=== PATIENT | male | born 1945 | race Caucasian/White ===

== ENCOUNTER → 2016-11-29 | Outpatient (CLI) | payer MEDICARE, OTHER ==
[2016-11-30 09:09] LABS: PROSTATE SPECIFIC ANTIGEN 2.1 ng/mL (0.0-4.0); PSA FREE 0.84 ng/mL
== END ==
LOC: OD 08:19
PROVIDERS: ATTEND Urology
DX: R97.20 Elevated prostate specific antigen [PSA] (principal)
CPT/HCPCS: 36415; 84154

== ENCOUNTER → 2018-01-10 | Outpatient (CLI) | payer MEDICARE ==
[2018-01-11 08:07] LABS: PROSTATE SPECIFIC ANTIGEN 2.1 ng/mL (0.0-4.0); PSA % FREE 42.4 (.); PSA FREE 0.89 ng/mL
== END ==
LOC: OD 07:43
PROVIDERS: ATTEND Urology
DX: N40.1 Benign prostatic hyperplasia with lower urinary tract symptoms (principal)
CPT/HCPCS: 36415; 84154

== ENCOUNTER 2020-04-30 10:28 | Outpatient (CLI) | payer OTHER, MEDICARE ==
[~2020-04-30 10:28] MED LIST: METHYLPREDNISOLONE SOD SUCC 1,000 MG in DEXTROSE 5%-WATER 100 ML IV PRN
[2020-04-30 10:42] VITALS: BP 145/87
== END 2020-04-30 12:01 | disposition home or self-care (01) ==
LOC: II 10:28 → 5TH 10:33 → II 12:01
PROVIDERS: ATTEND Internal Medicine Nephrology
DX: N05.9 Unspecified nephritic syndrome with unspecified morphologic changes (principal); N17.9 Acute kidney failure, unspecified
CPT/HCPCS: 96365; J2930; J7060

== ENCOUNTER 2020-05-01 07:56 | Outpatient (CLI) | payer MEDICARE, OTHER ==
[~2020-05-01 07:56] MED LIST changes: +ACETAMINOPHEN 325 MG TABLET PO PRN; +DIPHENHYDRAMINE HCL 50 MG in NORMAL SALINE 50 ML IV PRN; +RITUXIMAB 1,000 MG in NORMAL SALINE 500 ML IV PRN
[2020-05-01 08:06] VITALS: BP 155/72
== END 2020-05-01 14:45 | disposition home or self-care (01) ==
LOC: 5TH 07:56 → II 07:56
PROVIDERS: ATTEND Internal Medicine Nephrology
DX: N01.7 Rapidly progressive nephritic syndrome with diffuse crescentic glomerulonephritis (principal); N17.8 Other acute kidney failure; M31.8 Other specified necrotizing vasculopathies; N08 Glomerular disorders in diseases classified elsewhere
CPT/HCPCS: 96413; 96415; 96367; A9270; J1200; J2930; J7060; J7040; J9312

== ENCOUNTER 2020-05-02 09:30 | Outpatient (CLI) | payer OTHER, MEDICARE ==
[~2020-05-02 09:30] MED LIST changes: -ACETAMINOPHEN 325 MG TABLET PO PRN; -DIPHENHYDRAMINE HCL 50 MG in NORMAL SALINE 50 ML IV PRN; -RITUXIMAB 1,000 MG in NORMAL SALINE 500 ML IV PRN
[2020-05-02 10:10] VITALS: BP 128/78
== END 2020-05-02 11:15 | disposition home or self-care (01) ==
LOC: II 09:30 → 5TH 10:02 → II 11:15
PROVIDERS: ATTEND Internal Medicine Nephrology
DX: N05.9 Unspecified nephritic syndrome with unspecified morphologic changes (principal); N17.9 Acute kidney failure, unspecified
CPT/HCPCS: 96365; J2930; J7060

== ENCOUNTER 2020-05-15 08:49 | Outpatient (CLI) | payer MEDICARE, OTHER ==
[~2020-05-15 08:49] MED LIST changes: +ACETAMINOPHEN 325 MG TABLET PO PRN; +DIPHENHYDRAMINE HCL 50 MG in NORMAL SALINE 50 ML IV PRN; +DIPHENHYDRAMINE HCL 50 MG/ML VIAL IV PRN; -METHYLPREDNISOLONE SOD SUCC 1,000 MG in DEXTROSE 5%-WATER 100 ML IV PRN; +RITUXIMAB 1,000 MG in NORMAL SALINE 500 ML IV PRN
[2020-05-15 09:00] VITALS: BP 142/65
[2020-05-15] MEDS ORDERED: METHYLPREDNISOLONE INJ 125 MG/2 ML SDV IV ONE (15:00)
== END 2020-05-15 15:40 | disposition home or self-care (01) ==
LOC: II 08:49 → 5TH 09:16 → II 15:40
PROVIDERS: ATTEND Internal Medicine Nephrology
DX: N05.9 Unspecified nephritic syndrome with unspecified morphologic changes (principal); N17.9 Acute kidney failure, unspecified; N08 Glomerular disorders in diseases classified elsewhere
CPT/HCPCS: 96413; 96415; 96367; 96375; A9270; J1200; J2930; J7040; J9312

== ENCOUNTER 2020-05-30 13:27 | Inpatient (IN) | payer MEDICARE ==
[2020-05-30] MEDS ORDERED: MIDAZOLAM 2 MG/2 ML INJ IV ONE ×2 (13:42→13:53)
[2020-05-30] MEDS ORDERED: ENOXAPARIN SODIUM INJ 60 MG/0.6 ML DISP.SYRIN SUBCUT ONE (14:00)
[2020-05-30 14:05] LABS: ABSOLUTE EOSINOPHILS # (AUTO) 0.6 10^3/uL (0.0-0.6); ABSOLUTE LYMPHOCYTES (AUTO) 1.1 10^3/uL (0.5-4.7); ABSOLUTE MONOCYTES (AUTO) 0.6 10^3/uL (0.1-1.4); ABSOLUTE NEUT (AUTO) 12.2 10^3/uL (1.7-8.2); BASOPHILS % (AUTO) 0.1 % (0-2); EOSINOPHILS % (AUTO) 3.9 % (0-6); HEMATOCRIT 34.7 % (37.9-51.0); HEMOGLOBIN 11.3 g/dL (13.5-17.0); LYMPHOCYTES % (AUTO) 7.5 % (13-45); MEAN CORPUSCULAR HEMOGLOBIN 30.9 pg (27.0-33.4); MEAN CORPUSCULAR HGB CONC 32.7 g/dL (32.0-36.0); MEAN CORPUSCULAR VOLUME 94 fl (80-97); PLATELET COUNT 135 10^3/uL (150-450); RED BLOOD COUNT 3.67 10^6/uL (4.35-5.55); RED CELL DISTRIBUTION WIDTH 22.8 % (11.5-14.0); SEGMENTED NEUTROPHILS % (AUTO) 84.5 % (42-78); TOTAL CELLS COUNTED % (AUTO) 100 %; WHITE BLOOD COUNT 14.4 10^3/uL (4.0-10.5)
--- NOTE | 2020-05-30 14:07 | ER Document Report ---
ED General - General Chief Complaint: Chest Pain Stated Complaint: CHEST PAIN Time Seen by Provider: 05/30/20 13:42 TRAVEL OUTSIDE OF THE [place] IN LAST 30 DAYS: No - HPI Notes: Patient is a 75-year-old male, history of end-stage renal disease, who received dialysis this morning, who presents to the emergency department for evaluation of elevated heart rate and chest pain. He has been having elevated heart rates over the last few weeks. The patient is not a very good historian. He cannot tell me how frequently he is getting these episodes, but states it is not daily. He really cannot tell me how long these episodes last. Today he had some chest tightness and heaviness, occasionally has some left arm tingling with it. He actually has his first appointment with cardiology on Tuesday in regards to this. He states his heart rates have been as high as the 180s. When he gets chest pain with that he does feel somewhat short of breath. He had chest tightness with this earlier. EMS was called. He was given 3 doses of adenosine, a bolus of Cardizem, then started on a drip. His heart rate responded briefly then came back into the 180s. He states he does not have any chest tightness at this time. At this point patient's blood pressure starting to drop. I am concerned he is unstable. Patient notes he was started on steroids and an antibiotic recently. He really cannot tell me why. - Related Data Allergies/Adverse Reactions: sulfamethoxazole [From Bactrim] Allergy (Intermediate, Verified 05/30/20 13:58) trimethoprim [From Bactrim] Allergy (Intermediate, Verified 05/30/20 13:58) amoxicillin [From Augmentin] Allergy (Verified 05/30/20 13:58) clavulanic acid [From Augmentin] Allergy (Verified 05/30/20 13:58) Home Medications: Dapsone, prednisone, Flomax Past Medical History - General Information source: Patient - Social History Smoking Status: Former Smoker Chew tobacco use (# tins/day): Yes Family History: Reviewed & Not Pertinent - Past Medical History Cardiac Medical History: Pulmonary Medical History: Reports: Hx Sleep Apnea - cpap-to bring Neurological Medical History: Renal/ Medical History: Reports: Hx Benign Prostatic Hyperplasia, Hx End Stage Renal Disease GI Medical History: Reports: Hx Gastroesophageal Reflux Disease - on meds. D enies: Hx Pancreatitis Musculoskeletal Medical History: Reports Hx Arthritis - knees bilaterally Past Surgical History: Reports: Hx Orthopedic Surgery - right rotator cuff - Immunizations Hx Diphtheria, Pertussis, Tetanus Vaccination: No Hx Pneumococcal Vaccination: 10/21/15 Review of Systems - Review of Systems Cardiovascular: See HPI Respiratory: See HPI Neurological/Psychological: See HPI -: Yes All other systems reviewed and negative Physical Exam - Vital signs Vitals: Temp Pulse Resp BP Pulse Ox 98.6 F 181 H 20 113/69 95 05/30/20 13:58 05/30/20 13:58 05/30/20 13:58 05/30/20 13:58 05/30/20 13:58 - Notes Notes: Vital signs reviewed, please refer to chart. Head is normocephalic, atraumatic. Pupils equal round, reactive to light. Neck is supple without meningismus. Heart is markedly tachycardic. It varies from regular to irregular. Lungs are clear to auscultation bilaterally. Abdomen is soft, nontender, normoactive bowel sounds throughout. Extremities without cyanosis, clubbing. Posterior calves are nontender. Peripheral pulses are equal. Skin is warm and dry. Patient is awake, alert, neurological exam is nonfocal. Course - Re-evaluation Re-evalutation: 05/30/20 14:05 Patient presents to the emergency department for evaluation. He was initially having chest pain and rapid heart rate. He has been given multiple medications without significant relief, his heart rate remained in the 180s. Given his comorbidities and his chest tightness, as well as mildly dropping blood pressure, I do consider this unstable. Decision was made to cardiovert. Please see separate procedure note. Patient tolerated this well. He is currently in sinus rhythm. I did order Lovenox. Awaiting lab work, we will continue to mo nitor. 05/30/20 16:24 Patient remained stable throughout the course of his stay. With any sort of m ovement, however, he would go back into atrial fibrillation. Heart rate would intermittently be rapid. With rest, the patient would trend back into sinus mechanism. His heart rate would slow back into the 90s. I spoke with Dr. Gonzalez, who asks that we discussed this patient with cardiology. I spoke about this patient with Dr. Lowery, and formal consultation was made. He agreed that observation was appropriate. He states that medical management would be most appropriate, asked that the patient be started on metoprolol orally. First dose is ordered here in the emergency department. Patient is stable, we will place him on observation to [facility] for further care. - Vital Signs Vital signs: Temp Pulse Resp BP Pulse Ox 97.5 F 53 L 20 147/82 H 96 06/02/20 11:35 06/02/20 14:00 06/02/20 11:35 06/02/20 11:35 06/02/20 11:35 - Laboratory Result Diagrams: 06/02/20 04:58 06/02/20 04:58 Laboratory results interpreted by me: 05/30/20 05/30/20 05/30/20 13:48 13:48 13:48 WBC 14.4 H RBC 3.67 L Hgb 11.3 L Hct 34.7 L RDW 22.8 H Plt Count 135 L Lymph % (Auto) 7.5 L Mcnairy % (Auto) Absolute Neuts (auto) 12.2 H Seg Neutrophils % 84.5 H PT APTT 23.1 L Sodium 132.6 L BUN 36 H Creatinine 3.58 H Est GFR ( Amer) 20 L Est GFR (MDRD) Non-Af 17 L Calcium 7.2 L Phosphorus Magnesium Creatine Kinase 52 L Total Protein 6.1 L Albumin 3.1 L PTH Intact Urine Protein Urine Blood Ur Leukocyte Esterase 05/30/20 05/31/20 05/31/20 19:21 06:37 06:37 WBC RBC Hgb Hct RDW Plt Count Lymph % (Auto) Mcnairy % (Auto) Absolute Neuts (auto) Seg Neutrophils % PT APTT Sodium 133.5 L BUN 46 H Creatinine 4.63 H Est GFR ( Amer) 15 L Est GFR (MDRD) Non-Af 12 L Calcium 7.7 L Phosphorus 4.9 H Magnesium 1.5 L Creatine Kinase Total Protein 5.5 L Albumin 2.7 L PTH Intact 364.6 H Urine Protein 100 H Urine Blood MODERATE H Ur Leukocyte Esterase LARGE H 05/31/20 05/31/20 05/31/20 06:37 12:40 12:40 WBC 10.6 H 11.1 H RBC 3.26 L 3.46 L Hgb 10.0 L 10.5 L Hct 30.4 L 32.9 L RDW 22.6 H 22.9 H Plt Count 128 L 141 L Lymph % (Auto) 7.6 L Mcnairy % (Auto) 2.9 L Absolute Neuts (auto) 9.8 H Seg Neutrophils % 88.6 H PT 16.5 H APTT Sodium BUN Creatinine Est GFR ( Amer) Est GFR (MDRD) Non-Af Calcium Phosphorus Magnesium Creatine Kinase Total Protein Albumin PTH Intact Urine Protein Urine Blood Ur Leukocyte Esterase - Diagnostic Test Radiology reviewed: Reports reviewed Radiology results interpreted by me: 05/30/20 16:26 Chest X-Ray 05/30/20 13:31 IMPRESSION: The tip of the tunneled right IJ hemodialysis catheter projects within the SVC. There is no acute cardiopulmonary process. - EKG Interpretation by Me Additional EKG results interpreted by me: 05/30/20 14:08 Initial EKG reveals SVT with a rate of 182 bpm. Normal axis. Inferolateral ST depression, likely secondary to rate. Repeat EKG performed after cardioversion. Sinus tachycardia with a rate of 111 bpm. Occasional PVC, PAC. Nonspecific ST changes, but no acute ST elevation concerning for infarction. Improved ST depression. Procedures - Additional Procedures Cardioversion/Defib Time performed: 14:00 Additional Procedures: Cardioversion/defib Notes: 05/30/20 14:07 Indication for procedure: Rapid atrial fibrillation/SVT in the presence of chest pain and dropping blood pressure The procedure was explained in great detail. I explained to the patient he would be receiving IV Versed for sedation, then have a cardioversion. Complications, including but not limited to respiratory arrest, cardiac arrest, pain, were expressed. Alternatives were discussed. The patient voiced understanding. Written consent was not obtained secondary to medical urgency. Patient had no questions and verbally consented to the procedure. He was administered 2 mg of IV Versed. Once adequate analgesia was achieved, patient had synchronized cardioversion at 100 J. Patient had a heart rate that went from 180 into the 110 range. Sinus mechanism. He is currently stable. No complications. Critical Care Note - Critical Care Note Total time excluding time spent on procedures (mins): 45 Discharge - Discharge Clinical Impression: Chest pain, SVT (supraventricular tachycardia), Paroxysmal atrial fibrillation Condition: Stable Disposition: ADMITTED OBSERVATION Admitting Provider: Carlos (Hospitalist) Unit Admitted: [facility]
[2020-05-30 14:21] LABS: ALBUMIN 3.1 g/dL (3.5-5.0); ALKALINE PHOSPHATASE 59 U/L (38-126); ANION GAP 7 (5-19); ASPARTATE AMINO TRANSFERASE 31 U/L (17-59); BILIRUBIN,DIRECT 0.1 mg/dL (0.0-0.4); BILIRUBIN,TOTAL 0.9 mg/dL (0.2-1.3); BLOOD UREA NITROGEN 36 mg/dL (7-20); CALCIUM 7.2 mg/dL (8.4-10.2); CARBON DIOXIDE 25 mmol/L (22-30); CHLORIDE 101 mmol/L (98-107); CREATINE KINASE 52 U/L (55-170); GLUCOSE 78 mg/dL (75-110); POTASSIUM 4.3 mmol/L (3.6-5.0); TOTAL PROTEIN 6.1 g/dL (6.3-8.2)
[2020-05-30 14:26] LABS: INTERNATIONAL RATION (INR) 0.97; PROTHROMBIN TIME 12.9 SEC (11.4-15.4)
[2020-05-30 14:27] LABS: PARTIAL THROMBOPLASTIN TIME 23.1 SEC (23.5-35.8)
--- NOTE | 2020-05-30 14:28 | RADIOLOGY REPORT (SQ) ---
EXAM DESCRIPTION: CHEST SINGLE VIEW IMAGES COMPLETED DATE/TIME: 05/30/2020 2:17 pm REASON FOR STUDY: chest pain COMPARISON: AP view of the chest from 07/16/2016. EXAM PARAMETERS: NUMBER OF VIEWS: One view. TECHNIQUE: An AP view of the chest was obtained. RADIATION DOSE: NA LIMITATIONS: None. FINDINGS: LUNGS AND PLEURA: No consolidation, pleural effusion or pneumothorax. MEDIASTINUM AND HILAR STRUCTURES: No mediastinal or hilar contour abnormality. HEART AND VASCULAR STRUCTURES: The cardiac silhouette and pulmonary vasculature are within normal willett its. BONES: No acute findings. HARDWARE: The tip of the tunneled right IJ hemodialysis catheter projects within the SVC. OTHER: No other finding. IMPRESSION: The tip of the tunneled right IJ hemodialysis catheter projects within the SVC. There i s no acute cardiopulmonary process. TECHNICAL DOCUMENTATION: JOB ID: [id number] 2010 [employer]- All Rights Reserved Reading location - IP/workstation name: [email or web address]
[2020-05-30 14:33] LABS: CREATINE KINASE MB 3.47 ng/mL (<4.55)
[2020-05-30 14:36] LABS: TROPONIN I 0.204 ng/mL
[2020-05-30] MEDS ORDERED: METOPROLOL TARTRATE 25 MG TABLET PO ONE (16:23)
[2020-05-30] MEDS ORDERED: ONDANSETRON HCL INJ/PF 4 MG/2 ML SDV IV PRN (18:05)
[2020-05-30] MEDS ORDERED: ACETAMINOPHEN 325 MG TABLET PO PRN (18:05)
[2020-05-30] MEDS ORDERED: MAG HYDROX/AL HYDROX/SIMETH SUSP 30 ML UDCUP PO PRN (18:05)
[2020-05-30] MEDS ORDERED: CALCIUM GLUCONATE 1000 MG/10 ML INJ IV ONE (18:20)
--- NOTE | 2020-05-30 18:35 | EKG REPORT ---
SEVERITY:- ABNORMAL ECG - SINUS TACHYCARDIA VENTRICULAR TRIGEMINY NONSPECIFIC REPOL ABNORMALITY, DIFFUSE LEADS : Confirmed by: James Alvarez MD 30-May-2020 18:34:38
--- NOTE | 2020-05-30 18:36 | EKG REPORT ---
SEVERITY:- ABNORMAL ECG - SUPRAVENTRICULAR TACHYCARDIA = A FLUTTER WITH RVR ST DEPRESSION, PROBABLY RATE RELATED : Confirmed by: James Alvarez MD 30-May-2020 18:35:45
--- NOTE | 2020-05-30 18:51 | PDOC H&P ---
History of Present Illness Admission Date/PCP: 05/30/20 17:08 EDIN GRACE MD Patient complains of: palpitations and chest pain History of Present Illness: MARJAN SANTIZO is a 75 year old male with recent hx of ESRD just started on HD via permacath 2 months ago, presents to the hospital with palpitations and chest pain. His symptoms started while he was at dialysis. He received a full session of dialysis during which his heart rate was bouncing between 80s and 180s. He denies any fevers chills. After dialysis, his heart rate stayed persistently in the 180s and he developed chest pain some shortness of breath. EMS was called who administered adenosine about 2-3 times in the field without improvement of patient's heart rate. He was subsequently given Cardizem and placed on a Cardizem drip. On arrival in the ER, patient's heart rate was still in the 180s in SVT and he had to be cardioverted. After cardioversion his heart rate to has been maintaining normal sinus rhythm but occasionally bounces back up into the 130s briefly comes back down. Patient's chest pain at this time has resolved. Patient states that these episodes of tachycardia have been occurring only since he started dialysis. Denies any prior history of atrial fibrillation or heart disease. Past Medical History Cardiac Medical History: Reports: None Pulmonary Medical History: Reports: Sleep Apnea - cpap-to bring Neurological Medical History: Renal/ Medical History: Reports: End Stage Renal Disease GI Medical History: Reports: Gastroesophageal Reflux Disease - on meds Musculoskeltal Medical History: Reports: Arthritis - knees bilaterally Hematology: Past Surgical History Past Surgical History: Reports: Orthopedic Surgery - right rotator cuff Social History Information Source: Patient Smoking Status: Former Smoker Frequency of Alcohol Use: None Hx Recreational Drug Use: No Drugs: None Hx Prescription Drug Abuse: No - Advance Directive Resuscitation Status: Full Code Family History Family History: Hypertension Parental Family History Reviewed: Yes Children Family History Reviewed: Unknown Sibling(s) Family History Reviewed.: Unknown Medication/Allergy Home Medications: Omeprazole [Prilosec] 20 mg PO DAILY 01/20/16 Dapsone [Dapsone 25 mg Tablet] 50 mg PO BID 05/30/20 Prednisone [Deltasone 20 mg Tablet] 60 mg PO DAILY 05/30/20 Tamsulosin HCl [Flomax 0.4 mg Cap.sr] 0.4 mg PO QPM 05/30/20 Allergies/Adverse Reactions: sulfamethoxazole [From Bactrim] Allergy (Intermediate, Verified 05/30/20 13:58) trimethoprim [From Bactrim] Allergy (Intermediate, Verified 05/30/20 13:58) amoxicillin [From Augmentin] Allergy (Verified 05/30/20 13:58) clavulanic acid [From Augmentin] Allergy (Verified 05/30/20 13:58) Review of Systems Constitutional: ABSENT: chills, fever(s) Eyes: ABSENT: visual disturbances Nose, Mouth, and Throat: ABSENT: headache(s) Cardiovascular: PRESENT: as per HPI. ABSENT: orthropnea Respiratory: PRESENT: dyspnea. ABSENT: cough Gastrointestinal: ABSENT: abdominal pain, nausea, vomiting Genitourinary: ABSENT: dysuria Integumentary: ABSENT: diaphoresis Neurological: ABSENT: confusion Psychiatric: ABSENT: anxiety Endocrine: ABSENT: polyuria Physical Exam Vital Signs: Temp Pulse Resp BP Pulse Ox 98.6 F 181 H 14 117/72 94 05/30/20 13:58 05/30/20 13:58 05/30/20 15:01 05/30/20 15:00 05/30/20 15:01 Intake & Output 05/29/20 05/30/20 05/31/20 06:59 06:59 06:59 Weight 94.5 kg General appearance: PRESENT: no acute distress, cooperative Head exam: PRESENT: normocephalic Mouth exam: PRESENT: neck supple Neck exam: ABSENT: JVD Respiratory exam: PRESENT: clear to auscultation taiwo, symmetrical, unlabored. A BSENT: tachypnea, wheezes Cardiovascular exam: PRESENT: irregular rhythm, rubs, +S2. ABSENT: systolic murmur, tachycardia GI/Abdominal exam: PRESENT: soft. ABSENT: rebound, rigid, tenderness Extremities exam: ABSENT: calf tenderness Neurological exam: PRESENT: alert, awake, oriented to person, oriented to place, oriented to time Psychiatric exam: ABSENT: agitated, anxious Skin exam: ABSENT: jaundice Results Laboratory Results: 05/30/20 13:48 05/30/20 13:48 05/30/20 05/30/20 13:48 13:48 WBC 14.4 H RBC 3.67 L Hgb 11.3 L Hct 34.7 L MCV 94 MCH 30.9 MCHC 32.7 RDW 22.8 H Plt Count 135 L Seg Neutrophils % 84.5 H Sodium 132.6 L Potassium 4.3 Chloride 101 Carbon Dioxide 25 Anion Gap 7 BUN 36 H Creatinine 3.58 H Est GFR ( Amer) 20 L Glucose 78 Calcium 7.2 L Total Bilirubin 0.9 AST 31 Alkaline Phosphatase 59 Total Protein 6.1 L Albumin 3.1 L 05/30/20 05/30/20 13:48 13:48 Creatine Kinase 52 L CK-MB (CK-2) 3.47 Troponin I 0.204 Impressions: Chest X-Ray 05/30/20 13:31 IMPRESSION: The tip of the tunneled right IJ hemodialysis catheter projects within the SVC. There is no acute cardiopulmonary process. Assessment and Plan - Diagnosis (1) SVT (supraventricular tachycardia) Is this a current diagnosis for this admission?: Yes Plan: EKG of events shows SVT in the 180s. Patient was cardioverted in the ER following failure of rate control with Cardizem, and adenosine boluses. EKG following cardioversion showed normal sinus rhythm but with very frequent PACs. Patient stated intermittent episodes of palpitations occurred since initiation of dialysis within the past 2 months. Electrolytes only remarkable for mild hypocalcemia with corrected calcium of 7.8--Will replete calcium Check magnesium and CMP in the morning. Check TSH. Check echo. As patient was cardioverted, I will place patient on Eliquis for short-term. Lopressor 50 mg every 12. IV Lopressor as needed. I have reviewed chest x-ray image and it appears to me that patient's permacath tip is somewhere between the edge of the SVC and the very beginning of the right atrium. I seriously wonder if this may be playing a contributory role in provoking patient's frequent PACs. I will discuss with surgery in the morning about potentially replacing his permacath with a shorter tube. (2) Chest pain Is this a current diagnosis for this admission?: Yes Plan: Likely secondary to patient's tachycardia. Currently resolved. EKG does not seem to show any overt ischemic changes. Repeat troponin level pending. (3) ESRD (end stage renal disease) on dialysis Is this a current diagnosis for this admission?: Yes Plan: Recently started on dialysis within the past 2 months. Gets dialyzed via permac ath. Tuesday. Received full session of dialysis today. Dialysis diet. (4) Hypocalcemia Is this a current diagnosis for this admission?: Yes Plan: Corrected calcium is 7.8. Give a dose of calcium gluconate now. Check levels in the morning. Likely secondary to ESRD. Will check PTH and vitamin D levels as well. May benefit from calcitriol. (5) Elevated troponin Is this a current diagnosis for this admission?: Yes Plan: Likely secondary to patient's ESRD and/or tachyarrhythmia. Will monitor. Repeat level pending. (6) Leukocytosis Is this a current diagnosis for this admission?: Yes Plan: Patient's does not seem to have any complaints indicative of any particular infection. Chest x-ray negative for infection. Check urinalysis and urine culture. I will repeat CBC in the morning to see if resolution. Leukocytosis could be stress-induced. - Time Time Spent with patient: 35 or more minutes
[2020-05-30] MEDS ORDERED: METOPROLOL TARTRATE PF/INJ 5 MG/5 ML SDV IV PRN (19:34)
--- NOTE | 2020-05-30 19:51 | XCELERA REPORT ---
[address] [address] Transthoracic Echocardiogram Report Name: MARJAN SANTIZO Age: 75 yrs Gender: Male : 1945 Patient Status: Inpatient Patient Location: [address] Study Date: 05/30/2020 06:42 PM Height: 72 in Weight: 208 lb BSA: 2.2 m2 Procedure: A complete two-dimensional transthoracic echocardiogram was performed (2D, M-mode, spectral and color flow Doppler). The study was technically limited with all images being suboptimal in quality. Images from the parasternal window were difficult to obtain and are suboptimal in quality. Reason For Study: Supraventricular tachycardia (Sebastián to read) Ordering Physician: REYNA CUADRA Performed By: Gabrielle Stoddard Interpretation Summary Technically limited study. The left ventricle is grossly normal size. Left ventricular systolic function is normal. The Ejection Fraction estimate is 55-60%. Normal diastolic function. Regional wall motion abnormalities cannot be excluded due to limited visualization. Mild MAC without stenosis. Trace to mild MR, trace TR, mild PI. MMode/2D Measurements & Calculations RVDd: 3.2 cm LVIDd: 5.1 cm FS: 32.1 % Ao root diam: 3.6 cm IVSd: 1.0 cm LVIDs: 3.5 cm EDV(Teich): 124.4 ml Ao root area: 10.4 cm2 LVPWd: 0.95 cm ESV(Teich): 49.9 ml LA dimension: 3.1 cm EF(Teich): 59.9 % Doppler Measurements & Calculations MV E max bautista: MV P1/2t max bautista: Ao V2 max: LV V1 max P.6 cm/sec 78.9 cm/sec 104.4 cm/sec 2.8 mmHg MV A max bautista: MV P1/2t: 64.4 msec Ao max P.4 mmHg LV V1 max: 43.5 cm/sec MVA(P1/2t): 3.4 cm2 83.3 cm/sec MV E/A: 1.6 MV dec slope: 358.9 cm/sec2 MV dec time: 0.20 sec PA V2 max: PI end-d bautista: MV P1/2t-pr_phl: 72.8 cm/sec 167.2 cm/sec 64.4 msec PA max P.1 mmHg Left Ventricle The left ventricle is grossly normal size. Left ventricular systolic function is normal. The Ejection Fraction estimate is 55-60%. Doppler measurements suggest normal left ventricular diastolic function. Regional wall motion abnormalities cannot be excluded due to limited visualization. Right Ventricle The right ventricle is grossly normal size. The right ventricular systolic function is normal. Atria The right atrium is normal. The left atrial size is normal. The interatrial septum is difficult to see, but appears to be grossly normal. Mitral Valve There is mild mitral leaflet calcification. There is no evidence of mitral valve prolapse. There is no mitral valve stenosis. There is a trace to mild amount of mitral regurgitation. Aortic Valve The aortic valve is grossly normal. There is no aortic valve stenosis. No aortic regurgitation is present. Tricuspid Valve The tricuspid valve is not well visualized, but is grossly normal. There is no tricuspid valve prolapse. There is no tricuspid stenosis. There is a trace amount of tricuspid regurgitation. Pulmonic Valve The pulmonic valve is not well seen, but is grossly normal. There is no pulmonic valvular stenosis. There is a mild amount of pulmonic regurgitation. Effusions There is no pericardial effusion. There is no pleural effusion. : REYNA CUADRA Antonio
[2020-05-30 21:04] LABS: APPEARANCE,URINE SLIGHTLY-CLOUDY; BILIRUBIN,URINE NEGATIVE (NEGATIVE); COLOR,URINE YELLOW; GLUCOSE, URINE NEGATIVE (NEGATIVE); KETONES,URINE NEGATIVE (NEGATIVE); LEUKOCYTE ESTERASE,URINE LARGE (NEGATIVE); NITRITE,URINE NEGATIVE (NEGATIVE); PROTEIN,URINE 100 mg/dL (NEGATIVE); URINE SPECIFIC GRAVITY 1.008; UROBILINOGEN,URINE NEGATIVE mg/dL (<2.0)
[2020-05-30] MEDS: FAMOTIDINE INJ/PF 20 MG/2 ML SDV IV SCH (23:02)
[2020-05-30] MEDS: APIXABAN 5 MG TABLET PO SCH (23:02)
[2020-05-30] MEDS: METOPROLOL TARTRATE 50 MG TABLET PO SCH (23:02)
[2020-05-31 06:51] LABS: HEMATOCRIT 30.4 % (37.9-51.0); MEAN CORPUSCULAR HEMOGLOBIN 30.6 pg (27.0-33.4); MEAN CORPUSCULAR HGB CONC 32.7 g/dL (32.0-36.0); MEAN CORPUSCULAR VOLUME 93 fl (80-97); PLATELET COUNT 128 10^3/uL (150-450); RED BLOOD COUNT 3.26 10^6/uL (4.35-5.55); RED CELL DISTRIBUTION WIDTH 22.6 % (11.5-14.0); WHITE BLOOD COUNT 10.6 10^3/uL (4.0-10.5)
[2020-05-31 07:12] LABS: ALBUMIN 2.7 g/dL (3.5-5.0); ALKALINE PHOSPHATASE 52 U/L (38-126); ANION GAP 8 (5-19); ASPARTATE AMINO TRANSFERASE 26 U/L (17-59); BILIRUBIN,TOTAL 0.7 mg/dL (0.2-1.3); BLOOD UREA NITROGEN 46 mg/dL (7-20); CALCIUM 7.7 mg/dL (8.4-10.2); CARBON DIOXIDE 23 mmol/L (22-30); CHLORIDE 103 mmol/L (98-107); GLUCOSE 88 mg/dL (75-110); PHOSPHORUS 4.9 mg/dL (2.5-4.5); POTASSIUM 4.7 mmol/L (3.6-5.0); TOTAL PROTEIN 5.5 g/dL (6.3-8.2)
[2020-05-31 07:38] LABS: FREE T4 (FREE THYROXINE) 0.8 ng/dL (0.78-2.19)
[2020-05-31 07:53] LABS: THYROID STIMULATING HORMONE 2.63 uIU/mL (0.47-4.68)
[2020-05-31] MEDS ORDERED: MAGNESIUM OXIDE 400 MG TABLET PO ONE (08:29)
--- NOTE | 2020-05-31 08:50 | PDOC CONSULTATION ---
Consultation Consult Date: 05/31/20 Attending physician:: REYNA CUADRA Provider Consulted: JILLIAN SUERO Consult reason:: Chest pain, SVT. History of Present Illness Admission Date/PCP: 05/30/20 17:08 EDIN GRACE MD History of Present Illness: MARJAN SANTIZO is a 75 year old male with recent hx of ESRD on dialysis 2 months ago, no known cardiovascular history, remote tobacco use but the patient quit more than 25 years ago who is consulted to our service for evaluation of SVT and atrial fibrillation. The patient initially presented to the emergency room with palpitations and chest pain while receiving dialysis. During dialysis it was noted that his heart rate was bouncing between 80s and 180s. After dialysis, his heart rate stayed persistently in the 180s and he developed chest pain some shortness of breath. EMS was called who administered adenosine about 2-3 times in the field without improvement of patient's heart rate. He was subsequently given Cardizem and placed on a Cardizem drip. On arrival in the ER, patient's heart rate was still in the 180s in SVT and he had to be cardioverted. This morning the patient is found laying flat in his bed and without recurrence of index symptoms. His telemetry shows normal sinus rhythm with brief episodes of SVT. His troponin had been 0.20, 0.52 and 0.439. Physical exam on 05/31/2020: GENERAL: Pleasant and conversational. Oriented x3 with normal mood. Not in acute distress. Well groomed and well developed. HEENT: Normocephalic, atraumatic. Pupils equal. Sclerae anicteric. Orophary nx moist. NECK: No JVD. No carotid bruits. LUNGS: Clear to auscultation bilaterally. Normal respiratory effort without the use of accessory muscles or intercostal retractions. CARDIOVASCULAR: Regular rate and rhythm, normal S1 and S2 without murmurs, rubs, or gallops. PMI not displaced. ABDOMEN: No masses or tenderness to palpation. No bruit. No splenomegaly or hepatomegaly. No abdominal aorta bruit noted. EXTREMITIES: No edema, no cyanosis, no clubbing. +2 pulses femoral and pedal pulses bilaterally. SKIN: No lesions or rashes. MUSCULOSKELETAL: No chest tenderness to palpation. NEUROLOGIC: Nonfocal. No gross sensory or motor deficits bilateral upper or lower extremities. Past Medical History Cardiac Medical History: Reports: None Pulmonary Medical History: Reports: Sleep Apnea - cpap-to bring Neurological Medical History: Renal/ Medical History: Reports: End Stage Renal Disease GI Medical History: Reports: Gastroesophageal Reflux Disease - on meds Musculoskeltal Medical History: Reports: Arthritis - knees bilaterally Psychiatric Medical History: Denies: Depression Hematology: Past Surgical History Past Surgical History: Reports: Orthopedic Surgery - right rotator cuff Social History Smoking Status: Never Smoker Frequency of Alcohol Use: None Hx Recreational Drug Use: No Drugs: None Hx Prescription Drug Abuse: No - Advance Directive Resuscitation Status: Full Code Family History Family History: Hypertension Parental Family History Reviewed: Yes Children Family History Reviewed: Yes Sibling(s) Family History Reviewed.: Yes Medication/Allergy Home Medications: Omeprazole [Prilosec] 20 mg PO DAILY 01/20/16 Dapsone [Dapsone 25 mg Tablet] 50 mg PO BID 05/30/20 Prednisone [Deltasone 20 mg Tablet] 60 mg PO DAILY 05/30/20 Tamsulosin HCl [Flomax 0.4 mg Cap.sr] 0.4 mg PO QPM 05/30/20 Allergies/Adverse Reactions: sulfamethoxazole [From Bactrim] Allergy (Intermediate, Verified 05/30/20 13:58) trimethoprim [From Bactrim] Allergy (Intermediate, Verified 05/30/20 13:58) amoxicillin [From Augmentin] Allergy (Verified 05/30/20 13:58) clavulanic acid [From Augmentin] Allergy (Verified 05/30/20 13:58) Physical Exam Vital Signs: Temp Pulse Resp BP Pulse Ox 99.0 F 89 16 127/78 H 93 05/31/20 04:12 05/31/20 04:12 05/31/20 04:12 05/31/20 04:12 05/31/20 04:12 Intake & Output 05/29/20 05/30/20 05/31/20 06:59 06:59 06:59 Intake Total 260 Output Total 360 Balance -100 Weight 88.8 kg Results Laboratory Results: 05/31/20 06:37 05/30/20 05/30/20 05/30/20 13:48 13:48 19:21 WBC 14.4 H RBC 3.67 L Hgb 11.3 L Hct 34.7 L MCV 94 MCH 30.9 MCHC 32.7 RDW 22.8 H Plt Count 135 L Seg Neutrophils % 84.5 H Sodium 132.6 L Potassium 4.3 Chloride 101 Carbon Dioxide 25 Anion Gap 7 BUN 36 H Creatinine 3.58 H Est GFR ( Amer) 20 L Glucose 78 Calcium 7.2 L Total Bilirubin 0.9 AST 31 Alkaline Phosphatase 59 Total Protein 6.1 L Albumin 3.1 L Urine Color YELLOW Urine Appearance SLIGHTLY-CLOUDY Urine pH 7.0 Ur Specific [place] 1.008 Urine Protein 100 H Urine Glucose (UA) NEGATIVE Urine Ketones NEGATIVE Urine Blood MODERATE H Urine Nitrite NEGATIVE Ur Leukocyte Esterase LARGE H Urine WBC (Auto) >182 Urine RBC (Auto) 10 05/31/20 06:37 WBC 10.6 H RBC 3.26 L Hgb 10.0 L Hct 30.4 L MCV 93 MCH 30.6 MCHC 32.7 RDW 22.6 H Plt Count 128 L Seg Neutrophils % Sodium Potassium Chloride Carbon Dioxide Anion Gap BUN Creatinine Est GFR ( Amer) Glucose Calcium Total Bilirubin AST Alkaline Phosphatase Total Protein Albumin Urine Color Urine Appearance Urine pH Ur Specific [place] Urine Protein Urine Glucose (UA) Urine Ketones Urine Blood Urine Nitrite Ur Leukocyte Esterase Urine WBC (Auto) Urine RBC (Auto) 05/30/20 05/30/20 05/30/20 13:48 13:48 18:00 Creatine Kinase 52 L CK-MB (CK-2) 3.47 Troponin I 0.204 0.520 05/30/20 23:52 Creatine Kinase CK-MB (CK-2) Troponin I 0.439 Impressions: Chest X-Ray 05/30/20 13:31 IMPRESSION: The tip of the tunneled right IJ hemodialysis catheter projects within the SVC. There is no acute cardiopulmonary process. 05/31/20 06:37 MCV 93 fl (80-97) 05/31/20 06:37 MCH 30.6 pg (27.0-33.4) 05/31/20 06:37 MCHC 32.7 g/dL (32.0-36.0) 05/31/20 06:37 RDW 22.6 % (11.5-14.0) H 05/31/20 06:37 Seg Neutrophils % 84.5 % (42-78) H 05/30/20 13:48 Chloride 101 mmol/L (98-107) 05/30/20 13:48 Carbon Dioxide 25 mmol/L (22-30) 05/30/20 13:48 Anion Gap 7 (5-19) 05/30/20 13:48 Est GFR ( Amer) 20 (>60) L 05/30/20 13:48 Glucose 78 mg/dL (75-110) 05/30/20 13:48 Calcium 7.2 mg/dL (8.4-10.2) L 05/30/20 13:48 Total Bilirubin 0.9 mg/dL (0.2-1.3) 05/30/20 13:48 AST 31 U/L (17-59) 05/30/20 13:48 Alkaline Phosphatase 59 U/L (38-126) 05/30/20 13:48 Total Protein 6.1 g/dL (6.3-8.2) L 05/30/20 13:48 Albumin 3.1 g/dL (3.5-5.0) L 05/30/20 13:48 Urine Color YELLOW 05/30/20 19:21 Urine Appearance SLIGHTLY-CLOUDY 05/30/20 19:21 Urine pH 7.0 (5.0-9.0) 05/30/20 19:21 Ur Specific [place] 1.008 05/30/20 19:21 Urine Protein 100 mg/dL (NEGATIVE) H 05/30/20 19:21 Urine Glucose (UA) NEGATIVE mg/dL (NEGATIVE) 05/30/20 19:21 Urine Ketones NEGATIVE mg/dL (NEGATIVE) 05/30/20 19:21 Urine Blood MODERATE (NEGATIVE) H 05/30/20 19:21 Urine Nitrite NEGATIVE (NEGATIVE) 05/30/20 19:21 Ur Leukocyte Esterase LARGE (NEGATIVE) H 05/30/20 19:21 Urine WBC (Auto) >182 /HPF 05/30/20 19:21 Urine RBC (Auto) 10 /HPF 05/30/20 19:21 05/30/20 05/30/20 05/30/20 13:48 13:48 18:00 Creatine Kinase 52 L CK-MB (CK-2) 3.47 Troponin I 0.204 0.520 05/30/20 23:52 Creatine Kinase CK-MB (CK-2) Troponin I 0.439 Current Medication List Generic Name Dose Route Start Last Admin Trade Name Freq PRN Reason Stop Dose Admin Acetaminophen 650 mg 05/30/20 18:05 Tylenol 325 Mg Tablet PO 06/29/20 18:04 Q4HP PRN FOR PAIN Al Hydrox/Mg Hydrox/Simethicone 30 ml 05/30/20 18:05 Maalox Plus Susp 30 Udcup PO 06/29/20 18:04 Q6HP PRN HEARTBURN Apixaban 5 mg 05/30/20 22:00 05/30/20 23:02 Eliquis 5 Mg Tablet PO 06/29/20 21:59 5 mg Q12 BARBARA Administration Famotidine 20 mg 05/30/20 22:00 05/30/20 23:02 Pepcid Inj/Pf 20 Mg/2 Ml Sdv IV 06/29/20 21:59 20 mg Q12 BARBARA Administration Metoprolol Tartrate 50 mg 05/30/20 22:00 05/30/20 23:02 Lopressor 50 Mg Tablet PO 06/29/20 21:59 50 mg Q12 BARBARA Administration Metoprolol Tartrate 5 mg 05/30/20 19:34 Lopressor Inj/Pf 5 Mg/5 Ml Sdv IV 06/29/20 19:33 Q6HP PRN GIVE FOR HR > [] Ondansetron HCl 4 mg 05/30/20 18:05 Zofran Inj/Pf 4 Mg/2 Ml Sdv IV 06/29/20 18:04 Q8HP PRN FOR NAUSEA/VOMITING Sodium Chloride 2.5 ml 05/30/20 22:00 05/31/20 06:20 Saline Flush 2.5 Ml Monoject Prefil Syrin IV 06/29/20 21:59 2.5 ml Q8 BARBARA Administration Tamsulosin HCl 0.4 mg 05/31/20 18:00 Flomax 0.4 Mg Cap.Sr PO 06/30/20 17:59 QPM BARBARA Discontinued Medications Generic Name Dose Route Start Last Admin Trade Name Freq PRN Reason Stop Dose Admin Calcium Gluconate 2,000 mg 05/30/20 18:20 05/30/20 19:15 Calcium Gluconate Inj 1000 Mg/10 Ml IV 05/30/20 18:21 2,000 mg NOW ONE Administration Enoxaparin Sodium 45 mg 05/30/20 14:00 05/30/20 14:59 Lovenox Inj 60 Mg/0.6 Ml Disp.Syrin SUBCUT 05/30/20 14:01 45 mg ONCE ONE Administration Metoprolol Tartrate 25 mg 05/30/20 16:23 05/30/20 16:47 Lopressor 25 Mg Tablet PO 05/30/20 16:24 25 mg NOW ONE Administration Midazolam HCl 2 mg 05/30/20 13:42 05/30/20 14:04 Versed 2 Mg/2 Ml Inj IV 05/30/20 13:43 2 mg NOW ONE Administration Midazolam HCl 1 mg 05/30/20 13:53 05/30/20 14:04 Versed 2 Mg/2 Ml Inj IV 05/30/20 13:54 Not Given NOW ONE Assessment & Plan - Diagnosis (1) Myocardial infarction Qualifiers: Myocardial infarction type: non-ST elevation myocardial infarction Qualified Code(s): I21.4 - Non-ST elevation (NSTEMI) myocardial infarction Is this a current diagnosis for this admission?: Yes Plan: The patient is currently asymptomatic however he did have an episode of chest pain while on dialysis followed by atrial fibrillation and SVT in the setting of cardiac risk factors of age, gender and ESRD with elevated troponins above the cutoff for myocardial infarction which are now trending down. Whether he had a type II UT from his atrial dysrhythmias and cardiac injury from cardioversion versus an acute coronary syndrome is unclear at this point however review of his chart demonstrates that his first troponin, which was taken prior to his cardioversion, was already positive therefore I do not believe cardioversion did not prompt his initial troponin elevation. Luckily enough, he has remained free of chest pain since admission. Given the fact that he has plenty of cardiac risk factors for coronary artery disease I would medically treat him for an ACS until he can undergo left heart catheterization. Recommendations: -Continue with current medical management for now. -Add baby aspirin. -Echocardiogram today. -Renally dose Lovenox. -We will continue to treat the patient medically until he can be transferred to [facility] for [facility]. (2) Paroxysmal atrial fibrillation Plan: He is currently anticoagulated with Eliquis given his chads 2 vascular score of 2 (age and myocardial infarction). His telemetry does not demonstrate recurrence of atrial fibrillation and he remains asymptomatic. Recommendations: -Continue with current medical management. (3) SVT (supraventricular tachycardia) Plan: Although he is currently asymptomatic, his telemetry demonstrated brief recurrences of SVT. Recommendations: -Daily BMPs and replace electrolytes as necessary. -Uptitrate beta-taylor in an attempt to suppress SVTs. -Plan to transfer the patient to [facility] at which time we will involve EP. (4) ESRD (end stage renal disease) on dialysis Plan: Further management per inpatient team. Recommend involvement of nephrology.
[2020-05-31] MEDS: CALCITRIOL 0.25 MCG CAPSULE PO SCH (09:31)
[2020-05-31] MEDS: APIXABAN 5 MG TABLET PO SCH (09:31)
[2020-05-31] MEDS: METOPROLOL TARTRATE 50 MG TABLET PO SCH ×2 (09:31→22:07)
[2020-05-31] MEDS: FAMOTIDINE INJ/PF 20 MG/2 ML SDV IV SCH ×2 (09:32→22:16)
--- NOTE | 2020-05-31 09:59 | EKG REPORT ---
SEVERITY:- NORMAL ECG - SINUS RHYTHM : Confirmed by: James Alvarez MD 31-May-2020 09:59:04
[2020-05-31 13:00] LABS: ABSOLUTE EOSINOPHILS # (AUTO) 0.1 10^3/uL (0.0-0.6); ABSOLUTE LYMPHOCYTES (AUTO) 0.8 10^3/uL (0.5-4.7); ABSOLUTE MONOCYTES (AUTO) 0.3 10^3/uL (0.1-1.4); ABSOLUTE NEUT (AUTO) 9.8 10^3/uL (1.7-8.2); BASOPHILS % (AUTO) 0.4 % (0-2); EOSINOPHILS % (AUTO) 0.5 % (0-6); HEMATOCRIT 32.9 % (37.9-51.0); HEMOGLOBIN 10.5 g/dL (13.5-17.0); LYMPHOCYTES % (AUTO) 7.6 % (13-45); MEAN CORPUSCULAR HEMOGLOBIN 30.4 pg (27.0-33.4); MEAN CORPUSCULAR VOLUME 95 fl (80-97); MONOCYTES % (AUTO) 2.9 % (3-13); PLATELET COUNT 141 10^3/uL (150-450); RED BLOOD COUNT 3.46 10^6/uL (4.35-5.55); RED CELL DISTRIBUTION WIDTH 22.9 % (11.5-14.0); SEGMENTED NEUTROPHILS % (AUTO) 88.6 % (42-78); TOTAL CELLS COUNTED % (AUTO) 100 %; WHITE BLOOD COUNT 11.1 10^3/uL (4.0-10.5)
[2020-05-31 13:11] LABS: INTERNATIONAL RATION (INR) 1.32; PROTHROMBIN TIME 16.5 SEC (11.4-15.4)
[2020-05-31 13:12] LABS: PARTIAL THROMBOPLASTIN TIME 27.5 SEC (23.5-35.8)
[2020-05-31] MEDS ORDERED: HEPARIN SOD (PORCINE) 1,000 UNIT/ML 10 ML VIAL IV PRN (14:23)
[2020-05-31] MEDS: PREDNISONE 20 MG TABLET PO SCH ×2 (14:37→17:29)
--- NOTE | 2020-05-31 14:41 | PDOC PROGRESS REPORT ---
Subjective Progress Note for:: 05/31/20 Subjective:: Patient is doing well today. His chest pain stays resolved. Currently his heart rhythm is regular but on review of telemetry he does seem to have had some ectopic premature atrial complexes without any tachycardia into the 120s to 130. Reason For Visit: SVT Physical Exam Vital Signs: Temp Pulse Resp BP Pulse Ox 98.0 F 79 17 138/81 H 94 05/31/20 11:36 05/31/20 11:36 05/31/20 11:36 05/31/20 11:36 05/31/20 11:36 Intake & Output 05/30/20 05/31/20 06/01/20 06:59 06:59 06:59 Intake Total 260 237 Output Total 360 300 Balance -100 -63 Weight 88.8 kg General appearance: PRESENT: no acute distress, cooperative Neck exam: ABSENT: JVD Respiratory exam: PRESENT: clear to auscultation taiwo, symmetrical, unlabored. ABSENT: tachypnea, wheezes Cardiovascular exam: PRESENT: RRR, +S1, +S2. ABSENT: tachycardia GI/Abdominal exam: PRESENT: soft. ABSENT: rebound, rigid, tenderness Neurological exam: PRESENT: alert, awake, oriented to person, oriented to place, oriented to time Psychiatric exam: ABSENT: agitated, anxious Focused psych exam: ABSENT: pressured speech Skin exam: ABSENT: jaundice Results Laboratory Results: 05/31/20 12:40 05/31/20 06:37 05/30/20 05/30/20 05/31/20 13:48 19:21 06:37 WBC RBC Hgb Hct MCV MCH MCHC RDW Plt Count Seg Neutrophils % Sodium 132.6 L 133.5 L Potassium 4.3 4.7 Chloride 101 103 Carbon Dioxide 25 23 Anion Gap 7 8 BUN 36 H 46 H Creatinine 3.58 H 4.63 H Est GFR ( Amer) 20 L 15 L Glucose 78 88 Calcium 7.2 L 7.7 L Phosphorus 4.9 H Magnesium 1.5 L Total Bilirubin 0.9 0.7 AST 31 26 Alkaline Phosphatase 59 52 Total Protein 6.1 L 5.5 L Albumin 3.1 L 2.7 L TSH Free T4 PTH Intact Urine Color YELLOW Urine Appearance SLIGHTLY-CLOUDY Urine pH 7.0 Ur Specific [place] 1.008 Urine Protein 100 H Urine Glucose (UA) NEGATIVE Urine Ketones NEGATIVE Urine Blood MODERATE H Urine Nitrite NEGATIVE Ur Leukocyte Esterase LARGE H Urine WBC (Auto) >182 Urine RBC (Auto) 10 05/31/20 05/31/20 05/31/20 06:37 06:37 06:37 WBC 10.6 H RBC 3.26 L Hgb 10.0 L Hct 30.4 L MCV 93 MCH 30.6 MCHC 32.7 RDW 22.6 H Plt Count 128 L Seg Neutrophils % Sodium Potassium Chloride Carbon Dioxide Anion Gap BUN Creatinine Est GFR ( Amer) Glucose Calcium Phosphorus Magnesium Total Bilirubin AST Alkaline Phosphatase Total Protein Albumin TSH 2.63 Free T4 0.80 PTH Intact 364.6 H Urine Color Urine Appearance Urine pH Ur Specific [place] Urine Protein Urine Glucose (UA) Urine Ketones Urine Blood Urine Nitrite Ur Leukocyte Esterase Urine WBC (Auto) Urine RBC (Auto) 05/31/20 12:40 WBC 11.1 H RBC 3.46 L Hgb 10.5 L Hct 32.9 L MCV 95 MCH 30.4 MCHC 32.0 RDW 22.9 H Plt Count 141 L Seg Neutrophils % 88.6 H Sodium Potassium Chloride Carbon Dioxide Anion Gap BUN Creatinine Est GFR ( Amer) Glucose Calcium Phosphorus Magnesium Total Bilirubin AST Alkaline Phosphatase Total Protein Albumin TSH Free T4 PTH Intact Urine Color Urine Appearance Urine pH Ur Specific [place] Urine Protein Urine Glucose (UA) Urine Ketones Urine Blood Urine Nitrite Ur Leukocyte Esterase Urine WBC (Auto) Urine RBC (Auto) 05/30/20 05/30/20 05/30/20 13:48 13:48 18:00 Creatine Kinase 52 L CK-MB (CK-2) 3.47 Troponin I 0.204 0.520 05/30/20 23:52 Creatine Kinase CK-MB (CK-2) Troponin I 0.439 Impressions: Chest X-Ray 05/30/20 13:31 IMPRESSION: The tip of the tunneled right IJ hemodialysis catheter projects within the SVC. There is no acute cardiopulmonary process. Assessment and Plan - Diagnosis (1) SVT (supraventricular tachycardia) Is this a current diagnosis for this admission?: Yes Plan: Patient was cardioverted in the ER following failure of rate control with Cardizem, and adenosine boluses. EKG following cardioversion showed normal sinus rhythm but with very frequent PACs. Patient stated intermittent episodes of palpitations occurred since initiation of dialysis within the past 2 months. Electrolytes only remarkable for mild hypocalcemia. TSH and free T4 normal. Echocardiogram shows normal ventricular function, normal size of both atria and no evidence of valvular disease. Continue Lopressor 50 mg twice a day. I have reviewed chest x-ray image and it appears to me that patient's permacath tip is somewhere between the edge of the SVC and the very beginning of the right atrium. I seriously wonder if this may be playing a contributory role in provoking patient's frequent PACs. I have discussed this with surgery via telephone who states that unfortunately permacath cannot be retracted and would have to remove current permacath and replace it I will wait to see if medical therapy is sufficient or if any further action is to be done. (2) NSTEMI (non-ST elevated myocardial infarction) Is this a current diagnosis for this admission?: Yes Plan: Troponin was elevated 0.2-0.5--0.4. I suspect type II NSTEMI secondary to demand perfusion mismatch due to tachyarrhythmia and more troponin leak after cardioversion. Cardiology following and recommending treatment with therapeutic anticoagulation as well as evaluation for ischemic heart disease via stress test or LHC on Tuesday. I have placed patient on low-dose heparin drip which will be for 48 hours. Monitor PTTs. Started on aspirin. Echocardiogram shows normal EF and normal diastolic function as well as no overt wall motion abnormalities but quality is limited due to technique. (3) Chest pain Is this a current diagnosis for this admission?: Yes Plan: Likely secondary to patient's tachycardia. Currently resolved. (4) ESRD (end stage renal disease) on dialysis Is this a current diagnosis for this admission?: Yes Plan: Recently started on dialysis within the past 2 months. Gets dialyzed via pe rmacath. Tuesday. Received full session of dialysis Tuesday. Dialysis diet. (5) Hypocalcemia Is this a current diagnosis for this admission?: Yes Plan: Corrected calcium today is normal. Hypocalcemia is likely secondary to ESRD. Intact PTH elevated and vitamin D 25 is normal. Will start patient on calcitriol. (6) Leukocytosis Is this a current diagnosis for this admission?: Yes Plan: Patient's does not seem to have any complaints indicative of any particular infection. Chest x-ray negative for infection. Has no urinary complaints. C ould be secondary to chronic steroid use. Will monitor CBC. (7) Chronic steroid use Is this a current diagnosis for this admission?: Yes Plan: Patient's is notably on prednisone 20 mg 3 times daily as well as dapsone. Patient unfortunately does not know why he is on these medications but just tells me that this is what he is prescribed. I will continue his medications. I suspect patient may have some autoimmune/rheumatologic condition which may have also accounted for his renal failure. - Time Time Spent with patient: Less than 15 minutes
[2020-05-31] MEDS: HEPARIN SODIUM,PORCINE/D5W 25,000 UNIT/250 ML RTUINJ IV PRN (14:43)
[2020-05-31] MEDS ORDERED: LOPERAMIDE HCL 2 MG CAPSULE PO PRN (14:59)
[2020-05-31] MEDS: DAPSONE 25 MG TABLET PO SCH (17:29)
[2020-05-31] MEDS: TAMSULOSIN HCL 0.4 MG CAP.SR.24H PO SCH (17:29)
[2020-05-31] MEDS ORDERED: LIDOCAINE 1% INJ-PF (10 MG/ML) 30 ML SDV ONE (18:15)
[2020-05-31 18:26] LABS: APPEARANCE,URINE CLOUDY; BILIRUBIN,URINE NEGATIVE (NEGATIVE); COLOR,URINE YELLOW; GLUCOSE, URINE NEGATIVE (NEGATIVE); KETONES,URINE NEGATIVE (NEGATIVE); LEUKOCYTE ESTERASE,URINE LARGE (NEGATIVE); NITRITE,URINE NEGATIVE (NEGATIVE); PROTEIN,URINE 100 mg/dL (NEGATIVE); URINE SPECIFIC GRAVITY 1.008; UROBILINOGEN,URINE NEGATIVE mg/dL (<2.0)
[2020-05-31] MEDS ORDERED: LIDOCAINE 1% INJ-PF (10 MG/ML) 30 ML SDV INJ ONE (18:30)
--- NOTE | 2020-05-31 22:11 | PDOC CONSULTATION ---
Consultation Consult Date: 05/31/20 Provider Consulted: LAURYN WHITLEY History of Present Illness Admission Date/PCP: 05/31/20 14:17 EDIN GRACE MD Patient complains of: Palpitations History of Present Illness: MARJAN SANTIZO is a 75 year old male presenting with palpitations noted with supraventricular tachycardia requiring cardioversion. Patient has end-stage renal disease and had a PermCath placed about a month ago via a right internal jugular approach at an outside hospital. Hospitalist was concerned that the tip of the PermCath was in the right atrium and perhaps was the cause of his supraventricular tachycardia. Patient is currently in normal sinus rhythm. He is currently on heparin drip. Past Medical History Cardiac Medical History: Reports: None Pulmonary Medical History: Reports: Sleep Apnea - cpap-to bring Neurological Medical History: Renal/ Medical History: Reports: End Stage Renal Disease GI Medical History: Reports: Gastroesophageal Reflux Disease - on meds Musculoskeltal Medical History: Reports: Arthritis - knees bilaterally Psychiatric Medical History: Denies: Depression Hematology: Past Surgical History Past Surgical History: Reports: Orthopedic Surgery - right rotator cuff Social History Smoking Status: Never Smoker Frequency of Alcohol Use: None Hx Recreational Drug Use: No Drugs: None Hx Prescription Drug Abuse: No - Advance Directive Resuscitation Status: Full Code Family History Family History: Hypertension Parental Family History Reviewed: No Children Family History Reviewed: No Sibling(s) Family History Reviewed.: No Medication/Allergy Home Medications: Omeprazole [Prilosec] 20 mg PO DAILY 01/20/16 Dapsone [Dapsone 25 mg Tablet] 50 mg PO BID 05/30/20 Prednisone [Deltasone 20 mg Tablet] 60 mg PO DAILY 05/30/20 Tamsulosin HCl [Flomax 0.4 mg Cap.sr] 0.4 mg PO QPM 05/30/20 Allergies/Adverse Reactions: sulfamethoxazole [From Bactrim] Allergy (Intermediate, Verified 05/30/20 13:58) trimethoprim [From Bactrim] Allergy (Intermediate, Verified 05/30/20 13:58) amoxicillin [From Augmentin] Allergy (Verified 05/30/20 13:58) clavulanic acid [From Augmentin] Allergy (Verified 05/30/20 13:58) Physical Exam Vital Signs: Temp Pulse Resp BP Pulse Ox 98.2 F 79 16 142/77 H 94 05/31/20 19:27 05/31/20 19:27 05/31/20 19:27 05/31/20 19:27 05/31/20 19:27 Intake & Output 05/30/20 05/31/20 06/01/20 06:59 06:59 06:59 Intake Total 260 474 Output Total 360 500 Balance -100 -26 Weight 88.8 kg General appearance: PRESENT: no acute distress, cooperative Respiratory exam: PRESENT: clear to auscultation taiwo Cardiovascular exam: PRESENT: RRR Skin exam: PRESENT: other - Right internal jugular PermCath in place with exit site in the right upper chest. Palpable cuff underneath the skin. Site appears clean with no erythema. Results Laboratory Results: 05/31/20 12:40 05/31/20 06:37 05/31/20 05/31/20 05/31/20 06:37 06:37 06:37 WBC RBC Hgb Hct MCV MCH MCHC RDW Plt Count Seg Neutrophils % Sodium 133.5 L Potassium 4.7 Chloride 103 Carbon Dioxide 23 Anion Gap 8 BUN 46 H Creatinine 4.63 H Est GFR ( Amer) 15 L Glucose 88 Calcium 7.7 L Phosphorus 4.9 H Magnesium 1.5 L Total Bilirubin 0.7 AST 26 Alkaline Phosphatase 52 Total Protein 5.5 L Albumin 2.7 L TSH 2.63 Free T4 0.80 PTH Intact 364.6 H Urine Color Urine Appearance Urine pH Ur Specific [place] Urine Protein Urine Glucose (UA) Urine Ketones Urine Blood Urine Nitrite Ur Leukocyte Esterase Urine WBC (Auto) Urine RBC (Auto) 05/31/20 05/31/20 05/31/20 06:37 12:40 17:55 WBC 10.6 H 11.1 H RBC 3.26 L 3.46 L Hgb 10.0 L 10.5 L Hct 30.4 L 32.9 L MCV 93 95 MCH 30.6 30.4 MCHC 32.7 32.0 RDW 22.6 H 22.9 H Plt Count 128 L 141 L Seg Neutrophils % 88.6 H Sodium Potassium Chloride Carbon Dioxide Anion Gap BUN Creatinine Est GFR ( Amer) Glucose Calcium Phosphorus Magnesium Total Bilirubin AST Alkaline Phosphatase Total Protein Albumin TSH Free T4 PTH Intact Urine Color YELLOW Urine Appearance CLOUDY Urine pH 7.0 Ur Specific [place] 1.008 Urine Protein 100 H Urine Glucose (UA) NEGATIVE Urine Ketones NEGATIVE Urine Blood LARGE H Urine Nitrite NEGATIVE Ur Leukocyte Esterase LARGE H Urine WBC (Auto) 134 Urine RBC (Auto) 60 05/30/20 05/30/20 05/30/20 13:48 13:48 18:00 Creatine Kinase 52 L CK-MB (CK-2) 3.47 Troponin I 0.204 0.520 05/30/20 23:52 Creatine Kinase CK-MB (CK-2) Troponin I 0.439 Impressions: Chest X-Ray 05/30/20 13:31 IMPRESSION: The tip of the tunneled right IJ hemodialysis catheter projects within the SVC. There is no acute cardiopulmonary process. Assessment & Plan - Diagnosis (1) Supraventricular tachycardia Is this a current diagnosis for this admission?: Yes Plan: Of unknown etiology. I have reviewed the chest x-ray and the tip appears to be at the superior vena cava right atrial junction however I cannot exclude that it may be just in the right atrium. The catheter tip location of the permacath appears to be within the normal parameters for catheter placement however primary care physician along with cardiology feels that the position of the tip of the catheter may be the cause of his supraventricular tachycardia. They request pulling the catheter back; however, with a cuffed catheter with a well- formed track and incorporated cuff this many weeks after procedure, I cannot significantly changed the tip position without dissecting the cuff and pulling the cuff out of the skin access site and risk infecting the catheter. Patient is on a heparin drip and I do not want to remove the catheter while he is on that the heparin drip. I was unable to reach his primary care physician concerning whether I can stop the heparin drip. I will attempt to reach him again tomorrow. Since the patient does not need dialysis until Tuesday and he is not having active dysrhythmias currently, the most prudent measure would be to hold his heparin Tuesday night for the catheter removal and placement of a new PermCath Tuesday.
--- NOTE | 2020-06-01 08:23 | PDOC PROGRESS REPORT ---
Subjective Progress Note for:: 06/01/20 Subjective:: MARJAN SANTIZO is a 75 year old male with recent hx of ESRD on dialysis 2 months ago, no known cardiovascular history, remote tobacco use but the patient quit more than 25 years ago who is consulted to our service for evaluation of SVT and atrial fibrillation. The patient initially presented to the emergency room with palpitations and chest pain while receiving dialysis. During dialysis it was noted that his heart rate was bouncing between 80s and 180s. After dialysis, his heart rate stayed persistently in the 180s and he developed chest pain some shortness of breath. EMS was called who administered adenosine about 2-3 times in the field without improvement of patient's heart rate. He was subsequently given Cardizem and placed on a Cardizem drip. On arrival in the ER, patient's heart rate was still in the 180s in SVT and he had to be cardioverted. This morning the patient is found laying flat in his bed and without recurrence of index symptoms. His telemetry shows normal sinus rhythm with brief episodes of SVT. His troponin had been 0.20, 0.52 and 0.439. 06/01/2020: The patient feels well this morning and denies recurrence of ischemic symptoms as well as palpitations. Upon further questioning, his chest pain during dialysis was described as a pressure across his chest with radiation to the left arm and associated with shortness of breath. This was followed by palpitations and racing heart as described above. Since admission he has remained essentially asymptomatic. Of note, it was noted that the tip of his permacath is protruding slightly into the right atrium therefore the decision has been made to remove the catheter tomorrow with implantation of a new one at which time the patient will receive dialysis. Physical exam on 06/01/2020: GENERAL: Pleasant and conversational. Oriented x3 with normal mood. Not in acute distress. Well groomed and well developed. HEENT: Normocephalic, atraumatic. Pupils equal. Sclerae anicteric. Oropharynx moist. NECK: No JVD. No carotid bruits. LUNGS: Clear to auscultation bilaterally. Normal respiratory effort without the use of accessory muscles or intercostal retractions. CARDIOVASCULAR: Regular rate and rhythm, normal S1 and S2 without murmurs, rubs, or gallops. PMI not displaced. ABDOMEN: No masses or tenderness to palpation. No bruit. No splenomegaly or h epatomegaly. No abdominal aorta bruit noted. EXTREMITIES: No edema, no cyanosis, no clubbing. +2 pulses femoral and pedal pulses bilaterally. SKIN: No lesions or rashes. MUSCULOSKELETAL: No chest tenderness to palpation. NEUROLOGIC: Nonfocal. No gross sensory or motor deficits bilateral upper or lower extremities. Reason For Visit: NSTEMI Physical Exam Vital Signs: Temp Pulse Resp BP Pulse Ox 98.1 F 58 L 16 132/79 H 95 06/01/20 04:01 06/01/20 04:01 06/01/20 04:01 06/01/20 04:01 06/01/20 04:01 Intake & Output 05/30/20 05/31/20 06/01/20 06:59 06:59 06:59 Intake Total 260 674 Output Total 360 1025 Balance -100 -351 Weight 88.8 kg 87.3 kg Results Laboratory Results: 05/31/20 12:40 05/31/20 06:37 05/31/20 05/31/20 05/31/20 06:37 06:37 06:37 WBC RBC Hgb Hct MCV MCH MCHC RDW Plt Count Seg Neutrophils % Sodium 133.5 L Potassium 4.7 Chloride 103 Carbon Dioxide 23 Anion Gap 8 BUN 46 H Creatinine 4.63 H Est GFR ( Amer) 15 L Glucose 88 Calcium 7.7 L Phosphorus 4.9 H Magnesium 1.5 L Total Bilirubin 0.7 AST 26 Alkaline Phosphatase 52 Total Protein 5.5 L Albumin 2.7 L TSH 2.63 Free T4 0.80 PTH Intact 364.6 H Urine Color Urine Appearance Urine pH Ur Specific [place] Urine Protein Urine Glucose (UA) Urine Ketones Urine Blood Urine Nitrite Ur Leukocyte Esterase Urine WBC (Auto) Urine RBC (Auto) 05/31/20 05/31/20 05/31/20 06:37 12:40 17:55 WBC 10.6 H 11.1 H RBC 3.26 L 3.46 L Hgb 10.0 L 10.5 L Hct 30.4 L 32.9 L MCV 93 95 MCH 30.6 30.4 MCHC 32.7 32.0 RDW 22.6 H 22.9 H Plt Count 128 L 141 L Seg Neutrophils % 88.6 H Sodium Potassium Chloride Carbon Dioxide Anion Gap BUN Creatinine Est GFR ( Amer) Glucose Calcium Phosphorus Magnesium Total Bilirubin AST Alkaline Phosphatase Total Protein Albumin TSH Free T4 PTH Intact Urine Color YELLOW Urine Appearance CLOUDY Urine pH 7.0 Ur Specific [place] 1.008 Urine Protein 100 H Urine Glucose (UA) NEGATIVE Urine Ketones NEGATIVE Urine Blood LARGE H Urine Nitrite NEGATIVE Ur Leukocyte Esterase LARGE H Urine WBC (Auto) 134 Urine RBC (Auto) 60 05/30/20 05/30/20 05/30/20 13:48 13:48 18:00 Creatine Kinase 52 L CK-MB (CK-2) 3.47 Troponin I 0.204 0.520 05/30/20 23:52 Creatine Kinase CK-MB (CK-2) Troponin I 0.439 Impressions: Chest X-Ray 05/30/20 13:31 IMPRESSION: The tip of the tunneled right IJ hemodialysis catheter projects within the SVC. There is no acute cardiopulmonary process. 05/31/20 12:40 05/31/20 06:37 MCV 95 fl (80-97) 05/31/20 12:40 MCH 30.4 pg (27.0-33.4) 05/31/20 12:40 MCHC 32.0 g/dL (32.0-36.0) 05/31/20 12:40 RDW 22.9 % (11.5-14.0) H 05/31/20 12:40 Seg Neutrophils % 88.6 % (42-78) H 05/31/20 12:40 Chloride 103 mmol/L (98-107) 05/31/20 06:37 Carbon Dioxide 23 mmol/L (22-30) 05/31/20 06:37 Anion Gap 8 (5-19) 05/31/20 06:37 Est GFR ( Amer) 15 (>60) L 05/31/20 06:37 Glucose 88 mg/dL (75-110) 05/31/20 06:37 Calcium 7.7 mg/dL (8.4-10.2) L 05/31/20 06:37 Phosphorus 4.9 mg/dL (2.5-4.5) H 05/31/20 06:37 Magnesium 1.5 mg/dL (1.6-2.3) L 05/31/20 06:37 Total Bilirubin 0.7 mg/dL (0.2-1.3) 05/31/20 06:37 AST 26 U/L (17-59) 05/31/20 06:37 Alkaline Phosphatase 52 U/L (38-126) 05/31/20 06:37 Total Protein 5.5 g/dL (6.3-8.2) L 05/31/20 06:37 Albumin 2.7 g/dL (3.5-5.0) L 05/31/20 06:37 TSH 2.63 uIU/mL (0.47-4.68) 05/31/20 06:37 Free T4 0.80 ng/dL (0.78-2.19) 05/31/20 06:37 PTH Intact 364.6 pg/mL (10.0-65.0) H 05/31/20 06:37 Urine Color YELLOW 05/31/20 17:55 Urine Appearance CLOUDY 05/31/20 17:55 Urine pH 7.0 (5.0-9.0) 05/31/20 17:55 Ur Specific [place] 1.008 05/31/20 17:55 Urine Protein 100 mg/dL (NEGATIVE) H 05/31/20 17:55 Urine Glucose (UA) NEGATIVE mg/dL (NEGATIVE) 05/31/20 17:55 Urine Ketones NEGATIVE mg/dL (NEGATIVE) 05/31/20 17:55 Urine Blood LARGE (NEGATIVE) H 05/31/20 17:55 Urine Nitrite NEGATIVE (NEGATIVE) 05/31/20 17:55 Ur Leukocyte Esterase LARGE (NEGATIVE) H 05/31/20 17:55 Urine WBC (Auto) 134 /HPF 05/31/20 17:55 Urine RBC (Auto) 60 /HPF 05/31/20 17:55 05/30/20 05/30/20 05/30/20 13:48 13:48 18:00 Creatine Kinase 52 L CK-MB (CK-2) 3.47 Troponin I 0.204 0.520 05/30/20 23:52 Creatine Kinase CK-MB (CK-2) Troponin I 0.439 Current Medication List Generic Name Dose Route Start Last Admin Trade Name Freq PRN Reason Stop Dose Admin Acetaminophen 650 mg 05/30/20 18:05 Tylenol 325 Mg Tablet PO 06/29/20 18:04 Q4HP PRN FOR PAIN Al Hydrox/Mg Hydrox/Simethicone 30 ml 05/30/20 18:05 Maalox Plus Susp 30 Udcup PO 06/29/20 18:04 Q6HP PRN HEARTBURN Aspirin 81 mg 06/01/20 10:00 Ecotrin 81 Mg Ec Tablet PO 07/01/20 09:59 DAILY BARBARA Calcitriol 0.25 mcg 05/31/20 10:00 05/31/20 09:31 Rocaltrol 0.25 Mcg Capsule PO 06/30/20 09:59 0.25 mcg DAILY BARBARA Administration Dapsone 50 mg 05/31/20 18:00 05/31/20 17:29 Dapsone 25 Mg Tablet PO 06/07/20 17:59 50 mg BID BARBARA Administration Famotidine 20 mg 05/30/20 22:00 05/31/20 22:16 Pepcid Inj/Pf 20 Mg/2 Ml Sdv IV 06/29/20 21:59 20 mg Q12 BARBARA Administration Heparin Sodium (Porcine) 0 - 12,000 unit 05/31/20 14:23 05/31/20 14:47 Heparin Inj 1,000 Unit/Ml 10 Ml Vial IV 06/30/20 14:22 4,000 units .BOLUS PER PROTOCOL PRN Administration RESPOND TO aPTT VALUE Protocol Heparin Sodium/Dextrose 25,000 unit in 250 mls @ 0 mls/hr 05/31/20 11:22 05/31/20 14:43 Heparin Rtu 25,000 Unit/250 Ml D5w Premix IV 06/30/20 11:21 10 ml/hr CONTINUOUS PRN 10 mls/hr THIS MED IS NOT "PRN" Administration Protocol Titrate Loperamide HCl 2 mg 05/31/20 14:59 Imodium 2 Mg Capsule PO 06/30/20 14:58 Q6HP PRN DIARRHEA Metoprolol Tartrate 50 mg 05/30/20 22:00 05/31/20 22:07 Lopressor 50 Mg Tablet PO 06/29/20 21:59 50 mg Q12 BARBARA Administration Metoprolol Tartrate 5 mg 05/30/20 19:34 Lopressor Inj/Pf 5 Mg/5 Ml Sdv IV 06/29/20 19:33 Q6HP PRN GIVE FOR HR > [] Ondansetron HCl 4 mg 05/30/20 18:05 Zofran Inj/Pf 4 Mg/2 Ml Sdv IV 06/29/20 18:04 Q8HP PRN FOR NAUSEA/VOMITING Prednisone 20 mg 05/31/20 14:00 05/31/20 17:29 Deltasone 20 Mg Tablet PO 06/30/20 13:59 20 mg TID BARBARA Administration Sodium Chloride 2.5 ml 05/30/20 22:00 06/01/20 05:22 Saline Flush 2.5 Ml Monoject Prefil Syrin IV 06/29/20 21:59 2.5 ml Q8 BARBARA Administration Tamsulosin HCl 0.4 mg 05/31/20 18:00 05/31/20 17:29 Flomax 0.4 Mg Cap.Sr PO 06/30/20 17:59 0.4 mg QPM BARBARA Administration Discontinued Medications Generic Name Dose Route Start Last Admin Trade Name Freq PRN Reason Stop Dose Admin Apixaban 5 mg 05/30/20 22:00 05/31/20 09:31 Eliquis 5 Mg Tablet PO 06/29/20 21:59 5 mg Q12 BARBARA Administration Calcium Gluconate 2,000 mg 05/30/20 18:20 05/30/20 19:15 Calcium Gluconate Inj 1000 Mg/10 Ml IV 05/30/20 18:21 2,000 mg NOW ONE Administration Enoxaparin Sodium 45 mg 05/30/20 14:00 05/30/20 14:59 Lovenox Inj 60 Mg/0.6 Ml Disp.Syrin SUBCUT 05/30/20 14:01 45 mg ONCE ONE Administration Lidocaine HCl Confirm 05/31/20 18:15 05/31/20 18:49 Xylocaine 1% Inj-Pf (10 Mg/Ml) 30 Ml Sdv Administered 05/31/20 18:16 Not Given Dose 30 ml .ROUTE .STK-MED ONE Lidocaine HCl 30 ml 05/31/20 18:30 Xylocaine 1% Inj-Pf (10 Mg/Ml) 30 Ml Sdv INJ 05/31/20 18:31 NOW ONE Magnesium Oxide 800 mg 05/31/20 08:29 05/31/20 09:31 Mag-Ox 400 Mg Tablet PO 05/31/20 08:30 800 mg NOW ONE Administration Metoprolol Tartrate 25 mg 05/30/20 16:23 05/30/20 16:47 Lopressor 25 Mg Tablet PO 05/30/20 16:24 25 mg NOW ONE Administration Midazolam HCl 2 mg 05/30/20 13:42 05/30/20 14:04 Versed 2 Mg/2 Ml Inj IV 05/30/20 13:43 2 mg NOW ONE Administration Midazolam HCl 1 mg 05/30/20 13:53 05/30/20 14:04 Versed 2 Mg/2 Ml Inj IV 05/30/20 13:54 Not Given NOW ONE Assessment & Plan - Diagnosis (1) Myocardial infarction Qualifiers: Myocardial infarction type: non-ST elevation myocardial infarction Qualified Code(s): I21.4 - Non-ST elevation (NSTEMI) myocardial infarction Plan: The patient is currently asymptomatic however he did have an episode of chest pain while on dialysis followed by atrial fibrillation and SVT in the setting of cardiac risk factors of age, gender and ESRD with elevated troponins above the cutoff for myocardial infarction which are now trending down. Whether he had a type II OH from his atrial dysrhythmias and cardiac injury from cardioversion versus an acute coronary syndrome is unclear at this point however his chest p ain was very typical of an ischemic event therefore he had been treated medically for an acute coronary syndrome. To complicate matters his permacath appears to be a little bit too deep into the right atrium and the patient is scheduled to undergo removal of the catheter with placement of a new one tomorrow followed by dialysis. If the patient remains stable and without ventricular dysrhythmias or ischemic symptoms we will plan to transfer him to [facility] for [facility] once dialysis is completed. Recommendations: -Continue with current medical management for now. -Renally dose Lovenox. -We will continue to treat the patient medically until he can be transferred to [facility] for [facility]. (2) Paroxysmal atrial fibrillation Plan: He is currently anticoagulated with Eliquis given his chads 2 vascular score of 2 (age and myocardial infarction). His telemetry does not demonstrate recurrence of atrial fibrillation and he remains asymptomatic. Recommendations: -Continue with current medical management. (3) SVT (supraventricular tachycardia) Plan: Although he is currently asymptomatic, his telemetry demonstrated brief recurrences of SVT. Recommendations: -Daily BMPs and replace electrolytes as necessary. -Uptitrate beta-taylor in an attempt to suppress SVTs. -Plan to transfer the patient to [facility] at which time we will involve EP. (4) ESRD (end stage renal disease) on dialysis Is this a current diagnosis for this admission?: Yes Plan: Further management per inpatient team. Recommend involvement of nephrology.
[2020-06-01] MEDS: FAMOTIDINE INJ/PF 20 MG/2 ML SDV IV SCH ×2 (09:36→21:16)
[2020-06-01] MEDS: METOPROLOL TARTRATE 50 MG TABLET PO SCH ×2 (09:36→21:16)
[2020-06-01] MEDS: PREDNISONE 20 MG TABLET PO SCH ×3 (09:36→17:19)
[2020-06-01] MEDS: DAPSONE 25 MG TABLET PO SCH ×2 (09:36→17:19)
[2020-06-01] MEDS: ASPIRIN 81 MG TABLET, ENT COATED PO SCH (09:36)
[2020-06-01] MEDS: CALCITRIOL 0.25 MCG CAPSULE PO SCH (09:37)
--- NOTE | 2020-06-01 11:19 | PDOC PROGRESS REPORT ---
Subjective Progress Note for:: 06/01/20 Subjective:: Feels well. No complaints. Reason For Visit: NSTEMI Physical Exam Vital Signs: Temp Pulse Resp BP Pulse Ox 98.2 F 68 18 141/89 H 97 06/01/20 07:44 06/01/20 07:44 06/01/20 07:44 06/01/20 07:44 06/01/20 07:44 Intake & Output 05/31/20 06/01/20 06/02/20 06:59 06:59 06:59 Intake Total 260 824 Output Total 360 1450 Balance -100 -626 Weight 88.8 kg 87.3 kg General appearance: PRESENT: no acute distress, cooperative Respiratory exam: PRESENT: clear to auscultation taiwo, other - PermCath in place. Site looks clean. Cardiovascular exam: PRESENT: RRR Results Laboratory Results: 05/31/20 12:40 05/31/20 06:37 05/31/20 05/31/20 12:40 17:55 WBC 11.1 H RBC 3.46 L Hgb 10.5 L Hct 32.9 L MCV 95 MCH 30.4 MCHC 32.0 RDW 22.9 H Plt Count 141 L Seg Neutrophils % 88.6 H Urine Color YELLOW Urine Appearance CLOUDY Urine pH 7.0 Ur Specific [place] 1.008 Urine Protein 100 H Urine Glucose (UA) NEGATIVE Urine Ketones NEGATIVE Urine Blood LARGE H Urine Nitrite NEGATIVE Ur Leukocyte Esterase LARGE H Urine WBC (Auto) 134 Urine RBC (Auto) 60 05/30/20 05/30/20 05/30/20 13:48 13:48 18:00 Creatine Kinase 52 L CK-MB (CK-2) 3.47 Troponin I 0.204 0.520 05/30/20 23:52 Creatine Kinase CK-MB (CK-2) Troponin I 0.439 Impressions: Chest X-Ray 05/30/20 13:31 IMPRESSION: The tip of the tunneled right IJ hemodialysis catheter projects within the SVC. There is no acute cardiopulmonary process. Assessment & Plan - Diagnosis (1) Supraventricular tachycardia Is this a current diagnosis for this admission?: Yes Plan: Possibly due to tip of permacath being in the right atrium. As per primary care and cardiology request, we will plan to surgically remedied this possible problem. Patient is currently on heparin drip. I have discussed the situation with primary care physician. He is on the heparin drip for 48 hours for his possible non-STEMI. It may be stopped after midnight tonight. We will plan surgical intervention tomorrow morning for his PermCath prior to dialysis.
[2020-06-01] MEDS: HEPARIN SODIUM,PORCINE/D5W 25,000 UNIT/250 ML RTUINJ IV PRN (13:17)
--- NOTE | 2020-06-01 14:15 | PDOC PROGRESS REPORT ---
Subjective Progress Note for:: 06/01/20 Subjective:: Patient feels well today. Denies any chest pain or shortness of breath. Reason For Visit: NSTEMI Physical Exam Vital Signs: Temp Pulse Resp BP Pulse Ox 97.6 F 79 19 138/76 H 97 06/01/20 12:00 06/01/20 12:00 06/01/20 12:00 06/01/20 12:00 06/01/20 12:00 Intake & Output 05/31/20 06/01/20 06/02/20 06:59 06:59 06:59 Intake Total 260 824 226 Output Total 360 1450 Balance -100 -626 226 Weight 88.8 kg 87.3 kg General appearance: PRESENT: no acute distress, cooperative Neck exam: ABSENT: JVD Respiratory exam: PRESENT: clear to auscultation taiwo, unlabored. ABSENT: wheezes Cardiovascular exam: PRESENT: RRR, +S1, +S2. ABSENT: tachycardia GI/Abdominal exam: PRESENT: soft. ABSENT: rebound, rigid, tenderness Neurological exam: PRESENT: alert, awake Results Laboratory Results: 05/31/20 12:40 05/31/20 06:37 05/31/20 17:55 Urine Color YELLOW Urine Appearance CLOUDY Urine pH 7.0 Ur Specific [place] 1.008 Urine Protein 100 H Urine Glucose (UA) NEGATIVE Urine Ketones NEGATIVE Urine Blood LARGE H Urine Nitrite NEGATIVE Ur Leukocyte Esterase LARGE H Urine WBC (Auto) 134 Urine RBC (Auto) 60 05/30/20 05/30/20 05/30/20 13:48 13:48 18:00 Creatine Kinase 52 L CK-MB (CK-2) 3.47 Troponin I 0.204 0.520 05/30/20 23:52 Creatine Kinase CK-MB (CK-2) Troponin I 0.439 Impressions: Chest X-Ray 05/30/20 13:31 IMPRESSION: The tip of the tunneled right IJ hemodialysis catheter projects within the SVC. There is no acute cardiopulmonary process. Assessment and Plan - Diagnosis (1) SVT (supraventricular tachycardia) Is this a current diagnosis for this admission?: Yes Plan: Patient was cardioverted in the ER following failure of rate control with Cardizem, and adenosine boluses. EKG following cardioversion showed normal sinus rhythm but with very frequent PACs. Still having small bursts of SVT on telemetry. Patient stated intermittent episodes of palpitations occurred since initiation of dialysis within the past 2 months. Electrolytes only remarkable for mild hypocalcemia. TSH and free T4 normal. Echocardiogram shows normal ventricular function, normal size of both atria and no evidence of valvular disease. Continue Lopressor twice a day - dose increased to 75mg bid as per cardiology recommendation. I have reviewed chest x-ray image and it appears to me that patient's permacath tip is somewhere between the edge of the SVC and the very beginning of the right atrium. I seriously wonder if this may be playing a contributory role in provoking patient's frequent PACs. I have discussed this with surgery who plans to replace it tomorrow morning before dialysis after heparin drip has been discontinued. (2) NSTEMI (non-ST elevated myocardial infarction) Is this a current diagnosis for this admission?: Yes Plan: Troponin was elevated 0.2-0.5--0.4. I suspect type II NSTEMI secondary to demand perfusion mismatch due to tachyarrhythmia and more troponin leak after cardioversion. Cardiology following and recommending treatment with therapeutic anticoagulation as well as evaluation for ischemic heart disease via stress test or LHC on Tuesday. I have placed patient on low-dose heparin drip which will be for 48 hours to complete at midnight. Monitor PTTs. Started on aspirin. Echocardiogram shows normal EF and normal diastolic function as well as no overt wall motion abnormalities but quality is limited due to technique. (3) Chest pain Is this a current diagnosis for this admission?: Yes Plan: Likely secondary to patient's tachycardia. Currently resolved. (4) ESRD (end stage renal disease) on dialysis Is this a current diagnosis for this admission?: Yes Plan: Recently started on dialysis within the past 2 months. Gets dialyzed via permacath. Tuesday. Received full session of dialysis Tuesday. Dialysis diet. (5) Hypocalcemia Is this a current diagnosis for this admission?: Yes Plan: Corrected calcium today is normal. Hypocalcemia is likely secondary to ESRD. Intact PTH elevated and vitamin D 25 is normal. Will start patient on calcitriol. (6) Leukocytosis Is this a current diagnosis for this admission?: Yes Plan: Patient's does not seem to have any complaints indicative of any particular i nfection. Chest x-ray negative for infection. Has no urinary complaints. Could be secondary to chronic steroid use. Will monitor CBC. (7) Chronic steroid use Is this a current diagnosis for this admission?: Yes Plan: Patient's is notably on prednisone 20 mg 3 times daily as well as dapsone. Patient unfortunately does not know why he is on these medications but just tells me that this is what he is prescribed. I will continue his medications. I suspect patient may have some autoimmune/rheumatologic condition and glomeru lonephritis which may have accounted for his renal failure. - Time Time Spent with patient: Less than 15 minutes
[2020-06-01] MEDS: TAMSULOSIN HCL 0.4 MG CAP.SR.24H PO SCH (17:19)
[2020-06-02 01:55] LABS: APPEARANCE,URINE SLIGHTLY-CLOUDY; BILIRUBIN,URINE NEGATIVE (NEGATIVE); COLOR,URINE YELLOW; GLUCOSE, URINE NEGATIVE (NEGATIVE); KETONES,URINE NEGATIVE (NEGATIVE); LEUKOCYTE ESTERASE,URINE LARGE (NEGATIVE); NITRITE,URINE NEGATIVE (NEGATIVE); PROTEIN,URINE 100 mg/dL (NEGATIVE); URINE SPECIFIC GRAVITY 1.009; UROBILINOGEN,URINE NEGATIVE mg/dL (<2.0)
[2020-06-02 06:20] LABS: HEMATOCRIT 29.2 % (37.9-51.0); HEMOGLOBIN 9.5 g/dL (13.5-17.0); MEAN CORPUSCULAR HEMOGLOBIN 30.9 pg (27.0-33.4); MEAN CORPUSCULAR HGB CONC 32.5 g/dL (32.0-36.0); MEAN CORPUSCULAR VOLUME 95 fl (80-97); PLATELET COUNT 167 10^3/uL (150-450); RED BLOOD COUNT 3.07 10^6/uL (4.35-5.55); RED CELL DISTRIBUTION WIDTH 22.8 % (11.5-14.0); WHITE BLOOD COUNT 9.2 10^3/uL (4.0-10.5)
[2020-06-02 06:37] LABS: ANION GAP 13 (5-19); BLOOD UREA NITROGEN 71 mg/dL (7-20); CARBON DIOXIDE 20 mmol/L (22-30); CHLORIDE 101 mmol/L (98-107); GLUCOSE 109 mg/dL (75-110)
[2020-06-02] MEDS ORDERED: ACETAMINOPHEN 325 MG TABLET PO PRN (07:56)
[2020-06-02] MEDS ORDERED: ONDANSETRON HCL INJ/PF 4 MG/2 ML SDV IV PRN (08:00)
--- NOTE | 2020-06-02 08:01 | Progress Note ---
Provider Note Provider Note: This case was discussed with supervisor green end department, Dr. Mike Manzano, who agreed with my assessment and plan and graciously agreed to proceed with left heart catheterization on JUN 09 at [facility] civil laboratory technician. Please keep the patient NPO after midnight tonight.
[2020-06-02] MEDS ORDERED: FENTANYL CITRATE INJ/PF 100 MCG/2 ML AMPUL ONE (08:30)
[2020-06-02] MEDS ORDERED: ONDANSETRON HCL INJ/PF 4 MG/2 ML SDV ONE (08:30)
[2020-06-02] MEDS ORDERED: PROPOFOL INJ 200 MG/20 ML VIAL IV ONE (08:30)
[2020-06-02] MEDS ORDERED: MIDAZOLAM 2 MG/2 ML INJ ONE (08:30)
[2020-06-02] MEDS ORDERED: LIDOCAINE 1%/EPINEPHRINE INJ 20 ML VIAL ONE (08:35)
[2020-06-02] MEDS ORDERED: CEFAZOLIN INJ 1 GM VIAL ONE (09:04)
[2020-06-02] MEDS ORDERED: HEPARIN SOD (PORCINE) 5,000 UNIT/ML 1 ML VIAL ONE (09:28)
--- NOTE | 2020-06-02 09:35 | Operative Report ---
Operative Report DATE OF SURGERY: 06/02/20 PREOPERATIVE DIAGNOSIS: 1. Status post non-STEMI. 2. Paroxysms of supraventr icular tachycardia POSTOPERATIVE DIAGNOSIS: Same OPERATION: 1. Replacement of right IJ permacatheter with 28 cm tip to cuff, 15.5 Spanish dual-lumen dialysis catheter. 2. Interpretation of intraoperative fluoroscopy SURGEON: AGUS DAVALOS ANESTHESIA: LMAC TISSUE REMOVED OR ALTERED: See below COMPLICATIONS: NONE ESTIMATED BLOOD LOSS: Minimal INTRAOPERATIVE FINDINGS: See below PROCEDURE: Patient was seen in preop holding area, evaluated, and then taken to the main operating room LMAC anesthesia was induced. Arms were tucked neck extended to the left side and rotated. Existing right IJ permacatheter dressings removed. Hemostat placed on the exit site of the catheter, and the distal portion of the catheter amputated. The right neck, catheter fragment and hemostat all prepped and draped sterile fashion. Surgical plan surgical timeout were conducted. The exit site of the catheter, and the stick site above the clavicle were both anesthetized 1% plain lidocaine. The initial stick site scar was opened up, and the catheter surrounded with a hemostat. The catheter was inspected at the site and the intervening portion of catheter under the skin bridge with the cuff was removed and disposed of. A conventional 0.030 guidewire was threaded through the indwelling catheter fragment and the remaining portion of the catheter from the patient's neck removed. A suitable site for placement of a 28 cm catheter was then chosen over the more lateral chest. Skin was anesthetized 1% plain lidocaine, skin open with a 15 blade, and the new catheter was then threaded between the 2 incisions using the tunneling device. Under fluoroscopic guidance, the 15 Spanish dilator and introducer sheath were threaded over the conventional guidewire, guidewire and dilator removed, and free end of the dual-lumen catheter threaded into the right internal jugular vein. The tip of the catheter was in the superior vena cava. There was no ectopy. There is no kinking of the catheter. Catheter lumens were aspirated and flushed with dilute heparinized saline. Catheter secured to the skin at 3 sites with 2-0 Prolene suture Biopatch applied in the IJ stick site closed with 3-0 Vicryl suture. Patient tolerated the procedure well. Was taken recovery in stable condition Plan: 1. Catheter loaded with a concentrated heparin; exercise caution 2. Spoke with hospitalist caring for patient and reviewed plan. 3. Surgery will sign off; reconsult if clinically indicated.
--- NOTE | 2020-06-02 10:26 | RADIOLOGY REPORT (SQ) ---
EXAM DESCRIPTION: FLUORO/CV PLACEMENT; NO CHG FLUORO IMAGES COMPLETED DATE/TIME: 06/02/2020 9:58 am REASON FOR STUDY: PERMCATH PLCMT RIGHT SIDE ASSISTED WITH FLUORO IN OR E06.9 THYROIDITIS, UNSPECIFI ED D50.8 OTHER IRON DEFICIENCY ANEMIAS I48.0 PAROXYSMAL ATRIAL FIBRILLATION COMPARISON: None. FLUOROSCOPY TIME: 0.4 minutes Spot images saved to PACS. TECHNIQUE: Intra-operative images acquired during surgical procedure to evaluate progress. NUMBER OF IMAGES: 3 LIMITATIONS: None. FINDINGS: Fluoroscopy was provided for intraoperative procedure. Please refer to the operative repo rt for further discussion. IMPRESSION: IMAGE(S) OBTAINED DURING PROCEDURE. COMMENT: Quality ID [id number]: Final reports for procedures using fluoroscopy that document radiation exp osure indices, or exposure time and number of fluorographic images (if radiation exposure indices are not available) Please consult full operative report of the attending physician for description of the procedure. TECHNICAL DOCUMENTATION: JOB ID: [id number] 2010 [employer]- All Rights Reserved Reading location - IP/workstation name: [email or web address]
--- NOTE | 2020-06-02 10:26 | RADIOLOGY REPORT (SQ) ---
EXAM DESCRIPTION: FLUORO/CV PLACEMENT; NO CHG FLUORO IMAGES COMPLETED DATE/TIME: 06/02/2020 9:58 am REASON FOR STUDY: PERMCATH PLCMT RIGHT SIDE ASSISTED WITH FLUORO IN OR E06.9 THYROIDITIS, UNSPECIFI ED D50.8 OTHER IRON DEFICIENCY ANEMIAS I48.0 PAROXYSMAL ATRIAL FIBRILLATION COMPARISON: None. FLUOROSCOPY TIME: 0.4 minutes Spot images saved to PACS. TECHNIQUE: Intra-operative images acquired during surgical procedure to evaluate progress. NUMBER OF IMAGES: 3 LIMITATIONS: None. FINDINGS: Fluoroscopy was provided for intraoperative procedure. Please refer to the operative repo rt for further discussion. IMPRESSION: IMAGE(S) OBTAINED DURING PROCEDURE. COMMENT: Quality ID [id number]: Final reports for procedures using fluoroscopy that document radiation exp osure indices, or exposure time and number of fluorographic images (if radiation exposure indices are not available) Please consult full operative report of the attending physician for description of the procedure. TECHNICAL DOCUMENTATION: JOB ID: [id number] 2010 [employer]- All Rights Reserved Reading location - IP/workstation name: [email or web address]
[2020-06-02] MEDS: DAPSONE 25 MG TABLET PO SCH ×2 (10:58→17:34)
[2020-06-02] MEDS: PREDNISONE 20 MG TABLET PO SCH ×3 (10:58→22:12)
[2020-06-02] MEDS: CALCITRIOL 0.25 MCG CAPSULE PO SCH (10:58)
[2020-06-02] MEDS: ASPIRIN 81 MG TABLET, ENT COATED PO SCH (10:58)
[2020-06-02] MEDS: METOPROLOL TARTRATE 50 MG TABLET PO SCH ×2 (10:58→22:12)
[2020-06-02] MEDS ORDERED: HEPARIN SOD (PORCINE) 1,000 UNIT/ML 10 ML VIAL IV PRN (11:27)
[2020-06-02] MEDS ORDERED: EPOETIN ALFA-EPBX 2,000 UNIT, EPOETIN ALFA-EPBX 3,000 UNIT, EPOETIN ALFA-EPBX 20,000 UN... IV PRN ×4 (11:27)
[2020-06-02] MEDS ORDERED: DEXTROSE 50%-WATER 25 GM/50 ML DISP.SYRIN IV PRN ×2 (12:15)
[2020-06-02] MEDS ORDERED: GLUCAGON,HUMAN RECOMB 1 MG INJ SUBCUT PRN (12:15)
[2020-06-02] MEDS ORDERED: DEXTROSE 40% GEL 15 GM TUBE PO PRN ×2 (12:15)
--- NOTE | 2020-06-02 12:34 | PDOC PROGRESS REPORT ---
Subjective Progress Note for:: 06/02/20 Subjective:: Patient taken to the OR for replacement of permacath today. No complaints noted overnight. Reason For Visit: NSTEMI Physical Exam Vital Signs: Temp Pulse Resp BP Pulse Ox 97.8 F 59 L 12 130/75 H 96 06/02/20 10:20 06/02/20 10:20 06/02/20 10:20 06/02/20 10:20 06/02/20 10:20 Intake & Output 06/01/20 06/02/20 06/03/20 06:59 06:59 06:59 Intake Total 824 1694 225 Output Total 1450 1225 5 Balance -626 469 220 Weight 87.3 kg 87.4 kg General appearance: PRESENT: no acute distress, cooperative Neck exam: ABSENT: JVD Respiratory exam: PRESENT: clear to auscultation taiwo, unlabored. ABSENT: tachypnea, wheezes Cardiovascular exam: PRESENT: RRR, +S1, +S2. ABSENT: irregular rhythm, tachycardia GI/Abdominal exam: PRESENT: soft. ABSENT: rebound, rigid, tenderness Neurological exam: PRESENT: alert, awake, oriented to person, oriented to place, oriented to time Psychiatric exam: ABSENT: agitated, anxious Results Laboratory Results: 06/02/20 04:58 06/02/20 04:58 06/02/20 06/02/20 06/02/20 01:30 04:58 04:58 WBC 9.2 RBC 3.07 L Hgb 9.5 L Hct 29.2 L MCV 95 MCH 30.9 MCHC 32.5 RDW 22.8 H Plt Count 167 Sodium 133.6 L Potassium 5.0 Chloride 101 Carbon Dioxide 20 L Anion Gap 13 BUN 71 H Creatinine 6.58 H Est GFR ( Amer) 10 L Glucose 109 Calcium 8.0 L Magnesium 1.8 Urine Color YELLOW Urine Appearance SLIGHTLY-CLOUDY Urine pH 6.0 Ur Specific [place] 1.009 Urine Protein 100 H Urine Glucose (UA) NEGATIVE Urine Ketones NEGATIVE Urine Blood MODERATE H Urine Nitrite NEGATIVE Ur Leukocyte Esterase LARGE H Urine WBC (Auto) 89 Urine RBC (Auto) 20 05/30/20 05/30/20 05/30/20 13:48 13:48 18:00 Creatine Kinase 52 L CK-MB (CK-2) 3.47 Troponin I 0.204 0.520 05/30/20 23:52 Creatine Kinase CK-MB (CK-2) Troponin I 0.439 Impressions: Chest X-Ray 05/30/20 13:31 IMPRESSION: The tip of the tunneled right IJ hemodialysis catheter projects within the SVC. There is no acute cardiopulmonary process. Fluoroscopy 06/02/20 00:00 IMPRESSION: IMAGE(S) OBTAINED DURING PROCEDURE. Guidance Fluoroscopy 06/02/20 00:00 IMPRESSION: IMAGE(S) OBTAINED DURING PROCEDURE. Assessment and Plan - Diagnosis (1) SVT (supraventricular tachycardia) Is this a current diagnosis for this admission?: Yes Plan: SVT in the 180s on presentation to the ER and had cardioversion done. Subsequent EKG showed sinus rhythm with frequent PACs. SVTs started since patient started dialysis 1-1/2 months ago. Echocardiogram shows normal ventricular function, normal size of both atria and no evidence of valvular disease. TFTs were normal. Had permacath removed and replaced by surgery today given that the tip was mild ly into the right atrium. Could've stimulated ectopies. Repeat chest x-ray this afternoon after dialysis. Continue Lopressor twice a day -we will reduce dose back to 50 mg twice daily as patient was mildly bradycardic. (2) NSTEMI (non-ST elevated myocardial infarction) Is this a current diagnosis for this admission?: Yes Plan: Troponin was elevated 0.2-0.5--0.4. I suspect type II NSTEMI secondary to demand perfusion mismatch due to tachyarrhythmia and more troponin leak after cardioversion. Cardiology recommended therapeutic anticoagulation which patient has completed 48 hours of. Scheduled for [facility] tomorrow for evaluation for ischemic heart disease. N.p.o. past midnight. Keep anticoagulation on hold until after procedure. Continue aspirin. Echocardiogram shows normal EF and normal diastolic function as well as no overt wall motion abnormalities but quality is limited due to technique. (3) Chest pain Is this a current diagnosis for this admission?: Yes Plan: Likely secondary to patient's tachycardia. Currently resolved. (4) ESRD (end stage renal disease) on dialysis Is this a current diagnosis for this admission?: Yes Plan: Recently started on dialysis within the past 2 months. Gets dialyzed via permacath. Tuesday. Received full session of dialysis today. (5) Hypocalcemia Is this a current diagnosis for this admission?: Yes Plan: Corrected calcium today is normal. Hypocalcemia is likely secondary to ESRD. Intact PTH elevated and vitamin D 25 is normal. Started patient on calcitriol. (6) Leukocytosis Is this a current diagnosis for this admission?: Yes Plan: Patient's does not seem to have any complaints indicative of any particular infection. Chest x-ray negative for infection. Has no urinary complaints. Could be secondary to chronic steroid use. Will monitor CBC. (7) Chronic steroid use Is this a current diagnosis for this admission?: Yes Plan: Patient's is notably on prednisone 20 mg 3 times daily as well as dapsone. Patient unfortunately does not know why he is on these medications but just tells me that this is what he is prescribed. I will continue his medications. I suspect patient may have some autoimmune/rheumatologic condition and glomerulonephritis which may have accounted for his renal failure. - Time Time Spent with patient: Less than 15 minutes
--- NOTE | 2020-06-02 14:11 | PDOC CONSULTATION ---
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 This diagnosis was made at [facility] on renal biopsy and patient was advised to start immediate high-dose steroids and IV Cytoxan. He also had to be started on Hemodialysis because of severe renal failure at hat time. However patient left AMA and he was given prescription to start p.o. steroids/p.o. Cytoxan with dapsone for pcp prophylaxis as he is allergic to bactrim. He has since been following with Dr Savage/Nephrology here. Patient is going to hemodialysis here at [facility] based on DAYNA diagnosis and not ESRD yet. Is currently getting p.o. steroids alternating with p.o. Cytoxan alternating months. Patient admitted with chest pain and palpitations. He states that he has been having intermittent palpitations ever since he was begun on hemodialysis. Evaluations here has revealed that he was in and out of SVT. He was cardioverted and begun on IV Cardizem drip. Cardiology was consulted and there was a question raised of whether his PermCath catheter situated in the right atrium was irritating his sinus causing his rhythm disturbances and therefore was advised exchange of catheter which he underwent this morning prior to his dialysis. Currently seen while he is undergoing dialysis without any issues. He looks comfortable. His heart rate is now between 50 and 60/min regular. He says this is the first time that he has had a dialysis without his heart racing all over. Denies any history of chest pain or shortness of breath. Labs and medications were reviewed. Dialysis orders were reviewed with the treating dialysis nurse. 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 GI Medical History: Reports: Gastroesophageal Reflux Disease - on meds Musculoskeltal Medical History: Reports: Arthritis - knees bilaterally Denies: Rheumatoid Arthritis Psychiatric Medical History: Denies: Depression Past Surgical History Past Surgical History: Reports: Orthopedic Surgery - right rotator cuff Social History Smoking Status: Never Smoker Frequency of Alcohol Use: None Hx Recreational Drug Use: No Drugs: None Hx Prescription Drug Abuse: No - Advance Directive Resuscitation Status: Full Code Family History Parental Family History Reviewed: Yes - Negative for ESRD Children Family History Reviewed: No Sibling(s) Family History Reviewed.: No Medication/Allergy Home Medications: Omeprazole [Prilosec] 20 mg PO DAILY 01/20/16 Dapsone [Dapsone 25 mg Tablet] 50 mg PO BID 05/30/20 Prednisone [Deltasone 20 mg Tablet] 60 mg PO DAILY 05/30/20 Tamsulosin HCl [Flomax 0.4 mg Cap.sr] 0.4 mg PO QPM 05/30/20 Allergies/Adverse Reactions: sulfamethoxazole [From Bactrim] Allergy (Intermediate, Verified 05/30/20 13:58) trimethoprim [From Bactrim] Allergy (Intermediate, Verified 05/30/20 13:58) amoxicillin [From Augmentin] Allergy (Verified 05/30/20 13:58) clavulanic acid [From Augmentin] Allergy (Verified 05/30/20 13:58) Review of Systems Constitutional: PRESENT: fatigue, weakness. ABSENT: anorexia, fever(s), headache(s), night sweats Nose, Mouth, and Throat: ABSENT: mouth pain Cardiovascular: ABSENT: chest pain, dyspnea on exertion, edema, orthropnea, palpitations Respiratory: ABSENT: cough, dyspnea, hemoptysis Gastrointestinal: ABSENT: abdominal pain, coffee ground emesis, diarrhea, dysphagia, heartburn, hematemesis Genitourinary: ABSENT: dysuria, hematuria Musculoskeletal: ABSENT: deformity, joint swelling Integumentary: ABSENT: lesions, rash Neurological: ABSENT: abnormal movements, abnormal speech, convulsions, focal weakness, frequent falls, syncope Endocrine: ABSENT: polydipsia, polyuria Hematologic/Lymphatic: ABSENT: lymphadenopathy Physical Exam Vital Signs: Temp Pulse Resp BP Pulse Ox 97.5 F 59 L 20 147/82 H 96 06/02/20 11:35 06/02/20 11:35 06/02/20 11:35 06/02/20 11:35 06/02/20 11:35 Intake & Output 06/01/20 06/02/20 06/03/20 06:59 06:59 06:59 Intake Total 824 1694 225 Output Total 1450 1225 5 Balance -626 469 220 Weight 87.3 kg 87.4 kg General appearance: PRESENT: no acute distress Eye exam: PRESENT: EOMI, PERRLA. ABSENT: scleral icterus Ear exam: PRESENT: normal external ear exam Mouth exam: PRESENT: moist Neck exam: ABSENT: lymphadenopathy, meningismus, tenderness, thyromegaly, tracheal deviation Respiratory exam: PRESENT: clear to auscultation taiwo, decreased breath sounds. ABSENT: crackles Cardiovascular exam: PRESENT: RRR, +S1, +S2. ABSENT: irregular rhythm, rubs GI/Abdominal exam: PRESENT: normal bowel sounds, soft. ABSENT: organomegaly, tenderness Extremities exam: ABSENT: pedal edema Neurological exam: PRESENT: alert, awake, oriented to person, oriented to place Psychiatric exam: PRESENT: appropriate affect Skin exam: ABSENT: erythema, mottled, petechiae, rash Results Laboratory Results: 06/02/20 04:58 06/02/20 04:58 06/02/20 06/02/20 06/02/20 01:30 04:58 04:58 WBC 9.2 RBC 3.07 L Hgb 9.5 L Hct 29.2 L MCV 95 MCH 30.9 MCHC 32.5 RDW 22.8 H Plt Count 167 Sodium 133.6 L Potassium 5.0 Chloride 101 Carbon Dioxide 20 L Anion Gap 13 BUN 71 H Creatinine 6.58 H Est GFR ( Amer) 10 L Glucose 109 Calcium 8.0 L Magnesium 1.8 Urine Color YELLOW Urine Appearance SLIGHTLY-CLOUDY Urine pH 6.0 Ur Specific [place] 1.009 Urine Protein 100 H Urine Glucose (UA) NEGATIVE Urine Ketones NEGATIVE Urine Blood MODERATE H Urine Nitrite NEGATIVE Ur Leukocyte Esterase LARGE H Urine WBC (Auto) 89 Urine RBC (Auto) 20 05/30/20 05/30/20 05/30/20 13:48 13:48 18:00 Creatine Kinase 52 L CK-MB (CK-2) 3.47 Troponin I 0.204 0.520 05/30/20 23:52 Creatine Kinase CK-MB (CK-2) Troponin I 0.439 Impressions: Chest X-Ray 05/30/20 13:31 IMPRESSION: The tip of the tunneled right IJ hemodialysis catheter projects within the SVC. There is no acute cardiopulmonary process. Fluoroscopy 06/02/20 00:00 IMPRESSION: IMAGE(S) OBTAINED DURING PROCEDURE. Guidance Fluoroscopy 06/02/20 00:00 IMPRESSION: IMAGE(S) OBTAINED DURING PROCEDURE. Assessment & Plan - Diagnosis (1) DAYNA (acute kidney injury) Plan: In the background of pauci- immune rapidly progressive global nephritis leading to the need for hemodialysis. He is currently on high-dose of steroids for this month followed by Cytoxan next month. Besides that he is also on dapsone for PCP prophylaxis. He is status post catheter exchange/repositioning of a new 1 and currently his heart rate is well controlled and in sinus with no episodes of SVT while on dialysis which apparently for him is the first time. Currently he is being seen while undergoing dialysis. Vital signs are stable. Plan to remove approximately a liter of fluid only. Dialysis orders were reviewed with the treating dialysis nurse. (2) Pauci-immune RPGN (rapidly progressive glomerulonephritis) Plan: Patient is on high-dose steroids along with PCP prophylaxis. (3) NSTEMI (non-ST elevated myocardial infarction) Is this a current diagnosis for this admission?: Yes Plan: Probably mismatch. However he is got high cardiac risk factors and is being risk stratified by cardiology. (4) SVT (supraventricular tachycardia) Is this a current diagnosis for this admission?: Yes Plan: Currently stable and in sinus. Status post new IJ PermCath placement. Hopefully this will fix the problem. (5) BPH (benign prostatic hyperplasia) Plan: Stable.
--- NOTE | 2020-06-02 16:26 | PDOC PROGRESS REPORT ---
Subjective Progress Note for:: 06/02/20 Subjective:: Patient was seen and examined in the dialysis unit. He denied any complaints. There was no mention of chest pain. Reason For Visit: NSTEMI Physical Exam Vital Signs: Temp Pulse Resp BP Pulse Ox 97.5 F 53 L 20 147/82 H 96 06/02/20 11:35 06/02/20 14:00 06/02/20 11:35 06/02/20 11:35 06/02/20 11:35 Intake & Output 06/01/20 06/02/20 06/03/20 06:59 06:59 06:59 Intake Total 824 1694 225 Output Total 1450 1225 380 Balance -626 469 -155 Weight 87.3 kg 87.4 kg General appearance: PRESENT: no acute distress, cooperative, well-developed, well-nourished Head exam: PRESENT: atraumatic, normocephalic Eye exam: PRESENT: conjunctiva pink, EOMI Ear exam: PRESENT: normal external ear exam Mouth exam: PRESENT: moist Respiratory exam: PRESENT: clear to auscultation taiwo, symmetrical, unlabored Cardiovascular exam: PRESENT: RRR, +S1, +S2, systolic murmur Pulses: PRESENT: normal radial pulses Vascular exam: PRESENT: normal capillary refill, other - Right internal jugular vein dialysis catheter GI/Abdominal exam: PRESENT: soft Rectal exam: PRESENT: deferred Neurological exam: PRESENT: alert, awake, oriented to person, oriented to place, oriented to time, oriented to situation Psychiatric exam: PRESENT: appropriate affect Skin exam: PRESENT: dry, intact, normal color Results Laboratory Results: 06/02/20 04:58 06/02/20 04:58 06/02/20 06/02/20 06/02/20 01:30 04:58 04:58 WBC 9.2 RBC 3.07 L Hgb 9.5 L Hct 29.2 L MCV 95 MCH 30.9 MCHC 32.5 RDW 22.8 H Plt Count 167 Sodium 133.6 L Potassium 5.0 Chloride 101 Carbon Dioxide 20 L Anion Gap 13 BUN 71 H Creatinine 6.58 H Est GFR ( Amer) 10 L Glucose 109 Calcium 8.0 L Magnesium 1.8 Urine Color YELLOW Urine Appearance SLIGHTLY-CLOUDY Urine pH 6.0 Ur Specific [place] 1.009 Urine Protein 100 H Urine Glucose (UA) NEGATIVE Urine Ketones NEGATIVE Urine Blood MODERATE H Urine Nitrite NEGATIVE Ur Leukocyte Esterase LARGE H Urine WBC (Auto) 89 Urine RBC (Auto) 20 05/30/20 05/30/20 05/30/20 13:48 13:48 18:00 Creatine Kinase 52 L CK-MB (CK-2) 3.47 Troponin I 0.204 0.520 05/30/20 23:52 Creatine Kinase CK-MB (CK-2) Troponin I 0.439 EKG Comments: Transthoracic echocardiogram 05/30/2020 Left ventricular ejection fraction is 55 to 60% Mild mitral annular calcification without stenosis. Trace to mild mitral regurgitation Twelve-lead EKG May 30, 2020. Independently reviewed by me Probable SVT at 182 bpm Twelve-lead EKG sinus tachycardia 111 bpm Troponin 0 0.204 0.52 0.439 Impressions: Chest X-Ray 05/30/20 13:31 IMPRESSION: The tip of the tunneled right IJ hemodialysis catheter projects within the SVC. There is no acute cardiopulmonary process. Fluoroscopy 06/02/20 00:00 IMPRESSION: IMAGE(S) OBTAINED DURING PROCEDURE. Guidance Fluoroscopy 06/02/20 00:00 IMPRESSION: IMAGE(S) OBTAINED DURING PROCEDURE. Assessment & Plan - Diagnosis (1) Paroxysmal atrial fibrillation Is this a current diagnosis for this admission?: Yes Plan: Paroxysmal atrial fibrillation We will continue systemic anticoagulation on account of increased risk of stroke Beta-blockers to suppress triggers for atrial fibrillation (2) ESRD (end stage renal disease) on dialysis Is this a current diagnosis for this admission?: Yes Plan: Dialysis per primary team Left internal jugular vein permacath was too deep and. This could have caused right atrial irritation and could potentially have a precipitated an atrial tachycardia or atrial arrhythmia which may have degenerated into atrial fibrillation. The catheter has been repositioned. (3) NSTEMI (non-ST elevated myocardial infarction) Is this a current diagnosis for this admission?: Yes Plan: Description of chest pain while at dialysis with elevated cardiac biomarkers Given increased risk of coronary artery disease given end-stage renal disease and symptoms as well as elevated troponin patient is scheduled to undergo left heart catheterization tomorrow morning
[2020-06-02 17:20] LABS: APPEARANCE,URINE CLOUDY; BILIRUBIN,URINE NEGATIVE (NEGATIVE); COLOR,URINE YELLOW; GLUCOSE, URINE NEGATIVE (NEGATIVE); KETONES,URINE NEGATIVE (NEGATIVE); LEUKOCYTE ESTERASE,URINE LARGE (NEGATIVE); NITRITE,URINE NEGATIVE (NEGATIVE); PROTEIN,URINE 100 mg/dL (NEGATIVE); URINE SPECIFIC GRAVITY 1.009; UROBILINOGEN,URINE NEGATIVE mg/dL (<2.0)
[2020-06-02] MEDS: TAMSULOSIN HCL 0.4 MG CAP.SR.24H PO SCH (17:34)
--- NOTE | 2020-06-02 17:35 | Progress Note ---
Provider Note Provider Note: The risks, benefits and alternatives of left heart catheterization were explained to the patient. His questions were answered and he expressed his wish to proceed.
--- NOTE | 2020-06-02 19:16 | RADIOLOGY REPORT (SQ) ---
EXAM DESCRIPTION: CHEST SINGLE VIEW IMAGES COMPLETED DATE/TIME: 06/02/2020 6:49 pm REASON FOR STUDY: right permacath replacement COMPARISON: None. EXAM PARAMETERS: NUMBER OF VIEWS: One view. TECHNIQUE: Single frontal radiographic view of the chest acquired. RADIATION DOSE: NA LIMITATIONS: None. FINDINGS: LUNGS AND PLEURA: Ill-defined perihilar opacification in the left lung. MEDIASTINUM AND HILAR STRUCTURES: No masses. Contour normal. HEART AND VASCULAR STRUCTURES: Heart normal in size. Normal vasculature. BONES: No acute findings. HARDWARE: Dual-lumen catheter on the right. The tip of the catheter is in the superior vena cava. OTHER: No other significant finding. IMPRESSION: Catheter as described. Cannot exclude limited airspace disease in the perihilar region of the left lung, pneumonia versus atelectasis. TECHNICAL DOCUMENTATION: JOB ID: [id number] 2010 [employer]- All Rights Reserved Reading location - IP/workstation name: [email or web address]
[2020-06-02] MEDS ORDERED: FAMOTIDINE 20 MG TABLET PO SCH (22:00)
[2020-06-03] MEDS ORDERED: VERAPAMIL HCL 5 MG, LIDOCAINE HCL/PF 4 ML, NORMAL SALINE 12 ML, NITROGLYCERIN/D5W 0.4 M... IV PRN ×5 (05:00)
[2020-06-03] MEDS ORDERED: HEPARIN SODIUM,PORCINE/NS/PF 2,000 UNIT/1,000 ML RTUINJ IV ONE (10:30)
[2020-06-03] MEDS ORDERED: LIDOCAINE 1% INJ-PF (10 MG/ML) 30 ML SDV ONE (10:30)
[2020-06-03] MEDS ORDERED: MIDAZOLAM 2 MG/2 ML INJ ONE (10:32)
[2020-06-03] MEDS ORDERED: FENTANYL CITRATE INJ/PF 100 MCG/2 ML AMPUL ONE (10:32)
[2020-06-03] MEDS ORDERED: HEPARIN SOD (PORCINE) 1,000 UNIT/ML 10 ML VIAL ONE (10:32)
[2020-06-03] MEDS ORDERED: NORMAL SALINE 1000 ML 1,000 ML IV PRN (10:49)
[2020-06-03] MEDS ORDERED: DIPHENHYDRAMINE HCL 25 MG CAPSULE ONE (10:56)
[2020-06-03] MEDS ORDERED: DIAZEPAM 5 MG TABLET ONE (10:56)
[2020-06-03] MEDS ORDERED: DIPHENHYDRAMINE HCL 25 MG CAPSULE PO PRN (11:00)
[2020-06-03] MEDS ORDERED: DIAZEPAM 5 MG TABLET PO PRN (11:00)
--- NOTE | 2020-06-03 12:23 | Operative Report ---
Operative Report-cardiac cath lab technologist Operative Report: HPI: 75 y/o WM with ESRD s/p starting HD was noted ot have chest discomfort with dialysis and a episode of Symptomatic Afib of persistence that required Cardioversion with subsequent abnormal troponins felt more likely to represent a NSTEMI than a Type 2 DC who was set up for cath. Of note the Temporary Dialysis Cath was found to be extending into the Atrium and perhaps the contributing factor for afib and this was replaced / repositioned to avoid extending into the atrium for which he underwent dialysis yesterday without issues. PROCEDURE NOTES: Left heart catheterization, bilateral selective coronary angiography, left ventricular CINE angiography. After informed consent was obtained the patient was brought into the cardiac catheterization lab. Sterile prep and drape of the right wrist was carried out followed by infiltration with 1% Xylocaine. Using the percutaneous Seldinger technique, a 6 Albanian Introducer sheath was placed into the right radial artery. Selective left and right coronary angiography was performed with a 6 Albanian Barbeau pre-formed coronary catheter respectively. A 6 Albanian Barbeau catheter was subsequently introduced in the artery and advanced to the ascending aorta. The aortic valve was crossed and the left ventricle was entered. Repeated xin urements of the left heart pressure were made after injection of the contrast agent as used for left ventricle CINE-ography. ANALYSIS OF THE ANGIOGRAM: Selective CINE angiograms were obtained with the injection of contrast material into the left and right coronary ostium and left ventricular cavity. The left ventricular injection demonstrates normal size and preserved wall motion analysis . Ejection fraction is 55 to 60 % . Mitral Annular Calcification with trace to mild Mitral Regurgitation is noted. Aortic Valve demonstrates no hemodynamically significant aortic stenosis by pull back technique. CORONARY ANGIOGRAPHY: Coronary angiography performed in multiple projections revealed the following; LEFT MAIN: Moderate caliber vessel that appears patent without significant dis ease. LEFT CIRCUMFLEX/OBTUSE MARGINAL: Moderate caliber vessel and appears angiographically patent with only minimal luminal irregularities of the principle Obtuse Marginal of less then 30 %. LEFT ANTERIOR DESCENDING/DIAGONAL: Moderate caliber vessel. It appears to have a complex area of at least 70 % blockage in the LAD just prior to a principle diagonal branch takeoff, the diagonal branch itself appears also to be a moderate size with a high grade ostial 85% blockage with mild pre-injection calcification and approximately a 60-70 degree angulated takeoff from the LAD system making this a higher risk PCI consideration. RIGHT CORONARY ARTERY: Moderate caliber vessel that is dominant in character that appears to only have minor luminal irregularities in the distal area prior to bifurcation into the PDA and LEN branches that appear patent. The right radial arterial sheath was removed and a TR Band applied for adequate hemostasis. Impression: Obstructive coronary artery disease process as noted above Preserved Resting Left Ventricular Ejection Fraction Mitral Annular Calcification with trace to mild Mitral Regurgitation. Plan: Aggressive risk factor modification. The Afib was felt to be from Dialysis Catheter placement tip and thus may not require patient to be on assisted full anticoaulation post complex PCI. Will work to transfer via Hospitalist service with Nephrolgy involvement for ESRD to [facility] for complex PCI consideration tentatively set for 06/04 as discussed with Interventionalist on service 06/04. This may require PTCA / possible Cutting PTCA of diagonal with stenting of LAD and +/- Kissing balloon technique of LAD and Diagonal with possible jeopardy of diagonal branch in a patient with ESRD , non-diabetic with preserved EF. Patient appears appropriate candidate for dual antiplatelet therapy that can await start until successful complex PCI in event of CABG alternative need given lesion complexity with absence of ongoing chest pain in favor of use of ASA, Statin, Lovenox in interim time period. Patient made aware and is in agreement with plan. Case also alerted to Dr. Dodd here at [place] via [address] 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
[2020-06-03] MEDS: METOPROLOL TARTRATE 50 MG TABLET PO SCH (13:08)
[2020-06-03] MEDS: PREDNISONE 20 MG TABLET PO SCH ×2 (13:08→14:11)
[2020-06-03] MEDS: ASPIRIN 81 MG TABLET, ENT COATED PO SCH (13:08)
[2020-06-03] MEDS: DAPSONE 25 MG TABLET PO SCH (13:08)
[2020-06-03] MEDS: CALCITRIOL 0.25 MCG CAPSULE PO SCH (13:08)
--- NOTE | 2020-06-03 13:34 | PDOC TRANSFER SUMMARY ---
General Admission Date/PCP: 05/31/20 14:17 KAYLEIGH SAVAGE MD Admission Date: 05/30/20 Transfer Date: 06/03/20 Accepting Facility: [facility] Accepting Physician: Dr. Steven Mccoy Resuscitation Status: Full Code - Transfer Diagnosis (1) SVT (supraventricular tachycardia) Is this a current diagnosis for this admission?: Yes (2) NSTEMI (non-ST elevated myocardial infarction) Is this a current diagnosis for this admission?: Yes (3) Chest pain Is this a current diagnosis for this admission?: Yes (4) ESRD (end stage renal disease) on dialysis Is this a current diagnosis for this admission?: Yes (5) Hypocalcemia Is this a current diagnosis for this admission?: Yes (6) Leukocytosis Is this a current diagnosis for this admission?: Yes (7) Chronic steroid use Is this a current diagnosis for this admission?: Yes - Transfer Medications Home Medications: Omeprazole [Prilosec] 20 mg PO DAILY 01/20/16 Dapsone [Dapsone 25 mg Tablet] 50 mg PO BID 05/30/20 Prednisone [Deltasone 20 mg Tablet] 60 mg PO DAILY 05/30/20 Tamsulosin HCl [Flomax 0.4 mg Cap.sr] 0.4 mg PO QPM 05/30/20 Transfer Medications: Current Medications Acetaminophen (Tylenol 325 Mg Tablet) 650 mg PO Q6HP PRN PRN Reason: FOR PAIN Stop: 07/02/20 07:55 Al Hydrox/Mg Hydrox/Simethicone (Maalox Plus Susp 30 Udcup) 30 ml PO Q6HP PRN PRN Reason: HEARTBURN Stop: 06/29/20 18:04 Aspirin (Ecotrin 81 Mg Ec Tablet) 81 mg PO DAILY BARBARA Stop: 07/01/20 09:59 Last Admin: 06/03/20 13:08 Dose: Not Given Documented by: Calcitriol (Rocaltrol 0.25 Mcg Capsule) 0.25 mcg PO DAILY BARBARA Stop: 06/30/20 09:59 Last Admin: 06/03/20 13:08 Dose: Not Given Documented by: Dapsone (Dapsone 25 Mg Tablet) 50 mg PO BID BARBARA Stop: 06/07/20 17:59 Last Admin: 06/03/20 13:08 Dose: Not Given Documented by: Dextrose (Dextrose Inj 50% Syringe (25 Gm/50 Ml)) 12.5 gm IV PRN PRN; Protocol PRN Reason: FOR BG 50-69 IN ALERT PATIENT Stop: 07/02/20 12:14 Dextrose (Dextrose Inj 50% Syringe (25 Gm/50 Ml)) 25 gm IV PRN PRN; Protocol PRN Reason: See Label Comments Stop: 07/02/20 12:14 Diazepam (Valium 5 Mg Tablet) 5 mg PO .PROCEDURE PRN PRN Reason: THIS MED IS NOT "PRN" Stop: 06/10/20 10:59 Last Admin: 06/03/20 10:58 Dose: 5 mg Documented by: Diphenhydramine HCl (Benadryl 25 Mg Capsule) 25 mg PO .PROCEDURE PRN PRN Reason: THIS MED IS NOT "PRN" Stop: 06/03/20 23:59 Last Admin: 06/03/20 10:58 Dose: 25 mg Documented by: Famotidine (Pepcid 20 Mg Tablet) 20 mg PO QHS BARBARA Stop: 07/02/20 21:59 Last Admin: 06/02/20 22:12 Dose: 20 mg Documented by: Glucagon (Glucagen Inj 1 Mg Vial) 1 mg SUBCUT PRN PRN; Protocol PRN Reason: Evaluate for BG < 70 Stop: 07/02/20 12:14 Glucose (Glutose 40% Gel 15 Gm Tube) 15 gm PO PRN PRN; Protocol PRN Reason: For BG 50-69 in Alert Patient Stop: 07/02/20 12:14 Glucose (Glutose 40% Gel 15 Gm Tube) 30 gm PO PRN PRN; Protocol PRN Reason: FOR BG < 50 IN ALERT PATIENT Stop: 07/02/20 12:14 Verapamil HCl 5 mg/ Lidocaine HCl 4 ml/ Sodium Chloride 12 ml/ Nitroglycerin/Dextrose 0.4 mg/ Syringe 20 mls @ 0 mls/hr IV .CATHLAB 06/03 PRN PRN Reason: THIS MED IS NOT "PRN" Stop: 06/03/20 23:59 Sodium Chloride (Nacl 0.9% 1000 Ml Iv Soln) 1,000 mls @ 87 mls/hr IV CONTINUOUS PRN PRN Reason: THIS MED IS NOT "PRN" Stop: 06/03/20 23:59 Last Admin: 06/03/20 10:58 Dose: 87 mls/hr Documented by: Loperamide HCl (Imodium 2 Mg Capsule) 2 mg PO Q6HP PRN PRN Reason: DIARRHEA Stop: 06/30/20 14:58 Last Admin: 06/01/20 09:36 Dose: 2 mg Documented by: Metoprolol Tartrate (Lopressor Inj/Pf 5 Mg/5 Ml Sdv) 5 mg IV Q6HP PRN PRN Reason: GIVE FOR HR > [] Stop: 06/29/20 19:33 Metoprolol Tartrate (Lopressor 50 Mg Tablet) 50 mg PO Q12 [facility] Stop: 07/02/20 21:59 Last Admin: 06/03/20 13:08 Dose: Not Given Documented by: Ondansetron HCl (Zofran Inj/Pf 4 Mg/2 Ml Sdv) 4 mg IV Q8HP PRN PRN Reason: FOR NAUSEA/VOMITING Stop: 06/29/20 18:04 Prednisone (Deltasone 20 Mg Tablet) 20 mg PO TID [facility] Stop: 06/30/20 13:59 Last Admin: 06/03/20 13:08 Dose: Not Given Documented by: Sodium Chloride (Saline Flush 2.5 Ml Monoject Prefil Syrin) 2.5 ml IV Q8 [facility] Stop: 06/29/20 21:59 Last Admin: 06/03/20 13:09 Dose: Not Given Documented by: Tamsulosin HCl (Flomax 0.4 Mg Cap.Sr) 0.4 mg PO QPM [facility] Stop: 06/30/20 17:59 Last Admin: 06/02/20 17:34 Dose: 0.4 mg Documented by: - Allergies Allergies/Adverse Reactions: sulfamethoxazole [From Bactrim] Allergy (Intermediate, Verified 05/30/20 13:58) trimethoprim [From Bactrim] Allergy (Intermediate, Verified 05/30/20 13:58) amoxicillin [From Augmentin] Allergy (Verified 05/30/20 13:58) clavulanic acid [From Augmentin] Allergy (Verified 05/30/20 13:58) Hospital Course Hospital Course: History of Present Illness on admission: MARJAN SANTIZO is a 75 year old male with recent hx of ESRD just started on HD via permacath 2 months ago, presents to the hospital with palpitations and chest pain on 05/30/2020. His symptoms started while he was at dialysis. He received a full session of dialysis during which his heart rate was bouncing between 80s and 180s. He denies any fevers chills. After dialysis, his heart rate stayed persistently in the 180s and he developed chest pain some shortness of breath. EMS was called who administered adenosine about 2-3 times in the field without improvement of patient's heart rate. He was subsequently given Cardizem and placed on a Cardizem drip. On arrival in the ER, patient's heart rate was still in the 180s in SVT and he had to be cardioverted. After cardioversion his heart rate to has been maintaining normal sinus rhythm but occasionally bounces back up into the 130s briefly comes back down. Patient's chest pain at this time has resolved. Patient states that these episodes of tachycardia have been occurring only since he started dialysis. Denies any prior history of atrial fibrillation or heart disease. Hospital course/plan 1) SVT (supraventricular tachycardia) Is this a current diagnosis for this admission?: Yes Plan: SVT in the 180s on presentation to the ER and had cardioversion done in ER. EKG after cardioversion showed sinus rhythm with frequent PACs. Had some other EKGs showing SVT. SVTs started since patient started dialysis 1-1/2 months ago and his HR observed to jump from 80s to 180s during dialysis usually. TTE shows normal LV systolic and diastolic function, normal size of both atria and no evidence of valvular disease. TFTs were normal. Had permacath removed and replaced by surgery on 06/02/2020 given that the tip was mildly into the right atrium and could have stimulated ectopies to precipitate his paroxysmal SVT. Repeat chest x-ray shows permacath tip is within SVC and not RA. Patient has not had any runs of SVT since replacement of permacath and underwent HD yesterday without any arrhythmias. Continue Lopressor 50mg Q12. As patient was cardioverted, he may require therapeutic anticoagulation for a few weeks. Therapeutic AC was started but currently on hold for [facility]-->Will defer to cardiology for determination of need and duration of Anticoagulation. (2) NSTEMI (non-ST elevated myocardial infarction) Is this a current diagnosis for this admission?: Yes Plan: Troponin was elevated 0.2->0.5-->0.4. Suspected type II NSTEMI secondary to demand perfusion mismatch due to tachyarrhythmia and more troponin leak after cardioversion. Completed 48 hours of therapeutic Lovenox. [facility] today for evaluation for ischemic heart disease given troponin leak and chest pain on presentation. Result: LEFT MAIN: Moderate caliber vessel that appears patent without significant disease. LEFT CIRCUMFLEX/OBTUSE MARGINAL: Moderate caliber vessel and appears angiographically patent with only minimal luminal irregularities of the principle Obtuse Marginal of less then 30 %. LEFT ANTERIOR DESCENDING/DIAGONAL: Moderate caliber vessel. It appears to have a complex area of at least 70 % blockage in the LAD just prior to a principle diagonal branch takeoff, the diagonal branch itself appears also to be a moderate size with a high grade ostial 85% blockage with mild pre-injection calcification and approximately a 60-70 degree angulated takeoff from the LAD system making this a higher risk PCI consideration. RIGHT CORONARY ARTERY: Moderate caliber vessel that is dominant in character that appears to only have minor luminal irregularities in the distal area prior to bifurcation into the PDA and LEN branches that appear patent. Planned for transfer to [facility] for PCI tomorrow. ASA, Atorvastatin, Lopressor, Prophylactic dose heparin (3) Chest pain Is this a current diagnosis for this admission?: Yes Plan: Likely secondary to patient's tachycardia. Resolved since cardioversion in ER. (4) ESRD (end stage renal disease) on dialysis Is this a current diagnosis for this admission?: Yes Plan: Recently started on dialysis within the past 1.5 months. Gets dialyzed via permacath. Tuesday. Received full session of dialysis on . (5) Hypocalcemia Is this a current diagnosis for this admission?: Yes Plan: Corrected calcium today is normal. Hypocalcemia is likely secondary to ESRD. Intact PTH elevated and vitamin D 25 is normal. Started patient on calcitriol. (6) Leukocytosis Is this a current diagnosis for this admission?: Yes Plan: Patient's does not seem to have any complaints indicative of any particular infection. Chest x-ray negative for infection. Has no urinary complaints. Secondary to chronic steroid use. Last measured wbc is 9k. (7) Chronic steroid use Is this a current diagnosis for this admission?: Yes Plan: Patient's is notably on prednisone 20 mg 3 times daily as well as dapsone. Patient unfortunately does not know why he is on these medications but just tells me that this is what he is prescribed. I will continue his medications. I suspect patient may have some autoimmune/rheumatologic condition and glomerulonephritis which may have accounted for his renal failure. Physical Exam Vital Signs: Temp Pulse Resp BP Pulse Ox 97.8 F 65 16 129/73 H 93 06/03/20 12:22 06/03/20 12:22 06/03/20 12:22 06/03/20 12:22 06/03/20 12:22 Intake & Output 06/02/20 06/03/20 06/04/20 06:59 06:59 06:59 Intake Total 1694 465 Output Total 1225 2280 Balance 469 -1815 Weight 87.4 kg 86.3 kg General appearance: PRESENT: no acute distress, cooperative Neck exam: ABSENT: JVD Respiratory exam: PRESENT: clear to auscultation taiwo, unlabored. ABSENT: wheezes Cardiovascular exam: PRESENT: RRR, +S1, +S2. ABSENT: tachycardia GI/Abdominal exam: PRESENT: soft. ABSENT: rebound, rigid, tenderness Neurological exam: PRESENT: alert, awake, oriented to person, oriented to place, oriented to time, oriented to situation Results Laboratory Results: 06/02/20 04:58 06/02/20 04:58 06/02/20 17:02 Urine Color YELLOW Urine Appearance CLOUDY Urine pH 7.0 Ur Specific [place] 1.009 Urine Protein 100 H Urine Glucose (UA) NEGATIVE Urine Ketones NEGATIVE Urine Blood MODERATE H Urine Nitrite NEGATIVE Ur Leukocyte Esterase LARGE H Urine WBC (Auto) >182 Urine RBC (Auto) 7 05/30/20 05/30/20 05/30/20 13:48 13:48 18:00 Creatine Kinase 52 L CK-MB (CK-2) 3.47 Troponin I 0.204 0.520 05/30/20 23:52 Creatine Kinase CK-MB (CK-2) Troponin I 0.439 Impressions: Fluoroscopy 06/02/20 00:00 IMPRESSION: IMAGE(S) OBTAINED DURING PROCEDURE. Guidance Fluoroscopy 06/02/20 00:00 IMPRESSION: IMAGE(S) OBTAINED DURING PROCEDURE. Chest X-Ray 06/02/20 16:00 IMPRESSION: Catheter as described. Cannot exclude limited airspace disease in the perihilar region of the left lung, pneumonia versus atelectasis. Plan Time Spent: Greater than 30 Minutes
[2020-06-03] MEDS ORDERED: HEPARIN SOD (PORCINE) 5,000 UNIT/ML 1 ML VIAL SUBCUT SCH (14:00)
--- NOTE | 2020-06-03 14:33 | EKG REPORT ---
SEVERITY:- NORMAL ECG - SINUS RHYTHM : Confirmed by: Von Reyes MD 03-Jun-2020 14:32:17
[2020-06-03 16:41] VITALS: BP 141/79
[2020-06-03] MEDS ORDERED: ATORVASTATIN CALCIUM 40 MG TABLET PO SCH (22:00)
[2020-06-04] MEDS ORDERED: ENOXAPARIN SODIUM INJ 40 MG/0.4 ML DISP.SYRIN SUBCUT SCH (10:00)
== END 2020-06-03 16:21 | disposition short-term general hospital (02) | DRG 280 ==
LOC: ER 13:27 → EH 17:08 → 5 22:08 → OBSVTOIN 05-31 14:17
PROVIDERS: ADMIT Internal Medicine; ATTEND Internal Medicine
PROC: 5A2204Z Restoration of Cardiac Rhythm, Single (ICD-10-PCS; 2020-05-30)
PROC: 5A1D70Z Performance of Urinary Filtration, Intermittent, Less than 6 Hours Per Day (ICD-10-PCS; 2020-06-02)
PROC: 02PY33Z Removal of Infusion Device from Great Vessel, Percutaneous Approach (ICD-10-PCS; 2020-06-02)
PROC: 02HV33Z Insertion of Infusion Device into Superior Vena Cava, Percutaneous Approach (ICD-10-PCS; 2020-06-02)
PROC: 4A023N7 Measurement of Cardiac Sampling and Pressure, Left Heart, Percutaneous Approach (ICD-10-PCS; principal; 2020-06-03)
DX: I47.1 Supraventricular tachycardia (principal); I21.4 Non-ST elevation (NSTEMI) myocardial infarction; N18.6 End stage renal disease; N01.9 Rapidly progressive nephritic syndrome with unspecified morphologic changes; N17.9 Acute kidney failure, unspecified; D63.1 Anemia in chronic kidney disease; E83.51 Hypocalcemia; D72.829 Elevated white blood cell count, unspecified; I49.1 Atrial premature depolarization; G47.30 Sleep apnea, unspecified; N40.0 Benign prostatic hyperplasia without lower urinary tract symptoms; K21.9 Gastro-esophageal reflux disease without esophagitis; M17.0 Bilateral primary osteoarthritis of knee; I48.0 Paroxysmal atrial fibrillation; G47.33 Obstructive sleep apnea (adult) (pediatric); Z20.828 Contact with and (suspected) exposure to other viral communicable diseases; Z99.2 Dependence on renal dialysis; Z79.52 Long term (current) use of systemic steroids; Z79.82 Long term (current) use of aspirin; Z79.899 Other long term (current) drug therapy; Z88.1 Allergy status to other antibiotic agents; Z88.0 Allergy status to penicillin; Z88.2 Allergy status to sulfonamides; Z82.49 Family history of ischemic heart disease and other diseases of the circulatory system; Z87.891 Personal history of nicotine dependence
CPT/HCPCS: 36415; 532; 71045; 77001; 80048; 80053; 81001; 82306; 82550; 82553; 83735; 83970; 84100; 84439; 84443; 84484; 85025; 85027; 85610; 85730; 87635; 93005; 93010; 93306; 93458; 96374; 96375; 99291; C1752; C1769; C1887; C9803; G0378; J0610; J0690; J1642; J1644; J1650; J2250; J2405; J2704; J3010; J3490; J7030; J7512; Q5105; S0028

== ENCOUNTER → 2020-05-30 | Outpatient (CLI) | payer MEDICARE ==
--- NOTE | 2020-05-30 18:36 | EKG REPORT ---
SEVERITY:- ABNORMAL ECG - SUPRAVENTRICULAR TACHYCARDIA = A FLUTTER ST DEPRESSION, PROBABLY RATE RELATED : Confirmed by: James Alvarez MD 30-May-2020 18:36:15
== END ==
LOC: OD 11:28
PROVIDERS: ATTEND Internal Medicine
DX: R07.9 Chest pain, unspecified (principal); I47.1 Supraventricular tachycardia; I48.92 Unspecified atrial flutter
CPT/HCPCS: 93005; 93010

== ENCOUNTER 2020-06-11 07:13 | Emergency (ER) | payer MEDICARE ==
--- NOTE | 2020-06-11 09:53 | ER Document Report ---
ED General - General Chief Complaint: Skin Problem Stated Complaint: SKIN PROBLEM/POSSIBLE SHINGLES Time Seen by Provider: 06/11/20 08:45 Primary Care Provider: KAYLEIGH SAVAGE MD [Primary Care Provider] - Follow up as needed Notes: 76-year-old male with past medical history of hard of hearing, ESRD, [place], stent placement 1 week ago presenting with a painful rash on his back that radiates down his left back leg. States that the pain is dull painful. Is nonpruritic. States that it started on his low back and then spread down his leg. States that he did not notice any initial lesions and the pain started. He denies any burning or tingling sensations. He is a Tuesday dialysis patient. He sees Dr. Savage. Was recently started on 2 new cardiac medications to include metoprolol. Received the shingles vaccine last year. Denies any additional symptoms at this time. TRAVEL OUTSIDE OF THE [place] IN LAST 30 DAYS: No - Related Data Allergies/Adverse Reactions: sulfamethoxazole [From Bactrim] Allergy (Intermediate, Verified 05/30/20 13:58) trimethoprim [From Bactrim] Allergy (Intermediate, Verified 05/30/20 13:58) amoxicillin [From Augmentin] Allergy (Verified 05/30/20 13:58) clavulanic acid [From Augmentin] Allergy (Verified 05/30/20 13:58) Home Medications: Omeprazole. prednisone, dapsone, brilinta, flomax, baby aspirin, metoprolol Past Medical History - Social History Smoking Status: Former Smoker Family History: Reviewed & Not Pertinent - Past Medical History Cardiac Medical History: Reports: Hx Heart Attack, Hx Hypertension Pulmonary Medical History: Reports: Hx Sleep Apnea - cpap-to bring Neurological Medical History: Renal/ Medical History: Reports: Hx Benign Prostatic Hyperplasia, Hx End Stage Renal Disease Malignancy Medical History: GI Medical History: Reports: Hx Gastroesophageal Reflux Disease - on meds. Denies: Hx Pancreatitis Musculoskeletal Medical History: Reports Hx Arthritis - knees bilaterally Psychiatric Medical History: Denies: Hx Depression Traumatic Medical History: Past Surgical History: Reports: Hx Bowel Surgery - colon, Hx Cardiac Catheterization - 2 stents, Hx Orthopedic Surgery - Immunizations Hx Diphtheria, Pertussis, Tetanus Vaccination: No Hx Pneumococcal Vaccination: 10/21/15 Review of Systems - Review of Systems Constitutional: No symptoms reported EENT: No symptoms reported Cardiovascular: No symptoms reported Respiratory: No symptoms reported Gastrointestinal: No symptoms reported Genitourinary: No symptoms reported Skin: See HPI Physical Exam - Vital signs Vitals: Temp Pulse Resp BP Pulse Ox 98.8 F 119 H 16 118/77 97 06/11/20 07:23 06/11/20 07:23 06/11/20 07:23 06/11/20 07:23 06/11/20 07:23 Interpretation: Tachycardic. No: Hypertensive, Febrile - Notes Notes: Adult General: GENERAL: Alert, interacts well. No acute distress HEAD: Normocephalic, atraumatic EYES: Pupils equal, round and reactive to light. Extraocular movements intact. ENT: Airway patent. Nares patent. NECK: Full range of motion. Supple. Trachea midline. No lymphadenopathy. LUNGS: Clear to auscultation bilaterally, no wheezes, rales, or rhonchi. No respiratory distress. Nontender chest wall. HEART: Regular rate and rhythm. No murmurs, rubs or gallops. ABDOMEN: Soft, nontender. Nondistended. GENITOURINARY: Deferred EXTREMITIES: Moves all 4 extremities spontaneously. BACK: No cervical, thoracic, lumbar midline tenderness. No saddle anesthesia, normal distal neurovascular exam. Moves all extremities with full range of motion. NEUROLOGICAL: Alert and oriented x3. Normal speech. Strength 5/ 5 in all extremities. PSYCH: Normal affect, normal mood. SKIN: Multiple confluent clusters of erythematous, crusted blisters with no associated warmth or tenderness to palpation along the L5/S1 nerve distribution on the left leg beginning superior to gluteal cleft and extending to the knee, no purpura. Course - Re-evaluation Re-evalutation: Based on pain presenting and then a rash developing along a specific distribution, I suspect that this is shingles. I will go ahead and prescribe the patient valcyclovir. If he has worsening symptoms or development of new symptoms he may return to the emergency deparment. I also recommend patient follow up with his primary care. Patient acknowledges and verbalizes understanding of instructions and plans. All questions answered. - Vital Signs Vital signs: Temp Pulse Resp BP Pulse Ox 98.1 F 83 16 150/75 H 94 06/11/20 10:00 06/11/20 10:06/11/20 10:00 06/11/20 10:00 06/11/20 10:00 Discharge - Discharge Clinical Impression: Shingles Qualifiers: Herpes zoster complications: without complications Qualified Code(s): B02.9 - Zoster without complications Condition: Stable Disposition: HOME, SELF-CARE Additional Instructions: Please follow-up with a primary care provider to ensure resolution of the rash. Please also follow-up with your dialysis center so you can receive dialysis. Please take the medication as prescribed. Please return to the emergency department if you have worsening symptoms or development of new symptoms Prescriptions: Valacyclovir HCl [Valacyclovir] 500 mg PO DAILY 7 Days #7 tablet Referrals: KAYLEIGH SAVAGE MD [Primary Care Provider] - Follow up as needed
[2020-06-11 10:02] VITALS: BP 150/75
== END 2020-06-11 10:14 | disposition home or self-care (01) ==
LOC: ER 07:13
DX: B02.9 Zoster without complications (principal); K21.9 Gastro-esophageal reflux disease without esophagitis; I12.0 Hypertensive chronic kidney disease with stage 5 chronic kidney disease or end stage renal disease; N18.6 End stage renal disease; Z99.2 Dependence on renal dialysis; Z79.899 Other long term (current) drug therapy; I25.2 Old myocardial infarction; Z95.5 Presence of coronary angioplasty implant and graft; Z79.82 Long term (current) use of aspirin; Z79.52 Long term (current) use of systemic steroids; Z79.02 Long term (current) use of antithrombotics/antiplatelets; Z87.891 Personal history of nicotine dependence; Z88.1 Allergy status to other antibiotic agents; Z88.0 Allergy status to penicillin
CPT/HCPCS: 99282

== ENCOUNTER 2020-06-17 09:12 | Inpatient (IN) | payer MEDICARE ==
[2020-06-17 10:28] LABS: HEMATOCRIT 22.7 % (37.9-51.0); MEAN CORPUSCULAR HEMOGLOBIN 31.8 pg (27.0-33.4); PLATELET COUNT 414 10^3/uL (150-450); RED BLOOD COUNT 2.21 10^6/uL (4.35-5.55); RED CELL DISTRIBUTION WIDTH 21.8 % (11.5-14.0); WHITE BLOOD COUNT 19.5 10^3/uL (4.0-10.5)
[2020-06-17 10:49] LABS: ALBUMIN 3.2 g/dL (3.5-5.0); ALKALINE PHOSPHATASE 69 U/L (38-126); ANION GAP 10 (5-19); ASPARTATE AMINO TRANSFERASE 23 U/L (17-59); BILIRUBIN,DIRECT 0.1 mg/dL (0.0-0.4); BILIRUBIN,TOTAL 0.6 mg/dL (0.2-1.3); BLOOD UREA NITROGEN 31 mg/dL (7-20); CALCIUM 8.4 mg/dL (8.4-10.2); CARBON DIOXIDE 24 mmol/L (22-30); CHLORIDE 100 mmol/L (98-107); GLUCOSE 125 mg/dL (75-110); POTASSIUM 4.2 mmol/L (3.6-5.0)
[2020-06-17 10:50] LABS: MEAN CORPUSCULAR VOLUME 103 fl (80-97)
[2020-06-17 10:53] LABS: ABSOLUTE LYMPHOCYTES# (MANUAL) 1.8 10^3/uL (0.5-4.7); ABSOLUTE MONOCYTES # (MANUAL) 0.6 10^3/uL (0.1-1.4); BAND NEUTROPHILS % (MANUAL) 4 % (3-5); BASOPHILS % (MANUAL) 0 % (0-2); EOSINOPHILS % (MANUAL) 0 % (0-6); LYMPHOCYTES % (MANUAL) 9 % (13-45); METAMYELOCYTES % (MANUAL) 2 % (0-1); MONOCYTES % (MANUAL) 3 % (3-13); SEGMENTED NEUTROPHILS % (MAN) 82 % (42-78); TOTAL CELLS COUNTED 100
[2020-06-17 10:54] LABS: ANISOCYTOSIS 3+; POLYCHROMASIA SLIGHT; TOXIC GRANULATION 1+
[2020-06-17 10:55] LABS: PLATELET CLUMPS PRESENT; PLATELET COMMENT ADEQUATE
[2020-06-17] MEDS ORDERED: NORMAL SALINE 250 ML IV PRN ×2 (12:31)
--- NOTE | 2020-06-17 13:45 | ER Document Report ---
ED General - General Chief Complaint: Anemia Stated Complaint: ABNORMAL LABS Time Seen by Provider: 06/17/20 09:44 Primary Care Provider: KAYLEIGH SAVAGE MD [Primary Care Provider] - Follow up as needed Information source: Patient TRAVEL OUTSIDE OF THE [place] IN LAST 30 DAYS: No - HPI Notes: Patient presents stating that he was told by dialysis that he had a low hemoglobin. He states he has been feeling weak over the last 4 to 5 days. He also states that in this time he has had one episode of bright red blood in the stool as well as several episodes of dark black and tarry stools. He denies any pain. His weakness is been severe and constant. Radiates throughout his body. Is worse with movement better with rest. He denies any fevers. He denies any abdominal pain. No previous known history of bleeding from the gastrointestinal tract. - Related Data Allergies/Adverse Reactions: sulfamethoxazole [From Bactrim] Allergy (Intermediate, Verified 06/17/20 09:35) trimethoprim [From Bactrim] Allergy (Intermediate, Verified 06/17/20 09:35) amoxicillin [From Augmentin] Allergy (Verified 06/17/20 09:35) clavulanic acid [From Augmentin] Allergy (Verified 06/17/20 09:35) Past Medical History - General Information source: Patient - Social History Smoking Status: Former Smoker Chew tobacco use (# tins/day): Yes Frequency of alcohol use: None Drug Abuse: None Family History: Reviewed & Not Pertinent Patient has homicidal ideation: No - Past Medical History Cardiac Medical History: Reports: Hx Heart Attack, Hx Hypertension Pulmonary Medical History: Reports: Hx Sleep Apnea - cpap-to bring Neurological Medical History: Renal/ Medical History: Reports: Hx Benign Prostatic Hyperplasia, Hx End Stage Renal Disease Malignancy Medical History: GI Medical History: Reports: Hx Gastroesophageal Reflux Disease - on meds. Denies: Hx Pancreatitis Musculoskeletal Medical History: Reports Hx Arthritis - knees bilaterally Psychiatric Medical History: Denies: Hx Depression Traumatic Medical History: Past Surgical History: Reports: Hx Bowel Surgery - colon, Hx Cardiac Catheterization - 2 stents, Hx Orthopedic Surgery - Immunizations Hx Diphtheria, Pertussis, Tetanus Vaccination: No Hx Pneumococcal Vaccination: 10/21/15 Review of Systems - Review of Systems Constitutional: denies: Chills, Fever Cardiovascular: denies: Chest pain, Palpitations Respiratory: denies: Cough, Short of breath -: Yes All other systems reviewed and negative Physical Exam - Vital signs Vitals: Temp Pulse Resp BP Pulse Ox 98.4 F 120 H 22 H 108/59 L 95 06/17/20 09:20 06/17/20 09:20 06/17/20 09:20 06/17/20 09:20 06/17/20 09:20 Interpretation: Normal - General General appearance: Appears well, Alert - HEENT Head: Normocephalic, Atraumatic Eyes: Normal Pupils: PERRL - Respiratory Respiratory status: No respiratory distress Chest status: Nontender Breath sounds: Normal Chest palpation: Normal - Cardiovascular Rhythm: Tachycardia Heart sounds: Normal auscultation Murmur: No - Abdominal Inspection: Normal Distension: No distension Bowel sounds: Normal Tenderness: Nontender Organomegaly: No organomegaly - Rectal Tenderness: No Stool: Heme positive Hemorrhoids: None - Back Back: Normal, Nontender - Extremities General upper extremity: Normal inspection, Nontender, Normal color, Normal ROM, Normal temperature General lower extremity: Normal inspection, Nontender, Normal color, Normal ROM, Normal temperature, Normal weight bearing. No: Nickolas's sign - Neurological Neuro grossly intact: Yes Cognition: Normal Orientation: AAOx4 [place] Coma Scale Eye Opening: Spontaneous [place] Coma Scale Verbal: Oriented [place] Coma Scale Motor: Obeys Commands [place] Coma Scale Total: 15 Speech: Normal Motor strength normal: LUE, RUE, LLE, RLE Sensory: Normal - Psychological Associated symptoms: Normal affect, Normal mood - Skin Skin Temperature: Warm Skin Moisture: Dry Skin Color: [place] Course - Re-evaluation Re-evalutation: 06/17/20 13:43 Patient presents with weakness, abnormal laboratories and history of bleeding rectally. Work-up is consistent with a heme positive stool and a hemoglobin of 7.0. Patient will be transfused 1 unit of blood and admitted to the hospital for possible endoscopy and further work-up. - Vital Signs Vital signs: Temp Pulse Resp BP Pulse Ox 98.4 F 120 H 16 138/90 H 95 06/17/20 09:20 06/17/20 09:20 06/17/20 13:30 06/17/20 13:30 06/17/20 13:30 - Laboratory Result Diagrams: 06/17/20 09:58 06/17/20 09:58 Laboratory results interpreted by me: 07/28/20 07/28/20 07/28/20 09:58 09:58 09:58 WBC 19.5 H RBC 2.21 L Hgb 7.0 L Hct 22.7 L MCV 103 H D MCHC 31.0 L RDW 21.8 H Seg Neuts % (Manual) 82 H Lymphocytes % (Manual) 9 L Metamyelocytes % 2 H Abs Neuts (Manual) 17.2 H Sodium 133.7 L BUN 31 H Creatinine 4.64 H Est GFR ( Amer) 15 L Est GFR (MDRD) Non-Af 12 L Glucose 125 H Total Protein 6.0 L Albumin 3.2 L Crossmatch See Detail - Diagnostic Test Radiology reviewed: Image reviewed, Reports reviewed Discharge - Discharge Clinical Impression: Lower GI bleed, ESRD (end stage renal disease) on dialysis Anemia Qualifiers: Anemia type: iron deficiency Iron deficiency anemia type: chronic blood loss Qualified Code(s): D50.0 - Iron deficiency anemia secondary to blood loss (chronic) Condition: Serious Disposition: ADMITTED INPATIENT Admitting Provider: Carlos (Hospitalist) Unit Admitted: Telemetry Referrals: KAYLEIGH SAVAGE MD [Primary Care Provider] - Follow up as needed
--- NOTE | 2020-06-17 14:02 | RADIOLOGY REPORT (SQ) ---
EXAM DESCRIPTION: CHEST SINGLE VIEW IMAGES COMPLETED DATE/TIME: 06/17/2020 1:32 pm REASON FOR STUDY: Leukocytosis COMPARISON: 06/02/2020 EXAM PARAMETERS: NUMBER OF VIEWS: One view. TECHNIQUE: Single frontal radiographic view of the chest acquired. RADIATION DOSE: NA LIMITATIONS: None. FINDINGS: LUNGS AND PLEURA: Persistent ill-defined opacification in the left perihilar region. No a cute infiltrate or effusion. No mass. MEDIASTINUM AND HILAR STRUCTURES: No masses. Contour normal. HEART AND VASCULAR STRUCTURES: Heart normal in size. Normal vasculature. BONES: No acute findings. HARDWARE: Dual-lumen catheter on the right. OTHER: No other significant finding. IMPRESSION: No significant interval change. TECHNICAL DOCUMENTATION: JOB ID: [id number] 2010 [email or web address]- All Rights Reserved Reading location - IP/workstation name: [email or web address]
[2020-06-17] MEDS ORDERED: ACETAMINOPHEN 325 MG TABLET PO PRN (14:24)
[2020-06-17] MEDS ORDERED: GLUCAGON,HUMAN RECOMB 1 MG INJ SUBCUT PRN (14:24)
[2020-06-17] MEDS ORDERED: DEXTROSE 40% GEL 15 GM TUBE PO PRN ×2 (14:24)
[2020-06-17] MEDS ORDERED: DEXTROSE 50%-WATER 25 GM/50 ML DISP.SYRIN IV PRN ×2 (14:24)
--- NOTE | 2020-06-17 14:28 | PDOC CONSULTATION ---
Consultation Consult Date: 06/17/20 Provider Consulted: BRANDEE ABDULLAHI Consult reason:: Anemia , possible GI bleeding History of Present Illness Admission Date/PCP: 06/17/20 14:00 KAYLEIGH SAVAGE MD History of Present Illness: MARJAN SANTIZO is a 75 year old male I was called by the ED physician patient had been seen back in 2016 and had colonoscopy at that time right side colon( ascending colon) mass noted and referred by surgery, seen by Dr Canas and had surgery he had a right hemicolectomy patient does not appear to have had follow up is on dialysis noted to be anemic admits to having black stool and some rectal bleeding referred to GI for work up he will need both an EGD and colonoscopy patient known to Nephrology service Past Medical History Cardiac Medical History: Reports: Myocardial Infarction, Hypertension Pulmonary Medical History: Reports: Sleep Apnea - cpap-to bring Neurological Medical History: Renal/ Medical History: Reports: End Stage Renal Disease Malignancy Medical History: GI Medical History: Reports: Gastroesophageal Reflux Disease - on meds Musculoskeltal Medical History: Reports: Arthritis - knees bilaterally Psychiatric Medical History: Denies: Depression Hematology: Past Surgical History Past Surgical History: Reports: Cardiac Catheterization - 2 stents, Orthopedic Surgery Social History Smoking Status: Former Smoker Electronic Cigarette use?: No Frequency of Alcohol Use: None Hx Recreational Drug Use: No Drugs: None Hx Prescription Drug Abuse: No Family History Family History: Reviewed & Not Pertinent Parental Family History Reviewed: Yes Children Family History Reviewed: Unknown Sibling(s) Family History Reviewed.: Unknown Medication/Allergy Home Medications: Omeprazole [Prilosec] 20 mg PO DAILY 01/20/16 Dapsone [Dapsone 25 mg Tablet] 50 mg PO BID 05/30/20 Prednisone [Deltasone 20 mg Tablet] 60 mg PO DAILY 05/30/20 Tamsulosin HCl [Flomax 0.4 mg Cap.sr] 0.4 mg PO QPM 05/30/20 Valacyclovir HCl [Valacyclovir] 500 mg PO DAILY 7 Days #7 tablet 06/11/20 Allergies/Adverse Reactions: sulfamethoxazole [From Bactrim] Allergy (Intermediate, Verified 06/17/20 09:35) trimethoprim [From Bactrim] Allergy (Intermediate, Verified 06/17/20 09:35) amoxicillin [From Augmentin] Allergy (Verified 06/17/20 09:35) clavulanic acid [From Augmentin] Allergy (Verified 06/17/20 09:35) Review of Systems Constitutional: ABSENT: fever(s), headache(s), night sweats, weakness Eyes: ABSENT: visual disturbances Ears: ABSENT: hearing changes Nose, Mouth, and Throat: ABSENT: mouth pain, sore throat Cardiovascular: ABSENT: edema, orthropnea Respiratory: ABSENT: dyspnea, hemoptysis Gastrointestinal: ABSENT: dysphagia, hematochezia, melena Genitourinary: ABSENT: dysuria, hematuria Musculoskeletal: ABSENT: joint swelling Integumentary: ABSENT: lesions, pruritus Neurological: ABSENT: syncope, tingling, tremor(s), vertigo Endocrine: ABSENT: polydipsia, polyphagia, polyuria Hematologic/Lymphatic: ABSENT: easy bruising, lymphadenopathy Physical Exam Vital Signs: Temp Pulse Resp BP Pulse Ox 98.4 F 120 H 16 138/90 H 95 06/17/20 09:20 06/17/20 09:20 06/17/20 13:30 06/17/20 13:30 06/17/20 13:30 Intake & Output 06/16/20 06/17/20 06/18/20 06:59 06:59 06:59 Intake Total 0 Balance 0 Weight 84.368 kg General appearance: PRESENT: no acute distress, well-developed, well-nourished Head exam: PRESENT: atraumatic, normocephalic Eye exam: PRESENT: EOMI, PERRLA. ABSENT: nystagmus, scleral icterus Mouth exam: PRESENT: moist, neck supple Neck exam: ABSENT: meningismus, tenderness, thyromegaly Respiratory exam: PRESENT: symmetrical, unlabored. ABSENT: tachypnea, wheezes Cardiovascular exam: PRESENT: RRR, +S1 - d, +S2 GI/Abdominal exam: PRESENT: normal bowel sounds. ABSENT: Esposito's sign, organolmegaly, rebound, rigid Extremities exam: ABSENT: joint swelling Musculoskeletal exam: PRESENT: full ROM Neurological exam: PRESENT: alert, awake, CN II-XII grossly intact Skin exam: PRESENT: normal color. ABSENT: mottled, pallor, petechiae Results Laboratory Results: 06/17/20 09:58 06/17/20 09:58 06/17/20 06/17/20 06/17/20 09:58 09:58 09:58 WBC 19.5 H RBC 2.21 L Hgb 7.0 L Hct 22.7 L MCV 103 H D MCH 31.8 MCHC 31.0 L RDW 21.8 H Plt Count 414 Seg Neutrophils % Not Reportable Sodium 133.7 L Potassium 4.2 Chloride 100 Carbon Dioxide 24 Anion Gap 10 BUN 31 H Creatinine 4.64 H Est GFR ( Amer) 15 L Glucose 125 H Calcium 8.4 Total Bilirubin 0.6 AST 23 Alkaline Phosphatase 69 Total Protein 6.0 L Albumin 3.2 L Blood Type O POSITIVE Antibody Screen NEGATIVE Impressions: Chest X-Ray 06/17/20 12:53 IMPRESSION: No significant interval change. Assessment & Plan - Diagnosis (1) Anemia Qualifiers: Anemia type: iron deficiency Iron deficiency anemia type: chronic blood loss Qualified Code(s): D50.0 - Iron deficiency anemia secondary to blood loss (chronic) Plan: could be due to possible GI Bleeding will exclude upper lesions since there is melena will need an EGD Risks, benefits and alternatives are explained to the patient in detail further recommendations to follow will need to have Covid 19 testing, but likely not necessary to be rapid testing (2) Lower GI bleed Plan: will need a colonoscopy as well overdue for surveillance Risks, benefits and alternatives are explained to the patient in detail further recommendations to follow - Time Time Spent: 50 to 70 Minutes
[2020-06-17] MEDS ORDERED: ONDANSETRON 4 MG TAB.RAPDIS PO PRN (14:34)
[2020-06-17] MEDS ORDERED: MAG HYDROX/AL HYDROX/SIMETH SUSP 30 ML UDCUP PO PRN (14:34)
--- NOTE | 2020-06-17 15:16 | PDOC H&P ---
History of Present Illness Admission Date/PCP: 06/17/20 14:00 KAYLEIGH SAVAGE MD Patient complains of: abnormal labs History of Present Illness: AMRJAN SANTIZO is a 75 year old male with history of CAD, recent stenting, ESRD, SVT, who presents to the hospital after referral from his dialysis center for evaluation of low hemoglobin level. Patient was recently in the hospital for evaluation of SVT during which he had his permacath exchanged as it was thought to be provoking SVT and he was subsequently transferred to [facility] where he had PCI with 2 stents placed. Patient states he noted some episodes of bloody bowel movement the last episode being a few days ago. Has had a few dark stools since then. He denies any shortness of breath or lightheadedness. Denies any chest pain. Denies hematemesis. Past Medical History Cardiac Medical History: Reports: Coronary Artery Disease, Myocardial Infarction, Hypertension Pulmonary Medical History: Reports: Sleep Apnea - cpap-to bring Neurological Medical History: Renal/ Medical History: Reports: End Stage Renal Disease Malignancy Medical History: GI Medical History: Reports: Gastroesophageal Reflux Disease - on meds Musculoskeltal Medical History: Reports: Arthritis - knees bilaterally Psychiatric Medical History: Denies: Depression Hematology: Past Surgical History Past Surgical History: Reports: Cardiac Catheterization - 2 stents, Orthopedic Surgery Social History Smoking Status: Former Smoker Electronic Cigarette use?: No Frequency of Alcohol Use: None Hx Recreational Drug Use: No Drugs: None Hx Prescription Drug Abuse: No - Advance Directive Resuscitation Status: Full Code Family History Family History: Hypertension Parental Family History Reviewed: Yes Children Family History Reviewed: Unknown Sibling(s) Family History Reviewed.: Unknown Medication/Allergy Home Medications: Omeprazole [Prilosec] 20 mg PO Q6AM 01/20/16 Dapsone [Dapsone 25 mg Tablet] 50 mg PO BID 05/30/20 Prednisone [Deltasone 20 mg Tablet] 20 mg PO DAILY 05/30/20 Tamsulosin HCl [Flomax 0.4 mg Cap.sr] 0.4 mg PO DAILY 05/30/20 Valacyclovir HCl [Valacyclovir] 500 mg PO DAILY 7 Days #7 tablet 06/11/20 Aspirin [Adult Low Dose Aspirin EC] 81 mg PO QHS 06/17/20 Metoprolol Succinate [Toprol Xl 25 mg Tab.sr] 25 mg PO QPM 06/17/20 Ticagrelor [Brilinta 90 mg Tablet] 90 mg PO BID 06/17/20 Allergies/Adverse Reactions: sulfamethoxazole [From Bactrim] Allergy (Intermediate, Verified 06/17/20 09:35) trimethoprim [From Bactrim] Allergy (Intermediate, Verified 06/17/20 09:35) amoxicillin [From Augmentin] Allergy (Verified 06/17/20 09:35) clavulanic acid [From Augmentin] Allergy (Verified 06/17/20 09:35) Review of Systems Constitutional: ABSENT: chills, fever(s) Eyes: ABSENT: visual disturbances Nose, Mouth, and Throat: ABSENT: headache(s) Cardiovascular: ABSENT: chest pain, palpitations Respiratory: ABSENT: dyspnea, hemoptysis Gastrointestinal: PRESENT: hematochezia. ABSENT: abdominal pain, hematemesis Genitourinary: ABSENT: dysuria Neurological: ABSENT: dizziness Psychiatric: ABSENT: anxiety Hematologic/Lymphatic: ABSENT: easy bleeding Physical Exam Vital Signs: Temp Pulse Resp BP Pulse Ox 98.4 F 120 H 14 155/80 H 96 06/17/20 09:20 06/17/20 09:20 06/17/20 14:30 06/17/20 14:30 06/17/20 14:30 Intake & Output 06/16/20 06/17/20 06/18/20 06:59 06:59 06:59 Intake Total 0 Balance 0 Weight 84.368 kg General appearance: PRESENT: no acute distress, cooperative Mouth exam: PRESENT: neck supple Neck exam: ABSENT: JVD Respiratory exam: PRESENT: clear to auscultation taiwo, unlabored. ABSENT: tachypnea, wheezes Cardiovascular exam: PRESENT: +S1, +S2, tachycardia. ABSENT: irregular rhythm GI/Abdominal exam: PRESENT: soft. ABSENT: rebound, rigid, tenderness Neurological exam: PRESENT: alert, awake, oriented to person, oriented to place, oriented to time Psychiatric exam: ABSENT: agitated, anxious Skin exam: PRESENT: rash - LEFT UPPER THIGH POSTERIOLATERAL AND BUTTOCK VESICULAR Results Laboratory Results: 06/17/20 09:58 06/17/20 09:58 06/17/20 06/17/20 06/17/20 09:58 09:58 09:58 WBC 19.5 H RBC 2.21 L Hgb 7.0 L Hct 22.7 L MCV 103 H D MCH 31.8 MCHC 31.0 L RDW 21.8 H Plt Count 414 Seg Neutrophils % Not Reportable Sodium 133.7 L Potassium 4.2 Chloride 100 Carbon Dioxide 24 Anion Gap 10 BUN 31 H Creatinine 4.64 H Est GFR ( Amer) 15 L Glucose 125 H Calcium 8.4 Total Bilirubin 0.6 AST 23 Alkaline Phosphatase 69 Total Protein 6.0 L Albumin 3.2 L Blood Type O POSITIVE Antibody Screen NEGATIVE Impressions: Chest X-Ray 06/17/20 12:53 IMPRESSION: No significant interval change. Assessment and Plan - Diagnosis (1) Anemia Qualifiers: Anemia type: iron deficiency Iron deficiency anemia type: chronic blood loss Qualified Code(s): D50.0 - Iron deficiency anemia secondary to blood loss (chronic) Is this a current diagnosis for this admission?: Yes Plan: Noted to be anemic at 7. Significant drop as compared to last admission. Patient's anemia is associated with ESRD but now complicated by recent GI bleed Receiving 1 unit of blood transfusion today especially given his underlying CAD. Goal hemoglobin >8 Will recheck CBC in the morning Tachycardic on presentation but improving now with transfusion, however patient was not symptomatic. Monitor on telemetry Check coags (2) Lower GI bleed Is this a current diagnosis for this admission?: Yes Plan: GI has been consulted and is planning for EGD and colonoscopy tomorrow Patient has received COVID-19 test on 05/31/2020 was negative. Have discussed this with Dr. Cuevas and he is okay with proceeding with procedure tomorrow Plan as above (3) Coronary artery disease Qualifiers: Coronary Disease-Associated Artery/Lesion type: [place] artery [place] vs. transplanted heart: [place] heart Associated angina: with stable angina Qualified Code(s): I25.118 - Atherosclerotic heart disease of [place] coronary artery with other forms of angina pectoris Is this a current diagnosis for this admission?: Yes Plan: Patient recently had PCI done at [facility] this month with 2 stents placed. Continue aspirin and Brilinta. Continue Toprol-XL. (4) ESRD (end stage renal disease) on dialysis Is this a current diagnosis for this admission?: Yes Plan: Nephrology consulted for hemodialysis. Gets dialyzed Tuesday via permacath. We will coordinate plans for dialysis and endoscopy tomorrow (5) Shingles Qualifiers: Herpes zoster complications: without complications Qualified Code(s): B02.9 - Zoster without complications Is this a current diagnosis for this admission?: Yes Plan: We will put on contact with droplet precautions until lesions crust over Involving his left thigh and buttock Continue valacyclovir I will hold dapsone for now (6) Leukocytosis Qualifiers: Leukocytosis type: unspecified Qualified Code(s): D72.829 - Elevated white blood cell count, unspecified Is this a current diagnosis for this admission?: Yes Plan: He is white count today is 19,000. On assessment he does not seem to have any clear evidence of infection. 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 Monitor CBC Chest x-ray is unimpressive - Time Time Spent with patient: 35 or more minutes Anticipated Discharge Disposition: Home, Self Care Anticipated Discharge: within 48 hours
[2020-06-17] MEDS ORDERED: POLYETHYLENE GLYCOL 3350 POWDER 17 GM/1 PACKET PO ONE (15:30)
[2020-06-17] MEDS: TAMSULOSIN HCL 0.4 MG CAP.SR.24H PO SCH (19:40)
[2020-06-17] MEDS ORDERED: METOPROLOL SUCCINATE 25 MG TAB.SR.24H PO SCH (22:00)
[2020-06-17] MEDS: TICAGRELOR 90 MG TABLET PO SCH (23:48)
[2020-06-18] MEDS ORDERED: EPOETIN ALFA-EPBX 2,000 UNIT, EPOETIN ALFA-EPBX 3,000 UNIT, EPOETIN ALFA-EPBX 20,000 UN... IV PRN ×4 (05:00)
[2020-06-18] MEDS ORDERED: HEPARIN SOD (PORCINE) 1,000 UNIT/ML 10 ML VIAL IV PRN (05:00)
[2020-06-18] MEDS: PANTOPRAZOLE SODIUM 40 MG TABLET.DR PO SCH (05:31)
[2020-06-18 06:52] LABS: ABSOLUTE BASOPHILS # (AUTO) 0.1 10^3/uL (0.0-0.2); ABSOLUTE EOSINOPHILS # (AUTO) 0.1 10^3/uL (0.0-0.6); ABSOLUTE LYMPHOCYTES (AUTO) 1.1 10^3/uL (0.5-4.7); ABSOLUTE MONOCYTES (AUTO) 0.5 10^3/uL (0.1-1.4); BASOPHILS % (AUTO) 0.4 % (0-2); EOSINOPHILS % (AUTO) 0.7 % (0-6); HEMATOCRIT 24.6 % (37.9-51.0); LYMPHOCYTES % (AUTO) 6.5 % (13-45); MEAN CORPUSCULAR HEMOGLOBIN 31.3 pg (27.0-33.4); MEAN CORPUSCULAR HGB CONC 32.1 g/dL (32.0-36.0); MONOCYTES % (AUTO) 2.9 % (3-13); PLATELET COUNT 356 10^3/uL (150-450); RED BLOOD COUNT 2.53 10^6/uL (4.35-5.55); RED CELL DISTRIBUTION WIDTH 21.7 % (11.5-14.0); SEGMENTED NEUTROPHILS % (AUTO) 89.5 % (42-78); TOTAL CELLS COUNTED % (AUTO) 100 %; WHITE BLOOD COUNT 16.8 10^3/uL (4.0-10.5)
[2020-06-18 06:53] LABS: INTERNATIONAL RATION (INR) 1.03; PROTHROMBIN TIME 13.5 SEC (11.4-15.4)
[2020-06-18 06:54] LABS: MEAN CORPUSCULAR VOLUME 98 fl (80-97)
[2020-06-18 06:56] LABS: HEMOGLOBIN 7.9 g/dL (13.5-17.0)
[2020-06-18 07:09] LABS: ANION GAP 10 (5-19); BLOOD UREA NITROGEN 35 mg/dL (7-20); CALCIUM 8.4 mg/dL (8.4-10.2); CARBON DIOXIDE 22 mmol/L (22-30); CHLORIDE 101 mmol/L (98-107); GLUCOSE 79 mg/dL (75-110); POTASSIUM 4.3 mmol/L (3.6-5.0)
[2020-06-18] MEDS ORDERED: NORMAL SALINE 250 ML IV PRN ×2 (08:13)
--- NOTE | 2020-06-18 10:47 | Progress Note ---
Provider Note Provider Note: patient was scheduled for procedure today is in dialysis right now Anesthesia saw the patient patient is at high risk of further cardiac issues, recently had an TN with stent placement, 1 week ago at [facility] Hgb appears to be stable, no further active bleeding since admission would not proceed, at this point. please also see Anesthesia's note documenting there concerns as well can be managed conservatively at this point he will not be able to stop his anticoagulation due to recent stent placement anyway transfuse as necessary would defer on any procedures since high risk of further cardiac ischemia with any sort of sedation if there is evidence of further bleeding, would transfer back to [facility] as he will need tertiary management of current issue spoke with patient while he is in dialysis and patient voices understanding with regards to this will cancel his procedures
--- NOTE | 2020-06-18 10:53 | Progress Note ---
Provider Note Provider Note: Anesthesia evaluation/consult for EGD and Colonoscopy. There are multiple concerns and co-morbidities. [place] less than 1 week with PCI and stent placement x2 vessel at [facility] s/p [place]. ESRD with pt currently in Hemodialysis. H&H stable at this time. discussed concerns with Dr. Quijano and decision made to defer endoscopies at this point.
--- NOTE | 2020-06-18 11:21 | Progress Note ---
Provider Note Provider Note: Called to update Dr Gonzalez, I am told that " patient did not have an SC, just a troponin leak" he wants to talk to anesthesiology along with getting cardiac clearance with Dr Howard if the decision is made to proceed, then will need to do in the OR, and I would be happy to reschedule the patient for tomorrow 06/19 currently no active bleeding keep on clears today, Covid 19 testing done was about 2 weeks ago and does not need retesting at this point spoke with Dr Gonzalez
--- NOTE | 2020-06-18 12:26 | PDOC CONSULTATION ---
Consultation Consult Date: 06/18/20 Provider Consulted: Bri SANTIZO Consult reason:: DAYNA /ESRD for HD. 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 He was then admitted with SVT and was treated by cardioversion as well as repositioning/replacement of his PermCath as it was deemed that the catheter was probably irritating his sinus node producing the dysrhythmia. It looks like his palpitations have since cleared. However he was transferred to [place] because of troponin leak and he went on to have a cardiac catheterization followed by stent placement x2. Post stent placement he is not sure if he was put on Plavix but he is on aspirin and Brilinta on review of his home rx. He is also on prednisone but unsure of the dose and is also on a PPI. Patient was begun on dialysis on the basis of DAYNA with poor urine output. He mentions that his urine output has been progressively declining over the last couple of months in spite of him being on the steroids/Cytoxan to treat his glomerulonephritis. Patient is a poor historian. Patient has been admitted currently because of complaining of progressive and persistent weakness in association with intermittent hematochezia//melena over the last 4 to 5 days. He also complains of orthostasis. Evaluations in the ER revealed that his hemoglobin was 7. No complaints of any chest pains palpitation s or shortness of breath. Patient has been transfused and was consulted with GI. He has had no complaints of abdominal pain and no further symptoms of GI bleed. However since he had recent possible OR and stent placements further endoscopic evaluations have been postponed. Patient currently being seen while undergoing dialysis. He denies any history of chest pain or shortness of breath. Labs and medications were reviewed. Dialysis orders were reviewed with treating dialysis nurse. 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 and began on HD Malignancy Medical History: GI Medical History: Reports: Gastroesophageal Reflux Disease - on meds Musculoskeltal Medical History: Reports: Arthritis - knees bilaterally Denies: Rheumatoid Arthritis Psychiatric Medical History: Denies: Depression Hematology Medical History: Reports Anemia of Chronic Kidney Disease Past Surgical History Past Surgical History: Reports: Cardiac Catheterization - 2 stents, Orthopedic Surgery Social History Smoking Status: Former Smoker Electronic Cigarette use?: No Frequency of Alcohol Use: None Hx Recreational Drug Use: No Drugs: None Hx Prescription Drug Abuse: No - Advance Directive Resuscitation Status: Full Code Family History Parental Family History Reviewed: Yes - Negative for ESRD Children Family History Reviewed: No Sibling(s) Family History Reviewed.: No Medication/Allergy Home Medications: Omeprazole [Prilosec] 20 mg PO Q6AM 01/20/16 Dapsone [Dapsone 25 mg Tablet] 50 mg PO BID 05/30/20 Prednisone [Deltasone 20 mg Tablet] 20 mg PO DAILY 05/30/20 Tamsulosin HCl [Flomax 0.4 mg Cap.sr] 0.4 mg PO DAILY 05/30/20 Valacyclovir HCl [Valacyclovir] 500 mg PO DAILY 7 Days #7 tablet 06/11/20 Aspirin [Adult Low Dose Aspirin EC] 81 mg PO QHS 06/17/20 Metoprolol Succinate [Toprol Xl 25 mg Tab.sr] 25 mg PO QPM 06/17/20 Ticagrelor [Brilinta 90 mg Tablet] 90 mg PO BID 06/17/20 Allergies/Adverse Reactions: sulfamethoxazole [From Bactrim] Allergy (Intermediate, Verified 06/17/20 09:35) trimethoprim [From Bactrim] Allergy (Intermediate, Verified 06/17/20 09:35) amoxicillin [From Augmentin] Allergy (Verified 06/17/20 09:35) clavulanic acid [From Augmentin] Allergy (Verified 06/17/20 09:35) Review of Systems Constitutional: PRESENT: fatigue, weakness. ABSENT: chills, headache(s) Nose, Mouth, and Throat: ABSENT: mouth pain, sore throat Cardiovascular: ABSENT: chest pain, dyspnea on exertion, edema, orthropnea, palpitations Respiratory: ABSENT: dyspnea, hemoptysis Gastrointestinal: PRESENT: hematochezia, melena. ABSENT: abdominal pain, coffee ground emesis, constipation, diarrhea, heartburn, hematemesis, nausea Genitourinary: ABSENT: dysuria, hematuria Musculoskeletal: ABSENT: deformity, joint swelling Integumentary: ABSENT: erythema, lesions, pruritus, rash Neurological: ABSENT: abnormal speech, focal weakness, frequent falls Hematologic/Lymphatic: ABSENT: easy bruising, lymphadenopathy Physical Exam Vital Signs: Temp Pulse Resp BP Pulse Ox 98.2 F 84 16 122/81 97 06/18/20 09:06 06/18/20 09:06 06/18/20 09:06 06/18/20 09:06 06/18/20 09:06 Intake & Output 06/17/20 06/18/20 06/19/20 06:59 06:59 06:59 Intake Total 300 1200 Output Total 3300 Balance 300 -2100 Weight 84.368 kg General appearance: PRESENT: no acute distress Eye exam: PRESENT: EOMI, PERRLA. ABSENT: scleral icterus Ear exam: PRESENT: normal external ear exam Mouth exam: PRESENT: moist, neck supple Neck exam: ABSENT: lymphadenopathy, meningismus, thyromegaly, tracheal deviation Respiratory exam: PRESENT: clear to auscultation taiwo, decreased breath sounds. ABSENT: crackles Cardiovascular exam: PRESENT: +S1, +S2 GI/Abdominal exam: PRESENT: normal bowel sounds, soft. ABSENT: organomegaly, tenderness Extremities exam: ABSENT: pedal edema Neurological exam: PRESENT: alert, awake, oriented to person, oriented to place Psychiatric exam: PRESENT: appropriate affect Skin exam: ABSENT: erythema, mottled, rash Results Laboratory Results: 06/18/20 05:47 06/18/20 05:47 06/17/20 06/18/20 06/18/20 09:58 05:47 05:47 WBC 16.8 H RBC 2.53 L Hgb 7.9 L Hct 24.6 L MCV 98 H D MCH 31.3 MCHC 32.1 RDW 21.7 H Plt Count 356 Seg Neutrophils % 89.5 H Sodium 132.6 L Potassium 4.3 Chloride 101 Carbon Dioxide 22 Anion Gap 10 BUN 35 H Creatinine 4.72 H Est GFR ( Amer) 15 L Glucose 79 Calcium 8.4 Blood Type O POSITIVE Antibody Screen NEGATIVE Impressions: Chest X-Ray 06/17/20 12:53 IMPRESSION: No significant interval change. Assessment & Plan - Diagnosis (1) Acute anemia Plan: Secondary to GI bleed. Likely causes could not be secondary to anticoagulation post PCI/prednisone. Status post transfusion. Presently hemodynamically stable and hemoglobin is also stable. Continue to monitor. Note that he has been c onsulted with GI but endoscopy evaluations has been postponed because of recent possible NSTEMI as well as stent placements. Being managed by hospitalist. 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 Currently he is on prednisone. Patient is also on dialysis hoping for renal recovery. However his urine output has declined indicative of very unlikely chances of renal recovery. Patient currently undergoing dialysis. Dialysis being supervised to ensure safe and smooth procedure. Plan to remove 1 to 2 L of fluid as tolerated. Dialysis orders were reviewed with the treating dialysis nurse. (3) GI bleed Plan: Likely cause could be anticoagulation post PCI/steroids. Status post transfusion. Presently stable. Adjust erythropoietin on dialysis. (4) Coronary artery disease Qualifiers: Coronary Disease-Associated Artery/Lesion type: [place] artery [place] vs. transplanted heart: [place] heart Associated angina: with stable angina Qualified Code(s): I25.118 - Atherosclerotic heart disease of [place] coronary ar ab[place] with other forms of angina pectoris Is this a current diagnosis for this admission?: Yes Plan: Status post recent PCI. (5) Pauci-immune RPGN (rapidly progressive glomerulonephritis) Plan: Currently on alternating steroids/Cytoxan monthly. However urine output declining and the patient still having elevated creatinine indicative of likely having attained ESRD. Monitor. (6) Shingles Qualifiers: Herpes zoster complications: without complications Qualified Code(s): B02.9 - Zoster without complications Is this a current diagnosis for this admission?: Yes Plan: As per hospitalist. Please dose medications to ESRD dosing.
--- NOTE | 2020-06-18 13:03 | PDOC CONSULTATION ---
Consultation Consult Date: 06/18/20 Attending physician:: REYNA CUADRA Provider Consulted: JILLIAN SUERO Consult reason:: Preop eval History of Present Illness Admission Date/PCP: 06/17/20 14:00 KAYLEIGH SAVAGE MD History of Present Illness: MARJAN SANTIZO is a 75 year old male with history of GERD, BPH, ESRD, SVT and coronary artery disease status post non-STEMI on 03 June 2020 with LHC demonstrating 70% LAD stenosis along with 85% stenosis in the diagonal vessel which was treated with a 2.5 mm x 50 mm DHRUV in the proximal diagonal and into the LAD with another stent using a kissing balloon technique into the LAD with a 2.5 mm x 15 mm in the LAD who is consulted to our service for preoperative evaluation prior to colonoscopy due to GI bleed. The patient noticed several bloody bowel movements and was found to have a hemoglobin of 7.0 at which point he was transfused. He is scheduled to undergo colonoscopy therefore our service is consulted for preoperative evaluation. He is found then in bed in the emergency room resting comfortably. He denies recurrence of index ischemic symptoms. He admits to some shortness of breath with strenuous physical activities for the last week or 2. He states that he had 1 bloody bowel movement followed by 2 black bowel movements in 1 week. He denied further lower GI bleed as well as hematemesis or any kind of blood through the upper GI tract. Past Medical History Cardiac Medical History: Reports: Coronary Artery Disease, Myocardial Infarction, Hypertension Pulmonary Medical History: Reports: Sleep Apnea - cpap-to bring Neurological Medical History: Renal/ Medical History: Reports: End Stage Renal Disease Malignancy Medical History: GI Medical History: Reports: Gastroesophageal Reflux Disease - on meds Musculoskeltal Medical History: Reports: Arthritis - knees bilaterally Psychiatric Medical History: Denies: Depression Hematology: Past Surgical History Past Surgical History: Reports: Cardiac Catheterization - 2 stents, Orthopedic Surgery Social History Smoking Status: Former Smoker Electronic Cigarette use?: No Frequency of Alcohol Use: None Hx Recreational Drug Use: No Drugs: None Hx Prescription Drug Abuse: No - Advance Directive Resuscitation Status: Full Code Family History Family History: Hypertension Parental Family History Reviewed: Yes Children Family History Reviewed: Yes Sibling(s) Family History Reviewed.: Yes Medication/Allergy Home Medications: Omeprazole [Prilosec] 20 mg PO Q6AM 01/20/16 Dapsone [Dapsone 25 mg Tablet] 50 mg PO BID 05/30/20 Prednisone [Deltasone 20 mg Tablet] 20 mg PO DAILY 05/30/20 Tamsulosin HCl [Flomax 0.4 mg Cap.sr] 0.4 mg PO DAILY 05/30/20 Valacyclovir HCl [Valacyclovir] 500 mg PO DAILY 7 Days #7 tablet 06/11/20 Aspirin [Adult Low Dose Aspirin EC] 81 mg PO QHS 06/17/20 Metoprolol Succinate [Toprol Xl 25 mg Tab.sr] 25 mg PO QPM 06/17/20 Ticagrelor [Brilinta 90 mg Tablet] 90 mg PO BID 06/17/20 Allergies/Adverse Reactions: sulfamethoxazole [From Bactrim] Allergy (Intermediate, Verified 06/18/20 12:51) trimethoprim [From Bactrim] Allergy (Intermediate, Verified 06/18/20 12:51) amoxicillin [From Augmentin] Allergy (Verified 06/18/20 12:51) clavulanic acid [From Augmentin] Allergy (Verified 06/18/20 12:51) Physical Exam Vital Signs: Temp Pulse Resp BP Pulse Ox 98.2 F 84 16 122/81 97 06/18/20 09:06 06/18/20 09:06 06/18/20 09:06 06/18/20 09:06 06/18/20 09:06 Intake & Output 06/17/20 06/18/20 06/19/20 06:59 06:59 06:59 Intake Total 300 1200 Output Total 3300 Balance 300 -2100 Weight 84.368 kg Results Laboratory Results: 06/18/20 05:47 06/18/20 05:47 06/17/20 06/18/20 06/18/20 09:58 05:47 05:47 WBC 16.8 H RBC 2.53 L Hgb 7.9 L Hct 24.6 L MCV 98 H D MCH 31.3 MCHC 32.1 RDW 21.7 H Plt Count 356 Seg Neutrophils % 89.5 H Sodium 132.6 L Potassium 4.3 Chloride 101 Carbon Dioxide 22 Anion Gap 10 BUN 35 H Creatinine 4.72 H Est GFR ( Amer) 15 L Glucose 79 Calcium 8.4 Blood Type O POSITIVE Antibody Screen NEGATIVE Impressions: Chest X-Ray 06/17/20 12:53 IMPRESSION: No significant interval change. 06/18/20 05:47 06/18/20 05:47 MCV 98 fl (80-97) H D 06/18/20 05:47 MCH 31.3 pg (27.0-33.4) 06/18/20 05:47 MCHC 32.1 g/dL (32.0-36.0) 06/18/20 05:47 RDW 21.7 % (11.5-14.0) H 06/18/20 05:47 Seg Neutrophils % 89.5 % (42-78) H 06/18/20 05:47 Chloride 101 mmol/L (98-107) 06/18/20 05:47 Carbon Dioxide 22 mmol/L (22-30) 06/18/20 05:47 Anion Gap 10 (5-19) 06/18/20 05:47 Est GFR ( Amer) 15 (>60) L 06/18/20 05:47 Glucose 79 mg/dL (75-110) 06/18/20 05:47 Calcium 8.4 mg/dL (8.4-10.2) 06/18/20 05:47 Total Bilirubin 0.6 mg/dL (0.2-1.3) 06/17/20 09:58 AST 23 U/L (17-59) 06/17/20 09:58 Alkaline Phosphatase 69 U/L (38-126) 06/17/20 09:58 Total Protein 6.0 g/dL (6.3-8.2) L 06/17/20 09:58 Albumin 3.2 g/dL (3.5-5.0) L 06/17/20 09:58 Blood Type O POSITIVE 06/17/20 09:58 Antibody Screen NEGATIVE 06/17/20 09:58 Current Medication List Generic Name Dose Route Start Last Admin Trade Name Freq PRN Reason Stop Dose Admin Acetaminophen 650 mg 06/17/20 14:24 Tylenol 325 Mg Tablet PO 07/17/20 14:23 Q4HP PRN FOR PAIN Al Hydrox/Mg Hydrox/Simethicone 15 ml 06/17/20 14:34 Maalox Plus Susp 30 Udcup PO 07/17/20 14:33 Q6HP PRN HEARTBURN Aspirin 81 mg 06/18/20 10:00 Ecotrin 81 Mg Ec Tablet PO 07/18/20 09:59 DAILY BARBARA Dextrose 12.5 gm 06/17/20 14:24 Dextrose Inj 50% Syringe (25 Gm/50 Ml) IV 07/17/20 14:23 PRN PRN FOR BG 50-69 IN ALERT PATIENT Protocol Dextrose 25 gm 06/17/20 14:24 Dextrose Inj 50% Syringe (25 Gm/50 Ml) IV 07/17/20 14:23 PRN PRN See Label Comments Protocol Glucagon 1 mg 06/17/20 14:24 Glucagen Inj 1 Mg Vial SUBCUT 07/17/20 14:23 PRN PRN Evaluate for BG < 70 Protocol Glucose 15 gm 06/17/20 14:24 Glutose 40% Gel 15 Gm Tube PO 07/17/20 14:23 PRN PRN For BG 50-69 in Alert Patient Protocol Glucose 30 gm 06/17/20 14:24 Glutose 40% Gel 15 Gm Tube PO 07/17/20 14:23 PRN PRN FOR BG < 50 IN ALERT PATIENT Protocol Heparin Sodium (Porcine) 3,600 unit 06/18/20 05:00 06/18/20 08:42 Heparin Inj 1,000 Unit/Ml 10 Ml Vial IV 06/18/20 23:59 4,300 units .SPLIT B/N CATHETERS PRN Administration THIS MED IS NOT "PRN" Epoetin Edmundo-epbx 2,000 unit/ 4 mls @ 0 mls/hr 06/18/20 05:00 06/18/20 08:41 Epoetin Edmundo-epbx 3,000 unit/ IV 06/18/20 23:59 25,000 mls/hr Epoetin Edmundo-epbx 20,000 unit/ .DIALYSIS PRN Administration Syringe THIS MED IS NOT "PRN" As Directed Sodium Chloride 250 mls @ 30 mls/hr 06/18/20 08:13 Nacl 0.9% 250 Ml Iv Soln IV 06/19/20 08:12 .DURING TRANSFUSION PRN THIS MED IS NOT "PRN" Sodium Chloride 250 mls @ 0 mls/hr 06/18/20 08:13 Nacl 0.9% 250 Ml Iv Soln IV 06/19/20 08:12 CONTINUOUS PRN AFTER EACH UNIT As Directed Metoprolol Succinate 25 mg 06/17/20 22:00 06/17/20 23:48 Toprol Xl 25 Mg Tab.Sr PO 07/17/20 21:59 25 mg QHS BARBARA Administration Ondansetron HCl 4 mg 06/17/20 14:34 Zofran Odt 4 Mg Tablet PO 07/17/20 14:33 Q6HP PRN FOR NAUSEA/VOMITING Pantoprazole Sodium 40 mg 06/18/20 06:00 06/18/20 05:[address] Tablet PO 07/18/20 05:59 Not Given Q6AM BARBARA Prednisone 20 mg 06/18/20 10:00 Deltasone 20 Mg Tablet PO 07/18/20 09:59 DAILY BARBARA Tamsulosin HCl 0.4 mg 06/17/20 18:00 06/17/20 19:40 Flomax 0.4 Mg Cap.Sr PO 07/17/20 17:59 0.4 mg PCSUPPER BARBARA Administration Ticagrelor 90 mg 06/17/20 22:00 06/17/20 23:48 Brilinta 90 Mg Tablet PO 07/17/20 21:59 90 mg Q12 BARBARA Administration Valacyclovir HCl 500 mg 06/18/20 10:00 Valtrex 500 Mg Tablet PO 07/18/20 09:59 DAILY BARBARA Discontinued Medications Generic Name Dose Route Start Last Admin Trade Name Freq PRN Reason Stop Dose Admin Sodium Chloride 250 mls @ 30 mls/hr 06/17/20 12:31 Nacl 0.9% 250 Ml Iv Soln IV 06/18/20 12:30 .DURING TRANSFUSION PRN THIS MED IS NOT "PRN" Sodium Chloride 250 mls @ 0 mls/hr 06/17/20 12:31 Nacl 0.9% 250 Ml Iv Soln IV 06/18/20 12:30 CONTINUOUS PRN AFTER EACH UNIT As Directed Polyethylene Glycol 239 gm 06/18/20 14:30 Miralax Powder 17 Gm/Packet PO 06/18/20 23:59 ONCEP PRN THIS MED IS NOT PRN Polyethylene Glycol 238 gm 06/17/20 15:30 06/17/20 15:36 Miralax Powder 17 Gm/Packet PO 06/17/20 15:31 238 gm NOW ONE Administration Assessment & Plan - Diagnosis (1) Coronary artery disease Qualifiers: Coronary Disease-Associated Artery/Lesion type: [place] artery [place] vs. transplanted heart: [place] heart Associated angina: with stable angina Qualified Code(s): I25.118 - Atherosclerotic heart disease of [place] coronary artery with other forms of angina pectoris Is this a current diagnosis for this admission?: Yes Plan: The patient has remained hemodynamically stable since PCI was performed approximately 2 weeks ago at [facility]. He is slightly tachycardic in the emergency room however he just had hemodialysis and he is fairly anemic. He is currently on GDMT except for statin therapy. Recommendations: -Continue with dual antiplatelet therapy. -Restart Lipitor 80 mg daily. -We will continue to follow with you. (2) Pre-op evaluation Is this a current diagnosis for this admission?: Yes Plan: The patient is scheduled to undergo colonoscopy tomorrow due to lower GI bleed with significant anemia with hemoglobin of 7 requiring blood transfusion. The procedure will take place on dual antiplatelet therapy as the patient just had his PCI done approximately 2 weeks ago. He has remained free of ischemic symptoms since PCI to place. At this point I believe he is optimized from the cardiovascular standpoint to undergo this very necessary procedure as it will determine future antiplatelet therapy. Of note, he is slightly tachycardic in the emergency room which could be secondary to his dialysis as well as his anemia therefore we will continue to follow him closely. Recommendations: -Continue with current medical management. -The patient may undergo the proposed procedure on antiplatelet therapy without further cardiac work-up. -We will continue to follow with you.
[2020-06-18] MEDS: PREDNISONE 20 MG TABLET PO SCH (13:16)
[2020-06-18] MEDS: ASPIRIN 81 MG TABLET, ENT COATED PO SCH (13:17)
[2020-06-18] MEDS: VALACYCLOVIR HCL 500 MG TABLET PO SCH (13:17)
[2020-06-18] MEDS: TICAGRELOR 90 MG TABLET PO SCH ×2 (13:17→22:40)
[2020-06-18] MEDS ORDERED: POLYETHYLENE GLYCOL 3350 POWDER 17 GM/1 PACKET PO PRN (14:30)
--- NOTE | 2020-06-18 16:58 | PDOC PROGRESS REPORT ---
Subjective Progress Note for:: 06/18/20 Subjective:: Patient denies any hematochezia overnight. He recxeived HD today during which a blood transfusion was done. Patient denies any chest pain. Reason For Visit: ANEMIA, GI BLEED Physical Exam Vital Signs: Temp Pulse Resp BP Pulse Ox 98.5 F 124 H 23 H 116/70 95 06/18/20 12:44 06/18/20 12:44 06/18/20 15:01 06/18/20 15:01 06/18/20 15:01 Intake & Output 06/17/20 06/18/20 06/19/20 06:59 06:59 06:59 Intake Total 300 1200 Output Total 3300 Balance 300 -2100 Weight 84.368 kg General appearance: PRESENT: no acute distress, cooperative Neck exam: ABSENT: JVD Respiratory exam: PRESENT: clear to auscultation taiwo, unlabored. ABSENT: tachypnea, wheezes Cardiovascular exam: PRESENT: +S1, +S2 GI/Abdominal exam: PRESENT: soft. ABSENT: tenderness Neurological exam: PRESENT: alert, awake Results Laboratory Results: 06/18/20 05:47 06/18/20 05:47 06/17/20 06/18/20 06/18/20 09:58 05:47 05:47 WBC 16.8 H RBC 2.53 L Hgb 7.9 L Hct 24.6 L MCV 98 H D MCH 31.3 MCHC 32.1 RDW 21.7 H Plt Count 356 Seg Neutrophils % 89.5 H Sodium 132.6 L Potassium 4.3 Chloride 101 Carbon Dioxide 22 Anion Gap 10 BUN 35 H Creatinine 4.72 H Est GFR ( Amer) 15 L Glucose 79 Calcium 8.4 Blood Type O POSITIVE Antibody Screen NEGATIVE Impressions: Chest X-Ray 06/17/20 12:53 IMPRESSION: No significant interval change. Assessment and Plan - Diagnosis (1) Anemia Qualifiers: Anemia type: iron deficiency Iron deficiency anemia type: chronic blood loss Qualified Code(s): D50.0 - Iron deficiency anemia secondary to blood loss (chronic) Is this a current diagnosis for this admission?: Yes Plan: Noted to be anemic at 7. Significant drop from 9.5 as compared to last admission. Started on Dual antiplatelet therapy after recent PCI about 2 weeks ago. Hb improved to 7.9 after receiving 1 unit prbc yesterday. Goal Hb of >8-9 given hx of CAD. Transfused another unit of blood today. Check CBC in am. (2) Lower GI bleed Is this a current diagnosis for this admission?: Yes Plan: Unfortunately patient's upper and lower endoscopies were canceled by anesthesiology due to his recent history of CAD with PCI. I discussed case with anesthesiologist who informs me that he will be okay with proceeding with procedure if patient is evaluated by cardiology and deemed to be well optimized from a cardiac perspective. I have discussed with external auditor who I have consulted for cardiac preop assessment. I will keep patient on clear liquid diet today with anticipation of endoscopic evaluation tomorrow. (3) Coronary artery disease Qualifiers: Coronary Disease-Associated Artery/Lesion type: [place] artery [place] vs. transplanted heart: [place] heart Associated angina: with stable angina Qualified Code(s): I25.118 - Atherosclerotic heart disease of [place] coronary artery with other forms of angina pectoris Is this a current diagnosis for this admission?: Yes Plan: Patient recently had PCI done at [facility] this month with 2 stents placed. Continue aspirin and Brilinta. Continue Toprol-XL. (4) ESRD (end stage renal disease) on dialysis Is this a current diagnosis for this admission?: Yes Plan: Nephrology consulted for hemodialysis. Gets dialyzed Tuesday via permacath. Received dialysis this morning. (5) Shingles Qualifiers: Herpes zoster complications: without complications Qualified Code(s): B02.9 - Zoster without complications Is this a current diagnosis for this admission?: Yes Plan: We will put on contact with droplet precautions until lesions crust over Involving his left thigh and buttock Continue valacyclovir I will hold dapsone for now (6) Leukocytosis Qualifiers: Leukocytosis type: unspecified Qualified Code(s): D72.829 - Elevated white blood cell count, unspecified Is this a current diagnosis for this admission?: Yes Plan: He is white count today is 19,000. On assessment he does not seem to have any clear evidence of infection. 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 Monitor CBC Chest x-ray is unimpressive - Time Time Spent with patient: Less than 15 minutes Anticipated Discharge Disposition: Home, Self Care Anticipated Discharge Timeframe: within 36 hours
[2020-06-18] MEDS: TAMSULOSIN HCL 0.4 MG CAP.SR.24H PO SCH (17:53)
[2020-06-18] MEDS: METOPROLOL SUCCINATE 50 MG TAB.SR.24H PO SCH (17:54)
[2020-06-18] MEDS ORDERED: METOPROLOL SUCCINATE 25 MG TAB.SR.24H PO SCH (18:00)
[2020-06-18] MEDS ORDERED: PEG 3350/NA SULF,BICARB,CL/KCL 4000 ML PO ONE (19:00)
[2020-06-18] MEDS ORDERED: TICAGRELOR 90 MG TABLET ONE (23:03)
[2020-06-19] MEDS: PANTOPRAZOLE SODIUM 40 MG TABLET.DR PO SCH (05:14)
[2020-06-19 06:42] LABS: MEAN CORPUSCULAR HEMOGLOBIN 31.5 pg (27.0-33.4); MEAN CORPUSCULAR HGB CONC 33.6 g/dL (32.0-36.0); PLATELET COUNT 353 10^3/uL (150-450); RED CELL DISTRIBUTION WIDTH 20.7 % (11.5-14.0); WHITE BLOOD COUNT 20.9 10^3/uL (4.0-10.5)
[2020-06-19 06:44] LABS: HEMOGLOBIN 10.1 g/dL (13.5-17.0); MEAN CORPUSCULAR VOLUME 94 fl (80-97)
[2020-06-19 06:49] LABS: ANION GAP 10 (5-19); BLOOD UREA NITROGEN 28 mg/dL (7-20); CALCIUM 8.6 mg/dL (8.4-10.2); CARBON DIOXIDE 25 mmol/L (22-30); CHLORIDE 99 mmol/L (98-107); GLUCOSE 94 mg/dL (75-110)
[2020-06-19 07:02] LABS: ABSOLUTE LYMPHOCYTES# (MANUAL) 2.3 10^3/uL (0.5-4.7); ABSOLUTE MONOCYTES # (MANUAL) 0.2 10^3/uL (0.1-1.4); BAND NEUTROPHILS % (MANUAL) 1 % (3-5); BASOPHILS % (MANUAL) 0 % (0-2); EOSINOPHILS % (MANUAL) 0 % (0-6); LYMPHOCYTES % (MANUAL) 11 % (13-45); METAMYELOCYTES % (MANUAL) 1 % (0-1); MONOCYTES % (MANUAL) 1 % (3-13); NUCLEATED RED BLOOD CELLS 1 /100 WBC (0); SEGMENTED NEUTROPHILS % (MAN) 86 % (42-78); TOTAL CELLS COUNTED 100
[2020-06-19 07:04] LABS: ANISOCYTOSIS 2+; PLATELET COMMENT ADEQUATE; POIKILOCYTOSIS 1+; POLYCHROMASIA SLIGHT; STOMATOCYTES 1+; TEAR DROP CELLS SLIGHT; TOXIC GRANULATION SLIGHT; TOXIC VACUOLATION PRESENT
--- NOTE | 2020-06-19 07:31 | PDOC PROGRESS REPORT ---
Subjective Subjective:: MARJAN SANTIZO is a 75 year old male with history of GERD, BPH, ESRD, SVT and coronary artery disease status post non-STEMI on 03 June 2020 with LHC demonstrating 70% LAD stenosis along with 85% stenosis in the diagonal vessel which was treated with a 2.5 mm x 50 mm DHRUV in the proximal diagonal and into the LAD with another stent using a kissing balloon technique into the LAD with a 2.5 mm x 15 mm in the LAD who is consulted to our service for preoperative evaluation prior to colonoscopy due to GI bleed. The patient noticed several bloody bowel movements and was found to have a hemoglobin of 7.0 at which point he was transfused. He is scheduled to undergo colonoscopy therefore our service is consulted for preoperative evaluation. He is found then in bed in the emergency room resting comfortably. He denies recurrence of index ischemic symptoms. He admits to some shortness of breath with strenuous physical activities for the last week or 2. He states that he had 1 bloody bowel movement followed by 2 black bowel movements in 1 week. He denied further lower GI bleed as well as hematemesis or any kind of blood through the upper GI tract. 06/19/2020: The patient had an uneventful night and his hemoglobin is now up to 10. He specifically denies chest pain, shortness of breath, [place], PND, lower extremity edema, palpitations, syncope and presyncope. His telemetry shows normal sinus rhythm with episodes of sinus tachycardia but no sustained or malignant atrial or ventricular dysrhythmias. He has continued to receive his dual antiplatelet therapy and is scheduled for colonoscopy this morning. Physical exam on 06/19/2020: GENERAL: Pleasant and conversational. Oriented x3 with normal mood. Not in acute distress. Well groomed and well developed. HEENT: Normocephalic, atraumatic. Pupils equal. Sclerae anicteric. Oropharynx moist. NECK: No JVD. No carotid bruits. LUNGS: Clear to auscultation bilaterally. Normal respiratory effort without the use of accessory muscles or intercostal retractions. CARDIOVASCULAR: Regular rate and rhythm, normal S1 and S2 without murmurs, rub s, or gallops. PMI not displaced. ABDOMEN: No masses or tenderness to palpation. No bruit. No splenomegaly or hepatomegaly. No abdominal aorta bruit noted. EXTREMITIES: No edema, no cyanosis, no clubbing. +2 pulses femoral and pedal pulses bilaterally. SKIN: No lesions or rashes. MUSCULOSKELETAL: No chest tenderness to palpation. NEUROLOGIC: Nonfocal. No gross sensory or motor deficits bilateral upper or lower extremities. Reason For Visit: ANEMIA, GI BLEED Physical Exam Vital Signs: Temp Pulse Resp BP Pulse Ox 97.9 F 79 18 115/74 96 06/19/20 00:00 06/19/20 02:00 06/19/20 00:00 06/19/20 00:00 06/19/20 00:00 Intake & Output 06/18/20 06/19/20 06/20/20 06:59 06:59 06:59 Intake Total 300 1240 Output Total 3300 Balance 300 -2060 Weight 84.368 kg 45.3 kg Results Laboratory Results: 06/19/20 06:10 06/19/20 06:10 06/17/20 06/19/20 06/19/20 09:58 06:10 06:10 WBC 20.9 H RBC 3.20 L Hgb 10.1 L D Hct 30.0 L MCV 94 D MCH 31.5 MCHC 33.6 RDW 20.7 H Plt Count 353 Seg Neutrophils % Not Reportable Sodium 133.7 L Potassium 4.0 Chloride 99 Carbon Dioxide 25 Anion Gap 10 BUN 28 H Creatinine 4.53 H Est GFR ( Amer) 15 L Glucose 94 Calcium 8.6 Magnesium 1.9 Blood Type O POSITIVE Antibody Screen NEGATIVE Impressions: Chest X-Ray 06/17/20 12:53 IMPRESSION: No significant interval change. 06/19/20 06:10 06/19/20 06:10 MCV 94 fl (80-97) D 06/19/20 06:10 MCH 31.5 pg (27.0-33.4) 06/19/20 06:10 MCHC 33.6 g/dL (32.0-36.0) 06/19/20 06:10 RDW 20.7 % (11.5-14.0) H 06/19/20 06:10 Seg Neutrophils % Not Reportable 06/19/20 06:10 Chloride 99 mmol/L (98-107) 06/19/20 06:10 Carbon Dioxide 25 mmol/L (22-30) 06/19/20 06:10 Anion Gap 10 (5-19) 06/19/20 06:10 Est GFR ( Amer) 15 (>60) L 06/19/20 06:10 Glucose 94 mg/dL (75-110) 06/19/20 06:10 Calcium 8.6 mg/dL (8.4-10.2) 06/19/20 06:10 Magnesium 1.9 mg/dL (1.6-2.3) 06/19/20 06:10 Total Bilirubin 0.6 mg/dL (0.2-1.3) 06/17/20 09:58 AST 23 U/L (17-59) 06/17/20 09:58 Alkaline Phosphatase 69 U/L (38-126) 06/17/20 09:58 Total Protein 6.0 g/dL (6.3-8.2) L 06/17/20 09:58 Albumin 3.2 g/dL (3.5-5.0) L 06/17/20 09:58 Blood Type O POSITIVE 06/17/20 09:58 Antibody Screen NEGATIVE 06/17/20 09:58 Current Medication List Generic Name Dose Route Start Last Admin Trade Name Freq PRN Reason Stop Dose Admin Acetaminophen 650 mg 06/17/20 14:24 Tylenol 325 Mg Tablet PO 07/17/20 14:23 Q4HP PRN FOR PAIN Al Hydrox/Mg Hydrox/Simethicone 15 ml 06/17/20 14:34 Maalox Plus Susp 30 Udcup PO 07/17/20 14:33 Q6HP PRN HEARTBURN Aspirin 81 mg 06/18/20 10:00 06/18/20 13:17 Ecotrin 81 Mg Ec Tablet PO 07/18/20 09:59 81 mg DAILY BARBARA Administration Dextrose 12.5 gm 06/17/20 14:24 Dextrose Inj 50% Syringe (25 Gm/50 Ml) IV 07/17/20 14:23 PRN PRN FOR BG 50-69 IN ALERT PATIENT Protocol Dextrose 25 gm 06/17/20 14:24 Dextrose Inj 50% Syringe (25 Gm/50 Ml) IV 07/17/20 14:23 PRN PRN See Label Comments Protocol Glucagon 1 mg 06/17/20 14:24 Glucagen Inj 1 Mg Vial SUBCUT 07/17/20 14:23 PRN PRN Evaluate for BG < 70 Protocol Glucose 15 gm 06/17/20 14:24 Glutose 40% Gel 15 Gm Tube PO 07/17/20 14:23 PRN PRN For BG 50-69 in Alert Patient Protocol Glucose 30 gm 06/17/20 14:24 Glutose 40% Gel 15 Gm Tube PO 07/17/20 14:23 PRN PRN FOR BG < 50 IN ALERT PATIENT Protocol Sodium Chloride 250 mls @ 30 mls/hr 06/18/20 08:13 Nacl 0.9% 250 Ml Iv Soln IV 06/19/20 08:12 .DURING TRANSFUSION PRN THIS MED IS NOT "PRN" Sodium Chloride 250 mls @ 0 mls/hr 06/18/20 08:13 Nacl 0.9% 250 Ml Iv Soln IV 06/19/20 08:12 CONTINUOUS PRN AFTER EACH UNIT As Directed Metoprolol Succinate 50 mg 06/18/20 18:00 06/18/20 17:54 Toprol Xl 50 Mg Tab.Sr PO 07/18/20 17:59 50 mg QPM BARBARA Administration Ondansetron HCl 4 mg 06/17/20 14:34 Zofran Odt 4 Mg Tablet PO 07/17/20 14:33 Q6HP PRN FOR NAUSEA/VOMITING Pantoprazole Sodium 40 mg 06/18/20 06:00 06/19/20 05:[address] Tablet PO 07/18/20 05:59 Not Given Q6AM BARBARA Prednisone 20 mg 06/18/20 10:00 06/18/20 13:16 Deltasone 20 Mg Tablet PO 07/18/20 09:59 20 mg DAILY BARBARA Administration Tamsulosin HCl 0.4 mg 06/17/20 18:00 06/18/20 17:53 Flomax 0.4 Mg Cap.Sr PO 07/17/20 17:59 0.4 mg PCSUPPER BARBARA Administration Ticagrelor 90 mg 06/17/20 22:00 06/18/20 22:40 Brilinta 90 Mg Tablet PO 07/17/20 21:59 90 mg Q12 BARBARA Administration Valacyclovir HCl 500 mg 06/18/20 10:00 06/18/20 13:17 Valtrex 500 Mg Tablet PO 07/18/20 09:59 500 mg DAILY BARBARA Administration Discontinued Medications Generic Name Dose Route Start Last Admin Trade Name Freq PRN Reason Stop Dose Admin Heparin Sodium (Porcine) 3,600 unit 06/18/20 05:00 06/18/20 08:42 Heparin Inj 1,000 Unit/Ml 10 Ml Vial IV 06/18/20 23:59 4,300 units .SPLIT B/N CATHETERS PRN Administration THIS MED IS NOT "PRN" Sodium Chloride 250 mls @ 30 mls/hr 06/17/20 12:31 Nacl 0.9% 250 Ml Iv Soln IV 06/18/20 12:30 .DURING TRANSFUSION PRN THIS MED IS NOT "PRN" Sodium Chloride 250 mls @ 0 mls/hr 06/17/20 12:31 Nacl 0.9% 250 Ml Iv Soln IV 06/18/20 12:30 CONTINUOUS PRN AFTER EACH UNIT As Directed Epoetin Edmundo-epbx 2,000 unit/ 4 mls @ 0 mls/hr 06/18/20 05:00 06/18/20 08:41 Epoetin Edmundo-epbx 3,000 unit/ IV 06/18/20 23:59 25,000 mls/hr Epoetin Edmundo-epbx 20,000 unit/ .DIALYSIS PRN Administration Syringe THIS MED IS NOT "PRN" As Directed Metoprolol Succinate 25 mg 06/17/20 22:00 06/17/20 23:48 Toprol Xl 25 Mg Tab.Sr PO 07/17/20 21:59 25 mg QHS BARBARA Administration Polyethylene Glycol 239 gm 06/18/20 14:30 Miralax Powder 17 Gm/Packet PO 06/18/20 23:59 ONCEP PRN THIS MED IS NOT PRN Polyethylene Glycol 238 gm 06/17/20 15:30 06/17/20 15:36 Miralax Powder 17 Gm/Packet PO 06/17/20 15:31 238 gm NOW ONE Administration Polyethylene Glycol/Electrolytes 2,000 ml 06/18/20 19:00 06/18/20 23:16 Golytely Solution 4000 Ml PO 06/18/20 19:01 Not Given NOW ONE Ticagrelor Confirm 06/18/20 23:03 06/18/20 23:18 Brilinta 90 Mg Tablet Administered 06/18/20 23:04 Not Given Dose 90 mg .ROUTE .STK-MED ONE Assessment & Plan - Diagnosis (1) Coronary artery disease Qualifiers: Coronary Disease-Associated Artery/Lesion type: [place] artery [place] vs. transplanted heart: [place] heart Associated angina: with stable angina Qualified Code(s): I25.118 - Atherosclerotic heart disease of [place] coronary artery with other forms of angina pectoris Is this a current diagnosis for this admission?: Yes Plan: The patient has remained hemodynamically stable and free of ischemic and heart failure symptoms. He is stable to undergo proposed colonoscopy later today. Recommendations: -Continue with DAPT uninterruptedly. -Avoid hypotension during the procedure. -We will continue to follow with you. (2) Pre-op evaluation Is this a current diagnosis for this admission?: Yes Plan: The patient continues to be hemodynamically stable and optimized from the cardiovascular standpoint to undergo necessary colonoscopy. Recommendations: -Continue with dual antiplatelet therapy uninterrupted. -Avoid hypotension during the procedure. -We will continue to follow with you.
[2020-06-19] MEDS ORDERED: LIDOCAINE 2% INJ-PF (20 MG/ML) 10 ML AMPUL ONE (08:42)
[2020-06-19] MEDS ORDERED: PROPOFOL INJ 200 MG/20 ML VIAL IV ONE (08:42)
--- NOTE | 2020-06-19 09:43 | Operative Report ---
Operative Report DATE OF SURGERY: 06/19/20 Operative Report: The risk, benefits and alternatives of the procedure including the risk of bleeding, perforation requiring surgery have been explained to the patient in detail and informed consent has been obtained. Patient is taken back to the endoscopy suite and placed in a left, lateral decubital position. Timeout was called. Propofol medication is administered. Rectal examination is done which did not reveal any masses, tears or fissures. An Olympus videoscope was introduced into the patient's rectum. The scope was then advanced to the anastomotic site. Scope was then pulled back via the distal segments of the colon. Retroflexion maneuvers performed. The risks benefits and alternatives of the procedure explained to the patient in detail and informed consent is obtained.A GIF Olympus video scope was inserted into the patient's mouth and hypopharynx, the esophagus is identified intubated and insufflated, the scope was then advanced through the esophagus stomach and duodenum ,retroflexion maneuver is done, the esophagus stomach and first and second portions of the duodenum examined PREOPERATIVE DIAGNOSIS: Possible GI bleeding POSTOPERATIVE DIAGNOSIS: Clean base colon also noted in the sigmoid likely explaining the cause of the patient's bleed. Not actively bleeding right now. Biopsy obtained. Normal anastomosis due to prior right hemicolectomy. Diverticulosis. Internal hemorrhoids. Mild gastritis shallow biopsy obtained OPERATION: Colonoscopy with biopsy. EGD with biopsy SURGEON: BRANDEE ABDULLAHI ANESTHESIA: LMAC TISSUE REMOVED OR ALTERED: As noted above. COMPLICATIONS: None. ESTIMATED BLOOD LOSS: None. INTRAOPERATIVE FINDINGS: As noted above. PROCEDURE: Patient tolerated the procedure well. No immediate postprocedure complications are noted. Patient is sent back to recovery in good condition. Resume previous diet and activity level Wait on biopsies. Can continue his anticoagulation due to recent cardiac stent placement Watch H&H and transfuse as necessary
[2020-06-19] MEDS: ASPIRIN 81 MG TABLET, ENT COATED PO SCH (11:46)
[2020-06-19] MEDS: VALACYCLOVIR HCL 500 MG TABLET PO SCH (11:46)
[2020-06-19] MEDS: PREDNISONE 20 MG TABLET PO SCH (11:46)
[2020-06-19] MEDS: TICAGRELOR 90 MG TABLET PO SCH ×2 (11:46→22:29)
--- NOTE | 2020-06-19 14:39 | PDOC PROGRESS REPORT ---
Subjective Progress Note for:: 06/19/20 Subjective:: Patient taken for EGD and colonoscopy today. Reason For Visit: ANEMIA, GI BLEED Physical Exam Vital Signs: Temp Pulse Resp BP Pulse Ox 97.4 F 84 20 123/74 98 06/19/20 11:39 06/19/20 11:39 06/19/20 11:39 06/19/20 11:39 06/19/20 11:39 Intake & Output 06/18/20 06/19/20 06/20/20 06:59 06:59 06:59 Intake Total 300 1240 200 Output Total 3300 Balance 300 -2060 200 Weight 84.368 kg 45.3 kg 84.368 kg General appearance: PRESENT: no acute distress, cooperative Respiratory exam: PRESENT: unlabored. ABSENT: tachypnea Cardiovascular exam: ABSENT: tachycardia Neurological exam: PRESENT: alert, awake, oriented to person, oriented to place Results Laboratory Results: 06/19/20 06:10 06/19/20 06:10 06/19/20 06/19/20 06:10 06:10 WBC 20.9 H RBC 3.20 L Hgb 10.1 L D Hct 30.0 L MCV 94 D MCH 31.5 MCHC 33.6 RDW 20.7 H Plt Count 353 Seg Neutrophils % Not Reportable Sodium 133.7 L Potassium 4.0 Chloride 99 Carbon Dioxide 25 Anion Gap 10 BUN 28 H Creatinine 4.53 H Est GFR ( Amer) 15 L Glucose 94 Calcium 8.6 Magnesium 1.9 Impressions: Chest X-Ray 06/17/20 12:53 IMPRESSION: No significant interval change. Assessment and Plan - Diagnosis (1) Lower GI bleed Is this a current diagnosis for this admission?: Yes Plan: EGD and colonoscopy performed today. Colonoscopy reveals clean-based Colon ulcer in the sigmoid region which was likely the cause of her bleed. Noted to not be actively bleeding at the time of the procedure. Mild gastritis also noted on EGD. No intervention was required. Biopsies were taken. We will continue to monitor. Check CBC in the morning. (2) Anemia Qualifiers: Anemia type: iron deficiency Iron deficiency anemia type: chronic blood loss Qualified Code(s): D50.0 - Iron deficiency anemia secondary to blood loss (chronic) Is this a current diagnosis for this admission?: Yes Plan: Noted to be anemic at 7. Significant drop from 9.5 as compared to last admission. Likely acute on chronic blood loss. Started on Dual antiplatelet therapy after recent PCI about 2 weeks ago. Transfused 2 units during this hospitalization. Hemoglobin today is 10. Will check again in the morning. (3) Coronary artery disease Qualifiers: Coronary Disease-Associated Artery/Lesion type: [place] artery [place] vs. transplanted heart: [place] heart Associated angina: with stable angina Qualified Code(s): I25.118 - Atherosclerotic heart disease of [place] coronary artery with other forms of angina pectoris Is this a current diagnosis for this admission?: Yes Plan: Patient recently had PCI done at [facility] this month with 2 stents placed. Unfortunately, we cannot stop patient's dual antiplatelet therapy at this point this early without running a very significant risk of occlusion of stents so we will have to continue continue aspirin and Brilinta despite patient's colonic ulcer. Continue Toprol-XL. (4) ESRD (end stage renal disease) on dialysis Is this a current diagnosis for this admission?: Yes Plan: Nephrology consulted for hemodialysis. Gets dialyzed Tuesday via permacath. Will get dialyzed tomorrow morning. (5) Shingles Qualifiers: Herpes zoster complications: without complications Qualified Code(s): B02.9 - Zoster without complications Is this a current diagnosis for this admission?: Yes Plan: We will put on contact with droplet precautions until lesions crust over Involving his left thigh and buttock Continue valacyclovir I will hold dapsone for now (6) Leukocytosis Qualifiers: Leukocytosis type: unspecified Qualified Code(s): D72.829 - Elevated white blood cell count, unspecified Is this a current diagnosis for this admission?: Yes Plan: On assessment he does not seem to have any clear evidence of infection. 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 Monitor CBC Chest x-ray is unimpressive - Time Time Spent with patient: Less than 15 minutes Anticipated Discharge Disposition: Home, Self Care Anticipated Discharge Timeframe: within 24 hours
[2020-06-19] MEDS: METOPROLOL SUCCINATE 50 MG TAB.SR.24H PO SCH (17:27)
[2020-06-19] MEDS: TAMSULOSIN HCL 0.4 MG CAP.SR.24H PO SCH (17:28)
[2020-06-19] MEDS ORDERED: LOPERAMIDE HCL 2 MG CAPSULE PO PRN (20:13)
[2020-06-20] MEDS ORDERED: HEPARIN SOD (PORCINE) 1,000 UNIT/ML 10 ML VIAL IV PRN (00:11)
[2020-06-20 04:57] LABS: HEMATOCRIT 31.5 % (37.9-51.0); HEMOGLOBIN 10.3 g/dL (13.5-17.0); MEAN CORPUSCULAR HEMOGLOBIN 31.2 pg (27.0-33.4); MEAN CORPUSCULAR HGB CONC 32.6 g/dL (32.0-36.0); MEAN CORPUSCULAR VOLUME 96 fl (80-97); PLATELET COUNT 344 10^3/uL (150-450); RED BLOOD COUNT 3.29 10^6/uL (4.35-5.55); RED CELL DISTRIBUTION WIDTH 20.8 % (11.5-14.0); WHITE BLOOD COUNT 18.1 10^3/uL (4.0-10.5)
[2020-06-20 05:19] LABS: ANION GAP 11 (5-19); BLOOD UREA NITROGEN 43 mg/dL (7-20); CALCIUM 8.6 mg/dL (8.4-10.2); CARBON DIOXIDE 24 mmol/L (22-30); CHLORIDE 98 mmol/L (98-107); GLUCOSE 100 mg/dL (75-110); POTASSIUM 3.9 mmol/L (3.6-5.0)
[2020-06-20] MEDS: PANTOPRAZOLE SODIUM 40 MG TABLET.DR PO SCH (06:00)
--- NOTE | 2020-06-20 08:23 | PDOC PROGRESS REPORT ---
Subjective Progress Note for:: 06/20/20 Subjective:: MARJAN SANTIZO is a 75 year old male with history of GERD, BPH, ESRD, SVT and coronary artery disease status post non-STEMI on 03 June 2020 with LHC demonstrating 70% LAD stenosis along with 85% stenosis in the diagonal vessel which was treated with a 2.5 mm x 50 mm DHRUV in the proximal diagonal and into the LAD with another stent using a kissing balloon technique into the LAD with a 2.5 mm x 15 mm in the LAD who is consulted to our service for preoperative evalu ation prior to colonoscopy due to GI bleed. The patient noticed several bloody bowel movements and was found to have a hemoglobin of 7.0 at which point he was transfused. He is scheduled to undergo colonoscopy therefore our service is consulted for preoperative evaluation. He is found then in bed in the emergency room resting comfortably. He denies recurrence of index ischemic symptoms. He admits to some shortness of breath with strenuous physical activities for the last week or 2. He states that he had 1 bloody bowel movement followed by 2 black bowel movements in 1 week. He denied further lower GI bleed as well as hematemesis or any kind of blood through the upper GI tract. 06/20/2020: The patient had an uneventful night and his hemoglobin is now up to 10. He underwent colonoscopy yesterday revealing the presence of an ulcer which was deemed as the cause of his lower GI bleed. He did not have cardiovascular complications from the procedure and he is currently undergoing dialysis. He feels very well this morning and specifically denies chest pain, shortness of breath, [place], PND, lower extremity edema, palpitations, syncope and presyncope. Physical exam on 06/20/2020: GENERAL: Pleasant and conversational. Oriented x3 with normal mood. Not in acute distress. Well groomed and well developed. HEENT: Normocephalic, atraumatic. Pupils equal. Sclerae anicteric. O ropharynx moist. NECK: No JVD. No carotid bruits. LUNGS: Clear to auscultation bilaterally. Normal respiratory effort without the use of accessory muscles or intercostal retractions. CARDIOVASCULAR: Regular rate and rhythm, normal S1 and S2 without murmurs, rubs, or gallops. PMI not displaced. ABDOMEN: No masses or tenderness to palpation. No bruit. No splenomegaly or hepatomegaly. No abdominal aorta bruit noted. EXTREMITIES: No edema, no cyanosis, no clubbing. +2 pulses femoral and pedal pulses bilaterally. SKIN: No lesions or rashes. MUSCULOSKELETAL: No chest tenderness to palpation. NEUROLOGIC: Nonfocal. No gross sensory or motor deficits bilateral upper or lower extremities. Reason For Visit: ANEMIA, GI BLEED Physical Exam Vital Signs: Temp Pulse Resp BP Pulse Ox 97.6 F 82 18 133/73 H 95 06/19/20 23:41 06/20/20 07:00 06/19/20 23:41 06/20/20 04:20 06/19/20 23:41 Intake & Output 06/19/20 06/20/20 06/21/20 06:59 06:59 06:59 Intake Total 1240 200 Output Total 3300 Balance -2060 200 Weight 45.3 kg 45.3 kg Results Laboratory Results: 06/20/20 04:23 06/20/20 04:23 06/20/20 06/20/20 04:23 04:23 WBC 18.1 H RBC 3.29 L Hgb 10.3 L Hct 31.5 L MCV 96 MCH 31.2 MCHC 32.6 RDW 20.8 H Plt Count 344 Sodium 132.7 L Potassium 3.9 Chloride 98 Carbon Dioxide 24 Anion Gap 11 BUN 43 H Creatinine 6.04 H Est GFR ( Amer) 11 L Glucose 100 Calcium 8.6 Impressions: Chest X-Ray 06/17/20 12:53 IMPRESSION: No significant interval change. 06/20/20 04:23 06/20/20 04:23 MCV 96 fl (80-97) 06/20/20 04:23 MCH 31.2 pg (27.0-33.4) 06/20/20 04:23 MCHC 32.6 g/dL (32.0-36.0) 06/20/20 04:23 RDW 20.8 % (11.5-14.0) H 06/20/20 04:23 Seg Neutrophils % Not Reportable 06/19/20 06:10 Chloride 98 mmol/L (98-107) 06/20/20 04:23 Carbon Dioxide 24 mmol/L (22-30) 06/20/20 04:23 Anion Gap 11 (5-19) 06/20/20 04:23 Est GFR ( Amer) 11 (>60) L 06/20/20 04:23 Glucose 100 mg/dL (75-110) 06/20/20 04:23 Calcium 8.6 mg/dL (8.4-10.2) 06/20/20 04:23 Magnesium 1.9 mg/dL (1.6-2.3) 06/19/20 06:10 Total Bilirubin 0.6 mg/dL (0.2-1.3) 06/17/20 09:58 AST 23 U/L (17-59) 06/17/20 09:58 Alkaline Phosphatase 69 U/L (38-126) 06/17/20 09:58 Total Protein 6.0 g/dL (6.3-8.2) L 06/17/20 09:58 Albumin 3.2 g/dL (3.5-5.0) L 06/17/20 09:58 Blood Type O POSITIVE 06/17/20 09:58 Antibody Screen NEGATIVE 06/17/20 09:58 Current Medication List Generic Name Dose Route Start Last Admin Trade Name Arsenio PRN Reason Stop Dose Admin Acetaminophen 650 mg 06/17/20 14:24 Tylenol 325 Mg Tablet PO 07/17/20 14:23 Q4HP PRN FOR PAIN Al Hydrox/Mg Hydrox/Simethicone 15 ml 06/17/20 14:34 Maalox Plus Susp 30 Udcup PO 07/17/20 14:33 Q6HP PRN HEARTBURN Aspirin 81 mg 06/18/20 10:00 06/19/20 11:46 Ecotrin 81 Mg Ec Tablet PO 07/18/20 09:59 81 mg DAILY BARBARA Administration Dextrose 12.5 gm 06/17/20 14:24 Dextrose Inj 50% Syringe (25 Gm/50 Ml) IV 07/17/20 14:23 PRN PRN FOR BG 50-69 IN ALERT PATIENT Protocol Dextrose 25 gm 06/17/20 14:24 Dextrose Inj 50% Syringe (25 Gm/50 Ml) IV 07/17/20 14:23 PRN PRN See Label Comments Protocol Glucagon 1 mg 06/17/20 14:24 Glucagen Inj 1 Mg Vial SUBCUT 07/17/20 14:23 PRN PRN Evaluate for BG < 70 Protocol Glucose 15 gm 06/17/20 14:24 Glutose 40% Gel 15 Gm Tube PO 07/17/20 14:23 PRN PRN For BG 50-69 in Alert Patient Protocol Glucose 30 gm 06/17/20 14:24 Glutose 40% Gel 15 Gm Tube PO 07/17/20 14:23 PRN PRN FOR BG < 50 IN ALERT PATIENT Protocol Heparin Sodium (Porcine) 3,600 unit 06/20/20 00:11 Heparin Inj 1,000 Unit/Ml 10 Ml Vial IV 06/20/20 23:59 .SPLIT B/N CATHETERS PRN THIS MED IS NOT "PRN" Loperamide HCl 4 mg 06/19/20 20:13 06/19/20 20:35 Imodium 2 Mg Capsule PO 07/19/20 20:12 4 mg Q4HP PRN Administration DIARRHEA Metoprolol Succinate 50 mg 06/18/20 18:00 06/19/20 17:27 Toprol Xl 50 Mg Tab.Sr PO 07/18/20 17:59 50 mg QPM BARBARA Administration Ondansetron HCl 4 mg 06/17/20 14:34 Zofran Odt 4 Mg Tablet PO 07/17/20 14:33 Q6HP PRN FOR NAUSEA/VOMITING Pantoprazole Sodium 40 mg 06/18/20 06:00 06/20/20 06:[address] Tablet PO 07/18/20 05:59 Not Given Q6AM BARBARA Prednisone 20 mg 06/18/20 10:00 06/19/20 11:46 Deltasone 20 Mg Tablet PO 07/18/20 09:59 20 mg DAILY BARBARA Administration Tamsulosin HCl 0.4 mg 06/17/20 18:00 06/19/20 17:28 Flomax 0.4 Mg Cap.Sr PO 07/17/20 17:59 0.4 mg PCSUPPER BARBARA Administration Ticagrelor 90 mg 06/17/20 22:00 06/19/20 22:29 Brilinta 90 Mg Tablet PO 07/17/20 21:59 90 mg Q12 BARBARA Administration Valacyclovir HCl 500 mg 06/18/20 10:00 06/19/20 11:46 Valtrex 500 Mg Tablet PO 07/18/20 09:59 500 mg DAILY BARBARA Administration Discontinued Medications Generic Name Dose Route Start Last Admin Trade Name Freq PRN Reason Stop Dose Admin Heparin Sodium (Porcine) 3,600 unit 06/18/20 05:00 06/18/20 08:42 Heparin Inj 1,000 Unit/Ml 10 Ml Vial IV 06/18/20 23:59 4,300 units .SPLIT B/N CATHETERS PRN Administration THIS MED IS NOT "PRN" Sodium Chloride 250 mls @ 30 mls/hr 06/17/20 12:31 Nacl 0.9% 250 Ml Iv Soln IV 06/18/20 12:30 .DURING TRANSFUSION PRN THIS MED IS NOT "PRN" Sodium Chloride 250 mls @ 0 mls/hr 06/17/20 12:31 Nacl 0.9% 250 Ml Iv Soln IV 06/18/20 12:30 CONTINUOUS PRN AFTER EACH UNIT As Directed Epoetin Edmundo-epbx 2,000 unit/ 4 mls @ 0 mls/hr 06/18/20 05:00 06/18/20 08:41 Epoetin Edmundo-epbx 3,000 unit/ IV 06/18/20 23:59 25,000 mls/hr Epoetin Edmundo-epbx 20,000 unit/ .DIALYSIS PRN Administration Syringe THIS MED IS NOT "PRN" As Directed Sodium Chloride 250 mls @ 30 mls/hr 06/18/20 08:13 Nacl 0.9% 250 Ml Iv Soln IV 06/19/20 08:12 .DURING TRANSFUSION PRN THIS MED IS NOT "PRN" Sodium Chloride 250 mls @ 0 mls/hr 06/18/20 08:13 Nacl 0.9% 250 Ml Iv Soln IV 06/19/20 08:12 CONTINUOUS PRN AFTER EACH UNIT As Directed Lidocaine HCl Confirm 06/19/20 08:42 Xylocaine 2% Inj-Pf (20 Mg/Ml) 10 Ml Ampul Administered 06/19/20 08:43 Dose 10 ml .ROUTE .STK-MED ONE Metoprolol Succinate 25 mg 06/17/20 22:00 06/17/20 23:48 Toprol Xl 25 Mg Tab.Sr PO 07/17/20 21:59 25 mg QHS BARBARA Administration Polyethylene Glycol 239 gm 06/18/20 14:30 Miralax Powder 17 Gm/Packet PO 06/18/20 23:59 ONCEP PRN THIS MED IS NOT PRN Polyethylene Glycol 238 gm 06/17/20 15:30 06/17/20 15:36 Miralax Powder 17 Gm/Packet PO 06/17/20 15:31 238 gm NOW ONE Administration Polyethylene Glycol/Electrolytes 2,000 ml 06/18/20 19:00 06/18/20 23:16 Golytely Solution 4000 Ml PO 06/18/20 19:01 Not Given NOW ONE Propofol Confirm 06/19/20 08:42 Diprivan Inj 200 Mg/20 Ml Vial Administered 06/19/20 08:43 Dose 200 mg IV .STK-MED ONE Ticagrelor Confirm 06/18/20 23:03 06/18/20 23:18 Brilinta 90 Mg Tablet Administered 06/18/20 23:04 Not Given Dose 90 mg .ROUTE .STK-MED ONE Assessment & Plan - Diagnosis (1) Coronary artery disease Qualifiers: Coronary Disease-Associated Artery/Lesion type: [place] artery [place] vs. transplanted heart: [place] heart Associated angina: with stable angina Qualified Code(s): I25.118 - Atherosclerotic heart disease of [place] coronary artery with other forms of angina pectoris Is this a current diagnosis for this admission?: Yes Plan: The patient has remained hemodynamically stable and free of ischemic and heart failure symptoms. He underwent colonoscopy yesterday without cardiovascular complaints. He has continued to received DAPT uninterruptedly since admission and there has been no more GI bleed. He did receive 2 units of blood with a hemoglobin up to 10. Recommendations: -Continue with DAPT uninterruptedly. -No further cardiovascular recommendations at this point therefore cardiology will sign off. -We will arrange for outpatient follow-up with Dr. Salas.
--- NOTE | 2020-06-20 10:00 | PDOC PROGRESS REPORT ---
Subjective Progress Note for:: 06/20/20 Subjective:: I am seeing the patient during dialysis this morning. He states that he feels pretty good. He is tolerating dialysis and so far has no issues. He does report that his appetite is decreased and is just eating fairly. He denies any more blood in the stool. Patient underwent EGD and colonoscopy yesterday with Dr. Quijano and findings include a clean base colon and sigmoid ulcer without any active bleeding along with diverticulosis, internal hemorrhoids and also some gastritis. His hemoglobin seems to be stabilized and today it is 10.3. Reason For Visit: ANEMIA, GI BLEED Physical Exam Vital Signs: Temp Pulse Resp BP Pulse Ox 97.6 F 82 18 133/73 H 95 06/19/20 23:41 06/20/20 07:00 06/19/20 23:41 06/20/20 04:20 06/19/20 23:41 Intake & Output 06/19/20 06/20/20 06/21/20 06:59 06:59 06:59 Intake Total 1240 200 Output Total 3300 Balance -2059 200 Weight 45.3 kg 45.3 kg Vitals during dialysis: Blood pressure 121/84, heart rate of 72, blood flow rate of 350 mL/min and dialysate flow rate of 800 mL/min. Exam: General appearance: PRESENT: no acute distress, cooperative, well-developed, well-nourished Head exam: PRESENT: atraumatic, normocephalic Eye exam: PRESENT: conjunctiva slightly pale, PERRLA. ABSENT: scleral icterus Neck exam: ABSENT: JVD Respiratory exam: PRESENT: Diminished breath sounds. ABSENT: crackles, rales, rhonchi, unlabored, wheezes Cardiovascular exam: PRESENT: Regular rate rhythm -+S1, +S2. ABSENT: diastolic murmur, systolic murmur GI/Abdominal exam: PRESENT: normal bowel sounds, soft. ABSENT: guarding, mass, tenderness Extremities exam: ABSENT: No edema Neurological exam: PRESENT: alert, awake, oriented to person, place and time. Skin exam: PRESENT: dry, warm, he shingles lesions on his left buttocks and posterior aspect of his left thigh seems to be drying up pretty good without any obvious vesicular lesions at least on the visible portion that I can see while on dialysis. Cardiovascular exam: PRESENT: +S1, +S2 GI/Abdominal exam: PRESENT: normal bowel sounds, soft. ABSENT: organomegaly, tenderness Results Laboratory Results: 06/20/20 04:23 06/20/20 04:23 06/20/20 06/20/20 04:23 04:23 WBC 18.1 H RBC 3.29 L Hgb 10.3 L Hct 31.5 L MCV 96 MCH 31.2 MCHC 32.6 RDW 20.8 H Plt Count 344 Sodium 132.7 L Potassium 3.9 Chloride 98 Carbon Dioxide 24 Anion Gap 11 BUN 43 H Creatinine 6.04 H Est GFR ( Amer) 11 L Glucose 100 Calcium 8.6 Impressions: Chest X-Ray 06/17/20 12:53 IMPRESSION: No significant interval change. Assessment & Plan - Diagnosis (1) Lower GI bleed Is this a current diagnosis for this admission?: Yes Plan: For EGD and colonoscopy, secondary to a clean base colon and sigmoid ulcer. Currently not any more actively bleeding. (2) Acute anemia Is this a current diagnosis for this admission?: Yes Plan: Likely secondary to colon and sigmoid ulcer found on colonoscopy associated with some mild gastritis on EGD done yesterday, 06/19. Acute lower GI bleed is likely precipitated by the combination of dual platelet therapy post cardiac stent placement couple weeks ago in association with prednisone. Currently the patient seems to be stable without any signs of active bleeding with hemoglobin of 10.3. Patient is to be followed up closely in terms of recurrence of bleeding since both the dual platelet therapy and the prednisone will not be able to be discontinued at this time for continued therapy of his other conditions. I will do weekly CBC at [facility]. 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 Patient has been requiring hemodialysis since then and for now is dialysis dep endent. He was treated with 2 doses of rituximab 2 weeks apart in April, also received pulse methylprednisolone in April and was continued on high-dose prednisone to start with beginning at 60 mg daily in April and decreased to 40 mg supposedly in May. His dose of prednisone seems to be change due to his hospitalizations and currently he is on 20 mg daily. He is also on PPI for GI prophylaxis and dapsone for PCP prophylaxis for this treatment. Patient is to be continued for any signs of renal recovery although at this point patient reports that his urine output has been declining so we will continue to follow- up as an outpatient while continuing the treatment for at least 6 months with tapering dose of prednisone. We will do dialysis today for 3 hours, using the patient's PermCath, with 3 potassium bath, blood flow rate of 350 mL per minute, dialysate flow rate of 800 mL per minute, ultrafiltration 1 to 1.5 L as tolerated, no heparin and no Procrit today. Patient is being monitored throughout dialysis treatment. From nephrology standpoint since the patient is no longer actively bleeding and is been clinically stable, I think he can be safely discharged home after dialysis today. Discussed with Dr. Gonzalez today. 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 Treatment as stated above. For now we will continue prednisone 20 mg daily upon discharge. I think the patient should resume his dapsone after Valtrex is completed and resolution of the shingles skin lesions. Continue PPI. (5) Shingles Is this a current diagnosis for this admission?: Yes Plan: Diagnosed in the emergency room on June 11 and was placed on Valtrex 500 mg daily until now. Skin lesion seems to be improving and drying up. (6) Coronary artery disease Qualifiers: Coronary Disease-Associated Artery/Lesion type: [place] artery [place] vs. transplanted heart: [place] heart Associated angina: with stable angina Q ualified Code(s): I25.118 - Atherosclerotic heart disease of [place] coronary artery with other forms of angina pectoris Is this a current diagnosis for this admission?: Yes Plan: Patient just had a recent onset of SVT which was converted to normal sinus rhythm after cardioversion and repositioning of his PermCath. He also was found to have non-STEMI couple weeks ago and underwent 2 coronary stent placement on LAD and the diagonal proximal branch. Dr. Lowery is following and patient will follow up with Dr. Callaway as outpatient. - Time Time with patient: 15-25 minutes
--- NOTE | 2020-06-20 10:44 | PDOC DISCHARGE SUMMARY ---
Impression - Admit/DC Date/PCP Admission Date/Primary Care Provider: 06/17/20 14:00 KAYLEIGH SAVAGE MD Discharge Date: 06/20/20 - Discharge Diagnosis (1) Lower GI bleed Is this a current diagnosis for this admission?: Yes (2) Colon ulcer Is this a current diagnosis for this admission?: Yes (3) Anemia Is this a current diagnosis for this admission?: Yes (4) Coronary artery disease Is this a current diagnosis for this admission?: Yes (5) ESRD (end stage renal disease) on dialysis Is this a current diagnosis for this admission?: Yes (6) Pauci-immune RPGN (rapidly progressive glomerulonephritis) Is this a current diagnosis for this admission?: Yes (7) Leukocytosis Is this a current diagnosis for this admission?: Yes (8) Gastritis Is this a current diagnosis for this admission?: Yes (9) Shingles Is this a current diagnosis for this admission?: Yes - Additional Information Resuscitation Status: Full Code Discharge Diet: As Tolerated Discharge Activity: Activity As Tolerated Referrals: BRANDEE ABDULLAHI MD [ACTIVE STAFF] - 07/01/20 2:00 pm (egd,colonscopy results) XIMENA OLSEN MD [ACTIVE PROVISIONAL STAFF] - KAYLEIGH SAVAGE MD [Primary Care Provider] - Home Medications: Omeprazole [Prilosec] 20 mg PO Q6AM 01/20/16 Dapsone [Dapsone 25 mg Tablet] 50 mg PO BID 05/30/20 Prednisone [Deltasone 20 mg Tablet] 20 mg PO DAILY 05/30/20 Tamsulosin HCl [Flomax 0.4 mg Cap.sr] 0.4 mg PO DAILY 05/30/20 Aspirin [Adult Low Dose Aspirin EC] 81 mg PO QHS 06/17/20 Metoprolol Succinate [Toprol Xl 25 mg Tab.sr] 25 mg PO QPM 06/17/20 Ticagrelor [Brilinta 90 mg Tablet] 90 mg PO BID 06/17/20 History of Present Illiness History of Present Illness: MARJAN SANTIZO is a 75 year old male with history of CAD, recent stenting, ESRD, SVT, who presents to the hospital after referral from his dialysis center for evaluation of low hemoglobin level. Patient was recently in the hospital for evaluation of SVT during which he had his permacath exchanged as it was thought to be provoking SVT and he was subsequently transferred to [facility] where he had PCI with 2 stents placed. Patient states he noted some episodes of bloody bowel movement the last episode being a few days ago. Has had a few dark stools since then. He denies any shortness of breath or lightheadedness. Denies any chest pain. Denies hematemesis. Hospital Course Hospital Course: Patient presented for evaluation of lower GI bleed. On presentation, he was tachycardic but otherwise relatively hemodynamically stable. His hemoglobin on blood work had dropped to 7 whereas he is hemoglobin at discharge on the prior visit was 9.5. He endorsed hematochezia which began a few days prior but had subsided at the time. Given his history of CAD, a goal hemoglobin of 8-9 is expected for him and he was subsequently transfused with 2 units of packed red blood cells. His hemoglobin has remained stable around 10.1-10.3. He has not had any recurrence of his GI bleed while in the hospital. He was taken for endoscopic evaluation. He required cardiac clearance which was done by the sales associate key holder prior to the procedure given his recent cardiac event which required PCI about 2 weeks ago. Patient was seen and cleared by cardiology and then underwent upper and lower endoscopy which revealed mild gastritis as well as a clean-based colonic ulcer which was not actively bleeding at the time but was likely the source of his bleeding before. Biopsies were taken and are pending at the time of discharge but patient to follow-up with the therapeutic case manager to get the results of his biopsy. It is likely that he is new dual antiplatelet therapy with aspirin and Brilinta may have provoked bleeding of this colonic ulcer. However, I have discussed the case with cardiology and given that patient just had 2 stents placed to his heart 2 weeks ago, his dual antiplatelet therapy cannot be discontinued and he is to remain on aspirin and Brilinta uninterruptedly as discontinuing any 1 of them could cause high risk of stent stenosis which can provoke a heart attack. I have discussed this with patient as well. I have instructed patient to keep an eye out for recurrent bleeding and I have also discussed with nephrology to have patient have CBC drawn in 2 weeks and subsequently as needed to monitor his blood count to see if transfusion is needed. Patient has also completed 7-day treatment of shingles with valacyclovir which have discontinued. Patient is to continue his chronic prednisone therapy which is also likely the cause of his leukocytosis as no source of infection has been found. Patient will be following up with gastroenterology, nephrology, his primary care provider and cardiology. Physical Exam Vital Signs: Temp Pulse Resp BP Pulse Ox 97.6 F 82 18 133/73 H 95 06/19/20 23:41 06/20/20 07:00 06/19/20 23:41 06/20/20 04:20 06/19/20 23:41 Intake & Output 06/19/20 06/20/20 06/21/20 06:59 06:59 06:59 Intake Total 1240 200 Output Total 3300 Balance -2060 200 Weight 45.3 kg 45.3 kg General appearance: PRESENT: no acute distress, cooperative Neck exam: ABSENT: JVD Respiratory exam: PRESENT: clear to auscultation taiwo, unlabored Cardiovascular exam: PRESENT: +S1, +S2. ABSENT: tachycardia GI/Abdominal exam: PRESENT: soft. ABSENT: rebound, rigid, tenderness Neurological exam: PRESENT: alert, awake, oriented to person, oriented to place, oriented to time Psychiatric exam: ABSENT: agitated, anxious Skin exam: ABSENT: pallor Results Laboratory Results: WBC 18.1 10^3/uL (4.0-10.5) H 06/20/20 04:23 RBC 3.29 10^6/uL (4.35-5.55) L 06/20/20 04:23 Hgb 10.3 g/dL (13.5-17.0) L 06/20/20 04:23 Hct 31.5 % (37.9-51.0) L 06/20/20 04:23 MCV 96 fl (80-97) 06/20/20 04:23 MCH 31.2 pg (27.0-33.4) 06/20/20 04:23 MCHC 32.6 g/dL (32.0-36.0) 06/20/20 04:23 RDW 20.8 % (11.5-14.0) H 06/20/20 04:23 Plt Count 344 10^3/uL (150-450) 06/20/20 04:23 Lymph % (Auto) Not Reportable 06/19/20 06:10 [place] % (Auto) Not Reportable 06/19/20 06:10 Eos % (Auto) Not Reportable 06/19/20 06:10 Baso % (Auto) Not Reportable 06/19/20 06:10 Absolute Neuts (auto) Not Reportable 06/19/20 06:10 Absolute Lymphs (auto) Not Reportable 06/19/20 06:10 Absolute Monos (auto) Not Reportable 06/19/20 06:10 Absolute Eos (auto) Not Reportable 06/19/20 06:10 Absolute Basos (auto) Not Reportable 06/19/20 06:10 Total Counted 100 06/19/20 06:10 Seg Neutrophils % Not Reportable 06/19/20 06:10 Seg Neuts % (Manual) 86 % (42-78) H 06/19/20 06:10 Band Neutrophils % 1 % (3-5) L 06/19/20 06:10 Lymphocytes % (Manual) 11 % (13-45) L 06/19/20 06:10 Monocytes % (Manual) 1 % (3-13) L 06/19/20 06:10 Eosinophils % (Manual) 0 % (0-6) 06/19/20 06:10 Basophils % (Manual) 0 % (0-2) 06/19/20 06:10 Metamyelocytes % 1 % (0-1) 06/19/20 06:10 Abs Neuts (Manual) 18.4 10^3/uL (1.7-8.2) H 06/19/20 06:10 Abs Lymphs (Manual) 2.3 10^3/uL (0.5-4.7) 06/19/20 06:10 Abs Monocytes (Manual) 0.2 10^3/uL (0.1-1.4) 06/19/20 06:10 Absolute Eos (Manual) 0.0 10^3/uL (0.0-0.6) 06/19/20 06:10 Abs Basophils (Manual) 0.0 10^3/uL (0.0-0.2) 06/19/20 06:10 Nucleated RBCs 1 /100 WBC (0) 06/19/20 06:10 Toxic Granulation SLIGHT 06/19/20 06:10 Toxic Vacuolation PRESENT 06/19/20 06:10 Clumped Platelets PRESENT 06/17/20 09:58 Platelet Comment ADEQUATE 06/19/20 06:10 Polychromasia SLIGHT 06/19/20 06:10 Poikilocytosis 1+ 06/19/20 06:10 Basophilic Stippling PRESENT 06/17/20 09:58 Anisocytosis 2+ 06/19/20 06:10 Tear Drop Cells SLIGHT 06/19/20 06:10 Stomatocytes 1+ 06/19/20 06:10 PT 13.5 SEC (11.4-15.4) 06/18/20 05:47 INR 1.03 06/18/20 05:47 APTT 25.0 SEC (23.5-35.8) 06/18/20 05:47 Sodium 132.7 mmol/L (137-145) L 06/20/20 04:23 Potassium 3.9 mmol/L (3.6-5.0) 06/20/20 04:23 Chloride 98 mmol/L (98-107) 06/20/20 04:23 Carbon Dioxide 24 mmol/L (22-30) 06/20/20 04:23 Anion Gap 11 (5-19) 06/20/20 04:23 BUN 43 mg/dL (7-20) H 06/20/20 04:23 Creatinine 6.04 mg/dL (0.52-1.25) H 06/20/20 04:23 Est GFR ( Amer) 11 (>60) L 06/20/20 04:23 Est GFR (MDRD) Non-Af 9 (>60) L 06/20/20 04:23 Glucose 100 mg/dL (75-110) 06/20/20 04:23 Calcium 8.6 mg/dL (8.4-10.2) 06/20/20 04:23 Magnesium 1.9 mg/dL (1.6-2.3) 06/19/20 06:10 Total Bilirubin 0.6 mg/dL (0.2-1.3) 06/17/20 09:58 Direct Bilirubin 0.1 mg/dL (0.0-0.4) 06/17/20 09:58 Neonat Total Bilirubin Not Reportable 06/17/20 09:58 Neonat Direct Bilirubin Not Reportable 06/17/20 09:58 Neonat Indirect Bili Not Reportable 06/17/20 09:58 AST 23 U/L (17-59) 06/17/20 09:58 ALT 16 U/L (<50) 06/17/20 09:58 Alkaline Phosphatase 69 U/L (38-126) 06/17/20 09:58 Total Protein 6.0 g/dL (6.3-8.2) L 06/17/20 09:58 Albumin 3.2 g/dL (3.5-5.0) L 06/17/20 09:58 POC Stool Occult Blood POSITIVE (NEGATIVE) 06/17/20 09:56 Blood Type O POSITIVE 06/17/20 09:58 Antibody Screen NEGATIVE 06/17/20 09:58 Crossmatch See Detail 06/17/20 09:58 Impressions: Chest X-Ray 06/17/20 12:53 IMPRESSION: No significant interval change. Plan Time Spent: Less than 30 Minutes Stroke Is this a Stroke Patient?: No Acute Heart Failure - Is this a Heart Failure Patient?: No
[2020-06-20] MEDS: PREDNISONE 20 MG TABLET PO SCH (11:09)
[2020-06-20] MEDS: ASPIRIN 81 MG TABLET, ENT COATED PO SCH (11:09)
[2020-06-20] MEDS: VALACYCLOVIR HCL 500 MG TABLET PO SCH (11:10)
[2020-06-20] MEDS: TICAGRELOR 90 MG TABLET PO SCH (11:10)
[2020-06-20 11:15] VITALS: BP 122/81
== END 2020-06-20 11:50 | disposition home or self-care (01) | DRG 377 ==
LOC: ER 09:12 → EH 14:00 → 4W 06-18 15:49
PROVIDERS: ADMIT Internal Medicine; ATTEND Internal Medicine
PROC: 30233N1 Transfusion of Nonautologous Red Blood Cells into Peripheral Vein, Percutaneous Approach (ICD-10-PCS; 2020-06-17)
PROC: 0DB68ZX Excision of Stomach, Via Natural or Artificial Opening Endoscopic, Diagnostic (ICD-10-PCS; principal; 2020-06-19 09:00)
PROC: 0DBN8ZX Excision of Sigmoid Colon, Via Natural or Artificial Opening Endoscopic, Diagnostic (ICD-10-PCS; 2020-06-19 09:00)
DX: K29.71 Gastritis, unspecified, with bleeding (principal); N18.6 End stage renal disease; I12.0 Hypertensive chronic kidney disease with stage 5 chronic kidney disease or end stage renal disease; I47.1 Supraventricular tachycardia; K63.3 Ulcer of intestine; N17.9 Acute kidney failure, unspecified; D62 Acute posthemorrhagic anemia; K92.1 Melena; K21.9 Gastro-esophageal reflux disease without esophagitis; N40.0 Benign prostatic hyperplasia without lower urinary tract symptoms; G47.30 Sleep apnea, unspecified; M17.0 Bilateral primary osteoarthritis of knee; I25.118 Atherosclerotic heart disease of native coronary artery with other forms of angina pectoris; D72.829 Elevated white blood cell count, unspecified; N05.7 Unspecified nephritic syndrome with diffuse crescentic glomerulonephritis; B02.9 Zoster without complications; K92.0 Hematemesis; D63.1 Anemia in chronic kidney disease; K57.31 Diverticulosis of large intestine without perforation or abscess with bleeding; K64.8 Other hemorrhoids; I25.2 Old myocardial infarction; Z88.1 Allergy status to other antibiotic agents; Z88.3 Allergy status to other anti-infective agents; Z87.891 Personal history of nicotine dependence; Z95.5 Presence of coronary angioplasty implant and graft; Z99.2 Dependence on renal dialysis; Z82.49 Family history of ischemic heart disease and other diseases of the circulatory system; Z79.899 Other long term (current) drug therapy; Z79.82 Long term (current) use of aspirin; Z79.52 Long term (current) use of systemic steroids; Z90.49 Acquired absence of other specified parts of digestive tract
CPT/HCPCS: 36415; 36430; 43239; 45380; 71045; 80048; 80053; 813; 82270; 83735; 85025; 85027; 85610; 85730; 86850; 86900; 86901; 86920; 88305; 99285; J1644; J2704; J3490; J7512; P9016; Q5105

== ENCOUNTER 2020-06-30 06:43 | Inpatient (IN) | payer OTHER, MEDICARE ==
[2020-06-30] MEDS ORDERED: NORMAL SALINE 1000 ML 1,000 ML IV ONE ×2 (07:05→08:10)
--- NOTE | 2020-06-30 07:22 | ER Document Report ---
ED General - General Chief Complaint: Rectal Bleeding Stated Complaint: PASSING BLOOD IN STOOL Primary Care Provider: KAYLEIGH SAVAGE MD [ACTIVE STAFF] - Follow up as needed TRAVEL OUTSIDE OF THE [place] IN LAST 30 DAYS: No - HPI Notes: Chief complaint: Rectal bleeding and weakness History of present illness: 75-year-old male with end-stage renal disease on dialysis and followed by the MD for primary care who presents with rectal bleeding and generalized weakness. Patient was discharged from the hospital here 10 days ago after admission under similar circumstances. He is on dual antiplatelet therapy because of recent placement of coronary stents. He remains on this therapy. He required 2 units of transfusion at his recent hospitalization. He had upper GI endoscopy which showed mild gastritis with no active bleeding. He had a colonoscopy which showed a shallow ulcer of the colon with no active bleeding and this was presumed to be the source of the bleed. Patient's recent hospitalization was complicated by SVT requiring cardioversion. Patient normally dialyzes on Tuesday and Tuesday. He is due for dialysis today. He is experience multiple loose stools since last night with mostly dark blood and a small amount of bright red blood. No abdominal pain. He is mildly short of breath. No vomiting. No syncope. No chest pain. Complains of generalized weakness. - Related Data Allergies/Adverse Reactions: sulfamethoxazole [From Bactrim] Allergy (Intermediate, Verified 06/18/20 12:51) trimethoprim [From Bactrim] Allergy (Intermediate, Verified 06/18/20 12:51) amoxicillin [From Augmentin] Allergy (Verified 06/18/20 12:51) clavulanic acid [From Augmentin] Allergy (Verified 06/18/20 12:51) Home Medications: omeprazole. prednisone. Burlinta. Flomax. Aspirin. Burlinta Past Medical History - General Information source: Patient, Relative, [facility] Records - Had resection of a benign polyp from the colon in 2016. - Social History Smoking Status: Former Smoker Chew tobacco use (# tins/day): Yes Frequency of alcohol use: None Drug Abuse: None Family History: Hypertension - Past Medical History Cardiac Medical History: Reports: Hx Coronary Artery Disease, Hx Heart Attack, Hx Hypertension Pulmonary Medical History: Reports: Hx Sleep Apnea - cpap-to bring Neurological Medical History: Renal/ Medical History: Reports: Hx Benign Prostatic Hyperplasia, Hx End Stage Renal Disease Malignancy Medical History: GI Medical History: Reports: Hx Gastroesophageal Reflux Disease - on meds, Other - As per HPI. Denies: Hx Pancreatitis Musculoskeletal Medical History: Reports Hx Arthritis - knees bilaterally Psychiatric Medical History: Denies: Hx Depression Traumatic Medical History: Past Surgical History: Reports: Hx Bowel Surgery - colon, Hx Cardiac Catheterization - 2 stents, Hx Orthopedic Surgery - Immunizations Hx Diphtheria, Pertussis, Tetanus Vaccination: No Hx Pneumococcal Vaccination: 10/21/15 Review of Systems - Review of Systems Notes: Constitutional: Negative for fever. HENT: Negative for sore throat. Eyes: Negative for visual changes. Cardiovascular: Negative for chest pain. Respiratory: As per HPI. Gastrointestinal: As per HPI. Genitourinary: Negative for dysuria. Musculoskeletal: Negative for back pain. Skin: Rash over left flank area related to recent treatment for shingles. Neurological: Negative for headaches, focal weakness or numbness. 10 point ROS negative except as marked above and in HPI. Physical Exam - Vital signs Vitals: Temp 98.3 F 06/30/20 06:43 - Notes Notes: GENERAL: Male patient of approximately stated age who appears anxious and pale. SKIN: Pale and mildly diaphoretic. Patient has crusted rash in left flank area consistent with resolving herpes zoster. HEAD: Normocephalic atraumatic. EYES: PERRLA. EOMI. Conjunctivae pale. EARS: CANALS AND TMS CLEAR. NOSE: CLEAR. MOUTH: Moist mucosa. Good dentition. No stridor or edema. No drooling. NECK: Supple. No masses or thyromegaly. No adenopathy. Carotids 2+ without br uits. No JVD. BACK: Symmetrical without tenderness. CHEST: Respirations unlabored. Breath sounds clear and symmetrical. Patient has a permacath upper anterior chest area. HEART: Tachycardic regular rhythm. No murmur gallop or rub. ABDOMEN: Healed low midline surgical scar. Soft nontender without masses, organomegaly or rebound. Bowel sounds normally active. No bruits. RECTAL: Normal sphincter tone. No masses. Small amount of dark maroon stool which is strongly heme positive. EXTREMITIES: No edema. No calf tenderness. Cap refill less than 1.5 seconds. Dorsalis pedis and posterior tibial pulses 3+ and symmetrical. NEUROLOGICAL: GCS 15. Alert and oriented x3. Fluent speech. Cranial nerves II through XII intact. Sensorimotor and cerebellar normal. Normal tone. PSYCHIATRIC: Anxious affect. Course - Re-evaluation Re-evalutation: 06/30/20 07:25 Patient is in SVT on the monitor with a rate of approximately 180. We placed him on supplemental oxygen. His chest is clear at this time. We are awaiting a chest x-ray. I established to large-bore IVs and obtain blood for type and screen. We going to give him cautiously 1 L normal saline IV. He is hypotensive. We will watch his blood pressure closely and try to reassess his volume status. I am a bit reluctant to cardiovert him or administer adenosine until I put some volume on board. He will have to be watched very closely. 06/30/20 07:33 Blood pressure at this time is 105/70. Patient is feeling a little better. He denies any chest pain or shortness of breath currently he is maintaining 100% O2 saturation on 2 L of nasal O2. His chest continues to sound clear and his chest x-ray shows no obvious vascular congestion. He still in SVT at 178. I tried Valsalva maneuver x2 with no change in his rhythm. He is received 500 cc of normal saline at this time. I will continue to watch him closely and reassess him after we have infused the first liter of fluid. If he remains in SVT at that point we will try some adenosine for him and failing that we may need cardioversion. I would intervene immediately with cardioversion if he developed chest pain or dropped his pressure further. I am reluctant to try to convert his SVT until we have optimized his volume and we know his hemoglobin because the possibility of aggravating cardiac compensation and precipitating worsening shock. 06/30/20 08:30 Patient's blood pressure is now 110/70. Heart rate remains around 180 with apparent SVT. His hemoglobin is 9.5 g which is minimally decreased from his recent discharge value. His platelets and coags are normal. His BUN is 48 and his potassium is normal. I attempted chemical cardioversion after he showed no response to Valsalva. I gave him 6 mg of adenosine and he blocked down showing clear flutter waves present. He immediately went back up into a tachycardia about 170 with what appears to be atrial flutter with 2-1 block. I am going to start him on some diltiazem 15 mg bolus and then initiate a drip at 5 mg/h for rate control. His troponin is normal. He is not having any chest pain. We will try to get his ventricular rate down below 100 and optimize his volume. I will talk with nephrology about need for dialysis today. We will then present patient to the medicine service for IMCU Admission. 06/30/20 09:[address] Savage from nephrologyand she will coordinate dialysis for the patient. Accepted for admission Dr. Morales. - Vital Signs Vital signs: Temp Pulse Resp BP Pulse Ox 98.7 F 184 H 15 99/72 L 100 06/30/20 06:52 06/30/20 06:52 06/30/20 08:50 06/30/20 08:50 06/30/20 08:50 - Laboratory Result Diagrams: 06/30/20 07:07 06/30/20 07:07 Laboratory results interpreted by me: 06/30/20 06/30/20 07:07 07:07 WBC 29.0 H RBC 3.08 L Hgb 9.5 L Hct 30.1 L MCV 98 H MCHC 31.7 L RDW 19.8 H Seg Neuts % (Manual) 86 H Lymphocytes % (Manual) 12 L Monocytes % (Manual) 2 L Abs Neuts (Manual) 24.9 H Chloride 108 H Carbon Dioxide 18 L BUN 68 H Creatinine 6.19 H Est GFR ( Amer) 11 L Est GFR (MDRD) Non-Af 9 L Glucose 111 H Magnesium 1.5 L Total Protein 6.0 L Albumin 3.3 L - Diagnostic Test Radiology reviewed: Reports reviewed - Chest x-ray per radiologist: Minimal parenchymal opacity left base unchanged from prior study. No cardiomegaly or vascular congestion. PermCath present on the right. - EKG Interpretation by Me Additional EKG results interpreted by me: 06/30/20 08:27 Twelve-lead EKG from 0704 hrs. reviewed contemporaneously by me demonstrating supraventricular tachycardia with a rate of 179. QRS axis is normal at +61 degrees. Intervals are normal. There is mild diffuse ST depression which is felt to be rate related. This represents an interval change in rhythm and a ppearance of the ST segments compared with prior study of 06/03/2020. Indication for current study: Tachycardia. Procedures - Additional Procedures Cardioversion/Defib Additional Procedures: Cardioversion/defib - Chemical cardioversion with IV adenosine. Verbal consent obtained from patient and . Indication: SVT. Patient received a 6 mg IV bolus of adenosine with continuous twelve-lead EKG monitoring. Patient briefly blocked down revealing underlying rhythm of atrial flutter with a 2-1 conduction previously present. The procedure was well- tolerated no complications were noted. He went back into atrial flutter with 2- 1 conduction immediately. He will be treated with IV Cardizem bolus and drip infusion. Procedure was completed at 0818 hrs. Critical Care Note - Critical Care Note Total time excluding time spent on procedures (mins): 120 - Active GI bleed. Currently in SVT and will require chemical cardioversion. Patient is in shock. Discharge - Discharge Clinical Impression: Acute lower GI hemorrhage, Atrial flutter with 2-1 block, Hypovolemic shock, End stage renal disease on dialysis Condition: Serious Disposition: ADMITTED INPATIENT Admitting Provider: Carmen (Hospitalist) Unit Admitted: IMCU Referrals: KAYLEIGH SAVAGE MD [ACTIVE STAFF] - Follow up as needed
[2020-06-30 07:30] LABS: INTERNATIONAL RATION (INR) 0.99; PARTIAL THROMBOPLASTIN TIME 23.8 SEC (23.5-35.8); PROTHROMBIN TIME 13.3 SEC (11.4-15.4)
[2020-06-30 07:43] LABS: HEMATOCRIT 30.1 % (37.9-51.0); HEMOGLOBIN 9.5 g/dL (13.5-17.0); MEAN CORPUSCULAR HGB CONC 31.7 g/dL (32.0-36.0); MEAN CORPUSCULAR VOLUME 98 fl (80-97); PLATELET COUNT 368 10^3/uL (150-450); RED BLOOD COUNT 3.08 10^6/uL (4.35-5.55); RED CELL DISTRIBUTION WIDTH 19.8 % (11.5-14.0)
[2020-06-30 07:52] LABS: ALBUMIN 3.3 g/dL (3.5-5.0); ALKALINE PHOSPHATASE 62 U/L (38-126); ANION GAP 12 (5-19); ASPARTATE AMINO TRANSFERASE 23 U/L (17-59); BILIRUBIN,TOTAL 0.4 mg/dL (0.2-1.3); BLOOD UREA NITROGEN 68 mg/dL (7-20); CALCIUM 8.7 mg/dL (8.4-10.2); CARBON DIOXIDE 18 mmol/L (22-30); CHLORIDE 108 mmol/L (98-107); GLUCOSE 111 mg/dL (75-110); POTASSIUM 4.4 mmol/L (3.6-5.0)
--- NOTE | 2020-06-30 08:03 | EKG REPORT ---
SEVERITY:- ABNORMAL ECG - SUPRAVENTRICULAR TACHYCARDIA CONSIDER A FLUTTER WITH 2:[address] DEPRESSION, PROBABLY RATE RELATED : Confirmed by: Tavo Negron 30-Jun-2020 08:02:08
[2020-06-30 08:06] LABS: ABSOLUTE LYMPHOCYTES# (MANUAL) 3.5 10^3/uL (0.5-4.7); ABSOLUTE MONOCYTES # (MANUAL) 0.6 10^3/uL (0.1-1.4); BASOPHILS % (MANUAL) 0 % (0-2); EOSINOPHILS % (MANUAL) 0 % (0-6); LYMPHOCYTES % (MANUAL) 12 % (13-45); MONOCYTES % (MANUAL) 2 % (3-13); SEGMENTED NEUTROPHILS % (MAN) 86 % (42-78); TOTAL CELLS COUNTED 100
--- NOTE | 2020-06-30 08:06 | RADIOLOGY REPORT (SQ) ---
EXAM DESCRIPTION: X-ray single view chest. CLINICAL HISTORY: 75 years Male, ESRD COMPARISON: 06/17/2020 and 06/02/2020 TECHNIQUE: Single portable x-ray view of the chest performed on 06/30/2020 at 7:30 AM FINDINGS: The lungs are well expanded and are grossly clear. There is a persistent, stable small parenchymal opacity in the left perihilar region which may represent scarring or atelectasis or inflammatory change. There is no evidence of a pneumothorax. The cardiac silhouette is normal in size and configuration. The mediastinal contours are normal. No acute osseous abnormality is identified. No focal soft tissue abnormalities are seen. Lines and tubes: The right IJ dual-lumen central venous catheter tip terminates in the region of the superior vena cava. IMPRESSION: No significant change when compared to the prior studies. There is a persistent stable small parenchymal opacity in the left perihilar region.
[2020-06-30 08:07] LABS: ANISOCYTOSIS 2+; PLATELET COMMENT ADEQUATE; POLYCHROMASIA SLIGHT
[2020-06-30] MEDS ORDERED: ADENOSINE INJ/PF 6 MG/2 ML SDV IV ONE ×2 (08:10→08:11)
[2020-06-30] MEDS ORDERED: DILTIAZEM HCL INJ 25 MG/5 ML VIAL IV ONE (08:25)
[2020-06-30] MEDS ORDERED: DILTIAZEM HCL/D5W 125 MG/125 ML RTUINJ IV PRN (08:26)
[2020-06-30] MEDS ORDERED: ACETAMINOPHEN 325 MG TABLET PO PRN (09:44)
--- NOTE | 2020-06-30 10:37 | PDOC H&P ---
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 Of note, the patient was discharged on 06/20/2020 after having been admitted for lower GIB. During that hospitalization the patient underwent endoscopy which revealed mild gastritis as well as a clear based colonic ulcer which was not actively bleeding. He was discharged with stable hemoglobin. During that hospitalization he was also found to have herpes zoster and was treated for 7 days with oral acyclovir. In the ED today when patient presented he was found to be in SVT with a heart rate in the 190s. He was initially volume resuscitated which did not improve his heart rate and he was given a dose of adenosine. According to the ED physician receiving the adenosine he was noted to have flutter waves on the EKG. He was placed on a diltiazem drip and subsequently converted to sinus rhythm. XR revealed no significant change from prior hospitalization CXR -stable small parenchymal opacity in the left perihilar region. The hospital service was consulted to admit the patient for further evaluation and treatment. Past Medical History Cardiac Medical History: Reports: Coronary Artery Disease, Myocardial Inf arction, Hypertension, Other - SVT Pulmonary Medical History: Reports: Sleep Apnea - cpap-to bring EENT Medical History: Reports: None Neurological Medical History: Reports: None Endocrine Medical History: Reports: None Renal/ Medical History: Reports: End Stage Renal Disease Malignancy Medical History: Reports: None GI Medical History: Reports: Gastroesophageal Reflux Disease - on meds, Other - As per HPI Musculoskeltal Medical History: Reports: Arthritis - knees bilaterally Psychiatric Medical History: Denies: Alcohol Dependency, Depression, Substance Abuse, Tobacco Dependency Traumatic Medical History: Reports: None Hematology: Reports: Anemia Infectious History Note: Recent herpes zoster with crusted lesions noted on the left gluteal area extending down the posterior aspect of the left leg Past Surgical History Past Surgical History: Reports: Cardiac Catheterization - 2 stents, Orthopedic Surgery, Other - Partiaql colectomy Social History Information Source: Patient Lives with: Spouse/Significant other Smoking Status: Former Smoker Electronic Cigarette use?: No Frequency of Alcohol Use: None Hx Recreational Drug Use: No Drugs: None Hx Prescription Drug Abuse: No Family History Family History: Hypertension Parental Family History Reviewed: Yes Children Family History Reviewed: Yes Sibling(s) Family History Reviewed.: Yes Medication/Allergy Home Medications: Omeprazole [Prilosec] 20 mg PO Q6AM 01/20/16 Dapsone [Dapsone 25 mg Tablet] 50 mg PO BID 05/30/20 Prednisone [Deltasone 20 mg Tablet] 20 mg PO DAILY 05/30/20 Tamsulosin HCl [Flomax 0.4 mg Cap.sr] 0.4 mg PO DAILY 05/30/20 Aspirin [Adult Low Dose Aspirin EC] 81 mg PO QHS 06/17/20 Metoprolol Succinate [Toprol Xl 25 mg Tab.sr] 25 mg PO QPM 06/17/20 Ticagrelor [Brilinta 90 mg Tablet] 90 mg PO BID 06/17/20 Allergies/Adverse Reactions: sulfamethoxazole [From Bactrim] Allergy (Intermediate, Verified 06/18/20 12:51) trimethoprim [From Bactrim] Allergy (Intermediate, Verified 06/18/20 12:51) amoxicillin [From Augmentin] Allergy (Verified 06/18/20 12:51) clavulanic acid [From Augmentin] Allergy (Verified 06/18/20 12:51) Review of Systems Constitutional: PRESENT: anorexia, fatigue, weakness. ABSENT: chills, fever(s), night sweats Eyes: ABSENT: visual disturbances Ears: ABSENT: hearing changes Nose, Mouth, and Throat: ABSENT: headache(s), sore throat Cardiovascular: PRESENT: dyspnea on exertion. ABSENT: chest pain, orthropnea, palpitations Respiratory: PRESENT: dyspnea. ABSENT: cough, hemoptysis, sputum Gastrointestinal: PRESENT: diarrhea, heartburn, hematochezia. ABSENT: abdominal pain, bloating, coffee ground emesis, constipation, nausea, vomiting Genitourinary: PRESENT: nocturia. ABSENT: difficulty urinating, hematuria Musculoskeletal: ABSENT: back pain Neurological: PRESENT: tingling - Bilateral LE numbness/tingling L>R. ABSENT: abnormal speech, confusion, dizziness, frequent falls, syncope Psychiatric: ABSENT: anxiety, depression, suicidal ideation Endocrine: ABSENT: cold intolerance, heat intolerance, polyphagia, polyuria Hematologic/Lymphatic: ABSENT: easy bruising Physical Exam Vital Signs: Temp Pulse Resp BP Pulse Ox 98.7 F 184 H 15 99/72 L 100 06/30/20 06:52 06/30/20 06:52 06/30/20 08:50 06/30/20 08:50 06/30/20 08:50 Intake & Output 06/29/20 06/30/20 07/01/20 06:59 06:59 06:59 Intake Total 1000 Balance 1000 Weight 83.915 kg General appearance: PRESENT: no acute distress, cooperative, well-developed, well-nourished Head exam: PRESENT: atraumatic, normocephalic Eye exam: PRESENT: conjunctiva pink Mouth exam: PRESENT: moist, tongue midline Neck exam: ABSENT: JVD Respiratory exam: PRESENT: clear to auscultation taiwo, symmetrical, unlabored. ABSENT: accessory muscle use Cardiovascular exam: PRESENT: RRR, +S1, +S2 Pulses: PRESENT: normal carotid pulses, normal radial pulses GI/Abdominal exam: PRESENT: normal bowel sounds, soft. ABSENT: distended, tenderness Rectal exam: PRESENT: deferred Extremities exam: ABSENT: calf tenderness, pedal edema Musculoskeletal exam: PRESENT: ambulatory Neurological exam: PRESENT: alert, awake, oriented to person, oriented to place, oriented to time, oriented to situation, CN II-XII grossly intact Psychiatric exam: PRESENT: appropriate affect, normal mood. ABSENT: agitated, anxious Skin exam: PRESENT: dry, normal color, warm Results Laboratory Results: 06/30/20 07:07 06/30/20 07:07 06/30/20 06/30/20 06/30/20 07:07 07:07 07:07 WBC 29.0 H RBC 3.08 L Hgb 9.5 L Hct 30.1 L MCV 98 H MCH 31.0 MCHC 31.7 L RDW 19.8 H Plt Count 368 Seg Neutrophils % Not Reportable Sodium 138.1 Potassium 4.4 Chloride 108 H Carbon Dioxide 18 L Anion Gap 12 BUN 68 H Creatinine 6.19 H Est GFR ( Amer) 11 L Glucose 111 H Calcium 8.7 Magnesium 1.5 L Total Bilirubin 0.4 AST 23 Alkaline Phosphatase 62 Total Protein 6.0 L Albumin 3.3 L Blood Type O POSITIVE Antibody Screen NEGATIVE 06/30/20 07:07 Troponin I 0.017 Impressions: Chest X-Ray 06/30/20 07:04 IMPRESSION: No significant change when compared to the prior studies. There is a persistent stable small parenchymal opacity in the left perihilar region. Assessment and Plan - Diagnosis (1) Acute lower GI hemorrhage Is this a current diagnosis for this admission?: Yes Plan: Patient's H/H currently stable Serial blood counts Transfuse for Hgb < 8.0 given patient's h/o CAD with recent PCI Start pantoprazole 40 mg IV every 12 hours (2) Anemia Qualifiers: Anemia type: iron deficiency Iron deficiency anemia type: chronic blood loss Qualified Code(s): D50.0 - Iron deficiency anemia secondary to blood loss (chronic) Is this a current diagnosis for this admission?: Yes Plan: Multifactorial (anemia of chronic disease/acute blood loss anemia 2/2 GIB) As noted above (3) SVT (supraventricular tachycardia) Is this a current diagnosis for this admission?: Yes Plan: Patient received adenosine in the ED. ED physician reported that when the patient's rate slowed down he noticed flutter waves Tight electrolyte control Continuous podiatric foot and ankle specialist Patient does have atrial flutter he is currently not a candidate for ant icoagulation and may benefit from evaluation from an EP whitewater rafting guide for possible ablation Consult cardiology Will hold beta-taylor at this time 2/2 hypotension (4) Coronary artery disease Qualifiers: Coronary Disease-Associated Artery/Lesion type: [place] artery [place] vs. transplanted heart: [place] heart Associated angina: with stable angina Qualified Code(s): I25.118 - Atherosclerotic heart disease of [place] coronary artery with other forms of angina pectoris Is this a current diagnosis for this admission?: Yes Plan: Patient is s/p PCI/stent within 1 month, will need to continue dual antiplatelet therapy Patient does not have any chest pain Serial troponin Consult cardiology as noted above Continue ASA 81 mg p.o. daily Continue ticagrelor 90 mg p.o. every 12 hours (5) ESRD (end stage renal disease) Is this a current diagnosis for this admission?: Yes Plan: HD M/W/F Nephrology to dialyze patient today Patient states that he was on prednisone however this is not on his current medication reconciliation and he is unaware of the dose, will need to confirm this with nephrology (6) Hypomagnesemia Is this a current diagnosis for this admission?: Yes Plan: Given patient's SVT/a flutter will cautiously supplement magnesium with magnesium sulfate 1 g IV x1 (7) BPH (benign prostatic hyperplasia) Is this a current diagnosis for this admission?: Yes Plan: Continue tamsulosin 0.4 mg p.o. daily at at bedtime - Time Time Spent with patient: 35 or more minutes Medications reviewed and adjusted accordingly: Yes Anticipated Discharge Disposition: Home, Self Care Anticipated Discharge Timeframe: Able to determine at this time
[2020-06-30] MEDS ORDERED: MAGNESIUM SULFATE/D5W 1 GM/100 ML RTUPB IV ONE (11:00)
[2020-06-30] MEDS ORDERED: TICAGRELOR 90 MG TABLET PO SCH ×2 (11:30→18:00)
[2020-06-30] MEDS ORDERED: PANTOPRAZOLE SODIUM 40 MG VIAL IV SCH (11:30)
[2020-06-30] MEDS ORDERED: HEPARIN SOD (PORCINE) 1,000 UNIT/ML 10 ML VIAL IV PRN (11:32)
[2020-06-30] MEDS ORDERED: NORMAL SALINE 1000 ML 1,000 ML IV PRN (11:32)
[2020-06-30] MEDS ORDERED: EPOETIN ALFA-EPBX 10,000 UNIT in SYRINGE, DISPOSABLE, 1 EACH IV PRN (11:32)
[2020-06-30 13:10] LABS: HEMATOCRIT 21.6 % (37.9-51.0); MEAN CORPUSCULAR HEMOGLOBIN 30.7 pg (27.0-33.4); MEAN CORPUSCULAR HGB CONC 31.9 g/dL (32.0-36.0); MEAN CORPUSCULAR VOLUME 96 fl (80-97); PLATELET COUNT 250 10^3/uL (150-450); RED BLOOD COUNT 2.25 10^6/uL (4.35-5.55); RED CELL DISTRIBUTION WIDTH 19.2 % (11.5-14.0); WHITE BLOOD COUNT 16.4 10^3/uL (4.0-10.5)
[2020-06-30] MEDS ORDERED: NORMAL SALINE 250 ML IV PRN ×2 (13:33)
[2020-06-30 13:46] LABS: ABSOLUTE MONOCYTES # (MANUAL) 0.7 10^3/uL (0.1-1.4); BAND NEUTROPHILS % (MANUAL) 2 % (3-5); BASOPHILS % (MANUAL) 0 % (0-2); EOSINOPHILS % (MANUAL) 0 % (0-6); LYMPHOCYTES % (MANUAL) 18 % (13-45); MONOCYTES % (MANUAL) 4 % (3-13); SEGMENTED NEUTROPHILS % (MAN) 76 % (42-78); TOTAL CELLS COUNTED 100
[2020-06-30 13:48] LABS: ANISOCYTOSIS 2+; PLATELET CLUMPS PRESENT; PLATELET COMMENT ADEQUATE; POIKILOCYTOSIS SLIGHT
[2020-06-30 13:53] LABS: HEMOGLOBIN 6.9 g/dL (13.5-17.0)
--- NOTE | 2020-06-30 14:13 | PDOC CONSULTATION ---
Consultation Consult Date: 06/30/20 Provider Consulted: EDIN GRACE Consult reason:: SVT History of Present Illness Admission Date/PCP: 06/30/20 10:07 [facility] History of Present Illness: MARJAN SANTIZO is a 75 year old male 75-year-old male with the following active problems 1. Autoimmune glomerulonephritis 2. End-stage renal disease 3. Coronary artery disease 4. GERD 5. Lower GI bleed Patient presented to the emergency room and atrial flutter with heart rate in the 190s. Adenosine caused high-grade AV block which showed the presence of continued flutter waves confirming a diagnosis of atrial flutter. This also resulted in his arrhythmia terminating in resumption of sinus rhythm. He is followed by the nephrology service for end-stage renal disease. Presently is resting comfortably. Patient had recent episodes of GI bleed. He had endoscopy recently which showed stable ulcer in the colon which was nonbleeding as well as gastritis. Recent herpes zoster infection is being treated. Past Medical History Cardiac Medical History: Reports: Coronary Artery Disease, Myocardial Infarction, Hypertension, Other - SVT Pulmonary Medical History: Reports: Sleep Apnea - cpap-to bring EENT Medical History: Reports: None Neurological Medical History: Reports: None Endocrine Medical History: Reports: None Renal/ Medical History: Reports: End Stage Renal Disease Malignancy Medical History: Reports: None GI Medical History: Reports: Gastroesophageal Reflux Disease - on meds, Other - As per HPI Musculoskeltal Medical History: Reports: Arthritis - knees bilaterally Psychiatric Medical History: Denies: Alcohol Dependency, Depression, Substance Abuse, Tobacco Dependency Traumatic Medical History: Reports: None Hematology: Reports: Anemia Past Surgical History Past Surgical History: Reports: Cardiac Catheterization - 2 stents, Orthopedic Surgery, Other - Partiaql colectomy Social History Lives with: Spouse/Significant other Smoking Status: Former Smoker Electronic Cigarette use?: No Frequency of Alcohol Use: None Hx Recreational Drug Use: No Drugs: None Hx Prescription Drug Abuse: No Family History Family History: Hypertension Parental Family History Reviewed: No Children Family History Reviewed: NA Sibling(s) Family History Reviewed.: NA Medication/Allergy Home Medications: Omeprazole [Prilosec] 20 mg PO Q6AM 01/20/16 Prednisone [Deltasone 20 mg Tablet] 20 mg PO DAILY 05/30/20 Tamsulosin HCl [Flomax 0.4 mg Cap.sr] 0.4 mg PO QHS 05/30/20 Aspirin [Adult Low Dose Aspirin EC] 81 mg PO QHS 06/17/20 Ticagrelor [Brilinta 90 mg Tablet] 90 mg PO BID 06/17/20 Allergies/Adverse Reactions: sulfamethoxazole [From Bactrim] Allergy (Intermediate, Verified 06/18/20 12:51) trimethoprim [From Bactrim] Allergy (Intermediate, Verified 06/18/20 12:51) amoxicillin [From Augmentin] Allergy (Verified 06/18/20 12:51) clavulanic acid [From Augmentin] Allergy (Verified 06/18/20 12:51) Review of Systems Cardiovascular: PRESENT: palpitations Physical Exam Vital Signs: Temp Pulse Resp BP Pulse Ox 98.7 F 184 H 15 99/72 L 100 06/30/20 06:52 06/30/20 06:52 06/30/20 08:50 06/30/20 08:50 06/30/20 08:50 Intake & Output 06/29/20 06/30/20 07/01/20 06:59 06:59 06:59 Intake Total 1999 Balance 1999 Weight 83.915 kg General appearance: PRESENT: no acute distress, cooperative Head exam: PRESENT: atraumatic, normocephalic Eye exam: PRESENT: conjunctiva pale, EOMI Respiratory exam: PRESENT: clear to auscultation taiwo, symmetrical, unlabored Cardiovascular exam: PRESENT: RRR, +S1, +S2, systolic murmur Pulses: PRESENT: normal radial pulses GI/Abdominal exam: PRESENT: soft Rectal exam: PRESENT: deferred Results Laboratory Results: 06/30/20 12:54 06/30/20 07:07 06/30/20 06/30/20 06/30/20 07:07 07:07 07:07 WBC 29.0 H RBC 3.08 L Hgb 9.5 L Hct 30.1 L MCV 98 H MCH 31.0 MCHC 31.7 L RDW 19.8 H Plt Count 368 Seg Neutrophils % Not Reportable Sodium 138.1 Potassium 4.4 Chloride 108 H Carbon Dioxide 18 L Anion Gap 12 BUN 68 H Creatinine 6.19 H Est GFR ( Amer) 11 L Glucose 111 H Calcium 8.7 Magnesium 1.5 L Total Bilirubin 0.4 AST 23 Alkaline Phosphatase 62 Total Protein 6.0 L Albumin 3.3 L Blood Type O POSITIVE Antibody Screen NEGATIVE 06/30/20 12:54 WBC 16.4 H RBC 2.25 L Hgb 6.9 L D Hct 21.6 L MCV 96 MCH 30.7 MCHC 31.9 L RDW 19.2 H Plt Count 250 Seg Neutrophils % Not Reportable Sodium Potassium Chloride Carbon Dioxide Anion Gap BUN Creatinine Est GFR ( Amer) Glucose Calcium Magnesium Total Bilirubin AST Alkaline Phosphatase Total Protein Albumin Blood Type Antibody Screen 06/30/20 07:07 Troponin I 0.017 EKG Comments: Twelve-lead EKG June 30, 2020 7:04 AM. Independently viewed by me. Likely atrial flutter with a ventricular rate of 179 bpm. Twelve-lead EKG 06/30/2020. 10:41 AM Sinus rhythm, 93 bpm, normal AV conduction. Independently reviewed by me. Troponin 0 0.017 Impressions: Chest X-Ray 06/30/20 07:04 IMPRESSION: No significant change when compared to the prior studies. There is a persistent stable small parenchymal opacity in the left perihilar region. Assessment & Plan - Diagnosis (1) ESRD (end stage renal disease) on dialysis Is this a current diagnosis for this admission?: Yes Plan: Patient is being dialyzed. (2) Elevated troponin Is this a current diagnosis for this admission?: Yes Plan: Unlikely acute coronary syndrome Elevated troponin after an episode of atrial flutter with rapid ventricular response. EKG after converting to sinus rhythm shows no ischemic changes. (3) Coronary artery disease Qualifiers: Coronary Disease-Associated Artery/Lesion type: [place] artery [place] vs. transplanted heart: [place] heart Associated angina: with stable angina Qualified Code(s): I25.118 - Atherosclerotic heart disease of [place] coronary artery with other forms of angina pectoris Is this a current diagnosis for this admission?: Yes Plan: Continue dual antiplatelet therapy as feasible Watch for GI bleeding Continue statin Consider beta-taylor. Would in fact prefer beta-taylor over calcium channel b locker (4) GI bleed Is this a current diagnosis for this admission?: Yes Plan: Continue to watch hemoglobin Presently on dual antiplatelet therapy consisting of aspirin and Brilinta This has to be continued With new finding of atrial flutter systemic anticoagulation for thromboembolic stroke reduction is also necessary but will increase bleeding risk. (5) Atrial flutter Qualifiers: Atrial flutter type: typical Qualified Code(s): I48.3 - Typical atrial flu tter Is this a current diagnosis for this admission?: Yes Plan: Can consider oral diltiazem 180 mg long-acting formulation or more preferably b eta-taylor given history of coronary artery disease Discontinue intravenous diltiazem This will help minimize triggers for atrial flutter and atrial fibrillation Increased stroke risk and does systemic anticoagulation is warranted however recent history of GI bleed poses problems. If ongoing GI bleed is not a concern and if able to should discontinue aspirin and initiate apixaban 5 mg twice daily.
[2020-06-30] MEDS: PANTOPRAZOLE SODIUM 40 MG VIAL IV SCH (18:33)
--- NOTE | 2020-06-30 19:15 | EKG REPORT ---
SEVERITY:- NORMAL ECG - SINUS RHYTHM : Confirmed by: Tavo Negron 30-Jun-2020 19:14:22
--- NOTE | 2020-06-30 21:12 | Progress Note ---
Provider Note Provider Note: Cardiology note reviewed. Patient started on metoprolol tartrate 12.5 mg p.o. every 12 hours and atorvastatin 20 mg p.o. nightly. Orders were written to stop diltiazem drip 1 hour after metoprolol given. I spoke with the bedside RN and instructed her that if the patient's heart rate climbs or he has any bursts of a flutter/PSVT she should contact the on-call hospitalist to increase beta-taylor dose. I also requested that she Draw a CBC now (ordered every 8 hours).
[2020-06-30] MEDS: METOPROLOL TARTRATE 25 MG TABLET PO SCH (22:07)
[2020-06-30] MEDS: ASPIRIN 81 MG TABLET, ENT COATED PO SCH (22:07)
[2020-06-30] MEDS: TICAGRELOR 90 MG TABLET PO SCH (22:07)
[2020-06-30] MEDS: TAMSULOSIN HCL 0.4 MG CAP.SR.24H PO SCH (22:08)
[2020-06-30] MEDS: ATORVASTATIN CALCIUM 20 MG TABLET PO SCH (22:08)
--- NOTE | 2020-06-30 22:30 | PDOC CONSULTATION ---
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 In the emergency room he was found to be in SVT and treated initially with 2 L IV fluid boluses, adenosine and subsequently Cardizem drip currently. He then converted to normal sinus rhythm and currently with rate control. I was called in the emergency room because today is his dialysis day and obviously he was unable to go to the outpatient dialysis unit. I am seeing the patient during dialysis this afternoon. Currently he is a still on Cardizem drip and now on normal sinus rhythm. He denies any chest pains, nausea, vomiting, abdominal pain or fever. He is currently comfortably lying down on his bed and tolerating dialysis well. 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 and began on HD Malignancy Medical History: GI Medical History: Reports: Gastroesophageal Reflux Disease - on meds, Other - GI Bleed wirh Colon ulcer Musculoskeltal Medical History: Reports: Arthritis - knees bilaterally Hematology Medical History: Reports Anemia Past Surgical History Past Surgical History: Reports: Cardiac Catheterization - 2 stents, Coronary Stent - x 05/2020, Orthopedic Surgery, Vascular Surgery - PermCath placement for dialysis, Other - Partial colectomy Social History Information Source: Patient, [facility] Records Lives with: Spouse/Significant other Smoking Status: Former Smoker Electronic Cigarette use?: No Frequency of Alcohol Use: None Hx Recreational Drug Use: No Drugs: None Hx Prescription Drug Abuse: No Family History Family History: Reviewed & Not Pertinent Parental Family History Reviewed: Yes Children Family History Reviewed: Yes Sibling(s) Family History Reviewed.: Yes Medication/Allergy Home Medications: Omeprazole [Prilosec] 20 mg PO Q6AM 01/20/16 Prednisone [Deltasone 20 mg Tablet] 20 mg PO DAILY 05/30/20 Tamsulosin HCl [Flomax 0.4 mg Cap.sr] 0.4 mg PO QHS 05/30/20 Aspirin [Adult Low Dose Aspirin EC] 81 mg PO QHS 06/17/20 Ticagrelor [Brilinta 90 mg Tablet] 90 mg PO BID 06/17/20 Allergies/Adverse Reactions: sulfamethoxazole [From Bactrim] Allergy (Intermediate, Verified 06/18/20 12:51) trimethoprim [From Bactrim] Allergy (Intermediate, Verified 06/18/20 12:51) amoxicillin [From Augmentin] Allergy (Verified 06/18/20 12:51) clavulanic acid [From Augmentin] Allergy (Verified 06/18/20 12:51) Review of Systems All systems: reviewed and no additional remarkable complaints except as stated Review of Systems: Constitutional: ABSENT: chills, fatigue, fever(s), headache(s), weight gain, weight loss Eyes: ABSENT: visual disturbances Ears: ABSENT: hearing changes Cardiovascular: ABSENT: chest pain, dyspnea on exertion, edema, orthropnea, palpitations Respiratory: ABSENT: cough, hemoptysis, reports shortness of breath Gastrointestinal: ABSENT: abdominal pain, constipation, diarrhea, hematemesis, nausea, vomiting; reports hematochezia Genitourinary: ABSENT: dysuria, hematuria Musculoskeletal: ABSENT: joint swelling Integumentary: ABSENT: rash, wounds Neurological: ABSENT: abnormal gait, abnormal speech, confusion, dizziness, focal weakness, numbness, syncope Psychiatric: ABSENT: anxiety, depression Endocrine: ABSENT: cold intolerance, heat intolerance, polydipsia, polyuria Hematologic/Lymphatic: ABSENT: easy bleeding, easy bruising, lymphadenopathy Physical Exam Vital Signs: Temp Pulse Resp BP Pulse Ox 98.7 F 184 H 15 99/72 L 100 06/30/20 06:52 06/30/20 06:52 06/30/20 08:50 06/30/20 08:50 06/30/20 08:50 Intake & Output 06/29/20 06/30/20 07/01/20 06:59 06:59 06:59 Intake Total 1999 Balance 1999 Weight 83.915 kg Vitals during dialysis: Blood pressure 113/63, HR 86, Blood flow rate of 350 m l/min and dialysate flow rate of 600 ml/min. Exam: General appearance: No acute distress, cooperative, well-developed, well- nourished Head exam: PRESENT: atraumatic, normocephalic Eye exam: PRESENT: Conjunctiva pale, EOMI, PERRLA. ABSENT: conjunctival injection, scleral icterus Mouth exam: PRESENT: moist, neck supple, tongue midline Neck exam: PRESENT: full ROM. ABSENT: carotid bruit, JVD, lymphadenopathy, thyromegaly Respiratory exam: PRESENT: clear to auscultation bilaterally. ABSENT: rales, rhonchi, stridor, wheezes Cardiovascular exam: PRESENT: RRR, +S1, +S2. ABSENT: systolic murmur Pulses: PRESENT: normal radial pulses, normal dorsalis pedis pulses GI/Abdominal exam: PRESENT: normal bowel sounds, soft. ABSENT: guarding, mass, tenderness Rectal exam: Deferred Extremities exam: PRESENT: full ROM. ABSENT: calf tenderness, pedal edema Musculoskeletal: PRESENT: full ROM. ABSENT: deformity Neurological exam: PRESENT: alert, Awake, Oriented to person, Oriented to place, Oriented to time, reflexes normal, CN II-XII grossly intact. ABSENT: motor sensory deficit Psychiatric exam: PRESENT: appropriate affect, normal mood. ABSENT: homicidal ideation, suicidal ideation Skin exam: PRESENT: intact, dry, warm. ABSENT: rash Results Laboratory Results: 06/30/20 07:07 06/30/20 06/30/20 06/30/20 07:07 07:07 07:07 WBC 29.0 H RBC 3.08 L Hgb 9.5 L Hct 30.1 L MCV 98 H MCH 31.0 MCHC 31.7 L RDW 19.8 H Plt Count 368 Seg Neutrophils % Not Reportable Sodium 138.1 Potassium 4.4 Chloride 108 H Carbon Dioxide 18 L Anion Gap 12 BUN 68 H Creatinine 6.19 H Est GFR ( Amer) 11 L Glucose 111 H Calcium 8.7 Magnesium 1.5 L Total Bilirubin 0.4 AST 23 Alkaline Phosphatase 62 Total Protein 6.0 L Albumin 3.3 L Blood Type O POSITIVE Antibody Screen NEGATIVE 06/30/20 07:07 Troponin I 0.017 Impressions: Chest X-Ray 06/30/20 07:04 IMPRESSION: No significant change when compared to the prior studies. There is a persistent stable small parenchymal opacity in the left perihilar region. Assessment & Plan - Diagnosis (1) Acute lower GI hemorrhage Is this a current diagnosis for this admission?: Yes Plan: Previous colonoscopy during last admission showed colonic ulcer which could have potentially bleed again in a patient on dual antiplatelet therapy. (2) Atrial flutter Qualifiers: Atrial flutter type: typical Qualified Code(s): I48.3 - Typical atrial flutter Is this a current diagnosis for this admission?: Yes Plan: Currently rate controlled with Cardizem drip. (3) Acute anemia Is this a current diagnosis for this admission?: Yes Plan: Hemoglobin has gone down from 9.5 to 6.9 while in the emergency room. Currently being transfused during dialysis. We will also give Retacrit 10,000 units while on dialysis. (4) DAYNA (acute kidney injury) Is this a current diagnosis for this admission?: Yes Plan: Still dialysis dependent secondary to pauci immune glomerulonephritis. With ongoing therapy, we still monitor for possible renal recovery before considering the patient ESRD. We will do dialysis today for 3 hours, using the patient's PermCath, with 2 pota ssium bath, blood flow rate of 350 mL per minute, dialysate flow rate of 600 mL per minute, ultrafiltration 1.5 to 2 L as tolerated, no heparin and Procrit with 10,000 units during dialysis intravenously. Patient is currently being monitored throughout dialysis treatment. We will continue dialysis support while here in the hospital. (5) Pauci-immune RPGN (rapidly progressive glomerulonephritis) Is this a current diagnosis for this admission?: Yes Plan: Biopsy-proven in March 2020. Treated with 2 doses of rituximab in April, pulse methylprednisolone and now on tapering dose of prednisone. Continue prednisone at 20 mg p.o. daily. (6) Colon ulcer Is this a current diagnosis for this admission?: Yes (7) Elevated troponin Is this a current diagnosis for this admission?: Yes Plan: Cardiology consulted care of Dr. Reyes. (8) Coronary artery disease Qualifiers: Coronary Disease-Associated Artery/Lesion type: [place] artery [place] vs. transplanted heart: [place] heart Associated angina: with stable angina Qualified Code(s): I25.118 - Atherosclerotic heart disease of [place] coronary artery with other forms of angina pectoris Is this a current diagnosis for this admission?: Yes (9) Leukocytosis Qualifiers: Leukocytosis type: unspecified Qualified Code(s): D72.829 - Elevated white blood cell count, unspecified Is this a current diagnosis for this admission?: Yes Plan: No evidence of any acute infection. Consider leukemoid reaction. - Notes Notes: Thank you very much for this consultation. - Time Time Spent: 50 to 70 Minutes
[2020-06-30 23:01] LABS: ABSOLUTE BASOPHILS # (AUTO) 0.1 10^3/uL (0.0-0.2); ABSOLUTE LYMPHOCYTES (AUTO) 1.3 10^3/uL (0.5-4.7); ABSOLUTE MONOCYTES (AUTO) 0.7 10^3/uL (0.1-1.4); ABSOLUTE NEUT (AUTO) 13.2 10^3/uL (1.7-8.2); BASOPHILS % (AUTO) 0.4 % (0-2); EOSINOPHILS % (AUTO) 0.3 % (0-6); HEMATOCRIT 30.4 % (37.9-51.0); LYMPHOCYTES % (AUTO) 8.4 % (13-45); MEAN CORPUSCULAR HEMOGLOBIN 30.7 pg (27.0-33.4); MEAN CORPUSCULAR HGB CONC 33.4 g/dL (32.0-36.0); MONOCYTES % (AUTO) 4.7 % (3-13); PLATELET COUNT 235 10^3/uL (150-450); RED BLOOD COUNT 3.31 10^6/uL (4.35-5.55); RED CELL DISTRIBUTION WIDTH 17.4 % (11.5-14.0); SEGMENTED NEUTROPHILS % (AUTO) 86.2 % (42-78); TOTAL CELLS COUNTED % (AUTO) 100 %; WHITE BLOOD COUNT 15.3 10^3/uL (4.0-10.5)
[2020-06-30 23:12] LABS: HEMOGLOBIN 10.1 g/dL (13.5-17.0); MEAN CORPUSCULAR VOLUME 92 fl (80-97)
[2020-07-01] MEDS: TICAGRELOR 90 MG TABLET PO SCH ×2 (06:58→17:34)
[2020-07-01] MEDS: PANTOPRAZOLE SODIUM 40 MG VIAL IV SCH ×2 (06:58→17:34)
[2020-07-01 07:20] LABS: ABSOLUTE BASOPHILS # (AUTO) 0.1 10^3/uL (0.0-0.2); ABSOLUTE EOSINOPHILS # (AUTO) 0.1 10^3/uL (0.0-0.6); ABSOLUTE LYMPHOCYTES (AUTO) 1.4 10^3/uL (0.5-4.7); ABSOLUTE MONOCYTES (AUTO) 0.9 10^3/uL (0.1-1.4); ABSOLUTE NEUT (AUTO) 13.9 10^3/uL (1.7-8.2); BASOPHILS % (AUTO) 0.4 % (0-2); EOSINOPHILS % (AUTO) 0.9 % (0-6); HEMATOCRIT 30.6 % (37.9-51.0); HEMOGLOBIN 10.2 g/dL (13.5-17.0); LYMPHOCYTES % (AUTO) 8.4 % (13-45); MEAN CORPUSCULAR HGB CONC 33.3 g/dL (32.0-36.0); MEAN CORPUSCULAR VOLUME 93 fl (80-97); MONOCYTES % (AUTO) 5.7 % (3-13); PLATELET COUNT 236 10^3/uL (150-450); RED BLOOD COUNT 3.29 10^6/uL (4.35-5.55); RED CELL DISTRIBUTION WIDTH 17.6 % (11.5-14.0); SEGMENTED NEUTROPHILS % (AUTO) 84.6 % (42-78); TOTAL CELLS COUNTED % (AUTO) 100 %; WHITE BLOOD COUNT 16.4 10^3/uL (4.0-10.5)
[2020-07-01 07:45] LABS: ANION GAP 5 (5-19); CALCIUM 8.3 mg/dL (8.4-10.2); CARBON DIOXIDE 27 mmol/L (22-30); CHLORIDE 104 mmol/L (98-107); GLUCOSE 78 mg/dL (75-110); POTASSIUM 4.2 mmol/L (3.6-5.0)
[2020-07-01 08:04] LABS: BLOOD UREA NITROGEN 33 mg/dL (7-20)
[2020-07-01 09:02] LABS: MEAN CORPUSCULAR HEMOGLOBIN 30.3 pg (27.0-33.4); MEAN CORPUSCULAR HGB CONC 31.7 g/dL (32.0-36.0); MEAN CORPUSCULAR VOLUME 96 fl (80-97); PLATELET COUNT 195 10^3/uL (150-450); RED BLOOD COUNT 3.45 10^6/uL (4.35-5.55); RED CELL DISTRIBUTION WIDTH 18.6 % (11.5-14.0); WHITE BLOOD COUNT 16.6 10^3/uL (4.0-10.5)
[2020-07-01 09:09] LABS: HEMOGLOBIN 10.5 g/dL (13.5-17.0)
[2020-07-01 09:38] LABS: ABSOLUTE MONOCYTES # (MANUAL) 0.7 10^3/uL (0.1-1.4); BAND NEUTROPHILS % (MANUAL) 1 % (3-5); BASOPHILS % (MANUAL) 0 % (0-2); EOSINOPHILS % (MANUAL) 0 % (0-6); LYMPHOCYTES % (MANUAL) 6 % (13-45); MONOCYTES % (MANUAL) 4 % (3-13); SEGMENTED NEUTROPHILS % (MAN) 89 % (42-78); TOTAL CELLS COUNTED 100
[2020-07-01 09:39] LABS: ANISOCYTOSIS 2+; BURR CELLS SLIGHT; HYPERSEGMENTED NEUTROPHILS PRESENT; OVALOCYTES SLIGHT; POIKILOCYTOSIS SLIGHT; POLYCHROMASIA SLIGHT; TOXIC GRANULATION SLIGHT
[2020-07-01 09:40] LABS: PLATELET COMMENT ADEQUATE
[2020-07-01] MEDS: METOPROLOL TARTRATE 25 MG TABLET PO SCH ×2 (09:48→21:24)
[2020-07-01 14:03] LABS: HEMATOCRIT 30.4 % (37.9-51.0); HEMOGLOBIN 10.1 g/dL (13.5-17.0); MEAN CORPUSCULAR HEMOGLOBIN 30.6 pg (27.0-33.4); MEAN CORPUSCULAR HGB CONC 33.1 g/dL (32.0-36.0); MEAN CORPUSCULAR VOLUME 92 fl (80-97); PLATELET COUNT 219 10^3/uL (150-450); RED BLOOD COUNT 3.29 10^6/uL (4.35-5.55); RED CELL DISTRIBUTION WIDTH 17.1 % (11.5-14.0); WHITE BLOOD COUNT 14.1 10^3/uL (4.0-10.5)
[2020-07-01 14:22] LABS: ABSOLUTE MONOCYTES # (MANUAL) 0.6 10^3/uL (0.1-1.4); BAND NEUTROPHILS % (MANUAL) 1 % (3-5); BASOPHILS % (MANUAL) 0 % (0-2); EOSINOPHILS % (MANUAL) 0 % (0-6); LYMPHOCYTES % (MANUAL) 11 % (13-45); MONOCYTES % (MANUAL) 4 % (3-13); SEGMENTED NEUTROPHILS % (MAN) 81 % (42-78); TOTAL CELLS COUNTED 100
[2020-07-01 14:23] LABS: PLATELET COMMENT ADEQUATE
[2020-07-01 14:24] LABS: POLYCHROMASIA SLIGHT
[2020-07-01 14:28] LABS: ANISOCYTOSIS 1+; POIKILOCYTOSIS SLIGHT; TEAR DROP CELLS SLIGHT
[2020-07-01] MEDS: MESALAMINE 400 MG CAPSULE.DR PO SCH ×2 (17:35→17:36)
--- NOTE | 2020-07-01 19:24 | PDOC PROGRESS REPORT ---
Subjective Progress Note for:: 07/01/20 Subjective:: Resting comfortably. No distress reported. Maintaining normal rhythm no arrhythmia reported. Reason For Visit: GIB,SVT Physical Exam Vital Signs: Temp Pulse Resp BP Pulse Ox 98.6 F 100 18 115/76 97 07/01/20 17:36 07/01/20 17:36 07/01/20 17:36 07/01/20 17:36 07/01/20 17:36 Intake & Output 06/30/20 07/01/20 07/02/20 06:59 06:59 06:59 Intake Total 3872 Output Total 2737 Balance 1135 Weight 82.1 kg General appearance: PRESENT: no acute distress, cooperative, well-developed, well-nourished Head exam: PRESENT: atraumatic, normocephalic Eye exam: PRESENT: conjunctiva pale Respiratory exam: PRESENT: clear to auscultation taiwo, symmetrical, unlabored Cardiovascular exam: PRESENT: RRR, +S1, +S2 Pulses: PRESENT: normal radial pulses GI/Abdominal exam: PRESENT: soft Rectal exam: PRESENT: deferred Neurological exam: PRESENT: alert, awake, oriented to person, oriented to place, oriented to time, oriented to situation Psychiatric exam: PRESENT: appropriate affect Skin exam: PRESENT: dry, intact Results Laboratory Results: 07/01/20 13:46 07/01/20 06:25 06/30/20 06/30/20 07/01/20 19:17 21:47 06:25 WBC 16.6 H 15.3 H 16.4 H RBC 3.45 L 3.31 L 3.29 L Hgb 10.5 L D 10.1 L 10.2 L Hct 33.0 L 30.4 L 30.6 L MCV 96 92 D 93 MCH 30.3 30.7 31.0 MCHC 31.7 L 33.4 33.3 RDW 18.6 H 17.4 H 17.6 H Plt Count 195 235 236 Seg Neutrophils % Not Reportable 86.2 H 84.6 H Sodium Potassium Chloride Carbon Dioxide Anion Gap BUN Creatinine Est GFR ( Amer) Glucose Calcium Magnesium 07/01/20 07/01/20 06:25 13:46 WBC 14.1 H RBC 3.29 L Hgb 10.1 L Hct 30.4 L MCV 92 MCH 30.6 MCHC 33.1 RDW 17.1 H Plt Count 219 Seg Neutrophils % Not Reportable Sodium 135.7 L Potassium 4.2 Chloride 104 Carbon Dioxide 27 Anion Gap 5 BUN 33 H D Creatinine 3.77 H Est GFR ( Amer) 19 L Glucose 78 Calcium 8.3 L Magnesium 2.0 06/30/20 06/30/20 06/30/20 07:07 12:54 19:17 Troponin I 0.017 0.044 0.058 06/30/20 21:47 Troponin I 0.058 EKG Comments: Telemetry shows sinus rhythm Impressions: Chest X-Ray 06/30/20 07:04 IMPRESSION: No significant change when compared to the prior studies. There is a persistent stable small parenchymal opacity in the left perihilar region. Assessment & Plan - Diagnosis (1) ESRD (end stage renal disease) on dialysis Is this a current diagnosis for this admission?: Yes Plan: Plans to continue hemodialysis. (2) Elevated troponin Is this a current diagnosis for this admission?: Yes Plan: Poor clearance on account of kidney dysfunction Probably could be related to arrhythmia as well Unlikely to be due to acute coronary syndrome (3) Coronary artery disease Qualifiers: Coronary Disease-Associated Artery/Lesion type: [place] artery [place] vs. transplanted heart: [place] heart Associated angina: with stable angina Qualified Code(s): I25.118 - Atherosclerotic heart disease of [place] coronary artery with other forms of angina pectoris Is this a current diagnosis for this admission?: Yes Plan: Stable without any ischemic symptoms today. Continue aspirin 81 mg daily Continue to Keppra 90 mg p.o. twice daily Continue atorvastatin Continue metoprolol 12.5 mg twice daily Continue guideline directed medical therapy for coronary artery disease including dual antiplatelet therapy with his beta-blockers together with statin. (4) GI bleed Is this a current diagnosis for this admission?: Yes Plan: No more GI bleeding episodes reported. (5) Atrial flutter Qualifiers: Atrial flutter type: typical Qualified Code(s): I48.3 - Typical atrial flutter Is this a current diagnosis for this admission?: Yes Plan: Paroxysmal atrial flutter Patient is stable without any recurrence of this arrhythmia. Can be considered for outpatient catheter ablation based on clinical course. At the moment it would be reasonable to suppress triggers for atrial flutter with low-dose metoprolol.
--- NOTE | 2020-07-01 20:33 | PDOC PROGRESS REPORT ---
Subjective Progress Note for:: 07/01/20 Subjective:: Patient seen on afternoon rounds. He is found sitting up to the edge of bed, comfortably, on room air, eating a clear liquid diet. He reports that he is feeling well; no further episodes of blood per rectum. He denies abdominal discomfort, nausea and vomiting. Very satisfied that he has been allowed to eat and is looking forward to advancing his diet. He further denies chest pain, palpitations, dyspnea, orthopnea. He has no questions or concerns at this time. No concerns per nursing. Reason For Visit: GIB,SVT Physical Exam Vital Signs: Temp Pulse Resp BP Pulse Ox 98.6 F 100 18 115/76 97 07/01/20 17:36 07/01/20 17:36 07/01/20 17:36 07/01/20 17:36 07/01/20 17:36 Intake & Output 06/30/20 07/01/20 07/02/20 06:59 06:59 06:59 Intake Total 3872 1798 Output Total 2737 340 Balance 1135 1458 Weight 82.1 kg General appearance: PRESENT: no acute distress, cooperative, well-developed, well-nourished Head exam: PRESENT: atraumatic, normocephalic Eye exam: PRESENT: conjunctiva pink, EOMI, PERRLA. ABSENT: scleral icterus Mouth exam: PRESENT: moist, tongue midline Respiratory exam: PRESENT: clear to auscultation taiwo, symmetrical, unlabored. ABSENT: rales, rhonchi, wheezes Cardiovascular exam: PRESENT: RRR, +S1, +S2. ABSENT: diastolic murmur, rubs, systolic murmur Vascular exam: PRESENT: normal capillary refill GI/Abdominal exam: PRESENT: normal bowel sounds, soft. ABSENT: distended, guarding, mass, organolmegaly, rebound, tenderness Rectal exam: PRESENT: deferred Extremities exam: PRESENT: full ROM. ABSENT: calf tenderness, clubbing, pedal edema Neurological exam: PRESENT: alert, awake, oriented to person, oriented to place, oriented to time, oriented to situation, CN II-XII grossly intact. ABSENT: motor sensory deficit Psychiatric exam: PRESENT: appropriate affect, normal mood. ABSENT: homicidal ideation, suicidal ideation Skin exam: PRESENT: dry, intact, warm. ABSENT: cyanosis, rash Results Laboratory Results: 07/01/20 13:46 07/01/20 06:25 06/30/20 06/30/20 07/01/20 19:17 21:47 06:25 WBC 16.6 H 15.3 H 16.4 H RBC 3.45 L 3.31 L 3.29 L Hgb 10.5 L D 10.1 L 10.2 L Hct 33.0 L 30.4 L 30.6 L MCV 96 92 D 93 MCH 30.3 30.7 31.0 MCHC 31.7 L 33.4 33.3 RDW 18.6 H 17.4 H 17.6 H Plt Count 195 235 236 Seg Neutrophils % Not Reportable 86.2 H 84.6 H Sodium Potassium Chloride Carbon Dioxide Anion Gap BUN Creatinine Est GFR ( Amer) Glucose Calcium Magnesium 07/01/20 07/01/20 06:25 13:46 WBC 14.1 H RBC 3.29 L Hgb 10.1 L Hct 30.4 L MCV 92 MCH 30.6 MCHC 33.1 RDW 17.1 H Plt Count 219 Seg Neutrophils % Not Reportable Sodium 135.7 L Potassium 4.2 Chloride 104 Carbon Dioxide 27 Anion Gap 5 BUN 33 H D Creatinine 3.77 H Est GFR ( Amer) 19 L Glucose 78 Calcium 8.3 L Magnesium 2.0 06/30/20 06/30/20 06/30/20 07:07 12:54 19:17 Troponin I 0.017 0.044 0.058 06/30/20 21:47 Troponin I 0.058 Impressions: Chest X-Ray 06/30/20 07:04 IMPRESSION: No significant change when compared to the prior studies. There is a persistent stable small parenchymal opacity in the left perihilar region. Assessment and Plan - Diagnosis (1) Acute lower GI hemorrhage Is this a current diagnosis for this admission?: Yes Plan: Patient's H/H currently stable; currently 10.1 Patient denies further hematochezia. Discussed with Dr. Quijano; recommend p.o. mesalamine. Colonoscopy completed by Dr. Quijano less than 2 weeks ago showed clean-based ulceration to his sigmoid colon. Continue Protonix. Clear liquid diet. Advance slowly as tolerated. Continue to monitor CBC. (2) Anemia Qualifiers: Anemia type: iron deficiency Iron deficiency anemia type: chronic blood loss Qualified Code(s): D50.0 - Iron deficiency anemia secondary to blood loss (chronic) Is this a current diagnosis for this admission?: Yes Plan: Multifactorial (anemia of chronic disease/acute blood loss anemia 2/2 GIB) s/p 2 units PRBC Nephrology consulted. Follow CBC (3) ESRD (end stage renal disease) Is this a current diagnosis for this admission?: Yes Plan: HD M/W/F Nephrology consulted; dialysis per their expertise. (4) Hypomagnesemia Is this a current diagnosis for this admission?: Yes Plan: Replete. Periodic follow up mag levels. (5) Coronary artery disease Qualifiers: Coronary Disease-Associated Artery/Lesion type: [place] artery [place] vs. transplanted heart: [place] heart Associated angina: with stable angina Qualified Code(s): I25.118 - Atherosclerotic heart disease of [place] coronary artery with other forms of angina pectoris Is this a current diagnosis for this admission?: Yes Plan: Patient is s/p PCI/stent within 1 month Patient does not have any chest pain Serial troponin are indeterminate, but stable. Cardiology consulted; appreciate Dr. Reyes's recommendations Continue ASA 81 mg p.o. daily Continue ticagrelor 90 mg p.o. every 12 hours Continue beta-taylor therapy with metoprolol. (6) Supraventricular tachycardia Is this a current diagnosis for this admission?: Yes Plan: Proximal atrial flutter noted; short period of RVR. Now stable without recurrence. Diltiazem drip is discontinued. Continues on home dose metoprolol. Cardiology consulted; consider outpatient catheter ablation. (7) BPH (benign prostatic hyperplasia) Is this a current diagnosis for this admission?: Yes Plan: Continue tamsulosin 0.4 mg p.o. daily at at bedtime - Time Time Spent with patient: 35 or more minutes Medications reviewed and adjusted accordingly: Yes Anticipated Discharge Disposition: Home, Self Care Anticipated Discharge Timeframe: within 72 hours
[2020-07-01] MEDS: ASPIRIN 81 MG TABLET, ENT COATED PO SCH (21:24)
[2020-07-01] MEDS: TAMSULOSIN HCL 0.4 MG CAP.SR.24H PO SCH (21:24)
[2020-07-01] MEDS: ATORVASTATIN CALCIUM 20 MG TABLET PO SCH (21:24)
[2020-07-02 04:43] LABS: HEMATOCRIT 29.9 % (37.9-51.0); MEAN CORPUSCULAR HEMOGLOBIN 30.8 pg (27.0-33.4); MEAN CORPUSCULAR HGB CONC 33.6 g/dL (32.0-36.0); MEAN CORPUSCULAR VOLUME 92 fl (80-97); PLATELET COUNT 215 10^3/uL (150-450); RED BLOOD COUNT 3.26 10^6/uL (4.35-5.55); RED CELL DISTRIBUTION WIDTH 16.4 % (11.5-14.0); WHITE BLOOD COUNT 14.2 10^3/uL (4.0-10.5)
[2020-07-02 04:59] LABS: ANION GAP 6 (5-19); BLOOD UREA NITROGEN 40 mg/dL (7-20); CALCIUM 8.3 mg/dL (8.4-10.2); CARBON DIOXIDE 24 mmol/L (22-30); CHLORIDE 102 mmol/L (98-107); GLUCOSE 94 mg/dL (75-110)
[2020-07-02] MEDS ORDERED: HEPARIN SOD (PORCINE) 1,000 UNIT/ML 10 ML VIAL IV PRN (05:00)
[2020-07-02] MEDS ORDERED: NORMAL SALINE 1000 ML 1,000 ML IV PRN (05:00)
[2020-07-02] MEDS: TICAGRELOR 90 MG TABLET PO SCH ×2 (05:54→18:24)
[2020-07-02] MEDS: PANTOPRAZOLE SODIUM 40 MG VIAL IV SCH ×2 (05:54→17:50)
[2020-07-02] MEDS ORDERED: (PENDING PHARMACY ID) (Omeprazole [Prilosec] 20 MG) PO SCH (06:00)
[2020-07-02] MEDS ORDERED: GLUCAGON,HUMAN RECOMB 1 MG INJ SUBCUT PRN (08:09)
[2020-07-02] MEDS ORDERED: DEXTROSE 50%-WATER 25 GM/50 ML DISP.SYRIN IV PRN ×2 (08:09)
[2020-07-02] MEDS ORDERED: DEXTROSE 40% GEL 15 GM TUBE PO PRN ×2 (08:09)
[2020-07-02] MEDS: MESALAMINE 400 MG CAPSULE.DR PO SCH ×3 (14:28→18:21)
[2020-07-02] MEDS: METOPROLOL TARTRATE 25 MG TABLET PO SCH ×2 (14:28→18:22)
--- NOTE | 2020-07-02 14:50 | PDOC PROGRESS REPORT ---
Subjective Progress Note for:: 07/02/20 Subjective:: Resting comfortably. No distress reported. Mildly tachycardic-sinus tachycardia 110 bpm. Receiving hemodialysis therapy. Overnight had a couple of bloody bowel movements. Colitis is being entertained as a diagnosis. CT scan is being considered. He was started on antibiotics for possible colitis. He denies any chest pain or palpitations. Reason For Visit: GIB,SVT Physical Exam Vital Signs: Temp Pulse Resp BP Pulse Ox 98.6 F 50 L 18 118/74 99 07/02/20 08:15 07/02/20 08:15 07/02/20 08:15 07/02/20 08:15 07/02/20 08:15 Intake & Output 07/01/20 07/02/20 07/03/20 06:59 06:59 06:59 Intake Total 3872 1798 Output Total 2737 655 Balance 1135 1143 Weight 82.1 kg 82.8 kg General appearance: PRESENT: no acute distress, cooperative, well-developed, well-nourished Head exam: PRESENT: atraumatic, normocephalic Eye exam: PRESENT: EOMI Mouth exam: PRESENT: moist Respiratory exam: PRESENT: clear to auscultation taiwo, symmetrical, unlabored Cardiovascular exam: PRESENT: RRR, +S1, +S2 Pulses: PRESENT: normal radial pulses GI/Abdominal exam: PRESENT: soft Rectal exam: PRESENT: deferred Neurological exam: PRESENT: alert, awake, oriented to person, oriented to place, oriented to time, oriented to situation Psychiatric exam: PRESENT: appropriate affect Skin exam: PRESENT: dry, intact, normal color Results Laboratory Results: 07/02/20 04:23 07/02/20 04:23 07/02/20 07/02/20 04:23 04:23 WBC 14.2 H RBC 3.26 L Hgb 10.0 L Hct 29.9 L MCV 92 MCH 30.8 MCHC 33.6 RDW 16.4 H Plt Count 215 Sodium 132.0 L Potassium 4.0 Chloride 102 Carbon Dioxide 24 Anion Gap 6 BUN 40 H Creatinine 4.68 H Est GFR ( Amer) 15 L Glucose 94 Calcium 8.3 L 06/30/20 06/30/20 06/30/20 07:07 12:54 19:17 Troponin I 0.017 0.044 0.058 06/30/20 21:47 Troponin I 0.058 Impressions: Chest X-Ray 06/30/20 07:04 IMPRESSION: No significant change when compared to the prior studies. There is a persistent stable small parenchymal opacity in the left perihilar region. Assessment & Plan - Diagnosis (1) ESRD (end stage renal disease) on dialysis Is this a current diagnosis for this admission?: Yes Plan: Plans to continue hemodialysis. (2) Elevated troponin Is this a current diagnosis for this admission?: Yes Plan: Poor clearance on account of kidney dysfunction Probably could be related to arrhythmia as well Unlikely to be due to acute coronary syndrome (3) Coronary artery disease Qualifiers: Coronary Disease-Associated Artery/Lesion type: [place] artery [place] vs. transplanted heart: [place] heart Associated angina: with stable angina Qualified Code(s): I25.118 - Atherosclerotic heart disease of [place] coronary artery with other forms of angina pectoris Is this a current diagnosis for this admission?: Yes Plan: Stable without any ischemic symptoms today. Continue aspirin 81 mg daily Continue to Keppra 90 mg p.o. twice daily Continue atorvastatin Continue metoprolol 12.5 mg twice daily Continue guideline directed medical therapy for coronary artery disease including dual antiplatelet therapy with his beta-blockers together with statin. Especially given bleeding from the GI tract we will need to watch hemoglobin (4) GI bleed Is this a current diagnosis for this admission?: Yes Plan: Had 2 more episodes of GI bleeding. Colitis is being entertained at the diagnosis. CT scan is being planned Patient has been started on antibiotic therapy for possible colitis. (5) Atrial flutter Qualifiers: Atrial flutter type: typical Qualified Code(s): I48.3 - Typical atrial flutter Is this a current diagnosis for this admission?: Yes Plan: Paroxysmal atrial flutter Patient is stable without any recurrence of this arrhythmia. Can be considered for outpatient catheter ablation based on clinical course. At the moment it would be reasonable to suppress triggers for atrial flutter with low-dose metoprolol.
[2020-07-02] MEDS: PREDNISONE 10 MG TABLET PO SCH (15:06)
[2020-07-02] MEDS: METRONIDAZOLE 500 MG TABLET PO SCH ×2 (15:06→22:16)
[2020-07-02] MEDS ORDERED: NORMAL SALINE 1000 ML 500 ML IV ONE (15:45)
[2020-07-02 16:31] LABS: HEMATOCRIT 31.7 % (37.9-51.0); HEMOGLOBIN 10.5 g/dL (13.5-17.0); MEAN CORPUSCULAR HEMOGLOBIN 30.6 pg (27.0-33.4); MEAN CORPUSCULAR HGB CONC 33.3 g/dL (32.0-36.0); MEAN CORPUSCULAR VOLUME 92 fl (80-97); PLATELET COUNT 242 10^3/uL (150-450); RED BLOOD COUNT 3.44 10^6/uL (4.35-5.55); RED CELL DISTRIBUTION WIDTH 16.8 % (11.5-14.0); WHITE BLOOD COUNT 18.7 10^3/uL (4.0-10.5)
--- NOTE | 2020-07-02 16:40 | RADIOLOGY REPORT (SQ) ---
EXAM DESCRIPTION: CT ABD/PELVIS ORAL ONLY IMAGES COMPLETED DATE/TIME: 07/02/2020 4:01 pm REASON FOR STUDY: RLQ abd pain w/ hematochezia COMPARISON: 03/05/2016. TECHNIQUE: CT scan of the abdomen and pelvis performed with oral contrast and no intravenous contras t. Images reviewed with lung, soft tissue, and bone windows. Reconstructed coronal and sagittal MPR i mages reviewed. All images stored on PACS. All CT scanners at this facility use dose modulation, iterative reconstruction, and/or weight based d osing when appropriate to reduce radiation dose to as low as reasonably achievable (ALARA). [facility]: Dose Right [facility]: CareDose [facility]: Dose Right [facility]: Teradose 4D [facility]: [employer] RADIATION DOSE: CT Rad equipment meets quality standard of care and radiation dose reduction techniq ues were employed. CTDIvol: 7.5 mGy. DLP: 443 mGy-cm. mGy. LIMITATIONS: None. FINDINGS: LOWER CHEST: No significant findings. No nodules or infiltrates. NON-CONTRASTED LIVER, SPLEEN, ADRENALS: Evaluation limited by lack of IV contrast. No identified sign ificant masses. PANCREAS: No masses. No peripancreatic inflammatory changes. GALLBLADDER: No identified stones by CT criteria. No inflammatory changes to suggest cholecystitis. RIGHT KIDNEY AND URETER: No suspicious masses. Assessment limited by lack of IV contrast. No signif icant calcifications. No hydronephrosis or hydroureter. LEFT KIDNEY AND URETER: No suspicious masses. Assessment limited by lack of IV contrast. No signifi cant calcifications. No hydronephrosis or hydroureter. AORTA AND RETROPERITONEUM: No aneurysm. No retroperitoneal masses or adenopathy. BOWEL AND PERITONEAL CAVITY: Previous partial colectomy. Diverticuli in the descending and sigmoid c olon. Mild inflammatory changes in the soft tissues adjacent to the sigmoid. Indistinct collection of gas and fluid located posterior to the sigmoid colon, measuring 2.5 x 5.5 cm (axial series 2, imag e 72). Similar smaller areas adjacent to the sigmoid colon measuring 2 x 2.5 cm (axial series 2, lizbeth ge 71), 1.5 cm (axial series 2, image 67), and 1.5 x 2 cm (axial series 2, image 77). APPENDIX: Surgically absent. PELVIS, BLADDER, AND ABDOMINAL WALL: No abnormal pelvic masses. No abdominal wall hernias. Bladder un remarkable. BONES: No significant findings. OTHER: No other significant finding. IMPRESSION: 1. SIGMOID DIVERTICULITIS. ABNORMAL ILL-DEFINED COLLECTION OF GAS AND FLUID LOCATED POSTERIOR TO THE SIGMOID COLON, MEASURING 2.5 X 5.5 CM, SUSPICIOUS FOR DIVERTICULAR ABSCESS. SIMILAR SMALLER COLLECT IONS DESCRIBED ABOVE MAY REPRESENT ADDITIONAL SMALLER DIVERTICULAR ABSCESSES OR CONTAINED PERFORAT ION. 2. NO OTHER SIGNIFICANT FINDINGS IN THE ABDOMEN OR PELVIS. TECHNICAL DOCUMENTATION: JOB ID: [id number] Quality ID # [id number]: Final reports with documentation of one or more dose reduction techniques (e.g., Au tomated exposure control, adjustment of the mA and/or kV according to patient size, use of iterative reconstruction technique) 2010 [employer]- All Rights Reserved Reading location - IP/workstation name: [email or web address]
[2020-07-02] MEDS: CIPROFLOXACIN 400 MG/D5W RTU 400 MG/200 ML RTUPB IV SCH (17:49)
--- NOTE | 2020-07-02 19:12 | PDOC PROGRESS REPORT ---
Subjective Progress Note for:: 07/02/20 Subjective:: Patient seen on morning rounds and again this afternoon following dialysis and CT when his was present. He is found resting in bed, comfortably, on room air. He denies abdominal discomfort. Did have re-occurrence of BRBPR x3 today. He reports that he is feeling well; no new questions or concerns. He denies abdominal discomfort, nausea and vomiting. He further denies chest pain, palpitations, dyspnea, orthopnea. Discussed CT results w/ patient and ; feel comfortable remaining at [facility] for conservative treatment with antibiotics. Understand potential need for transfer to tertiary care should he not respond. Nursing report short period of hypotension w/ diaphoresis upon return from dialysis. Reason For Visit: GIB,SVT Physical Exam Vital Signs: Temp Pulse Resp BP Pulse Ox 98.9 F 112 H 18 143/75 H 99 07/02/20 17:39 07/02/20 17:39 07/02/20 17:39 07/02/20 17:39 07/02/20 17:39 Intake & Output 07/01/20 07/02/20 07/03/20 06:59 06:59 06:59 Intake Total 3872 1798 Output Total 2737 655 1700 Balance 1135 1143 -1700 Weight 82.1 kg 82.8 kg General appearance: PRESENT: no acute distress, cooperative, well-developed, well-nourished Head exam: PRESENT: atraumatic, normocephalic Eye exam: PRESENT: conjunctiva pink, EOMI, PERRLA. ABSENT: scleral icterus Mouth exam: PRESENT: moist, tongue midline Respiratory exam: PRESENT: clear to auscultation taiwo, symmetrical, unlabored. ABSENT: rales, rhonchi, wheezes Cardiovascular exam: PRESENT: RRR, +S1, +S2. ABSENT: diastolic murmur, rubs, systolic murmur Pulses: PRESENT: normal dorsalis pedis pul Vascular exam: PRESENT: normal capillary refill GI/Abdominal exam: PRESENT: hypoactive bowel sounds, soft, tenderness - LLQ. ABSENT: distended, guarding, mass, organolmegaly, rebound Rectal exam: PRESENT: deferred Extremities exam: PRESENT: full ROM. ABSENT: calf tenderness, clubbing, pedal edema Musculoskeletal exam: PRESENT: ambulatory Neurological exam: PRESENT: alert, awake, oriented to person, oriented to place, oriented to time, oriented to situation, CN II-XII grossly intact. ABSENT: motor sensory deficit Psychiatric exam: PRESENT: appropriate affect, normal mood. ABSENT: homicidal ideation, suicidal ideation Skin exam: PRESENT: dry, intact, warm. ABSENT: cyanosis, rash Results Laboratory Results: 07/02/20 15:45 07/02/20 04:23 07/02/20 07/02/20 07/02/20 04:23 04:23 15:45 WBC 14.2 H 18.7 H RBC 3.26 L 3.44 L Hgb 10.0 L 10.5 L Hct 29.9 L 31.7 L MCV 92 92 MCH 30.8 30.6 MCHC 33.6 33.3 RDW 16.4 H 16.8 H Plt Count 215 242 Sodium 132.0 L Potassium 4.0 Chloride 102 Carbon Dioxide 24 Anion Gap 6 BUN 40 H Creatinine 4.68 H Est GFR ( Amer) 15 L Glucose 94 Calcium 8.3 L 06/30/20 06/30/20 06/30/20 07:07 12:54 19:17 Troponin I 0.017 0.044 0.058 06/30/20 07/02/20 21:47 15:45 Troponin I 0.058 0.020 Impressions: Chest X-Ray 06/30/20 07:04 IMPRESSION: No significant change when compared to the prior studies. There is a persistent stable small parenchymal opacity in the left perihilar region. Abdomen/Pelvis CT 07/02/20 00:00 IMPRESSION: 1. SIGMOID DIVERTICULITIS. ABNORMAL ILL-DEFINED COLLECTION OF GAS AND FLUID LOCATED POSTERIOR TO THE SIGMOID COLON, MEASURING 2.5 X 5.5 CM, SUSPICIOUS FOR DIVERTICULAR ABSCESS. SIMILAR SMALLER COLLECTIONS DESCRIBED ABOVE MAY REPRESENT ADDITIONAL SMALLER DIVERTICULAR ABSCESSES OR CONTAINED PERFORATION. 2. NO OTHER SIGNIFICANT FINDINGS IN THE ABDOMEN OR PELVIS. Assessment and Plan - Diagnosis (1) Diverticulitis of intestine with abscess and bleeding Qualifiers: Diverticulitis site: large intestine Qualified Code(s): K57.21 - Diverticulitis of large intestine with perforation and abscess with bleeding Is this a current diagnosis for this admission?: Yes Plan: CT abdomen/pelvis with oral contrast revealed sigmoid diverticulitis with an ill-defined collection of gas and fluid located posterior to the sigmoid colon measuring 2.5 x 5.5 cm suspicious for diverticular abscess. Similar smaller collections were also noted. Patient reports 3 additional episodes of bright red blood per rectum today. Resume n.p.o. status with ice chips. Start IV Cipro and p.o. Flagyl. Discussed with Dr. Quijano yesterday; will continue p.o. mesalamine per his recommendations. Colonoscopy completed by Dr. Quijano less than 2 weeks ago showed clean-based ulceration to his sigmoid colon. Discussed with Dr. Palumbo today following CT results; advises to continue antibiotics. May need IR drainage and/or surgical intervention, however, due to his recent cardiac cath with stent placement and need for continued aspirin/ Brilinta, he would need to be transferred to a tertiary care center. This was discussed with the patient and spouse; both are comfortable with remaining at [facility] for conservative treatment with antibiotics at this time. They understand that should his condition worsen, he would require transfer to tertiary center. Continue Protonix. Continue to monitor CBC. (2) Acute lower GI hemorrhage Is this a current diagnosis for this admission?: Yes Plan: Patient's H/H currently stable; currently 10.5 Follow CBC Transfusion as needed for Hgb <8 or if precipitous drop w/ associated sx Management as above. (3) Anemia Qualifiers: Anemia type: iron deficiency Iron deficiency anemia type: chronic blood loss Qualified Code(s): D50.0 - Iron deficiency anemia secondary to blood loss (chronic) Is this a current diagnosis for this admission?: Yes Plan: Multifactorial (anemia of chronic disease/acute blood loss anemia 2/2 GIB) s/p 2 units PRBC Nephrology consulted. Follow CBC (4) ESRD (end stage renal disease) Is this a current diagnosis for this admission?: Yes Plan: HD M/W/F Nephrology consulted; dialysis per their expertise. (5) Hypomagnesemia Is this a current diagnosis for this admission?: Yes Plan: Replete. Periodic follow up mag levels. (6) Coronary artery disease Qualifiers: Coronary Disease-Associated Artery/Lesion type: [place] artery [place] vs. transplanted heart: [place] heart Associated angina: with stable angina Qualified Code(s): I25.118 - Atherosclerotic heart disease of [place] coronary artery with other forms of angina pectoris Is this a current diagnosis for this admission?: Yes Plan: Patient is s/p PCI/stent within 1 month at [facility] Patient does not have any chest pain Serial troponin are indeterminate, but stable and trending down. Cardiology consulted; appreciate Dr. Reyes's recommendations Continue ASA 81 mg p.o. daily Continue ticagrelor 90 mg p.o. every 12 hours Continue beta-taylor therapy with metoprolol. (7) Supraventricular tachycardia Is this a current diagnosis for this admission?: Yes Plan: Proximal atrial flutter noted; short period of RVR. Now stable without recurrence. Diltiazem drip is discontinued. Continues on home dose metoprolol. Cardiology consulted; consider outpatient catheter ablation. (8) BPH (benign prostatic hyperplasia) Is this a current diagnosis for this admission?: Yes Plan: Continue tamsulosin 0.4 mg p.o. daily at at bedtime - Time Time Spent with patient: 35 or more minutes Medications reviewed and adjusted accordingly: Yes Anticipated Discharge Disposition: Home, Self Care Anticipated Discharge Timeframe: >72 hrs
[2020-07-02] MEDS: ASPIRIN 81 MG TABLET, ENT COATED PO SCH (22:16)
[2020-07-02] MEDS: TAMSULOSIN HCL 0.4 MG CAP.SR.24H PO SCH (22:16)
[2020-07-02] MEDS: ATORVASTATIN CALCIUM 20 MG TABLET PO SCH (22:16)
--- NOTE | 2020-07-02 23:35 | PDOC PROGRESS REPORT ---
Subjective Progress Note for:: 07/02/20 Subjective:: I am seeing the patient during dialysis this afternoon. He is sleeping comfortably but arousable. He states that he is doing fine. He denies any further blood in the stool but reportedly this morning he had recurrence of blood per rectum. He is scheduled for CT scan of the abdomen after dialysis. He denies any chest pains no shortness of breath. He is currently tolerating dialysis. Reason For Visit: GIB,SVT Physical Exam Vital Signs: Temp Pulse Resp BP Pulse Ox 98.6 F 50 L 18 118/74 99 07/02/20 08:15 07/02/20 08:15 07/02/20 08:15 07/02/20 08:15 07/02/20 08:15 Intake & Output 07/01/20 07/02/20 07/03/20 06:59 06:59 06:59 Intake Total 3872 1798 Output Total 2737 655 Balance 1135 1143 Weight 82.1 kg 82.8 kg Vitals during dialysis: Blood pressure 147/72, heart rate of 108, blood flow rate of 350 mL/min and dialysate flow rate of 800 mL/min. Exam: General appearance: PRESENT: no acute distress, cooperative, well-developed, well-nourished Head exam: PRESENT: atraumatic, normocephalic Eye exam: PRESENT: conjunctiva pale, PERRLA. ABSENT: scleral icterus Neck exam: ABSENT: JVD Respiratory exam: PRESENT: Normal breath sounds. ABSENT: crackles, rales, rhonchi, unlabored, wheezes Cardiovascular exam: PRESENT: Regular rate rhythm -+S1, +S2. ABSENT: diastolic murmur, systolic murmur GI/Abdominal exam: PRESENT: normal bowel sounds, soft. ABSENT: guarding, mass, tenderness Extremities exam: ABSENT: No edema Neurological exam: PRESENT: alert, awake, oriented to person, place and time. Skin exam: PRESENT: dry, warm, pallor Results Laboratory Results: 07/02/20 04:23 07/02/20 04:23 07/01/20 07/02/20 07/02/20 13:46 04:23 04:23 WBC 14.1 H 14.2 H RBC 3.29 L 3.26 L Hgb 10.1 L 10.0 L Hct 30.4 L 29.9 L MCV 92 92 MCH 30.6 30.8 MCHC 33.1 33.6 RDW 17.1 H 16.4 H Plt Count 219 215 Seg Neutrophils % Not Reportable Sodium 132.0 L Potassium 4.0 Chloride 102 Carbon Dioxide 24 Anion Gap 6 BUN 40 H Creatinine 4.68 H Est GFR ( Amer) 15 L Glucose 94 Calcium 8.3 L 06/30/20 06/30/20 06/30/20 07:07 12:54 19:17 Troponin I 0.017 0.044 0.058 06/30/20 21:47 Troponin I 0.058 Impressions: Chest X-Ray 06/30/20 07:04 IMPRESSION: No significant change when compared to the prior studies. There is a persistent stable small parenchymal opacity in the left perihilar region. Assessment & Plan - Diagnosis (1) Acute lower GI hemorrhage Is this a current diagnosis for this admission?: Yes Plan: Patient has history of clean based colon Ulcer from colonoscopy couple weeks ago. Patient has recurring lower GI bleed. CT scan of the abdomen is supposed to be done after dialysis today. (2) Atrial flutter Qualifiers: Atrial flutter type: typical Qualified Code(s): I48.3 - Typical atrial f lutter Is this a current diagnosis for this admission?: Yes (3) Acute anemia Is this a current diagnosis for this admission?: Yes Plan: Due to blood loss from GI bleed. Status post blood transfusion. 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 There is no clear-cut evidence of renal recovery as of this time patient may possibly be at ESRD. We will do dialysis today for 3 hours, using the patient's PermCath, with 3 potassium bath, blood flow rate of 350 mL per minute, dialysate flow rate of 800 mL per minute, ultrafiltration 1.5 L as tolerated, no heparin and no Procrit. Patient is currently being monitored throughout dialysis treatment. 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 Treated with rituximab 1 g x 2 doses 2 weeks apart, pulse methylprednisolone followed by oral prednisone. Prednisone has now been tapered to just 20 mg daily. We will continue to taper down the dose. (6) Colon ulcer Is this a current diagnosis for this admission?: Yes (7) Elevated troponin Is this a current diagnosis for this admission?: Yes Plan: Cardiology on board. (8) Coronary artery disease Qualifiers: Coronary Disease-Associated Artery/Lesion type: [place] artery [place] vs. transplanted heart: [place] heart Associated angina: with stable angina Qualified Code(s): I25.118 - Atherosclerotic heart disease of [place] coronary artery with other forms of angina pectoris Is this a current diagnosis for this admission?: Yes (9) Leukocytosis Qualifiers: Leukocytosis type: unspecified Qualified Code(s): D72.829 - Elevated white blood cell count, unspecified Is this a current diagnosis for this admission?: Yes - Notes Notes: Dr. Belcher to follow patient starting tomorrow. - Time Time with patient: 15-25 minutes
[2020-07-03] MEDS: METOPROLOL TARTRATE 25 MG TABLET PO SCH ×2 (05:21→17:44)
[2020-07-03] MEDS: METRONIDAZOLE 500 MG TABLET PO SCH ×3 (05:22→21:19)
[2020-07-03] MEDS: TICAGRELOR 90 MG TABLET PO SCH ×2 (05:23→17:44)
[2020-07-03] MEDS: PANTOPRAZOLE SODIUM 40 MG VIAL IV SCH ×2 (05:23→17:43)
[2020-07-03 06:50] LABS: HEMATOCRIT 28.7 % (37.9-51.0); HEMOGLOBIN 9.5 g/dL (13.5-17.0); MEAN CORPUSCULAR HEMOGLOBIN 30.3 pg (27.0-33.4); MEAN CORPUSCULAR HGB CONC 32.9 g/dL (32.0-36.0); MEAN CORPUSCULAR VOLUME 92 fl (80-97); PLATELET COUNT 223 10^3/uL (150-450); RED BLOOD COUNT 3.12 10^6/uL (4.35-5.55); RED CELL DISTRIBUTION WIDTH 16.5 % (11.5-14.0); WHITE BLOOD COUNT 18.3 10^3/uL (4.0-10.5)
[2020-07-03 07:07] LABS: ANION GAP 8 (5-19); BLOOD UREA NITROGEN 29 mg/dL (7-20); CALCIUM 8.4 mg/dL (8.4-10.2); CARBON DIOXIDE 24 mmol/L (22-30); CHLORIDE 100 mmol/L (98-107); GLUCOSE 117 mg/dL (75-110); POTASSIUM 4.7 mmol/L (3.6-5.0)
[2020-07-03] MEDS: PREDNISONE 10 MG TABLET PO SCH (10:19)
[2020-07-03] MEDS: MESALAMINE 400 MG CAPSULE.DR PO SCH ×3 (10:19→17:44)
[2020-07-03 16:07] LABS: HEMATOCRIT 29.7 % (37.9-51.0); HEMOGLOBIN 9.8 g/dL (13.5-17.0); MEAN CORPUSCULAR HEMOGLOBIN 30.4 pg (27.0-33.4); MEAN CORPUSCULAR VOLUME 92 fl (80-97); PLATELET COUNT 238 10^3/uL (150-450); RED BLOOD COUNT 3.22 10^6/uL (4.35-5.55); RED CELL DISTRIBUTION WIDTH 16.4 % (11.5-14.0); WHITE BLOOD COUNT 18.5 10^3/uL (4.0-10.5)
--- NOTE | 2020-07-03 16:43 | PDOC PROGRESS REPORT ---
Subjective Progress Note for:: 07/03/20 Subjective:: Patient seen and examined. Resting comfortably. 1 dark bloody bowel movement this morning. CT scan confirmed sigmoid diverticulitis with abscess formation. Plan is to continue intravenous antibiotics and to hold off on surgery given recent stents and fear regarding interruption of antiplatelet therapy should surgery become necessary given the fact that stents are relatively fresh. Patient denies any chest pain. No abdominal complaints specifically no pain or cramping. No arrhythmic symptoms. Telemetry is continued to show sinus rhythm. Reason For Visit: GIB,SVT Physical Exam Vital Signs: Temp Pulse Resp BP Pulse Ox 98.0 F 80 16 114/74 91 L 07/03/20 12:00 07/03/20 14:00 07/03/20 12:00 07/03/20 12:00 07/03/20 12:00 Intake & Output 07/02/20 07/03/20 07/04/20 06:59 06:59 06:59 Intake Total 1798 700 Output Total 655 1700 Balance 1143 -1000 Weight 82.8 kg 80 kg General appearance: PRESENT: no acute distress, cooperative, well-developed, well-nourished Head exam: PRESENT: atraumatic, normocephalic Eye exam: PRESENT: EOMI Mouth exam: PRESENT: moist Respiratory exam: PRESENT: clear to auscultation taiwo, symmetrical, unlabored Cardiovascular exam: PRESENT: RRR, +S1, +S2 Pulses: PRESENT: normal radial pulses GI/Abdominal exam: PRESENT: soft Rectal exam: PRESENT: deferred Musculoskeletal exam: PRESENT: normal inspection Neurological exam: PRESENT: alert, awake, oriented to person, oriented to place, oriented to time, oriented to situation Psychiatric exam: PRESENT: appropriate affect Skin exam: PRESENT: dry, intact Results Laboratory Results: 07/03/20 15:50 07/03/20 06:30 07/03/20 07/03/20 07/03/20 06:30 06:30 15:50 WBC 18.3 H 18.5 H RBC 3.12 L 3.22 L Hgb 9.5 L 9.8 L Hct 28.7 L 29.7 L MCV 92 92 MCH 30.3 30.4 MCHC 32.9 33.0 RDW 16.5 H 16.4 H Plt Count 223 238 Sodium 132.1 L Potassium 4.7 Chloride 100 Carbon Dioxide 24 Anion Gap 8 BUN 29 H Creatinine 4.10 H Est GFR ( Amer) 17 L Glucose 117 H Calcium 8.4 06/30/20 06/30/20 06/30/20 07:07 12:54 19:17 Troponin I 0.017 0.044 0.058 06/30/20 07/02/20 21:47 15:45 Troponin I 0.058 0.020 EKG Comments: CT scan abdomen pelvis 07/02/2020 Sigmoid diverticulitis. Ill-defined collection of gas and fluid located posterior to the sigmoid colon measuring 2.5 x 5.5 cm suspicious for diverticular abscess. WBC count is increased at 18.5 Impressions: Chest X-Ray 06/30/20 07:04 IMPRESSION: No significant change when compared to the prior studies. There is a persistent stable small parenchymal opacity in the left perihilar region. Abdomen/Pelvis CT 07/02/20 00:00 IMPRESSION: 1. SIGMOID DIVERTICULITIS. ABNORMAL ILL-DEFINED COLLECTION OF GAS AND FLUID LOCATED POSTERIOR TO THE SIGMOID COLON, MEASURING 2.5 X 5.5 CM, SUSPICIOUS FOR DIVERTICULAR ABSCESS. SIMILAR SMALLER COLLECTIONS DESCRIBED ABOVE MAY REPRESENT ADDITIONAL SMALLER DIVERTICULAR ABSCESSES OR CONTAINED PERFORATION. 2. NO OTHER SIGNIFICANT FINDINGS IN THE ABDOMEN OR PELVIS. Assessment & Plan - Diagnosis (1) ESRD (end stage renal disease) on dialysis Is this a current diagnosis for this admission?: Yes Plan: Plans to continue hemodialysis. (2) Elevated troponin Is this a current diagnosis for this admission?: Yes Plan: Poor clearance on account of kidney dysfunction Probably could be related to arrhythmia as well Unlikely to be due to acute coronary syndrome (3) Coronary artery disease Qualifiers: Coronary Disease-Associated Artery/Lesion type: [place] artery [place] vs. transplanted heart: [place] heart Associated angina: with stable angina Qualified Code(s): I25.118 - Atherosclerotic heart disease of [place] coronary artery with other forms of angina pectoris Is this a current diagnosis for this admission?: Yes Plan: Stable without any ischemic symptoms today. Continue aspirin 81 mg daily Continue to ticagrelor 90 mg p.o. twice daily Continue atorvastatin Continue metoprolol 12.5 mg twice daily Continue guideline directed medical therapy for coronary artery disease including dual antiplatelet therapy with his beta-blockers together with statin. Especially given bleeding from the GI tract we will need to watch hemoglobin (4) GI bleed Is this a current diagnosis for this admission?: Yes Plan: Sigmoid diverticulitis with abscess formation. Being managed conservatively with plans for no surgery event recent stents. Also patient white symptomatic with soft abdomen and no systemic complaints. Hopefully respond to antibiotics (5) Atrial flutter Qualifiers: Atrial flutter type: typical Qualified Code(s): I48.3 - Typical atrial flutter Is this a current diagnosis for this admission?: Yes Plan: Paroxysmal atrial flutter Patient is stable without any recurrence of this arrhythmia. Can be considered for outpatient catheter ablation based on clinical course. At the moment it would be reasonable to suppress triggers for atrial flutter with low-dose metoprolol.
--- NOTE | 2020-07-03 17:15 | PDOC PROGRESS REPORT ---
Subjective Progress Note for:: 07/03/20 Subjective:: Patient seen on morning rounds. He is found resting in bed, comfortably, on room air. He denies abdominal discomfort. Soft bm this morning; no blood noted. He reports that he is feeling well; no new questions or concerns. He denies abdominal discomfort, nausea and vomiting. He further denies chest pain, palpitations, dyspnea, orthopnea. No concerns per nursing today. Reason For Visit: GIB,SVT Physical Exam Vital Signs: Temp Pulse Resp BP Pulse Ox 98.0 F 80 16 114/74 91 L 07/03/20 12:00 07/03/20 14:00 07/03/20 12:00 07/03/20 12:00 07/03/20 12:00 Intake & Output 07/02/20 07/03/20 07/04/20 06:59 06:59 06:59 Intake Total 1798 700 Output Total 655 1700 Balance 1143 -1000 Weight 82.8 kg 80 kg General appearance: PRESENT: no acute distress, cooperative, well-developed, well-nourished Head exam: PRESENT: atraumatic, normocephalic Eye exam: PRESENT: conjunctiva pink, EOMI, PERRLA. ABSENT: scleral icterus Mouth exam: PRESENT: moist, tongue midline Respiratory exam: PRESENT: clear to auscultation taiwo, symmetrical, unlabored. ABSENT: rales, rhonchi, wheezes Cardiovascular exam: PRESENT: RRR. ABSENT: diastolic murmur, rubs, systolic murmur Pulses: PRESENT: normal dorsalis pedis pul Vascular exam: PRESENT: normal capillary refill GI/Abdominal exam: PRESENT: normal bowel sounds, soft, tenderness - LLQ. ABSENT: distended, guarding, mass, organolmegaly, rebound Rectal exam: PRESENT: deferred Extremities exam: PRESENT: full ROM. ABSENT: calf tenderness, clubbing, pedal edema Neurological exam: PRESENT: alert, awake, oriented to person, oriented to place, oriented to time, oriented to situation, CN II-XII grossly intact. ABSENT: motor sensory deficit Psychiatric exam: PRESENT: appropriate affect, normal mood. ABSENT: homicidal ideation, suicidal ideation Skin exam: PRESENT: dry, intact, warm. ABSENT: cyanosis, rash Results Laboratory Results: 07/03/20 15:50 07/03/20 06:30 07/03/20 07/03/20 07/03/20 06:30 06:30 15:50 WBC 18.3 H 18.5 H RBC 3.12 L 3.22 L Hgb 9.5 L 9.8 L Hct 28.7 L 29.7 L MCV 92 92 MCH 30.3 30.4 MCHC 32.9 33.0 RDW 16.5 H 16.4 H Plt Count 223 238 Sodium 132.1 L Potassium 4.7 Chloride 100 Carbon Dioxide 24 Anion Gap 8 BUN 29 H Creatinine 4.10 H Est GFR ( Amer) 17 L Glucose 117 H Calcium 8.4 06/30/20 06/30/20 06/30/20 07:07 12:54 19:17 Troponin I 0.017 0.044 0.058 06/30/20 07/02/20 21:47 15:45 Troponin I 0.058 0.020 Impressions: Chest X-Ray 06/30/20 07:04 IMPRESSION: No significant change when compared to the prior studies. There is a persistent stable small parenchymal opacity in the left perihilar region. Abdomen/Pelvis CT 07/02/20 00:00 IMPRESSION: 1. SIGMOID DIVERTICULITIS. ABNORMAL ILL-DEFINED COLLECTION OF GAS AND FLUID LOCATED POSTERIOR TO THE SIGMOID COLON, MEASURING 2.5 X 5.5 CM, SUSPICIOUS FOR DIVERTICULAR ABSCESS. SIMILAR SMALLER COLLECTIONS DESCRIBED ABOVE MAY REPRESENT ADDITIONAL SMALLER DIVERTICULAR ABSCESSES OR CONTAINED PERFORATION. 2. NO OTHER SIGNIFICANT FINDINGS IN THE ABDOMEN OR PELVIS. Assessment and Plan - Diagnosis (1) Diverticulitis of intestine with abscess and bleeding Qualifiers: Diverticulitis site: large intestine Qualified Code(s): K57.21 - Diverticulitis of large intestine with perforation and abscess with bleeding Is this a current diagnosis for this admission?: Yes Plan: CT abdomen/pelvis with oral contrast revealed sigmoid diverticulitis with an ill-defined collection of gas and fluid located posterior to the sigmoid colon measuring 2.5 x 5.5 cm suspicious for diverticular abscess. Similar smaller collections were also noted. Patient reports 3 additional episodes of bright red blood per rectum today. Cautiously resume Clear liquid diet. Continue IV Cipro and p.o. Flagyl. Discussed with Dr. Quijano; will continue p.o. mesalamine per his recommendations. Colonoscopy completed by Dr. Quijano less than 2 weeks ago showed clean-based ulc eration to his sigmoid colon. Discussed with Dr. Palumbo following CT results; advises to continue antibiotics. May need IR drainage and/or surgical intervention, however, due to his recent cardiac cath with stent placement and need for continued aspirin/Brilinta, he would need to be transferred to a tertiary care center. This was discussed with the patient and spouse; both are comfortable with remaining at [facility] for conservative treatment with antibiotics at this time. They understand that shou ld his condition worsen, he would require transfer to tertiary center. Continue Protonix. Continue to monitor CBC. (2) Acute lower GI hemorrhage Is this a current diagnosis for this admission?: Yes Plan: Secondary to #1 Patient's H/H currently stable; currently 9.5-> 9.8 Follow CBC Transfusion as needed for Hgb <8 or if precipitous drop w/ associated sx Management as above. (3) Anemia Qualifiers: Anemia type: iron deficiency Iron deficiency anemia type: chronic blood loss Qualified Code(s): D50.0 - Iron deficiency anemia secondary to blood loss (chronic) Is this a current diagnosis for this admission?: Yes Plan: Multifactorial (anemia of chronic disease/acute blood loss anemia 2/2 GIB) s/p 2 units PRBC Nephrology consulted. Follow CBC (4) ESRD (end stage renal disease) Is this a current diagnosis for this admission?: Yes Plan: HD M/W/F Nephrology consulted; dialysis per their expertise. Resumed prednisone yesterday (5) Hypomagnesemia Is this a current diagnosis for this admission?: Yes Plan: Replete. Periodic follow up mag levels. (6) Coronary artery disease Qualifiers: Coronary Disease-Associated Artery/Lesion type: [place] artery [place] vs. transplanted heart: [place] heart Associated angina: with stable angina Qualified Code(s): I25.118 - Atherosclerotic heart disease of [place] coronary artery with other forms of angina pectoris Is this a current diagnosis for this admission?: Yes Plan: Patient is s/p PCI/stent within 1 month at [facility] Patient does not have any chest pain Serial troponin are indeterminate, but stable and trending down. Cardiology consulted; appreciate Dr. Reyes's recommendations Continue ASA 81 mg p.o. daily Continue ticagrelor 90 mg p.o. every 12 hours Continue beta-taylor therapy with metoprolol. (7) Supraventricular tachycardia Is this a current diagnosis for this admission?: Yes Plan: Proximal atrial flutter noted; short period of RVR. Now stable without recurrence. Diltiazem drip is discontinued. Continues on home dose metoprolol. Cardiology consulted; consider outpatient catheter ablation. (8) BPH (benign prostatic hyperplasia) Is this a current diagnosis for this admission?: Yes Plan: Continue tamsulosin 0.4 mg p.o. daily at at bedtime - Time Time Spent with patient: 25-34 minutes Medications reviewed and adjusted accordingly: Yes Anticipated Discharge Disposition: Home, Self Care Anticipated Discharge Timeframe: > 72 hrs
[2020-07-03] MEDS: CIPROFLOXACIN 400 MG/D5W RTU 400 MG/200 ML RTUPB IV SCH (17:47)
[2020-07-03] MEDS: RINGERS SOLUTION,LACTATED 1,000 ML IV PRN (18:44)
[2020-07-03] MEDS: ASPIRIN 81 MG TABLET, ENT COATED PO SCH (21:19)
[2020-07-03] MEDS: TAMSULOSIN HCL 0.4 MG CAP.SR.24H PO SCH (21:19)
[2020-07-03] MEDS: ATORVASTATIN CALCIUM 20 MG TABLET PO SCH (21:19)
[2020-07-04] MEDS ORDERED: HEPARIN SOD (PORCINE) 1,000 UNIT/ML 10 ML VIAL IV PRN ×2 (05:00→07:51)
[2020-07-04] MEDS ORDERED: EPOETIN ALFA-EPBX 20,000 UNIT in SYRINGE, DISPOSABLE, 1 EACH IV PRN ×2 (05:00→07:51)
[2020-07-04] MEDS: TICAGRELOR 90 MG TABLET PO SCH ×2 (05:38→17:35)
[2020-07-04] MEDS: METOPROLOL TARTRATE 25 MG TABLET PO SCH ×2 (05:39→17:35)
[2020-07-04] MEDS: PANTOPRAZOLE SODIUM 40 MG VIAL IV SCH ×2 (05:39→17:35)
[2020-07-04] MEDS: METRONIDAZOLE 500 MG TABLET PO SCH ×3 (05:39→22:09)
[2020-07-04 05:55] LABS: HEMATOCRIT 26.8 % (37.9-51.0); HEMOGLOBIN 8.9 g/dL (13.5-17.0); MEAN CORPUSCULAR HEMOGLOBIN 30.3 pg (27.0-33.4); MEAN CORPUSCULAR HGB CONC 33.1 g/dL (32.0-36.0); MEAN CORPUSCULAR VOLUME 92 fl (80-97); PLATELET COUNT 224 10^3/uL (150-450); RED BLOOD COUNT 2.93 10^6/uL (4.35-5.55); RED CELL DISTRIBUTION WIDTH 16.3 % (11.5-14.0); WHITE BLOOD COUNT 15.6 10^3/uL (4.0-10.5)
[2020-07-04 06:11] LABS: ANION GAP 9 (5-19); BLOOD UREA NITROGEN 40 mg/dL (7-20); CALCIUM 8.2 mg/dL (8.4-10.2); CARBON DIOXIDE 22 mmol/L (22-30); CHLORIDE 102 mmol/L (98-107); GLUCOSE 98 mg/dL (75-110); POTASSIUM 4.1 mmol/L (3.6-5.0)
--- NOTE | 2020-07-04 11:17 | PDOC PROGRESS REPORT ---
Subjective Progress Note for:: 07/04/20 Reason For Visit: Patient seen on dialysis today. Undergoing dialysis without any issues. Vital signs are stable. 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 History of admission last month with GI bleed and colonoscopy showing rectal ulcer besides diverticulosis. During that admission he was also was found to have rapid A. fib possibly thought to be because of his PermCath being too low into his right atrium and was replaced. He was also on dual antiplatelet agents because of recent PTCA. Patient now admitted with rapid afib and lower GI bleed secondary to diverticulitis along with diverticular abscess being managed conservatively. Patient has been transfused and since then hemoglobin has held steady. Patient denies any severe abdominal pains or any history of any further lower GI bleeds. No complaints of any chest pain shortness of breath. Plan to remove 1-2 L of fluid as tolerated. Dialysis orders were reviewed with the treating dialysis nurse. Labs and medications were reviewed. Physical Exam Vital Signs: Temp Pulse Resp BP Pulse Ox 97.7 F 83 19 111/68 100 07/04/20 03:48 07/04/20 07:00 07/04/20 03:48 07/04/20 03:48 07/04/20 03:48 Intake & Output 07/03/20 07/04/20 07/05/20 06:59 06:59 06:59 Intake Total 700 1413 Output Total 1700 675 Balance -1000 738 Weight 80 kg 81.6 kg General appearance: PRESENT: no acute distress Respiratory exam: PRESENT: clear to auscultation taiwo. ABSENT: crackles Cardiovascular exam: PRESENT: +S1, +S2 GI/Abdominal exam: PRESENT: normal bowel sounds, soft. ABSENT: organomegaly, tenderness Extremities exam: ABSENT: pedal edema Neurological exam: PRESENT: alert, awake, oriented to person, oriented to place Psychiatric exam: PRESENT: appropriate affect Skin exam: ABSENT: erythema, mottled, rash Results Laboratory Results: 07/04/20 05:46 07/04/20 05:46 07/03/20 07/04/20 07/04/20 15:50 05:46 05:46 WBC 18.5 H 15.6 H RBC 3.22 L 2.93 L Hgb 9.8 L 8.9 L Hct 29.7 L 26.8 L MCV 92 92 MCH 30.4 30.3 MCHC 33.0 33.1 RDW 16.4 H 16.3 H Plt Count 238 224 Sodium 133.0 L Potassium 4.1 Chloride 102 Carbon Dioxide 22 Anion Gap 9 BUN 40 H Creatinine 5.23 H Est GFR ( Amer) 13 L Glucose 98 Calcium 8.2 L 06/30/20 06/30/20 06/30/20 07:07 12:54 19:17 Troponin I 0.017 0.044 0.058 06/30/20 07/02/20 21:47 15:45 Troponin I 0.058 0.020 Impressions: Chest X-Ray 06/30/20 07:04 IMPRESSION: No significant change when compared to the prior studies. There is a persistent stable small parenchymal opacity in the left perihilar region. Abdomen/Pelvis CT 07/02/20 00:00 IMPRESSION: 1. SIGMOID DIVERTICULITIS. ABNORMAL ILL-DEFINED COLLECTION OF GAS AND FLUID LOCATED POSTERIOR TO THE SIGMOID COLON, MEASURING 2.5 X 5.5 CM, SUSPICIOUS FOR DIVERTICULAR ABSCESS. SIMILAR SMALLER COLLECTIONS DESCRIBED ABOVE MAY REPRESENT ADDITIONAL SMALLER DIVERTICULAR ABSCESSES OR CONTAINED PERFORATION. 2. NO OTHER SIGNIFICANT FINDINGS IN THE ABDOMEN OR PELVIS. Assessment & Plan - Diagnosis (1) ESRD (end stage renal disease) on dialysis Is this a current diagnosis for this admission?: Yes Plan: Patient currently undergoing dialysis without any issues. Vital signs are sta ble. Dialysis being supervised. Plan to remove 1-2 L as tolerated. Dialysis orders were reviewed with the treating dialysis nurse. (2) Acute lower GI hemorrhage Is this a current diagnosis for this admission?: Yes Plan: In the background of rectal ulcer/acute diverticulitis with abscess. Being managed conservatively with antibiotics and responding. Patient also on mesalamine as per recommendations from GI. Hemoglobin stable post transfusions. Continue on erythropoietin on dialysis. (3) Atrial flutter Qualifiers: Atrial flutter type: typical Qualified Code(s): I48.3 - Typical atrial flutter Is this a current diagnosis for this admission?: Yes Plan: Converted and in sinus. Being maintained with diltiazem. (4) Diverticulitis of intestine with abscess and bleeding Qualifiers: Diverticulitis site: large intestine Qualified Code(s): K57.21 - Diverticulitis of large intestine with perforation and abscess with bleeding Is this a current diagnosis for this admission?: Yes Plan: Improving with antibiotics and conservative management. (5) Acute anemia Is this a current diagnosis for this admission?: Yes Plan: Status post transfusions and holding. Continue on erythropoietin in the meanwhile. (6) Colon ulcer Is this a current diagnosis for this admission?: Yes Plan: Patient on mesalamine/Flagyl as per recommendations from GI. Follow-up with GI post discharge. (7) Pauci-immune RPGN (rapidly progressive glomerulonephritis) Is this a current diagnosis for this admission?: Yes Plan: Patient currently on low-dose of steroids. Looks like is still making urine and therefore still deemed DAYNA and not ESRD and hopeful for meaningful renal recovery. Will be followed as an outpatient at [facility] post discharge. (8) BPH (benign prostatic hyperplasia) Is this a current diagnosis for this admission?: Yes Plan: Continue on current meds. Asymptomatic.
[2020-07-04] MEDS: MESALAMINE 400 MG CAPSULE.DR PO SCH ×2 (11:52→13:33)
[2020-07-04] MEDS: PREDNISONE 10 MG TABLET PO SCH (11:52)
[2020-07-04] MEDS: OXYCODONE-ACETAMINOPHEN 5-325 MG TABLET PO PRN (11:55)
--- NOTE | 2020-07-04 16:04 | PDOC PROGRESS REPORT ---
Subjective Progress Note for:: 07/04/20 Subjective:: Seen and examined in the hemodialysis suite. He is doing well. Reports no complaints. Had normal stool without blood or melena this morning. Reason For Visit: GIB,SVT Physical Exam Vital Signs: Temp Pulse Resp BP Pulse Ox 98.0 F 99 12 103/79 98 07/04/20 11:40 07/04/20 11:40 07/04/20 11:40 07/04/20 11:40 07/04/20 11:40 Intake & Output 07/03/20 07/04/20 07/05/20 06:59 06:59 06:59 Intake Total 700 1413 910 Output Total 1700 675 Balance -1000 738 910 Weight 80 kg 81.6 kg General appearance: PRESENT: no acute distress, cooperative, well-developed, well-nourished Head exam: PRESENT: atraumatic, normocephalic Eye exam: PRESENT: conjunctiva pink, EOMI Mouth exam: PRESENT: moist Respiratory exam: PRESENT: clear to auscultation taiwo, symmetrical, unlabored Cardiovascular exam: PRESENT: RRR, +S1, +S2 Pulses: PRESENT: normal radial pulses GI/Abdominal exam: PRESENT: soft Rectal exam: PRESENT: deferred Neurological exam: PRESENT: alert, awake, oriented to person, oriented to place, oriented to time, oriented to situation Psychiatric exam: PRESENT: appropriate affect Skin exam: PRESENT: dry, intact, normal color Results Laboratory Results: 07/04/20 05:46 07/04/20 05:46 07/03/20 07/04/20 07/04/20 15:50 05:46 05:46 WBC 18.5 H 15.6 H RBC 3.22 L 2.93 L Hgb 9.8 L 8.9 L Hct 29.7 L 26.8 L MCV 92 92 MCH 30.4 30.3 MCHC 33.0 33.1 RDW 16.4 H 16.3 H Plt Count 238 224 Sodium 133.0 L Potassium 4.1 Chloride 102 Carbon Dioxide 22 Anion Gap 9 BUN 40 H Creatinine 5.23 H Est GFR ( Amer) 13 L Glucose 98 Calcium 8.2 L 06/30/20 06/30/20 06/30/20 07:07 12:54 19:17 Troponin I 0.017 0.044 0.058 06/30/20 07/02/20 21:47 15:45 Troponin I 0.058 0.020 Impressions: Chest X-Ray 06/30/20 07:04 IMPRESSION: No significant change when compared to the prior studies. There is a persistent stable small parenchymal opacity in the left perihilar region. Abdomen/Pelvis CT 07/02/20 00:00 IMPRESSION: 1. SIGMOID DIVERTICULITIS. ABNORMAL ILL-DEFINED COLLECTION OF GAS AND FLUID LOCATED POSTERIOR TO THE SIGMOID COLON, MEASURING 2.5 X 5.5 CM, SUSPICIOUS FOR DIVERTICULAR ABSCESS. SIMILAR SMALLER COLLECTIONS DESCRIBED ABOVE MAY REPRESENT ADDITIONAL SMALLER DIVERTICULAR ABSCESSES OR CONTAINED PERFORATION. 2. NO OTHER SIGNIFICANT FINDINGS IN THE ABDOMEN OR PELVIS. Assessment & Plan - Diagnosis (1) ESRD (end stage renal disease) on dialysis Is this a current diagnosis for this admission?: Yes Plan: Plans to continue hemodialysis. (2) Elevated troponin Is this a current diagnosis for this admission?: Yes Plan: Poor clearance on account of kidney dysfunction Probably could be related to arrhythmia as well Unlikely to be due to acute coronary syndrome (3) Coronary artery disease Qualifiers: Coronary Disease-Associated Artery/Lesion type: [place] artery [place] vs. transplanted heart: [place] heart Associated angina: with stable angina Qualified Code(s): I25.118 - Atherosclerotic heart disease of [place] coronary artery with other forms of angina pectoris Is this a current diagnosis for this admission?: Yes Plan: Stable without any ischemic symptoms today. Continue aspirin 81 mg daily Continue to ticagrelor 90 mg p.o. twice daily Continue atorvastatin Continue metoprolol 12.5 mg twice daily Continue guideline directed medical therapy for coronary artery disease including dual antiplatelet therapy with his beta-blockers together with statin. Especially given bleeding from the GI tract we will need to watch hemoglobin (4) GI bleed Is this a current diagnosis for this admission?: Yes Plan: Diverticulitis with potential abscess formation No active bleeding at the moment Conservative management Given recent stents have to make every effort to continue dual antiplatelet therapy without interruption No imminent plans for surgery which helps (5) Atrial flutter Qualifiers: Atrial flutter type: typical Qualified Code(s): I48.3 - Typical atrial flutter Is this a current diagnosis for this admission?: Yes Plan: Paroxysmal atrial flutter Patient is stable without any recurrence of this arrhythmia. Can be considered for outpatient catheter ablation based on clinical course. At the moment it would be reasonable to suppress triggers for atrial flutter with low-dose metoprolol.
--- NOTE | 2020-07-04 17:18 | PDOC PROGRESS REPORT ---
Subjective Progress Note for:: 07/04/20 Subjective:: Patient seen on afternoon rounds with his present. He is found resting in bed, comfortably, on room air. He denies abdominal discomfort. 1 Soft bm this morning and 2 yesterday; no blood noted. He reports that he is feeling well. No new questions or concerns. He denies abdominal discomfort, nausea and vomiting. He further denies chest pain, palpitations, dyspnea, orthopnea. No concerns per nursing today. Reason For Visit: GIB,SVT Physical Exam Vital Signs: Temp Pulse Resp BP Pulse Ox 98.0 F 99 12 103/79 98 07/04/20 11:40 07/04/20 11:40 07/04/20 11:40 07/04/20 11:40 07/04/20 11:40 Intake & Output 07/03/20 07/04/20 07/05/20 06:59 06:59 06:59 Intake Total 700 1413 910 Output Total 1700 675 Balance -1000 738 910 Weight 80 kg 81.6 kg General appearance: PRESENT: no acute distress, cooperative, well-developed, well-nourished Head exam: PRESENT: atraumatic, normocephalic Eye exam: PRESENT: conjunctiva pink, EOMI, PERRLA. ABSENT: scleral icterus Mouth exam: PRESENT: moist, tongue midline Respiratory exam: PRESENT: clear to auscultation atiwo, symmetrical, unlabored. ABSENT: rales, rhonchi, wheezes Cardiovascular exam: PRESENT: RRR, +S1, +S2. ABSENT: diastolic murmur, rubs, systolic murmur Vascular exam: PRESENT: normal capillary refill GI/Abdominal exam: PRESENT: normal bowel sounds, soft. ABSENT: distended, guarding, mass, organolmegaly, rebound, tenderness Rectal exam: PRESENT: deferred Extremities exam: PRESENT: full ROM. ABSENT: calf tenderness, clubbing, pedal edema Neurological exam: PRESENT: alert, awake, oriented to person, oriented to place, oriented to time, oriented to situation, CN II-XII grossly intact. ABSENT: motor sensory deficit Psychiatric exam: PRESENT: appropriate affect, normal mood. ABSENT: homicidal ideation, suicidal ideation Skin exam: PRESENT: dry, intact, warm. ABSENT: cyanosis, rash Results Laboratory Results: 07/04/20 05:46 07/04/20 05:46 07/04/20 07/04/20 05:46 05:46 WBC 15.6 H RBC 2.93 L Hgb 8.9 L Hct 26.8 L MCV 92 MCH 30.3 MCHC 33.1 RDW 16.3 H Plt Count 224 Sodium 133.0 L Potassium 4.1 Chloride 102 Carbon Dioxide 22 Anion Gap 9 BUN 40 H Creatinine 5.23 H Est GFR ( Amer) 13 L Glucose 98 Calcium 8.2 L 06/30/20 06/30/20 06/30/20 07:07 12:54 19:17 Troponin I 0.017 0.044 0.058 06/30/20 07/02/20 21:47 15:45 Troponin I 0.058 0.020 Impressions: Chest X-Ray 06/30/20 07:04 IMPRESSION: No significant change when compared to the prior studies. There is a persistent stable small parenchymal opacity in the left perihilar region. Abdomen/Pelvis CT 07/02/20 00:00 IMPRESSION: 1. SIGMOID DIVERTICULITIS. ABNORMAL ILL-DEFINED COLLECTION OF GAS AND FLUID LOCATED POSTERIOR TO THE SIGMOID COLON, MEASURING 2.5 X 5.5 CM, SUSPICIOUS FOR DIVERTICULAR ABSCESS. SIMILAR SMALLER COLLECTIONS DESCRIBED ABOVE MAY REPRESENT ADDITIONAL SMALLER DIVERTICULAR ABSCESSES OR CONTAINED PERFORATION. 2. NO OTHER SIGNIFICANT FINDINGS IN THE ABDOMEN OR PELVIS. Assessment and Plan - Diagnosis (1) Diverticulitis of intestine with abscess and bleeding Qualifiers: Diverticulitis site: large intestine Qualified Code(s): K57.21 - Diverticulitis of large intestine with perforation and abscess with bleeding Is this a current diagnosis for this admission?: Yes Plan: Improved; WBC trending down, no further blood bowel movements, tolerating clear liquids. CT abdomen/pelvis with oral contrast revealed sigmoid diverticulitis with an ill-defined collection of gas and fluid located posterior to the sigmoid colon measuring 2.5 x 5.5 cm suspicious for diverticular abscess. Similar smaller collections were also noted. Patient reports 3 additional episodes of bright red blood per rectum today. Cautiously advance to liquid diet. Continue IV Cipro and p.o. Flagyl. Discontinue mesalamine; received 3 day course Discussed with Dr. Palumbo following CT results; advises to continue antibiotics. May need IR drainage and/or surgical intervention, however, due to his recent cardiac cath with stent placement and need for continued aspirin/Brilinta, he would need to be transferred to a tertiary care center. This was discussed with the patient and spouse; both are comfortable with remaining at [facility] for conservative treatment with antibiotics at this time. They understand that should his condition worsen, he would require transfer to tertiary center. Continue Protonix. Continue to monitor CBC. (2) Acute lower GI hemorrhage Is this a current diagnosis for this admission?: Yes Plan: Secondary to #1 Trending Hgb; 9.5-> 9.8-> 8.9 Follow CBC Transfusion as needed for Hgb <8 or if precipitous drop w/ associated sx Management as above. (3) Anemia Qualifiers: Anemia type: iron deficiency [place] deficiency anemia type: chronic blood loss Qualified Code(s): D50.0 - Iron deficiency anemia secondary to blood loss (chronic) Is this a current diagnosis for this admission?: Yes Plan: Multifactorial (anemia of chronic disease/acute blood loss anemia 2/2 GIB) s/p 2 units PRBC Nephrology consulted. Follow CBC (4) ESRD (end stage renal disease) Is this a current diagnosis for this admission?: Yes Plan: HD M/W/F Nephrology consulted; dialysis per their expertise. Resumed prednisone yesterday (5) Hypomagnesemia Is this a current diagnosis for this admission?: Yes Plan: Replete. Periodic follow up mag levels. (6) Coronary artery disease Qualifiers: Coronary Disease-Associated Artery/Lesion type: [place] artery [place] vs. [place] ansplanted heart: [place] heart Associated angina: with stable angina Qualified Code(s): I25.118 - Atherosclerotic heart disease of [place] coronary artery with other forms of angina pectoris Is this a current diagnosis for this admission?: Yes Plan: Patient is s/p PCI/stent within 1 month at [facility] Patient does not have any chest pain Serial troponin are indeterminate, but stable and trending down. Cardiology consulted; appreciate Dr. Reyes's recommendations Continue ASA 81 mg p.o. daily Continue ticagrelor 90 mg p.o. every 12 hours Continue beta-taylor therapy with metoprolol. (7) Supraventricular tachycardia Is this a current diagnosis for this admission?: Yes Plan: Proximal atrial flutter noted; short period of RVR. Now stable without recurrence. Diltiazem drip is discontinued. Continues on home dose metoprolol. Cardiology consulted; consider outpatient catheter ablation. (8) BPH (benign prostatic hyperplasia) Is this a current diagnosis for this admission?: Yes Plan: Continue tamsulosin 0.4 mg p.o. daily at at bedtime - Time Time Spent with patient: 25-34 minutes Medications reviewed and adjusted accordingly: Yes Anticipated Discharge Disposition: Home, Self Care Anticipated Discharge Timeframe: within 72 hours
[2020-07-04] MEDS ORDERED: CIPROFLOXACIN HCL 500 MG TABLET PO SCH (22:00)
[2020-07-04] MEDS ORDERED: CIPROFLOXACIN 400 MG/D5W RTU 400 MG/200 ML RTUPB IV SCH (22:00)
[2020-07-04] MEDS: ATORVASTATIN CALCIUM 20 MG TABLET PO SCH (22:08)
[2020-07-04] MEDS: TAMSULOSIN HCL 0.4 MG CAP.SR.24H PO SCH (22:09)
[2020-07-04] MEDS: ASPIRIN 81 MG TABLET, ENT COATED PO SCH (22:09)
[2020-07-05 01:28] LABS: ABSOLUTE LYMPHOCYTES (AUTO) 0.8 10^3/uL (0.5-4.7); ABSOLUTE MONOCYTES (AUTO) 0.6 10^3/uL (0.1-1.4); ABSOLUTE NEUT (AUTO) 12.3 10^3/uL (1.7-8.2); BASOPHILS % (AUTO) 0.3 % (0-2); EOSINOPHILS % (AUTO) 0.1 % (0-6); HEMATOCRIT 26.9 % (37.9-51.0); HEMOGLOBIN 8.7 g/dL (13.5-17.0); MEAN CORPUSCULAR HEMOGLOBIN 29.5 pg (27.0-33.4); MEAN CORPUSCULAR HGB CONC 32.3 g/dL (32.0-36.0); MEAN CORPUSCULAR VOLUME 91 fl (80-97); MONOCYTES % (AUTO) 4.2 % (3-13); PLATELET COUNT 244 10^3/uL (150-450); RED BLOOD COUNT 2.94 10^6/uL (4.35-5.55); RED CELL DISTRIBUTION WIDTH 16.5 % (11.5-14.0); SEGMENTED NEUTROPHILS % (AUTO) 89.4 % (42-78); TOTAL CELLS COUNTED % (AUTO) 100 %; WHITE BLOOD COUNT 13.7 10^3/uL (4.0-10.5)
[2020-07-05 07:08] LABS: HEMATOCRIT 24.9 % (37.9-51.0); HEMOGLOBIN 8.2 g/dL (13.5-17.0); MEAN CORPUSCULAR HGB CONC 32.9 g/dL (32.0-36.0); MEAN CORPUSCULAR VOLUME 91 fl (80-97); PLATELET COUNT 239 10^3/uL (150-450); RED BLOOD COUNT 2.74 10^6/uL (4.35-5.55); RED CELL DISTRIBUTION WIDTH 16.4 % (11.5-14.0); WHITE BLOOD COUNT 15.9 10^3/uL (4.0-10.5)
[2020-07-05] MEDS: PANTOPRAZOLE SODIUM 40 MG VIAL IV SCH ×2 (07:19→17:59)
[2020-07-05] MEDS: TICAGRELOR 90 MG TABLET PO SCH ×2 (07:20→17:59)
[2020-07-05] MEDS: METRONIDAZOLE 500 MG TABLET PO SCH (07:20)
[2020-07-05] MEDS: METOPROLOL TARTRATE 25 MG TABLET PO SCH ×2 (07:21→17:57)
[2020-07-05 07:38] LABS: HEPATITIS BE ANTIGEN Negative (Negative); HEPATITS B SURFACE ANTIGEN Negative (Negative)
--- NOTE | 2020-07-05 11:35 | RADIOLOGY REPORT (SQ) ---
EXAM DESCRIPTION: CT ABD/PELVIS ORAL ONLY IMAGES COMPLETED DATE/TIME: 07/05/2020 11:04 am REASON FOR STUDY: progression of diverticulitis/abscess COMPARISON: 07/02/2020 TECHNIQUE: CT scan of the abdomen and pelvis performed with oral contrast and no intravenous contras t. Images reviewed with lung, soft tissue, and bone windows. Reconstructed coronal and sagittal MPR i mages reviewed. All images stored on PACS. All CT scanners at this facility use dose modulation, iterative reconstruction, and/or weight based d osing when appropriate to reduce radiation dose to as low as reasonably achievable (ALARA). [facility]: Dose Right [facility]: CareDose [facility]: Dose Right [facility]: Teradose 4D [facility]: Smart Technologies RADIATION DOSE: CT Rad equipment meets quality standard of care and radiation dose reduction techniq ues were employed. CTDIvol: 8.3 mGy. DLP: 498 mGy-cm.mGy. LIMITATIONS: None. FINDINGS: LOWER CHEST: No significant findings. No nodules or infiltrates. NON-CONTRASTED LIVER, SPLEEN, ADRENALS: Evaluation limited by lack of IV contrast. No identified sign ificant masses. PANCREAS: No masses. No peripancreatic inflammatory changes. GALLBLADDER: No identified stones by CT criteria. No inflammatory changes to suggest cholecystitis. RIGHT KIDNEY AND URETER: No solid masses. No significant calcification. No hydronephrosis or hydroure ter. LEFT KIDNEY AND URETER: No solid masses. No significant calcification. No hydronephrosis or hydrouret er. AORTA AND RETROPERITONEUM: No aneurysm. No retroperitoneal masses or adenopathy. BOWEL AND PERITONEAL CAVITY: Persistent, albeit markedly improved inflammatory changes about the sigm oid colon with persistent appearance of ill-defined soft tissue attenuation/ gas collections adjacent to the colon. The dominant irregular collection does not appear to be is significantly changed, arian suring on the order of 5.5 x 3.5 x 2.9 cm. An adjacent irregular collection measuring on the order o f 2.6 x 1.4 x 1.6 cm is diminished in size in volume. Remaining rounded collections are not signific antly changed in the study interval. Diminished inflammatory changes. The bowel is otherwise unrema rkable/unchanged. APPENDIX: Surgically absent. PELVIS, BLADDER, AND ABDOMINAL WALL: No abnormal pelvic masses. No abdominal wall hernias. Bladder un remarkable. BONES: No significant findings. OTHER: No other significant finding. IMPRESSION: Overall improved appearance of multiple extraluminal gaseous collections in the pelvis i n the setting of diverticulitis. No evidence of adverse trend. TECHNICAL DOCUMENTATION: JOB ID: [id number] Quality ID # [id number]: Final reports with documentation of one or more dose reduction techniques (e.g., Au tomated exposure control, adjustment of the mA and/or kV according to patient size, use of iterative reconstruction technique) 2010 [email or web address]- All Rights Reserved Reading location - IP/workstation name: [email or web address]
[2020-07-05] MEDS ORDERED: NORMAL SALINE 1000 ML 1,000 ML IV ONE (11:39)
[2020-07-05] MEDS: PREDNISONE 10 MG TABLET PO SCH (12:05)
[2020-07-05 13:03] LABS: HEMATOCRIT 23.4 % (37.9-51.0); HEMOGLOBIN 7.8 g/dL (13.5-17.0); MEAN CORPUSCULAR HEMOGLOBIN 30.2 pg (27.0-33.4); MEAN CORPUSCULAR HGB CONC 33.2 g/dL (32.0-36.0); MEAN CORPUSCULAR VOLUME 91 fl (80-97); PLATELET COUNT 261 10^3/uL (150-450); RED BLOOD COUNT 2.57 10^6/uL (4.35-5.55); RED CELL DISTRIBUTION WIDTH 16.3 % (11.5-14.0)
[2020-07-05] MEDS ORDERED: NORMAL SALINE 250 ML IV PRN ×2 (13:12)
[2020-07-05] MEDS ORDERED: VANCOMYCIN HCL 0 MG in DEXTROSE 5%-WATER 250 ML IV NR (13:30)
--- NOTE | 2020-07-05 14:40 | PDOC TRANSFER SUMMARY ---
General Admission Date/PCP: 06/30/20 10:[facility] Admission Date: 06/30/20 Transfer Date: 07/05/20 Accepting Facility: [facility] Accepting Physician: Dr. Medley Resuscitation Status: Full Code - Transfer Diagnosis (1) Diverticulitis of intestine with abscess and bleeding Is this a current diagnosis for this admission?: Yes (2) Acute lower GI hemorrhage Is this a current diagnosis for this admission?: Yes (3) Anemia Is this a current diagnosis for this admission?: Yes (4) ESRD (end stage renal disease) Is this a current diagnosis for this admission?: Yes (5) Hypomagnesemia Is this a current diagnosis for this admission?: Yes (6) Coronary artery disease Is this a current diagnosis for this admission?: Yes (7) Supraventricular tachycardia Is this a current diagnosis for this admission?: Yes (8) BPH (benign prostatic hyperplasia) Is this a current diagnosis for this admission?: Yes - Transfer Medications Home Medications: RX: Omeprazole [Prilosec] 20 mg PO Q6AM 01/20/16 RX: Prednisone [Deltasone 20 mg Tablet] 20 mg PO DAILY 05/30/20 RX: Tamsulosin HCl [Flomax 0.4 mg Cap.sr] 0.4 mg PO QHS 05/30/20 RX: Aspirin [Adult Low Dose Aspirin EC] 81 mg PO QHS 06/17/20 RX: Ticagrelor [Brilinta 90 mg Tablet] 90 mg PO BID 06/17/20 Transfer Medications: Current Medications Acetaminophen (Tylenol 325 Mg Tablet) 650 mg PO Q4HP PRN PRN Reason: FOR HEADACHE OR PAIN Stop: 07/30/20 09:43 Aspirin (Ecotrin 81 Mg Ec Tablet) 81 mg PO QHS [facility] Stop: 08/01/20 21:59 Last Admin: 07/04/20 22:09 Dose: 81 mg Documented by: Atorvastatin Calcium (Lipitor 20 Mg Tablet) 20 mg PO QHS [facility] Stop: 07/30/20 21:59 Last Admin: 07/04/20 22:08 Dose: 20 mg Documented by: Dextrose (Dextrose Inj 50% Syringe (25 Gm/50 Ml)) 12.5 gm IV PRN PRN; Protocol PRN Reason: FOR BG 50-69 IN ALERT PATIENT Stop: 08/01/20 08:08 Dextrose (Dextrose Inj 50% Syringe (25 Gm/50 Ml)) 25 gm IV PRN PRN; Protocol PRN Reason: See Label Comments Stop: 08/01/20 08:08 Glucagon (Glucagen Inj 1 Mg Vial) 1 mg SUBCUT PRN PRN; Protocol PRN Reason: Evaluate for BG < 70 Stop: 08/01/20 08:08 Glucose (Glutose 40% Gel 15 Gm Tube) 15 gm PO PRN PRN; Protocol PRN Reason: For BG 50-69 in Alert Patient Stop: 08/01/20 08:08 Glucose (Glutose 40% Gel 15 Gm Tube) 30 gm PO PRN PRN; Protocol PRN Reason: FOR BG < 50 IN ALERT PATIENT Stop: 08/01/20 08:08 Lactated Ringer's (Lactated Ringers 1000 Ml Iv Soln) 1,000 mls @ 75 mls/hr IV CONTINUOUS PRN PRN Reason: THIS MED IS NOT "PRN" Stop: 08/02/20 17:12 Last Admin: 07/03/20 18:44 Dose: 75 mls/hr Documented by: Meropenem 500 mg/ Sodium (Chloride) 50 mls @ 100 mls/hr IV Q8 [facility] Stop: 07/12/20 13:59 Sodium Chloride (Nacl 0.9% 250 Ml Iv Soln) 250 mls @ 30 mls/hr IV .DURING TRANSFUSION PRN PRN Reason: THIS MED IS NOT "PRN" Stop: 07/06/20 13:11 Sodium Chloride (Nacl 0.9% 250 Ml Iv Soln) 250 mls @ 0 mls/hr IV CONTINUOUS PRN PRN Reason: AFTER EACH UNIT Stop: 07/06/20 13:11 Vancomycin HCl 1,500 mg/ (Dextrose) 250 mls @ 166.667 mls/hr IV NOW ONE Stop: 07/05/20 19:29 Metoprolol Tartrate (Lopressor 25 Mg Tablet) 12.5 mg PO Q12A BARBARA Stop: 08/01/20 18:29 Last Admin: 07/05/20 07:21 Dose: 12.5 mg Documented by: Oxycodone/Acetaminophen (Percocet 5-325 Mg Tablet) 1 tab PO Q4HP PRN PRN Reason: FOR PAIN Stop: 07/09/20 10:16 Last Admin: 07/04/20 11:55 Dose: 1 tab Documented by: Pantoprazole Sodium (Protonix Iv Inj 40 Mg Vial) 40 mg IV Q12A BARBARA Stop: 07/07/20 11:29 Last Admin: 07/05/20 07:19 Dose: 40 mg Documented by: Prednisone (Deltasone 10 Mg Tablet) 20 mg PO DAILY [facility] Stop: 08/01/20 09:59 Last Admin: 07/05/20 12:05 Dose: 20 mg Documented by: Tamsulosin HCl (Flomax 0.4 Mg Cap.Sr) 0.4 mg PO QHS [facility] Stop: 07/30/20 21:59 Last Admin: 07/04/20 22:09 Dose: 0.4 mg Documented by: Ticagrelor (Brilinta 90 Mg Tablet) 90 mg PO Q12A BARBARA Stop: 08/01/20 17:59 Last Admin: 07/05/20 07:20 Dose: 90 mg Documented by: - Allergies Allergies/Adverse Reactions: sulfamethoxazole [From Bactrim] Allergy (Intermediate, Verified 06/18/20 12:51) trimethoprim [From Bactrim] Allergy (Intermediate, Verified 06/18/20 12:51) amoxicillin [From Augmentin] Allergy (Verified 06/18/20 12:51) clavulanic acid [From Augmentin] Allergy (Verified 06/18/20 12:51) Hospital Course Hospital Course: Per H&P by Moises Conti: MARJAN SANTIZO is a 75 year old male with PMH significant for 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 Of note, the patient was discharged on 06/20/2020 after having been admitted for lower GIB. During that hospitalization the patient underwent endoscopy which revealed mild gastritis as well as a clear based colonic ulcer which was not actively bleeding. He was discharged with stable hemoglobin. During that hospitalization he was also found to have herpes zoster and was treated for 7 days with oral acyclovir. In the ED today when patient presented he was found to be in SVT with a heart rate in the 190s. He was initially volume resuscitated which did not improve his heart rate and he was given a dose of adenosine. According to the ED physician receiving the adenosine he was noted to have flutter waves on the EKG. He was placed on a diltiazem drip and subsequently converted to sinus rhythm. XR revealed no significant change from prior hospitalization CXR -stable small parenchymal opacity in the left perihilar region. The hospital service was consulted to admit the patient for further evaluation and treatment. Course: Patient is admitted to the medical floor on continuous cardiac telemetry. He had been admitted facility 2 weeks prior for lower GI bleed; colonoscopy at that time showed a shallow, clean-based, ulceration near the anastomosis site of a remote hemicolectomy (per patient due to large polyp). The patient was treated conservatively with n.p.o. status, p.o. mesalamine, IV fluids, and serial hemoglobins. He was provided 2 units PRBC on day of admission, for downward slope of hemoglobin to 6.9. Following his transfusion his hemoglobin stayed relatively stable for 48 hours and then again began to drift downward to 7.8 today. He is ordered an additional 2 units PRBC which will be transfused pending arrival of transport team to [facility]. The patient initially appeared to improve, however, 48 hours into his admission developed recurrence of bright red blood per rectum and so CT imaging was ob tained revealing diverticulitis with 5 x 3 x 2 cm abscess. He was discontinued and patient was placed on IV Cipro and p.o. metronidazole. I did discuss with the surgical service; due to the patient's recent cardiac stent and need to continue Brilinta, conservative management with antibiotics was recommended with close observation. Again, the patient appeared to improve, however, over night he developed bright red blood per rectum; increased in frequency and amount as compared to previously, associated with diaphoresis and generalized weakness. Was also noted that his WBCs began trending upward. Repeat CT imaging showed improvement in inflammatory changes of his colon, however, the abscess persisted; now measuring 5 x 3 x 3 cm. Antibiotics are escalated to meropenem and vancomycin for complicated, healthcare associated, diverticulitis. Start CBC showed hemoglobin of 7.8; decreased from 8.9 yesterday morning. Additional 2 units of blood have been ordered, as mentioned above, and are currently under preparation in the blood bank. Cardiology was consulted. Per review by Dr. Reyes, patient was recommended to continue his aspirin, Brilinta, atorvastatin, and metoprolol. Elevated troponins are attributed to his renal function. He did have an episode of paroxysmal atrial flutter; no further recurrence of this arrhythmia. 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 Currently receiving hemodialysis on a Tuesday schedule. Spoke with Dr. Medley at [facility] as this is where the patient had his cardiac catheter completed. She is agreed to accept the patient onto her service so that his cardiac status can be monitored closely while being evaluated by interventional radiology and/or surgery to address the abscess. Physical Exam Vital Signs: Temp Pulse Resp BP Pulse Ox 97.4 F 96 20 104/59 L 100 07/05/20 11:37 07/05/20 11:37 07/05/20 11:37 07/05/20 13:00 07/05/20 11:37 Intake & Output 07/04/20 07/05/20 07/06/20 06:59 06:59 06:59 Intake Total 1413 2468 1999 Output Total 675 0 Balance 738 2468 1999 Weight 81.6 kg 79.4 kg General appearance: PRESENT: no acute distress, cooperative, well-developed, well-nourished Head exam: PRESENT: atraumatic, normocephalic Eye exam: PRESENT: conjunctiva pink, EOMI, PERRLA. ABSENT: scleral icterus Mouth exam: PRESENT: moist, tongue midline Respiratory exam: PRESENT: clear to auscultation taiwo, symmetrical, unlabored. ABSENT: rales, rhonchi, wheezes Cardiovascular exam: PRESENT: RRR, +S1, +S2. ABSENT: diastolic murmur, rubs, systolic murmur Pulses: PRESENT: normal dorsalis pedis pul Vascular exam: PRESENT: normal capillary refill GI/Abdominal exam: PRESENT: normal bowel sounds, soft, tenderness - Left lower quadrant. ABSENT: distended, guarding, mass, organolmegaly, rebound Rectal exam: PRESENT: bloody stool - BRBPR Extremities exam: PRESENT: full ROM. ABSENT: calf tenderness, clubbing, pedal edema Neurological exam: PRESENT: alert, awake, oriented to person, oriented to place, oriented to time, oriented to situation, CN II-XII grossly intact. ABSENT: motor sensory deficit Psychiatric exam: PRESENT: appropriate affect, normal mood. ABSENT: homicidal ideation, suicidal ideation Skin exam: PRESENT: dry, warm, other - Late stage shingles rash to posterior left thigh. ABSENT: cyanosis, rash Results Laboratory Results: 07/05/20 12:40 07/04/20 05:46 07/05/20 07/05/20 07/05/20 01:20 06:56 06:56 WBC 13.7 H 15.9 H RBC 2.94 L 2.74 L Hgb 8.7 L 8.2 L Hct 26.9 L 24.9 L MCV 91 91 MCH 29.5 30.0 MCHC 32.3 32.9 RDW 16.5 H 16.4 H Plt Count 244 239 Seg Neutrophils % 89.4 H Magnesium 1.9 Blood Type Antibody Screen 07/05/20 07/05/20 12:40 12:40 WBC 16.0 H RBC 2.57 L Hgb 7.8 L Hct 23.4 L MCV 91 MCH 30.2 MCHC 33.2 RDW 16.3 H Plt Count 261 Seg Neutrophils % Magnesium Blood Type O POSITIVE Antibody Screen NEGATIVE 06/30/20 06/30/20 06/30/20 07:07 12:54 19:17 Troponin I 0.017 0.044 0.058 06/30/20 07/02/20 21:47 15:45 Troponin I 0.058 0.020 Impressions: Chest X-Ray 06/30/20 07:04 IMPRESSION: No significant change when compared to the prior studies. There is a persistent stable small parenchymal opacity in the left perihilar region. Abdomen/Pelvis CT 07/05/20 00:00 IMPRESSION: Overall improved appearance of multiple extraluminal gaseous collections in the pelvis in the setting of diverticulitis. No evidence of adverse trend. Plan Discharge Plan: Patient is transferred to [facility], under the care of Dr. Medley Time Spent: Greater than 30 Minutes
[2020-07-05] MEDS: MEROPENEM 500 MG in NORMAL SALINE 50 ML IV SCH ×2 (17:33→21:27)
[2020-07-05] MEDS: RINGERS SOLUTION,LACTATED 1,000 ML IV PRN (17:34)
[2020-07-05] MEDS ORDERED: VANCOMYCIN HCL 1,500 MG in DEXTROSE 5%-WATER 250 ML IV ONE (18:00)
[2020-07-05] MEDS: ATORVASTATIN CALCIUM 20 MG TABLET PO SCH (21:26)
[2020-07-05] MEDS: ASPIRIN 81 MG TABLET, ENT COATED PO SCH (21:26)
[2020-07-05] MEDS: TAMSULOSIN HCL 0.4 MG CAP.SR.24H PO SCH (21:26)
[2020-07-05] MEDS: OXYCODONE-ACETAMINOPHEN 5-325 MG TABLET PO PRN (22:13)
[2020-07-06 00:39] LABS: HEMATOCRIT 28.9 % (37.9-51.0); HEMOGLOBIN 9.6 g/dL (13.5-17.0); MEAN CORPUSCULAR HEMOGLOBIN 30.1 pg (27.0-33.4); MEAN CORPUSCULAR HGB CONC 33.4 g/dL (32.0-36.0); MEAN CORPUSCULAR VOLUME 90 fl (80-97); PLATELET COUNT 210 10^3/uL (150-450); RED BLOOD COUNT 3.21 10^6/uL (4.35-5.55); RED CELL DISTRIBUTION WIDTH 16.4 % (11.5-14.0); WHITE BLOOD COUNT 13.1 10^3/uL (4.0-10.5)
[2020-07-06 00:56] LABS: ABSOLUTE LYMPHOCYTES# (MANUAL) 0.4 10^3/uL (0.5-4.7); ABSOLUTE MONOCYTES # (MANUAL) 0.3 10^3/uL (0.1-1.4); ANISOCYTOSIS 1+; BASOPHILS % (MANUAL) 0 % (0-2); EOSINOPHILS % (MANUAL) 0 % (0-6); HYPERSEGMENTED NEUTROPHILS PRESENT; LYMPHOCYTES % (MANUAL) 3 % (13-45); MONOCYTES % (MANUAL) 2 % (3-13); PLATELET COMMENT ADEQUATE; SEGMENTED NEUTROPHILS % (MAN) 95 % (42-78); TOTAL CELLS COUNTED 100
[2020-07-06 00:57] LABS: OVALOCYTES SLIGHT; TEAR DROP CELLS SLIGHT
[2020-07-06 00:58] LABS: SCHISTOCYTES SLIGHT
[2020-07-06] MEDS: METOPROLOL TARTRATE 25 MG TABLET PO SCH (05:37)
[2020-07-06] MEDS: TICAGRELOR 90 MG TABLET PO SCH (05:37)
[2020-07-06] MEDS: MEROPENEM 500 MG in NORMAL SALINE 50 ML IV SCH (05:45)
[2020-07-06] MEDS: PANTOPRAZOLE SODIUM 40 MG VIAL IV SCH (05:46)
[2020-07-06] MEDS: RINGERS SOLUTION,LACTATED 1,000 ML IV PRN (05:47)
[2020-07-06 06:08] LABS: HEMATOCRIT 27.7 % (37.9-51.0); HEMOGLOBIN 9.2 g/dL (13.5-17.0); MEAN CORPUSCULAR HGB CONC 33.4 g/dL (32.0-36.0); MEAN CORPUSCULAR VOLUME 90 fl (80-97); PLATELET COUNT 220 10^3/uL (150-450); RED BLOOD COUNT 3.08 10^6/uL (4.35-5.55); RED CELL DISTRIBUTION WIDTH 16.1 % (11.5-14.0); WHITE BLOOD COUNT 13.7 10^3/uL (4.0-10.5)
[2020-07-06] MEDS: PREDNISONE 10 MG TABLET PO SCH (09:54)
[2020-07-06] MEDS: OXYCODONE-ACETAMINOPHEN 5-325 MG TABLET PO PRN (12:11)
[2020-07-06 13:20] VITALS: BP 113/69
[2020-07-06 15:46] LABS: HEPATITIS B CORE AB TOT Negative (Negative); HEPATITIS C VIRUS ANTIBODY 0.1 s/co ratio (0.0-0.9)
[2020-07-07] MEDS ORDERED: EPOETIN ALFA-EPBX 20,000 UNIT in SYRINGE, DISPOSABLE, 1 EACH IV PRN (05:00)
[2020-07-07] MEDS ORDERED: HEPARIN SOD (PORCINE) 1,000 UNIT/ML 10 ML VIAL IV PRN (05:00)
== END 2020-07-06 13:24 | disposition short-term general hospital (02) | DRG 377 ==
LOC: ER 06:43 → EH 10:07 → 5 18:01 → 3S 07-05 18:30
PROVIDERS: ADMIT Hospitalist; ATTEND Registered Nurse
PROC: 30233N1 Transfusion of Nonautologous Red Blood Cells into Peripheral Vein, Percutaneous Approach (ICD-10-PCS; principal; 2020-06-30)
PROC: 5A1D70Z Performance of Urinary Filtration, Intermittent, Less than 6 Hours Per Day (ICD-10-PCS; 2020-06-30)
DX: K57.21 Diverticulitis of large intestine with perforation and abscess with bleeding (principal); N18.6 End stage renal disease; N01.9 Rapidly progressive nephritic syndrome with unspecified morphologic changes; I47.1 Supraventricular tachycardia; I12.0 Hypertensive chronic kidney disease with stage 5 chronic kidney disease or end stage renal disease; I48.3 Typical atrial flutter; N17.9 Acute kidney failure, unspecified; K63.3 Ulcer of intestine; K29.01 Acute gastritis with bleeding; Z99.2 Dependence on renal dialysis; D50.0 Iron deficiency anemia secondary to blood loss (chronic); E83.42 Hypomagnesemia; N40.0 Benign prostatic hyperplasia without lower urinary tract symptoms; K21.9 Gastro-esophageal reflux disease without esophagitis; I25.118 Atherosclerotic heart disease of native coronary artery with other forms of angina pectoris; D63.1 Anemia in chronic kidney disease; I25.2 Old myocardial infarction; Z79.899 Other long term (current) drug therapy; Z88.1 Allergy status to other antibiotic agents; Z88.0 Allergy status to penicillin; Z88.2 Allergy status to sulfonamides; Z95.5 Presence of coronary angioplasty implant and graft; Z87.891 Personal history of nicotine dependence; Z82.49 Family history of ischemic heart disease and other diseases of the circulatory system; Z90.49 Acquired absence of other specified parts of digestive tract
CPT/HCPCS: 36415; 36430; 71045; 74176; 80048; 80053; 80074; 82962; 83735; 84484; 85025; 85027; 85610; 85730; 86704; 86850; 86900; 86901; 86920; 87040; 87340; 87350; 87517; 93005; 93010; 96374; 99291; C9113; G0257; J0153; J0744; J1644; J2185; J3370; J3475; J3490; J7030; J7060; J7120; J7512; P9016; Q5105

== ENCOUNTER 2020-08-04 10:51 | Observation (INO) | payer OTHER, MEDICARE ==
[2020-08-04 12:07] LABS: INTERNATIONAL RATION (INR) 0.99; PROTHROMBIN TIME 13.3 SEC (11.4-15.4)
[2020-08-04 12:11] LABS: HEMATOCRIT 24.3 % (37.9-51.0); HEMOGLOBIN 8.2 g/dL (13.5-17.0); MEAN CORPUSCULAR HEMOGLOBIN 29.1 pg (27.0-33.4); MEAN CORPUSCULAR HGB CONC 33.6 g/dL (32.0-36.0); MEAN CORPUSCULAR VOLUME 87 fl (80-97); RED CELL DISTRIBUTION WIDTH 18.6 % (11.5-14.0); WHITE BLOOD COUNT 17.8 10^3/uL (4.0-10.5)
[2020-08-04 12:18] LABS: ALBUMIN 2.9 g/dL (3.5-5.0); ALKALINE PHOSPHATASE 84 U/L (38-126); ANION GAP 8 (5-19); ASPARTATE AMINO TRANSFERASE 22 U/L (17-59); BILIRUBIN,DIRECT 0.5 mg/dL (0.0-0.4); BILIRUBIN,TOTAL 0.7 mg/dL (0.2-1.3); BLOOD UREA NITROGEN 18 mg/dL (7-20); CALCIUM 7.8 mg/dL (8.4-10.2); CARBON DIOXIDE 26 mmol/L (22-30); CHLORIDE 102 mmol/L (98-107); GLUCOSE 84 mg/dL (75-110); POTASSIUM 3.8 mmol/L (3.6-5.0)
[2020-08-04 12:53] LABS: ABSOLUTE LYMPHOCYTES# (MANUAL) 2.5 10^3/uL (0.5-4.7); ABSOLUTE MONOCYTES # (MANUAL) 0.7 10^3/uL (0.1-1.4); ANISOCYTOSIS 2+; BAND NEUTROPHILS % (MANUAL) 1 % (3-5); BASOPHILS % (MANUAL) 0 % (0-2); EOSINOPHILS % (MANUAL) 0 % (0-6); LYMPHOCYTES % (MANUAL) 11 % (13-45); MONOCYTES % (MANUAL) 4 % (3-13); NUCLEATED RED BLOOD CELLS 1 /100 WBC (0); SEGMENTED NEUTROPHILS % (MAN) 81 % (42-78); TOTAL CELLS COUNTED 100
[2020-08-04 12:54] LABS: OVALOCYTES 1+; PLATELET CLUMPS PRESENT; PLATELET COMMENT ADEQUATE; POIKILOCYTOSIS 1+; POLYCHROMASIA 1+; TEAR DROP CELLS 1+
[2020-08-04 12:55] LABS: PLATELET COUNT 382 10^3/uL (150-450)
--- NOTE | 2020-08-04 13:35 | RADIOLOGY REPORT (SQ) ---
EXAM DESCRIPTION: CT ABD/PELVIS NO ORAL OR IV IMAGES COMPLETED DATE/TIME: 08/04/2020 12:36 pm REASON FOR STUDY: hx tic w abscess, now bleeding COMPARISON: 07/05/2020 TECHNIQUE: CT scan of the abdomen and pelvis performed without intravenous or oral contrast. Images reviewed with lung, soft tissue, and bone windows. Reconstructed coronal and sagittal MPR images revi ewed. All images stored on PACS. All CT scanners at this facility use dose modulation, iterative reconstruction, and/or weight based d osing when appropriate to reduce radiation dose to as low as reasonably achievable (ALARA). [facility]: Dose Right [facility]: CareDose [facility]: Dose Right [facility]: Teradose 4D [facility]: [employer] RADIATION DOSE: CT Rad equipment meets quality standard of care and radiation dose reduction techniq ues were employed. CTDIvol: 7.0 mGy. DLP: 423 mGy-cm.mGy. LIMITATIONS: None. FINDINGS: LOWER CHEST: Multifocal areas irregular consolidation and ground-glass attenuation within the visualized lung bases, new compared to 07/05/20. NON-CONTRASTED LIVER, SPLEEN, ADRENALS: Evaluation limited by lack of IV contrast. No identified sign ificant masses. PANCREAS: No masses. No peripancreatic inflammatory changes. GALLBLADDER: No identified stones by CT criteria. No inflammatory changes to suggest cholecystitis. RIGHT KIDNEY AND URETER: Atrophic. No suspicious masses. Assessment limited by lack of IV contrast. No significant calcifications. No hydronephrosis or hydroureter. LEFT KIDNEY AND URETER: Atrophic. No suspicious masses. Assessment limited by lack of IV contrast. No significant calcifications. No hydronephrosis or hydroureter. AORTA AND RETROPERITONEUM: No aneurysm. No retroperitoneal masses or adenopathy. BOWEL AND PERITONEAL CAVITY: No evidence of intestinal obstruction. Multiple colonic diverticula abo ut the rectosigmoid colon. There is been improvement in previously seen inflammatory stranding victoria es about the sigmoid colon cage. Likely small chronic contained extraluminal collections (series 3, image 70), stable, largest area measures approximately 3.6 x 1.6 cm. Postsurgical changes from prior right hemicolectomy. APPENDIX: Absent. PELVIS, BLADDER, AND ABDOMINAL WALL:Unremarkable bladder. Prostatomegaly measuring 4.9 cm transverse ly. Sigmoid findings as above. No free fluid, drainable collection or adenopathy. BONES: No acute bony abnormality. No suspicious lytic or blastic osseous lesions. OTHER: No other significant finding. IMPRESSION: 1. Multifocal areas irregular consolidation and ground-glass attenuation within the visu alized lung bases, new compared to 07/05/20. Findings favored to be related to infectious/inflammat ory process with viral pneumonia (Covid-19) included in the differential. 2. Improved inflammatory change about the rectosigmoid colon. Small chronic contained extraluminal collections about the rectosigmoid junction, stable. 3. Additional incidental findings as above. Findings reported to Dr. Vergara at 1321 hours on 08/04/2020. COMMENT: Quality ID # [id number]: Final reports with documentation of one or more dose reduction techniques (e.g., Automated exposure control, adjustment of the mA and/or kV according to patient size, use of iterative reconstruction technique) TECHNICAL DOCUMENTATION: JOB ID: [id number] 2010 [employer]- All Rights Reserved Reading location - IP/workstation name: [email or web address]
--- NOTE | 2020-08-04 15:05 | PDOC CONSULTATION ---
Consultation Consult Date: 08/04/20 Provider Consulted: AGUS DAVALOS Consult reason:: Recurrent gastrointestinal bleed History of Present Illness Admission Date/PCP: [facility] History of Present Illness: MARJAN SANTIZO is a 75 year old male Presents emergency department via ground rescue complaining of several day history of dark tarry stools, and weakness. Patient has a history of recurrent GI bleed, requiring hospitalization 2 months ago and 1 month ago and also more hospital. In May he underwent upper and lower endoscopy which showed mild gastritis, and some sort of ulcer in the colon, however documentation in the operative note is obscure. Patient received blood transfusion at that time. Patient was readmitted to [facility] last month with identical symptoms, as well as abdominal findings consistent with beba-colonic abscess felt secondary to a diverticulitis. Patient was managed with a total of 6 blood transfusions over several day period, and intravenous antibiotics. He was eventually transferred to [facility] for higher level care secondary to patient being on 2 blood thinners following instillation of cardiac stents 2 and half months ago at [facility]. We do not have the records from that visit. The emergency department patient is remained hemodynamically stable, with no gross rectal bleeding. Patient is being admitted to medicine service with surgery, and neurology consulting. 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 Past Medical History Past Medical History: Autoimmune glomerulonephritis, diverticulitis, history of colon polyp Cardiac Medical History: Reports: Coronary Artery Disease, Myocardial Infarction, Hypertension Pulmonary Medical History: Reports: Sleep Apnea - cpap-to bring Neurological Medical History: Renal/ Medical History: Reports: End Stage Renal Disease Malignancy Medical History: GI Medical History: Reports: Gastroesophageal Reflux Disease - on meds Musculoskeltal Medical History: Reports: Arthritis - knees bilaterally Psychiatric Medical History: Denies: Depression Hematology: Reports: Anemia Past Surgical History Past Surgical History: Right hemicolectomy 2016, not cells per 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 Melara Past Surgical History: Reports: Cardiac Catheterization - 2 stents, Coronary Stent - x 05/2020, Orthopedic Surgery, Vascular Surgery - PermCath placement for dialysis, Other - Partial colectomy Social History Information Source: Patient, Emergency Med Personnel Smoking Status: Unknown if Ever Smoked Frequency of Alcohol Use: None Hx Recreational Drug Use: No Drugs: None Hx Prescription Drug Abuse: No Family History Family History: None, Hypertension Parental Family History Reviewed: No Children Family History Reviewed: No Sibling(s) Family History Reviewed.: No Medication/Allergy Home Medications: Omeprazole [Prilosec] 20 mg PO Q6AM 01/20/16 Prednisone [Deltasone 20 mg Tablet] 20 mg PO DAILY 05/30/20 Tamsulosin HCl [Flomax 0.4 mg Cap.sr] 0.4 mg PO QHS 05/30/20 Aspirin [Adult Low Dose Aspirin EC] 81 mg PO QHS 06/17/20 Ticagrelor [Brilinta 90 mg Tablet] 90 mg PO BID 06/17/20 Allergies/Adverse Reactions: sulfamethoxazole [From Bactrim] Allergy (Intermediate, Verified 06/18/20 12:51) trimethoprim [From Bactrim] Allergy (Intermediate, Verified 06/18/20 12:51) amoxicillin [From Augmentin] Allergy (Verified 06/18/20 12:51) clavulanic acid [From Augmentin] Allergy (Verified 06/18/20 12:51) Review of Systems Constitutional: PRESENT: as per HPI Gastrointestinal: PRESENT: as per HPI Genitourinary: PRESENT: other - Patient on dialysis; continue to make urine Musculoskeletal: PRESENT: as per HPI Physical Exam Vital Signs: Temp Pulse Resp BP Pulse Ox 98.3 F 128 H 13 115/79 100 08/04/20 11:18 08/04/20 11:18 08/04/20 12:20 08/04/20 12:20 08/04/20 12:20 Intake & Output 08/03/20 08/04/20 08/05/20 06:59 06:59 06:59 Weight 78.2 kg General appearance: PRESENT: no acute distress, other - Mildly confused Head exam: PRESENT: normocephalic Eye exam: PRESENT: other - Glasses are on Mouth exam: PRESENT: dry mucosa Neck exam: PRESENT: full ROM Respiratory exam: PRESENT: rales Cardiovascular exam: PRESENT: RRR Pulses: PRESENT: normal carotid pulses, normal femoral pulses, normal dorsalis pedis pul GI/Abdominal exam: PRESENT: other - Scars consistent with previous surgery; abdomen otherwise soft. No peritoneal signs no rigidity there is no significant pelvic tenderness. Rectal exam: PRESENT: deferred Musculoskeletal exam: PRESENT: full ROM Neurological exam: PRESENT: alert, awake Results Laboratory Results: 08/04/20 11:40 08/04/20 11:41 08/04/20 08/04/20 08/04/20 11:40 11:41 11:41 WBC 17.8 H RBC 2.80 L Hgb 8.2 L Hct 24.3 L MCV 87 MCH 29.1 MCHC 33.6 RDW 18.6 H Plt Count 382 Seg Neutrophils % Not Reportable Sodium 136.2 L Potassium 3.8 Chloride 102 Carbon Dioxide 26 Anion Gap 8 BUN 18 Creatinine 1.68 H Est GFR ( Amer) 49 L Glucose 84 Calcium 7.8 L Total Bilirubin 0.7 AST 22 Alkaline Phosphatase 84 Total Protein 6.0 L Albumin 2.9 L Blood Type O POSITIVE Antibody Screen NEGATIVE Impressions: Abdomen/Pelvis CT 08/04/20 12:18 IMPRESSION: 1. Multifocal areas irregular consolidation and ground-glass attenuation within the visualized lung bases, new compared to 07/05/20. Findings favored to be related to infectious/inflammatory process with viral pneumonia (Covid-19) included in the differential. 2. Improved inflammatory change about the rectosigmoid colon. Small chronic contained extraluminal collections about the rectosigmoid junction, stable. 3. Additional incidental findings as above. Findings reported to Dr. Vergara at 1321 hours on 08/04/2020. Assessment & Plan - Diagnosis (1) Acute lower GI hemorrhage Is this a current diagnosis for this admission?: Yes Plan: Impression: Subacute recurrent GI bleed likely from lower source, hemodynamically stable. Patient has received at least 8 units of packed red blood cells, possibly more at outlying institution, over the last several months. Sources of blood loss likely multiple; patient remains on 2 anticoagulants following coronary artery stent placement 2 and half months ago. No clinical evidence of intra-abdominal sepsis; CT scan shows diverticulosis, postoperative changes, and reduction in size of pericolonic pelvic abscess likely due to complicated sigmoid diverticulitis from several months ago Recommendations: 1. Agree with plans for admission, observation, consultation of cardiology, and nephrology. 2. No indication for surgical intervention at this time. I do not believe repeat upper and lower endoscopy is indicated at this time as these procedures were just performed months ago the findings described above. 3. Consider holding anticoagulation after discussion with cardiology. 4. We will follow with you. (2) Pulmonary nodules/lesions, multiple Is this a current diagnosis for this admission?: Yes (3) Chronic steroid use Is this a current diagnosis for this admission?: Yes (4) Colon ulcer Is this a current diagnosis for this admission?: Yes (5) Coronary artery disease Qualifiers: Coronary Disease-Associated Artery/Lesion type: [place] artery [place] vs. transplanted heart: [place] heart Associated angina: with stable angina Qualified Code(s): I25.118 - Atherosclerotic heart disease of [place] coronary artery with other forms of angina pectoris Is this a current diagnosis for this admission?: Yes (6) ESRD (end stage renal disease) on dialysis Is this a current diagnosis for this admission?: Yes - Time Time Spent: 30 to 50 Minutes Smoking Cessation Education: over 10 minutes Medications reviewed and adjusted accordingly: Yes Anticipated discharge: Home
--- NOTE | 2020-08-04 15:18 | ER Document Report ---
ED General - General Chief Complaint: Abnormal Lab Results Stated Complaint: DR WHITEHEAD - ABNORMAL LABS Time Seen by Provider: 08/04/20 12:09 [facility] Provider[facility] [[facility]] - Follow up as needed Mode of Arrival: Medic Information source: Patient TRAVEL OUTSIDE OF THE [place] IN LAST 30 DAYS: No - HPI Notes: Patient presents from dialysis with complaints of weakness and dark tarry stools x4 days. Patient states for the last 3 to 4 days he has had dark tarry stools. He has had some mild lower abdominal cramping. Nothing made it better or worse. No known radiation of this pain.. It is not been associated with any bloody vomitus or vomiting. He has had some mild nausea. Patient is a dialysis p atient he had dialysis this morning with an unremarkable run of dialysis. His blood pressure there was noticed to be borderline low so he was sent to the emergency department since he also complained of weakness and tarry stools. Patient does have a recent history of a GI bleed please refer to previous admission notes for further details. - Related Data Allergies/Adverse Reactions: sulfamethoxazole [From Bactrim] Allergy (Intermediate, Verified 06/18/20 12:51) trimethoprim [From Bactrim] Allergy (Intermediate, Verified 06/18/20 12:51) amoxicillin [From Augmentin] Allergy (Verified 06/18/20 12:51) clavulanic acid [From Augmentin] Allergy (Verified 06/18/20 12:51) Past Medical History - General Information source: Patient - Social History Smoking Status: Former Smoker Frequency of alcohol use: None Drug Abuse: None Family History: None, Hypertension Patient has homicidal ideation: No - Past Medical History Cardiac Medical History: Reports: Hx Coronary Artery Disease, Hx Heart Attack, Hx Hypertension Pulmonary Medical History: Reports: Hx Sleep Apnea - cpap-to bring Neurological Medical History: Renal/ Medical History: Reports: Hx Benign Prostatic Hyperplasia, Hx End Stage Renal Disease Malignancy Medical History: GI Medical History: Reports: Hx Gastroesophageal Reflux Disease - on meds. Denies: Hx Pancreatitis Musculoskeletal Medical History: Reports Hx Arthritis - knees bilaterally Psychiatric Medical History: Denies: Hx Depression Traumatic Medical History: Past Surgical History: Reports: Hx Bowel Surgery - colon, Hx Cardiac Catheterization - 2 stents, Hx Coronary Stent - x 05/2020, Hx Orthopedic Surgery, Hx Vascular Surgery - PermCath placement for dialysis, Other - Partial colectomy - Immunizations Hx Diphtheria, Pertussis, Tetanus Vaccination: No Hx Pneumococcal Vaccination: 10/21/15 Review of Systems - Review of Systems Constitutional: Malaise, Weakness. denies: Chills, Fever Cardiovascular: denies: Chest pain, Palpitations Respiratory: denies: Cough, Short of breath -: Yes All other systems reviewed and negative Physical Exam - Vital signs Vitals: Temp Pulse Resp BP Pulse Ox 98.3 F 128 H 27 H 97/64 L 93 08/04/20 11:18 08/04/20 11:18 08/04/20 11:18 08/04/20 11:18 08/04/20 11:18 Interpretation: Tachycardic - General General appearance: Appears well, Alert - HEENT Head: Normocephalic, Atraumatic Eyes: Normal Pupils: PERRL - Respiratory Respiratory status: No respiratory distress Chest status: Nontender Breath sounds: Normal Chest palpation: Normal - Cardiovascular Rhythm: Regular, Tachycardia Heart sounds: Normal auscultation Murmur: No - Abdominal Inspection: Normal Distension: No distension Bowel sounds: Normal Tenderness: Tender - Patient has very mild tenderness on exam no significant rebound or guarding. Organomegaly: No organomegaly - Back Back: Normal, Nontender - Extremities General upper extremity: Normal inspection, Nontender, Normal color, Normal ROM, Normal temperature General lower extremity: Normal inspection, Nontender, Normal color, Normal ROM, Normal temperature, Normal weight bearing. No: Nickolas's sign - Neurological Neuro grossly intact: Yes Cognition: Normal Orientation: AAOx4 Isabela Coma Scale Eye Opening: Spontaneous Gustavo Coma Scale Verbal: Oriented Gustavo Coma Scale Motor: Obeys Commands Isabela Coma Scale Total: 15 Speech: Normal Motor strength normal: LUE, RUE, LLE, RLE Sensory: Normal - Psychological Associated symptoms: Normal affect, Normal mood - Skin Skin Temperature: Warm Skin Moisture: Dry Skin Color: Normal Course - Re-evaluation Re-evalutation: 08/04/20 15:16 Patient presents with dark tarry stools weakness and some borderline low blood pressure. Here blood pressures approximately 1 10-1 15 systolic. He is been borderline tachycardic for me approximate 105-110. He is not appear toxic. He did have a normal dialysis session today. I have discussed the case with nephrology who will follow along during this hospital course. I have also discussed the case with hospitalist and with surgeon. There is no indications for surgery at this time. I currently have chosen not to begin immediate transfusion since the patient's hemoglobin is 8.2 and he does not appear toxic. CT scan showed no acute process in the abdomen and in contrast actually shows improving abdominal abscesses. It does show a questionable infectious process in the lower lungs however patient has no fever and no significant URI symptoms. He does have an elevated white blood cell count but he is chronically on steroids. Patient will be admitted for further observation and possible transfusion. Patient is on 2 different anticoagulants but we will require cardiology consultation for further advice on whether or not to discontinue these. - Vital Signs Vital signs: Temp Pulse Resp BP Pulse Ox 98.3 F 128 H 13 115/79 100 08/04/20 11:18 08/04/20 11:18 08/04/20 12:20 08/04/20 12:20 08/04/20 12:20 - Laboratory Result Diagrams: 08/04/20 11:40 08/04/20 11:41 Laboratory results interpreted by me: 08/04/20 08/04/20 11:40 11:41 WBC 17.8 H RBC 2.80 L Hgb 8.2 L Hct 24.3 L RDW 18.6 H Seg Neuts % (Manual) 81 H Band Neutrophils % 1 L Lymphocytes % (Manual) 11 L Abs Neuts (Manual) 14.6 H Sodium 136.2 L Creatinine 1.68 H Est GFR ( Amer) 49 L Est GFR (MDRD) Non-Af 40 L Calcium 7.8 L Direct Bilirubin 0.5 H Total Protein 6.0 L Albumin 2.9 L - Diagnostic Test Radiology reviewed: Image reviewed, Reports reviewed - EKG Interpretation by Me EKG shows normal: Sinus rhythm Rate: Tachycardia - 102 Rhythm: NSR, PVC's [place]/QRS: No: Right axis deviation, Left axis deviation Discharge - Discharge Clinical Impression: Lower GI bleed, ESRD (end stage renal disease) on dialysis, Chronic steroid use Anemia Qualifiers: Anemia type: iron deficiency Iron deficiency anemia type: chronic blood loss Qualified Code(s): D50.0 - Iron deficiency anemia secondary to blood loss (chronic) Condition: Serious Disposition: ADMITTED INPATIENT Admitting Provider: Carlos (Hospitalist) Unit Admitted: Telemetry Referrals: [facility] [Primary [facility]] - Follow up as needed
[2020-08-04] MEDS ORDERED: ACETAMINOPHEN 325 MG TABLET PO PRN (16:33)
[2020-08-04] MEDS ORDERED: MAG HYDROX/AL HYDROX/SIMETH SUSP 30 ML UDCUP PO PRN (16:33)
[2020-08-04] MEDS ORDERED: ONDANSETRON HCL INJ/PF 4 MG/2 ML SDV IV PRN (16:33)
[2020-08-04] MEDS ORDERED: NORMAL SALINE 250 ML IV PRN ×2 (16:40)
--- NOTE | 2020-08-04 17:48 | PDOC H&P ---
History of Present Illness Admission Date/PCP: 08/04/20 15:41 [facility] Patient complains of: dizziness, hypotension, melena History of Present Illness: MARJAN SANTIZO is a 75 year old male with hx of recent coronary stenting in May 2020 on DAPT, 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 Patient did complete 3 hours of dialysis this morning before being transferred over. Discussed with Dr. Dhillon who states that patient was noted to be hypotensive with systolic blood pressure in the 80s even at the beginning of dialysis. Patient also states that he has been having some bouts of melena during all bowel movements for the past 3 days. When stood up in the ER, his heart rate got elevated into the 130s. He denies any fevers or chills. Denies any cough or chest pain. Does admit to getting winded when he ambulates. Patient was reluctant to be admitted because he has his first appointment with Dr. Pittman tomorrow and has missed prior appointments due to being hospitalized. However he later agreed to be hospitalized. Past Medical History Cardiac Medical History: Reports: Coronary Artery Disease, Myocardial Infarction, Hypertension Pulmonary Medical History: Reports: Sleep Apnea - cpap-to bring Neurological Medical History: Renal/ Medical History: Reports: End Stage Renal Disease Malignancy Medical History: GI Medical History: Reports: Gastroesophageal Reflux Disease - on meds Musculoskeltal Medical History: Reports: Arthritis - knees bilaterally Psychiatric Medical History: Denies: Depression Hematology: Reports: Anemia Past Surgical History Past Surgical History: Reports: Cardiac Catheterization - 2 stents, Coronary Stent - x 05/2020, Orthopedic Surgery, Vascular Surgery - PermCath placement for dialysis, Other - Partial colectomy Social History Smoking Status: Former Smoker Frequency of Alcohol Use: None Hx Recreational Drug Use: No Drugs: None Hx Prescription Drug Abuse: No - Advance Directive Resuscitation Status: Full Code Family History Family History: None, Hypertension Parental Family History Reviewed: Yes Children Family History Reviewed: Unknown Sibling(s) Family History Reviewed.: Unknown Medication/Allergy Home Medications: Omeprazole [Prilosec] 20 mg PO Q6AM 01/20/16 Prednisone [Deltasone 20 mg Tablet] 20 mg PO DAILY 05/30/20 Tamsulosin HCl [Flomax 0.4 mg Cap.sr] 0.4 mg PO QHS 05/30/20 Aspirin [Adult Low Dose Aspirin EC] 81 mg PO QHS 06/17/20 Ticagrelor [Brilinta 90 mg Tablet] 90 mg PO BID 06/17/20 Allergies/Adverse Reactions: sulfamethoxazole [From Bactrim] Allergy (Intermediate, Verified 06/18/20 12:51) trimethoprim [From Bactrim] Allergy (Intermediate, Verified 06/18/20 12:51) amoxicillin [From Augmentin] Allergy (Verified 06/18/20 12:51) clavulanic acid [From Augmentin] Allergy (Verified 06/18/20 12:51) Review of Systems Constitutional: ABSENT: fever(s) Eyes: ABSENT: visual disturbances Nose, Mouth, and Throat: ABSENT: headache(s) Cardiovascular: PRESENT: dyspnea on exertion. ABSENT: chest pain Respiratory: ABSENT: cough, dyspnea Gastrointestinal: PRESENT: melena. ABSENT: abdominal pain, nausea, vomiting Genitourinary: ABSENT: hematuria Integumentary: ABSENT: diaphoresis Neurological: PRESENT: dizziness. ABSENT: confusion Endocrine: ABSENT: polyuria Hematologic/Lymphatic: PRESENT: easy bleeding Physical Exam Vital Signs: Temp Pulse Resp BP Pulse Ox 98.3 F 147 H 31 H 96/51 L 100 08/04/20 11:18 08/04/20 16:53 08/04/20 16:41 08/04/20 16:53 08/04/20 16:41 Intake & Output 08/03/20 08/04/20 08/05/20 06:59 06:59 06:59 Weight 78.2 kg General appearance: PRESENT: no acute distress, cooperative Head exam: PRESENT: normocephalic Mouth exam: ABSENT: neck supple Neck exam: ABSENT: JVD Respiratory exam: PRESENT: symmetrical, unlabored. ABSENT: accessory muscle use, retraction, tachypnea, wheezes Cardiovascular exam: PRESENT: RRR, +S1, +S2. ABSENT: tachycardia GI/Abdominal exam: PRESENT: soft. ABSENT: rebound, rigid, tenderness Neurological exam: PRESENT: alert, awake, oriented to person, oriented to place, oriented to time Psychiatric exam: ABSENT: agitated, anxious Focused psych exam: ABSENT: pressured speech Results Laboratory Results: 08/04/20 11:40 08/04/20 11:41 08/04/20 08/04/2020 11:40 11:41 11:41 WBC 17.8 H RBC 2.80 L Hgb 8.2 L Hct 24.3 L MCV 87 MCH 29.1 MCHC 33.6 RDW 18.6 H Plt Count 382 Seg Neutrophils % Not Reportable Sodium 136.2 L Potassium 3.8 Chloride 102 Carbon Dioxide 26 Anion Gap 8 BUN 18 Creatinine 1.68 H Est GFR ( Amer) 49 L Glucose 84 Calcium 7.8 L Total Bilirubin 0.7 AST 22 Alkaline Phosphatase 84 Total Protein 6.0 L Albumin 2.9 L Blood Type O POSITIVE Antibody Screen NEGATIVE Impressions: Abdomen/Pelvis CT 08/04/20 12:18 IMPRESSION: 1. Multifocal areas irregular consolidation and ground-glass attenuation within the visualized lung bases, new compared to 07/05/20. Findings favored to be related to infectious/inflammatory process with viral pneumonia (Covid-19) included in the differential. 2. Improved inflammatory change about the rectosigmoid colon. Small chronic contained extraluminal collections about the rectosigmoid junction, stable. 3. Additional incidental findings as above. Findings reported to Dr. Vergara at 1321 hours on 08/04/2020. Assessment and Plan - Diagnosis (1) GI bleed Is this a current diagnosis for this admission?: Yes Plan: This has become a recurrent problem for patient since starting dual antiplatelet therapy following his coronary stenting less than 2 months ago. EGD and colonoscopy 06/19/2020: Clean-based colonic sigmoid ulcer, internal hemorrhoids and mild gastritis. Treated for diverticulitis with abscess during most recent visit which provoked GI bleed at that time was subsequently transferred to [facility]. I have requested records from there but from my conversation with the nursing loan processing supervisor at [facility] as well as patient, it seems no procedure or IR intervention was done over there and patient was just treated with antibiotics, blood transfusion and discharged. Noted tachycardia. Monitor vital signs closely. (2) Hypotension Is this a current diagnosis for this admission?: Yes Plan: From my discussion with Dr. Dhillon, patient's hypotension was already present even at the beginning of dialysis with systolic in the 80s. Likely from GI bleed. In the ER, patient's initial blood pressure was in the 90s systolic. Has currently improved. Check orthostatics. Will receive blood transfusion. (3) Anemia, blood loss Is this a current diagnosis for this admission?: Yes Plan: Hemoglobin is 8.2 today. However this will likely drop following acute episodes of blood loss over the past 2 to 3 days We will go ahead and transfuse patient 1 unit of blood and reassess with repeat CBC. Goal hemoglobin of >8 given CAD (4) Coronary artery disease Qualifiers: Coronary Disease-Associated Artery/Lesion type: [place] artery [place] vs. transplanted heart: [place] heart Associated angina: with stable angina Qualified Code(s): I25.118 - Atherosclerotic heart disease of [place] coronary artery with other forms of angina pectoris Is this a current diagnosis for this admission?: Yes Plan: Patient had recent coronary stenting done in May 2020 On aspirin and Brilinta. I discussed with Dr. Von Reyes who states that given fresh stents, DAPT cannot be de-escalated at this time certainly not prior to 6 months brady. Of course, if DAPT is de-escalated prior to this, patient will run a very high risk of stent stenosis and a major cardiac event. (5) Diverticulitis of intestine with abscess and bleeding Qualifiers: Diverticulitis site: large intestine Qualified Code(s): K57.21 - Diverticulitis of large intestine with perforation and abscess with bleeding Is this a current diagnosis for this admission?: Yes Plan: Recent diagnosis on last admission one month ago. Was transferred to [facility] at the time. At that facility, no surgical intervention was done and patient managed conservatively with IV antibiotics and subsequent d/c with po abx. Was there from 07/06-07/10. Records requested. Abd/pelv CT on this admission shows significant improvement on the abscess. Surgery was consulted who states abscess has improved significantly and does not require any more antibiotics at this time. (6) ESRD (end stage renal disease) on dialysis Is this a current diagnosis for this admission?: Yes Plan: Nephrology consulted. Received 3 hours of dialysis outpatient today. (7) Leukocytosis Qualifiers: Leukocytosis type: unspecified Qualified Code(s): D72.829 - Elevated white blood cell count, unspecified Is this a current diagnosis for this admission?: Yes Plan: This is chronic for patient. Patient is on chronic steroids for his glomerulonephritis. No evidence of acute infection at this time. Will monitor. Abdominal CT findings from chest may simply just be interstitial markings from his ESRD. (8) Pauci-immune RPGN (rapidly progressive glomerulonephritis) Is this a current diagnosis for this admission?: Yes Plan: Continue prednisone - Time Time Spent with patient: 35 or more minutes Anticipated Discharge Disposition: Home, Self Care Anticipated Discharge Timeframe: within 36 hours
[2020-08-04] MEDS ORDERED: NORMAL SALINE 1000 ML 700 ML IV ONE ×2 (17:50→22:15)
[2020-08-04] MEDS: TAMSULOSIN HCL 0.4 MG CAP.SR.24H PO SCH (18:55)
[2020-08-04] MEDS: TICAGRELOR 90 MG TABLET PO SCH (19:01)
[2020-08-04 21:26] LABS: ABSOLUTE MONOCYTES (AUTO) 0.6 10^3/uL (0.1-1.4); ABSOLUTE NEUT (AUTO) 8.1 10^3/uL (1.7-8.2); BASOPHILS % (AUTO) 0.2 % (0-2); EOSINOPHILS % (AUTO) 0.3 % (0-6); HEMATOCRIT 25.2 % (37.9-51.0); HEMOGLOBIN 8.6 g/dL (13.5-17.0); LYMPHOCYTES % (AUTO) 10.3 % (13-45); MEAN CORPUSCULAR HEMOGLOBIN 29.8 pg (27.0-33.4); MEAN CORPUSCULAR HGB CONC 34.1 g/dL (32.0-36.0); MEAN CORPUSCULAR VOLUME 88 fl (80-97); MONOCYTES % (AUTO) 5.7 % (3-13); PLATELET COUNT 263 10^3/uL (150-450); RED BLOOD COUNT 2.88 10^6/uL (4.35-5.55); RED CELL DISTRIBUTION WIDTH 17.4 % (11.5-14.0); SEGMENTED NEUTROPHILS % (AUTO) 83.5 % (42-78); TOTAL CELLS COUNTED % (AUTO) 100 %; WHITE BLOOD COUNT 9.7 10^3/uL (4.0-10.5)
--- NOTE | 2020-08-04 21:45 | EKG REPORT ---
SEVERITY:- ABNORMAL ECG - SINUS TACHYCARDIA VENTRICULAR BIGEMINY PROBABLE POSTERIOR INFARCT NONSPECIFIC T ABNORMALITIES, LATERAL LEADS : Confirmed by: Tavo Negron 04-Aug-2020 21:45:00
[2020-08-04] MEDS: METOPROLOL TARTRATE 25 MG TABLET PO SCH (22:30)
[2020-08-04] MEDS: ATORVASTATIN CALCIUM 40 MG TABLET PO SCH (22:31)
[2020-08-05] MEDS ORDERED: PANTOPRAZOLE SODIUM 20 MG TABLET.DR PO SCH (06:00)
[2020-08-05 06:41] LABS: HEMATOCRIT 25.6 % (37.9-51.0); HEMOGLOBIN 8.6 g/dL (13.5-17.0); MEAN CORPUSCULAR HEMOGLOBIN 29.5 pg (27.0-33.4); MEAN CORPUSCULAR HGB CONC 33.8 g/dL (32.0-36.0); MEAN CORPUSCULAR VOLUME 87 fl (80-97); PLATELET COUNT 244 10^3/uL (150-450); RED BLOOD COUNT 2.93 10^6/uL (4.35-5.55); RED CELL DISTRIBUTION WIDTH 17.8 % (11.5-14.0); WHITE BLOOD COUNT 8.9 10^3/uL (4.0-10.5)
--- NOTE | 2020-08-05 08:11 | PDOC PROGRESS REPORT ---
Subjective Progress Note for:: 08/05/20 Subjective:: feels ok no pain Reason For Visit: LOWER GI BLEED Physical Exam Vital Signs: Temp Pulse Resp BP Pulse Ox 98.1 F 73 17 117/80 93 08/05/20 00:00 08/05/20 02:00 08/05/20 00:00 08/05/20 00:00 08/05/20 00:00 Intake & Output 08/04/20 08/05/20 08/06/20 06:59 06:59 06:59 Intake Total 260 Output Total 600 Balance -340 Weight 78.2 kg General appearance: PRESENT: no acute distress Head exam: PRESENT: normocephalic Eye exam: PRESENT: EOMI Ear exam: PRESENT: normal external ear exam Mouth exam: PRESENT: moist Neck exam: PRESENT: full ROM Respiratory exam: PRESENT: clear to auscultation taiwo Cardiovascular exam: PRESENT: RRR Pulses: PRESENT: normal radial pulses, normal femoral pulses, normal dorsalis p taty pul Breast: PRESENT: Normal GI/Abdominal exam: PRESENT: soft Rectal exam: PRESENT: deferred Extremities exam: PRESENT: full ROM Musculoskeletal exam: PRESENT: full ROM Neurological exam: PRESENT: alert, awake, oriented to person, oriented to place Skin exam: PRESENT: dry Results Laboratory Results: 08/05/20 06:20 08/04/20 11:41 08/04/20 08/04/20 08/04/20 11:40 11:41 11:41 WBC 17.8 H RBC 2.80 L Hgb 8.2 L Hct 24.3 L MCV 87 MCH 29.1 MCHC 33.6 RDW 18.6 H Plt Count 382 Seg Neutrophils % Not Reportable Sodium 136.2 L Potassium 3.8 Chloride 102 Carbon Dioxide 26 Anion Gap 8 BUN 18 Creatinine 1.68 H Est GFR ( Amer) 49 L Glucose 84 Calcium 7.8 L Total Bilirubin 0.7 AST 22 Alkaline Phosphatase 84 Total Protein 6.0 L Albumin 2.9 L Blood Type O POSITIVE Antibody Screen NEGATIVE 08/04/20 08/04/20 08/05/20 20:56 20:56 06:20 WBC Cancelled 9.7 8.9 RBC Cancelled 2.88 L 2.93 L Hgb Cancelled 8.6 L 8.6 L Hct Cancelled 25.2 L 25.6 L MCV Cancelled 88 87 MCH Cancelled 29.8 29.5 MCHC Cancelled 34.1 33.8 RDW Cancelled 17.4 H 17.8 H Plt Count Cancelled 263 244 Seg Neutrophils % 83.5 H Sodium Potassium Chloride Carbon Dioxide Anion Gap BUN Creatinine Est GFR ( Amer) Glucose Calcium Total Bilirubin AST Alkaline Phosphatase Total Protein Albumin Blood Type Antibody Screen Impressions: Abdomen/Pelvis CT 08/04/20 12:18 IMPRESSION: 1. Multifocal areas irregular consolidation and ground-glass attenuation within the visualized lung bases, new compared to 07/05/20. Findings favored to be related to infectious/inflammatory process with viral pneumonia (Covid-19) included in the differential. 2. Improved inflammatory change about the rectosigmoid colon. Small chronic contained extraluminal collections about the rectosigmoid junction, stable. 3. Additional incidental findings as above. Findings reported to Dr. Vergara at 1321 hours on 08/04/2020. Assessment & Plan - Time Anticipated Discharge Disposition: Home, Self Care Anticipated Discharge Timeframe: unk - Plan Summary Plan Summary: impression s/p lower gi bleed, multple times in last few months on ticagrelor for recent coronary stents recent diverticulitis with small abscess, resolving on recent ct multiple colo's never showed source of bleed sugery consulted for possible repeat scope recommendation no indication for repeat colo if bleed continues or recurres, would recommend either embolization via ir techniques or subtotal colectomy pt wants to avoid any surgery at this point please reconsult surgery if necessary.
[2020-08-05] MEDS ORDERED: PREDNISONE 20 MG TABLET PO SCH (10:00)
[2020-08-05] MEDS: METOPROLOL TARTRATE 25 MG TABLET PO SCH ×2 (11:01→22:02)
[2020-08-05] MEDS: ASPIRIN 81 MG TABLET, ENT COATED PO SCH (11:01)
[2020-08-05] MEDS: TICAGRELOR 90 MG TABLET PO SCH ×2 (11:01→18:06)
[2020-08-05 11:44] LABS: BLOOD UREA NITROGEN 23 mg/dL (7-20); CALCIUM 7.8 mg/dL (8.4-10.2); CARBON DIOXIDE 25 mmol/L (22-30); CHLORIDE 106 mmol/L (98-107); GLUCOSE 74 mg/dL (75-110)
[2020-08-05 11:46] LABS: ANION GAP 4 (5-19)
--- NOTE | 2020-08-05 14:03 | PDOC CONSULTATION ---
Consultation Consult Date: 08/05/20 Attending physician:: REYNA CUADRA Provider Consulted: EDIN GRACE Consult reason:: Coronary artery disease GI bleed History of Present Illness Admission Date/PCP: 08/04/20 15:41 [facility] Patient complains of: Fatigue and dyspnea History of Present Illness: MARJAN SANTIZO is a 75 year old male 1. Autoimmune glomerulonephritis 2. End-stage renal disease 3. Coronary artery disease 4. GERD 5. Lower GI bleed Patient was recently admitted to the hospital for GI bleeding and had received blood transfusions. He has coronary artery disease with most recent revascularization with PCI drug- eluting stent placed on May 2020. During the last admission he was managed conservatively. He was continued on hemodialysis. During dialysis he was hypotensive he was also noted to have some melena. Recent treatment for diverticulitis. This morning he appears to be tired and reports some dyspnea. He received 1 unit of blood transfusion without a significant increment in his hemoglobin and hematocrit. He no longer reports any melena. Review systems is positive for fatigue and dyspnea. Negative for chest pain. Full 11 review systems was asked. Pertinent positives noted here and in the HPI all other systems are negative No familial illnesses reported. Past Medical History Cardiac Medical History: Reports: Coronary Artery Disease, Myocardial Infarctio n, Hypertension Pulmonary Medical History: Reports: Sleep Apnea - cpap-to bring Neurological Medical History: Renal/ Medical History: Reports: End Stage Renal Disease Malignancy Medical History: GI Medical History: Reports: Gastroesophageal Reflux Disease - on meds Musculoskeltal Medical History: Reports: Arthritis - knees bilaterally Psychiatric Medical History: Denies: Depression Hematology: Reports: Anemia Past Surgical History Past Surgical History: Reports: Cardiac Catheterization - 2 stents, Coronary Stent - x 05/2020, Orthopedic Surgery, Vascular Surgery - PermCath placement for dialysis, Other - Partial colectomy Social History Smoking Status: Former Smoker Frequency of Alcohol Use: None Hx Recreational Drug Use: No Drugs: None Hx Prescription Drug Abuse: No - Advance Directive Resuscitation Status: Full Code Family History Family History: None, Hypertension Parental Family History Reviewed: Yes - No familial illnesses Children Family History Reviewed: NA Sibling(s) Family History Reviewed.: NA Medication/Allergy Home Medications: Omeprazole [Prilosec] 20 mg PO Q6AM 01/20/16 Prednisone [Deltasone 20 mg Tablet] 20 mg PO DAILY 05/30/20 Tamsulosin HCl [Flomax 0.4 mg Cap.sr] 0.4 mg PO QHS 05/30/20 Aspirin [Adult Low Dose Aspirin EC] 81 mg PO QHS 06/17/20 Ticagrelor [Brilinta 90 mg Tablet] 90 mg PO BID 06/17/20 Allergies/Adverse Reactions: sulfamethoxazole [From Bactrim] Allergy (Intermediate, Verified 06/18/20 12:51) trimethoprim [From Bactrim] Allergy (Intermediate, Verified 06/18/20 12:51) amoxicillin [From Augmentin] Allergy (Verified 06/18/20 12:51) clavulanic acid [From Augmentin] Allergy (Verified 06/18/20 12:51) Review of Systems Constitutional: PRESENT: as per HPI, fatigue Ears: ABSENT: as per HPI, hearing changes, other Cardiovascular: ABSENT: as per HPI, chest pain, dyspnea on exertion, edema, orthropnea, palpitations, other Respiratory: PRESENT: dyspnea Genitourinary: ABSENT: as per HPI, difficulty urinating, dysuria, hematuria, n octuria, other Neurological: ABSENT: as per HPI, abnormal gait, abnormal movements, abnormal speech, confusion, convulsions, dizziness, focal weakness, frequent falls, lack of coordination, memory loss, numbness, paresthesias, restless legs, syncope, tingling, tremor(s), vertigo, weakness, other Psychiatric: ABSENT: as per HPI, anxiety, depression, hallucinations, homidical ideation, suicidal ideation, other Hematologic/Lymphatic: ABSENT: as per HPI, easy bleeding, easy bruising, lymphadenopathy, other Physical Exam Vital Signs: Temp Pulse Resp BP Pulse Ox 98.4 F 89 17 120/76 95 08/05/20 12:00 08/05/20 12:00 08/05/20 12:00 08/05/20 12:08/05/20 12:00 Intake & Output 08/04/20 08/05/20 08/06/20 06:59 06:59 06:59 Intake Total 260 0 Output Total 600 600 Balance -340 -600 Weight 78.2 kg General appearance: PRESENT: cooperative, well-developed, well-nourished Head exam: PRESENT: atraumatic, normocephalic Eye exam: PRESENT: conjunctiva pale Respiratory exam: PRESENT: clear to auscultation taiwo, symmetrical, unlabored Cardiovascular exam: PRESENT: RRR, +S1, +S2 Pulses: PRESENT: normal radial pulses GI/Abdominal exam: PRESENT: soft Rectal exam: PRESENT: deferred Neurological exam: PRESENT: alert, awake, oriented to person, oriented to place, oriented to time Psychiatric exam: PRESENT: appropriate affect Skin exam: PRESENT: dry, intact Results Laboratory Results: 08/05/20 06:20 08/05/20 06:20 08/04/20 08/04/20 08/04/20 11:41 20:56 20:56 WBC Cancelled 9.7 RBC Cancelled 2.88 L Hgb Cancelled 8.6 L Hct Cancelled 25.2 L MCV Cancelled 88 MCH Cancelled 29.8 MCHC Cancelled 34.1 RDW Cancelled 17.4 H Plt Count Cancelled 263 Seg Neutrophils % 83.5 H Sodium Potassium Chloride Carbon Dioxide Anion Gap BUN Creatinine Est GFR ( Amer) Glucose Calcium Blood Type O POSITIVE Antibody Screen NEGATIVE 08/05/20 08/05/20 06:20 06:20 WBC 8.9 RBC 2.93 L Hgb 8.6 L Hct 25.6 L MCV 87 MCH 29.5 MCHC 33.8 RDW 17.8 H Plt Count 244 Seg Neutrophils % Sodium 135.1 L Potassium 4.0 Chloride 106 Carbon Dioxide 25 Anion Gap 4 L BUN 23 H Creatinine 2.85 H Est GFR ( Amer) 26 L Glucose 74 L Calcium 7.8 L Blood Type Antibody Screen EKG Comments: Twelve-lead EKG 08/04/2020. Independently reviewed by me. Sinus tachycardia-102 bpm with frequent PVCs. Nonspecific T wave abnormalities Transthoracic echocardiogram 05/30/2020 Left ventricular ejection fraction is preserved and is estimated at 55 to 60% Mild MAC without mitral stenosis Trace to mild MR and trace tricuspid regurgitation Hemoglobin hematocrit 07/06/2020 9.2/27.7 Hemoglobin hematocrit 08/04/2020 2056 8.6/25.2 08/05/2020-620 8.6/25.6 Impressions: Abdomen/Pelvis CT 08/04/20 12:18 IMPRESSION: 1. Multifocal areas irregular consolidation and ground-glass attenuation within the visualized lung bases, new compared to 07/05/20. Findings favored to be related to infectious/inflammatory process with viral pneumonia (Covid-19) included in the differential. 2. Improved inflammatory change about the rectosigmoid colon. Small chronic contained extraluminal collections about the rectosigmoid junction, stable. 3. Additional incidental findings as above. Findings reported to Dr. Vergara at 1321 hours on 08/04/2020. Assessment & Plan - Diagnosis (1) Anemia, blood loss Is this a current diagnosis for this admission?: Yes Plan: Anemia due to blood loss with chronic intermittent lower GI bleeding complicated by diverticulitis Would recommend conservative management with continued use of PRBC to maintain hemoglobin closer to 10 rather than 8. From at least the previous admission he was significantly improved when his he moglobin approached 10 with improvement in fatigue as well as chest pain and dyspnea. Particularly this time he is not complaining of chest pain. Given recent PCI I am reluctant to suggest discontinuing antiplatelet therapy. (2) Coronary artery disease Qualifiers: Coronary Disease-Associated Artery/Lesion type: [place] artery [place] vs. tr ansplanted heart: [place] heart Associated angina: with stable angina Qualified Code(s): I25.118 - Atherosclerotic heart disease of [place] coronary artery with other forms of angina pectoris Is this a current diagnosis for this admission?: Yes Plan: Continue guideline directed medical therapy for coronary artery disease PCI with recent stents. Continue dual anti-play therapy while watching hemoglobin and transfusing as needed. Continue atorvastatin 40 mg daily Continue aspirin 81 mg daily Continue ticagrelor 90 mg twice daily (3) Diverticulitis of intestine with abscess and bleeding Qualifiers: Diverticulitis site: large intestine Qualified Code(s): K57.21 - Diverticulitis of large intestine with perforation and abscess with bleeding Is this a current diagnosis for this admission?: Yes Plan: Therapy per primary team Supportive care Watch hemoglobin and hematocrit (4) ESRD (end stage renal disease) Is this a current diagnosis for this admission?: Yes Plan: Per renal team
--- NOTE | 2020-08-05 14:24 | RADIOLOGY REPORT (SQ) ---
EXAM DESCRIPTION: CHEST 2 VIEWS IMAGES COMPLETED DATE/TIME: 08/05/2020 1:10 pm REASON FOR STUDY: opacities on CXR COMPARISON: 06/30/2020 NUMBER OF VIEWS: Two view TECHNIQUE: Frontal and lateral radiographic images of the chest acquired. LIMITATIONS: None. FINDINGS: LUNGS AND PLEURA: Diffuse bilateral interstitial and alveolar opacities, right greater mehdi n left. Small amount of fluid in the minor fissure. MEDIASTINUM AND HILAR STRUCTURES: Stable heart size and mediastinal structures. HEART AND VASCULAR STRUCTURES: Stable appearance. SUPPORT DEVICES: Appropriate location without change. BONES: No acute findings. OTHER: No other significant finding. IMPRESSION: Bilateral pneumonia. TECHNICAL DOCUMENTATION: JOB ID: [id number] 2010 [employer]- All Rights Reserved Reading location - IP/workstation name: [email or web address]
[2020-08-05 15:12] LABS: HEMATOCRIT 26.7 % (37.9-51.0); HEMOGLOBIN 9.1 g/dL (13.5-17.0); MEAN CORPUSCULAR HEMOGLOBIN 29.7 pg (27.0-33.4); MEAN CORPUSCULAR HGB CONC 34.1 g/dL (32.0-36.0); MEAN CORPUSCULAR VOLUME 87 fl (80-97); PLATELET COUNT 254 10^3/uL (150-450); RED BLOOD COUNT 3.06 10^6/uL (4.35-5.55); RED CELL DISTRIBUTION WIDTH 17.4 % (11.5-14.0); WHITE BLOOD COUNT 10.3 10^3/uL (4.0-10.5)
[2020-08-05 15:55] LABS: ABSOLUTE LYMPHOCYTES# (MANUAL) 0.5 10^3/uL (0.5-4.7); ABSOLUTE MONOCYTES # (MANUAL) 0.5 10^3/uL (0.1-1.4); BAND NEUTROPHILS % (MANUAL) 2 % (3-5); BASOPHILS % (MANUAL) 0 % (0-2); EOSINOPHILS % (MANUAL) 0 % (0-6); LYMPHOCYTES % (MANUAL) 4 % (13-45); MONOCYTES % (MANUAL) 5 % (3-13); SEGMENTED NEUTROPHILS % (MAN) 88 % (42-78); TOTAL CELLS COUNTED 100
[2020-08-05 15:56] LABS: ANISOCYTOSIS 1+; OVALOCYTES SLIGHT; PLATELET COMMENT ADEQUATE; POIKILOCYTOSIS SLIGHT; SCHISTOCYTES SLIGHT; TEAR DROP CELLS SLIGHT
[2020-08-05] MEDS: TAMSULOSIN HCL 0.4 MG CAP.SR.24H PO SCH (18:06)
[2020-08-05] MEDS: ATORVASTATIN CALCIUM 40 MG TABLET PO SCH (22:02)
--- NOTE | 2020-08-05 22:04 | PDOC PROGRESS REPORT ---
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 Patient did complete 3 hours of dialysis this morning before being transferred over. Discussed with Dr. Dhillon who states that patient was noted to be hypotensive with systolic blood pressure in the 80s even at the beginning of dialysis. Patient also states that he has been having some bouts of melena during all bowel movements for the past 3 days. When stood up in the ER, his heart rate got elevated into the 130s. He denies any fevers or chills. Denies any cough or chest pain. Does admit to getting winded when he ambulates. Patient was reluctant to be admitted because he has his first appointment with Dr. Pittman tomorrow and has missed prior appointments due to being hospitalized. However he later agreed to be hospitalized. D2 hospital stay 08/05/20. He was seen and examined at bedside. He denies any abdominal pain, no chest pain, no shortness of breath, no fever, no cough. He had one episode of hematochezia in the afternoon minimal. He was also noted to still be orthostatic. CT abdomen findings of groundglass opacities was reviewed. Chest x-ray ordered which showed bilateral pneumonia. Although patient is not complaining of any cough or fever COVID test ordered. Since he was still orthostatic with one episode of hematochezia will keep him for 1 more day to monitor vital signs and hemoglobin tomorrow. If he is stable. Plan is to discharge him and we will call him with his COVID result. Hemoglobin stable at 9.1 Reason For Visit: LOWER GI BLEED Physical Exam Vital Signs: Temp Pulse Resp BP Pulse Ox 98.4 F 102 H 16 119/85 95 08/05/20 21:04 08/05/20 21:04 08/05/20 21:04 08/05/20 21:04 08/05/20 21:04 Intake & Output 08/04/20 08/05/20 08/06/20 06:59 06:59 06:59 Intake Total 260 120 Output Total 600 1100 Balance -340 -980 Weight 78.2 kg General appearance: PRESENT: no acute distress, cooperative Eye exam: PRESENT: EOMI, PERRLA Ear exam: PRESENT: normal external ear exam Mouth exam: PRESENT: neck supple Neck exam: PRESENT: full ROM Respiratory exam: PRESENT: clear to auscultation taiwo, symmetrical, unlabored. ABSENT: rales Cardiovascular exam: PRESENT: RRR, +S1, +S2 Pulses: PRESENT: +2 pedal pulses bilateral GI/Abdominal exam: PRESENT: normal bowel sounds, soft. ABSENT: rebound, tenderness Rectal exam: PRESENT: bloody stool Extremities exam: PRESENT: full ROM Musculoskeletal exam: PRESENT: full ROM Neurological exam: PRESENT: alert, awake, oriented to person, oriented to place, oriented to time Psychiatric exam: PRESENT: normal mood Skin exam: PRESENT: pallor Results Laboratory Results: 08/05/20 14:52 08/05/20 06:20 08/04/20 08/04/20 08/05/20 20:56 20:56 06:20 WBC Cancelled 9.7 8.9 RBC Cancelled 2.88 L 2.93 L Hgb Cancelled 8.6 L 8.6 L Hct Cancelled 25.2 L 25.6 L MCV Cancelled 88 87 MCH Cancelled 29.8 29.5 MCHC Cancelled 34.1 33.8 RDW Cancelled 17.4 H 17.8 H Plt Count Cancelled 263 244 Seg Neutrophils % 83.5 H Sodium Potassium Chloride Carbon Dioxide Anion Gap BUN Creatinine Est GFR ( Amer) Glucose Calcium 08/05/20 08/05/20 06:20 14:52 WBC 10.3 RBC 3.06 L Hgb 9.1 L Hct 26.7 L MCV 87 MCH 29.7 MCHC 34.1 RDW 17.4 H Plt Count 254 Seg Neutrophils % Not Reportable Sodium 135.1 L Potassium 4.0 Chloride 106 Carbon Dioxide 25 Anion Gap 4 L BUN 23 H Creatinine 2.85 H Est GFR ( Amer) 26 L Glucose 74 L Calcium 7.8 L Impressions: Abdomen/Pelvis CT 08/04/20 12:18 IMPRESSION: 1. Multifocal areas irregular consolidation and ground-glass attenuation within the visualized lung bases, new compared to 07/05/20. Findings favored to be related to infectious/inflammatory process with viral pneumonia (Covid-19) included in the differential. 2. Improved inflammatory change about the rectosigmoid colon. Small chronic contained extraluminal collections about the rectosigmoid junction, stable. 3. Additional incidental findings as above. Findings reported to Dr. Vergara at 1321 hours on 08/04/2020. Chest X-Ray 08/05/20 00:00 IMPRESSION: Bilateral pneumonia. Assessment and Plan - Diagnosis (1) GI bleed Is this a current diagnosis for this admission?: Yes Plan: - a recurrent problem for patient since starting dual antiplatelet therapy following his coronary stenting less than 2 months ago. - EGD and colonoscopy 06/19/2020: Clean-based colonic sigmoid ulcer, internal hemorrhoids and mild gastritis. Treated for diverticulitis with abscess during most recent visit which provoked GI bleed at that time was subsequently transferred to [facility]. I have requested records from there but from my conversation with the nursing city plant supervisor at [facility] as well as patient, it seems no procedure or IR intervention was done over there and patient was just treated with antibiotics, blood transfusion and discharged. - Hgb 8.2>9.1 - s/p 1 unit PRBC - on protonix -DAPT cannot be stopped due to recent stents 2 months ago - stable right now, no plans for emergent colonoscopy or EGD (2) Hypotension Is this a current diagnosis for this admission?: Yes Plan: From my discussion with Dr. Dhillon, patient's hypotension was already present even at the beginning of dialysis with systolic in the 80s. Likely from GI bleed. +ve orthostatics BP supine 143/79, standing 106/64 - will monitor for now. Per Dr. dhillon he was just under his dry weight when he was dialyzed yesterday and may have some room for IV fluids - will monitor for now (3) Anemia, blood loss Is this a current diagnosis for this admission?: Yes Plan: Hemoglobin is 8.2>9.1 s/p 1 unit PRBC Goal hemoglobin of >8 given CAD Anemia 2/2 GI bleed (4) Coronary artery disease Qualifiers: Coronary Disease-Associated Artery/Lesion type: [place] artery [place] vs. transplanted heart: [place] heart Associated angina: with stable angina Qualified Code(s): I25.118 - Atherosclerotic heart disease of [place] coronary artery with other forms of angina pectoris Is this a current diagnosis for this admission?: Yes Plan: Patient had recent coronary stenting done in May 2020 On aspirin and Brilinta. discussed with Dr. Von Reyes who states that given fresh stents, DAPT cannot be de-escalated at this time certainly not prior to 6 months brady. Of course, if DAPT is de-escalated prior to this, patient will run a very high risk of stent stenosis and a major cardiac event. - continue DAPT for now (5) Diverticulitis of intestine with abscess and bleeding Qualifiers: Diverticulitis site: large intestine Qualified Code(s): K57.21 - Diverticulitis of large intestine with perforation and abscess with bleeding Is this a current diagnosis for this admission?: Yes Plan: Recent diagnosis on last admission one month ago. Was transferred to [facility] at the time. At that facility, no surgical intervention was done and patient managed conservatively with IV antibiotics and subsequent d/c with po abx. Was there from 07/06-07/10. Records requested. Abd/pelv CT on this admission shows significant improvement on the abscess. Surgery was consulted who states abscess has improved significantly and does not require any more antibiotics at this time. (6) ESRD (end stage renal disease) Is this a current diagnosis for this admission?: Yes Plan: - nephro on board - crea 1.6 post dialysis - MWF dialysis - Dr. Ye Reyes to assess tomorrow if he needs dialysis again (7) Leukocytosis Qualifiers: Leukocytosis type: unspecified Qualified Code(s): D72.829 - Elevated white blood cell count, unspecified Is this a current diagnosis for this admission?: Yes Plan: This is chronic for patient. Patient is on chronic steroids for his glomerulonephritis. No evidence of acute infection at this time. CXR bilateral pneumonia however leukocytosis also can be from chronic steroid use awaiting COVID test (8) Pauci-immune RPGN (rapidly progressive glomerulonephritis) Is this a current diagnosis for this admission?: Yes Plan: Continue prednisone per Dr. Dhillon decrease prednisone to 10 mg daily - Time Time Spent with patient: 25-34 minutes Anticipated Discharge Disposition: Home, Self Care Anticipated Discharge Timeframe: within 48 hours
--- NOTE | 2020-08-05 23:56 | PDOC CONSULTATION ---
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 At [facility] he was found to be 2 kg below his dry weight and he systolic blood pressure initially around 80s just went to systolic blood pressure around 100s during dialysis treatment. In the emergency room when he presented after dialysis treatment his blood pressure was 97/69. Initial evaluation showed a hemoglobin of 8.2. He was then admitted was transfused 1 unit of packed RBC yesterday. When I spoke to the patient today he said he feels better. He still orthostatic but denied any symptoms including dizziness, chest pains no shortness of breath nor palpitations today. He is a still making urine and he passed about 600 mL of urine since admission until this morning. He said he drinks about 32 ounces of fluids daily and complies with that restriction. He describes his stool to be dark for the last couple days. Currently he denies any nausea, vomiting or abdominal pain. Patient has CT scan of the abdomen done yesterday which showed improved inflammatory change in the rectosigmoid area. It also showed multifocal areas of irregular consolidation and groundglass attenuation within the visualized lung bases was new compared to July 05, 2020. Per radiology findings favor/inflammatory process and possible viral pneumonia including COVID-19. A chest x-ray done today showed diffuse bilateral interstitial and alveolar opacities, right greater than the left. Interpretation was bilateral p neumonia. Due to this findings patient was tested for COVID-19 today. Patient said he had slight cough with clear phlegm for the last couple of days. He denies any fever and any exposure to anybody with COVID-19. He said the son was positive for COVID-19 but has no interaction with him. He otherwise appears to be doing well without any respiratory issues. Upon admission yesterday his postdialysis BUN was 18 with creatinine of 1.68. Today his repeat BUN was 23 and creatinine of 2.85 which is an improvement compared to his baseline creatinine 5 to 6 for the last 3 months at least. He still makes urine as a stated above. Past Medical History Cardiac Medical History: Reports: Coronary Artery Disease, Hypertension-primary, Myocardial Infarction Pulmonary Medical History: Reports: Sleep Apnea - cpap-to bring Neurological Medical History: Renal/ Medical History: Reports: Benign Prostatic Hyperplasia, End Stage Renal Disease, Nephritis - Diagnosed with pauci-immune nephritis in March 2020 on biopsy and began on HD Malignancy Medical History: GI Medical History: Reports: Gastroesophageal Reflux Disease - on meds Musculoskeltal Medical History: Reports: Arthritis - knees bilaterally Infectious History Note: History of shingles Hematology Medical History: Reports Anemia of Chronic Kidney Disease Past Surgical History Past Surgical History: Reports: Cardiac Catheterization - 2 stents, Coronary Stent - x 05/2020, Orthopedic Surgery, Renal Biopsy, Vascular Surgery - PermCath placement for dialysis, Other - Partial colectomy Social History Information Source: Patient, [facility] Records Lives with: Spouse/Significant other Smoking Status: Former Smoker Electronic Cigarette use?: No Frequency of Alcohol Use: None Hx Recreational Drug Use: No Drugs: None Hx Prescription Drug Abuse: No - Advance Directive Resuscitation Status: Full Code Family History Family History: Reviewed & Not Pertinent Parental Family History Reviewed: Yes Children Family History Reviewed: Yes Sibling(s) Family History Reviewed.: Yes Medication/Allergy Home Medications: Omeprazole [Prilosec] 20 mg PO Q6AM 01/20/16 Prednisone [Deltasone 20 mg Tablet] 20 mg PO DAILY 05/30/20 Tamsulosin HCl [Flomax 0.4 mg Cap.sr] 0.4 mg PO QHS 05/30/20 Aspirin [Adult Low Dose Aspirin EC] 81 mg PO QHS 06/17/20 Ticagrelor [Brilinta 90 mg Tablet] 90 mg PO BID 06/17/20 Allergies/Adverse Reactions: sulfamethoxazole [From Bactrim] Allergy (Intermediate, Verified 06/18/20 12:51) trimethoprim [From Bactrim] Allergy (Intermediate, Verified 06/18/20 12:51) amoxicillin [From Augmentin] Allergy (Verified 06/18/20 12:51) clavulanic acid [From Augmentin] Allergy (Verified 06/18/20 12:51) Review of Systems All systems: reviewed and no additional remarkable complaints except as stated Review of Systems: Constitutional: ABSENT: chills, fatigue, fever(s), headache(s), weight gain, weight loss; presented with weakness Eyes: ABSENT: visual disturbances Ears: ABSENT: hearing changes Cardiovascular: ABSENT: chest pain, dyspnea on exertion, edema, orthropnea, palpitations Respiratory: ABSENT: dyspnea, hemoptysis, admits dry cough Gastrointestinal: ABSENT: abdominal pain, constipation, diarrhea, hematemesis, nausea, vomiting; reports presenting melena or hematochezia Genitourinary: ABSENT: dysuria, hematuria Musculoskeletal: ABSENT: joint swelling Integumentary: ABSENT: rash, wounds Neurological: ABSENT: abnormal gait, abnormal speech, confusion, dizziness, foc al weakness, numbness, syncope Psychiatric: ABSENT: anxiety, depression Endocrine: ABSENT: cold intolerance, heat intolerance, polydipsia, polyuria Hematologic/Lymphatic: ABSENT: easy bleeding, easy bruising, lymphadenopathy Physical Exam Vital Signs: Temp Pulse Resp BP Pulse Ox 98.0 F 90 20 136/86 H 96 08/05/20 16:00 08/05/20 16:00 08/05/20 16:00 08/05/20 16:00 08/05/20 16:00 Intake & Output 08/04/20 08/05/20 08/06/20 06:59 06:59 06:59 Intake Total 260 0 Output Total 600 600 Balance -340 -600 Weight 78.2 kg Exam: General appearance: No acute distress, cooperative, well-developed, well- nourished Head exam: PRESENT: atraumatic, normocephalic Eye exam: PRESENT: Conjunctiva slightly pale, EOMI, PERRLA. ABSENT: conjunctival injection, scleral icterus Mouth exam: PRESENT: moist, neck supple, tongue midline Neck exam: PRESENT: full ROM. ABSENT: carotid bruit, JVD, lymphadenopathy, thyromegaly Respiratory exam: PRESENT: Decreased breath sounds to auscultation bilaterally. ABSENT: rales, rhonchi, stridor, wheezes Cardiovascular exam: PRESENT: RRR, +S1, +S2. ABSENT: systolic murmur Pulses: PRESENT: normal radial pulses, normal dorsalis pedis pulses GI/Abdominal exam: PRESENT: normal bowel sounds, soft. ABSENT: guarding, mass, tenderness Rectal exam: Deferred Extremities exam: PRESENT: full ROM. ABSENT: calf tenderness, pedal edema Musculoskeletal: PRESENT: full ROM. ABSENT: deformity Neurological exam: PRESENT: alert, Awake, Oriented to person, Oriented to place, Oriented to time, reflexes normal, CN II-XII grossly intact. ABSENT: motor sensory deficit Psychiatric exam: PRESENT: appropriate affect, normal mood. ABSENT: homicidal ideation, suicidal ideation Skin exam: PRESENT: intact, dry, warm. ABSENT: rash Results Laboratory Results: 08/05/20 14:52 08/05/20 06:20 08/04/20 08/04/20 08/04/20 11:41 20:56 20:56 WBC Cancelled 9.7 RBC Cancelled 2.88 L Hgb Cancelled 8.6 L Hct Cancelled 25.2 L MCV Cancelled 88 MCH Cancelled 29.8 MCHC Cancelled 34.1 RDW Cancelled 17.4 H Plt Count Cancelled 263 Seg Neutrophils % 83.5 H Sodium Potassium Chloride Carbon Dioxide Anion Gap BUN Creatinine Est GFR ( Amer) Glucose Calcium Blood Type O POSITIVE Antibody Screen NEGATIVE 08/05/20 08/05/20 08/05/20 06:20 06:20 14:52 WBC 8.9 10.3 RBC 2.93 L 3.06 L Hgb 8.6 L 9.1 L Hct 25.6 L 26.7 L MCV 87 87 MCH 29.5 29.7 MCHC 33.8 34.1 RDW 17.8 H 17.4 H Plt Count 244 254 Seg Neutrophils % Not Reportable Sodium 135.1 L Potassium 4.0 Chloride 106 Carbon Dioxide 25 Anion Gap 4 L BUN 23 H Creatinine 2.85 H Est GFR ( Amer) 26 L Glucose 74 L Calcium 7.8 L Blood Type Antibody Screen Impressions: Abdomen/Pelvis CT 08/04/20 12:18 IMPRESSION: 1. Multifocal areas irregular consolidation and ground-glass attenuation within the visualized lung bases, new compared to 07/05/20. Findings favored to be related to infectious/inflammatory process with viral pneumonia (Covid-19) included in the differential. 2. Improved inflammatory change about the rectosigmoid colon. Small chronic contained extraluminal collections about the rectosigmoid junction, stable. 3. Additional incidental findings as above. Findings reported to Dr. Vergara at 1321 hours on 08/04/2020. Chest X-Ray 08/05/20 00:00 IMPRESSION: Bilateral pneumonia. Assessment & Plan - Diagnosis (1) ESRD (end stage renal disease) Is this a current diagnosis for this admission?: Yes Plan: Patient has been dialysis dependent since March 2020 secondary to acute post immune glomerulonephritis.. His last dialysis was yesterday. Patient is still making urine. Patient's kidney function seems to have improved significantly compared to the last 3 months. Patient is nonuremic and electrolytes are within acceptable limits. Patient is to be reevaluated tomorrow to see if he needs dialysis just in case the patient is actually showing renal recovery from his acute glomerulonephritis. We may need to consider decreasing frequency of dialysis to twice a week if not completely take the patient off dialysis. I d iscussed this with patient today. Dr. Belcher will be in the hospital service tomorrow, I will asked him to also to reevaluate the patient to see if he needs dialysis well here in the hospital. (2) GI bleed Is this a current diagnosis for this admission?: Yes Plan: Patient is known to have diverticulosis and colonic ulcer which has caused multiple episodes of lower GI bleed while on dual antiplatelet therapy for having a cardiac stent. Patient was transfused 1 unit of packed RBC upon admission. Patient does not appear to be actively bleeding at this time. Unfortunately due to the newly placed cardiac stents, the anti-platelet therapies cannot be discontinued at this time. (3) Anemia, blood loss Is this a current diagnosis for this admission?: Yes Plan: Status post 1 unit packed RBC blood transfusion yesterday. Monitor hemoglobin for now. (4) Hypotension Is this a current diagnosis for this admission?: Yes Plan: Improved with the patient is still orthostatic. Clinically asymptomatic and improved from yesterday. (5) Pauci-immune RPGN (rapidly progressive glomerulonephritis) Is this a current diagnosis for this admission?: Yes Plan: Decrease prednisone to 10 mg daily. (6) Suspected COVID-19 virus infection Is this a current diagnosis for this admission?: Yes Plan: Due to abnormal imaging studies patient has been tested for COVID-19 and is currently still pending. (7) Coronary artery disease Qualifiers: Coronary Disease-Associated Artery/Lesion type: [place] artery [place] vs. transplanted heart: [place] heart Associated angina: with stable angina Qualified Code(s): I25.118 - Atherosclerotic heart disease of [place] coronary artery with other forms of angina pectoris Is this a current diagnosis for this admission?: Yes Plan: On dual antiplatelet therapy for 2 stents on LAD. - Notes Notes: Thank you very much for this consultation. Discussed the case with Dr. Moran.
[2020-08-06] MEDS ORDERED: PANTOPRAZOLE SODIUM 40 MG TABLET.DR PO SCH (06:00)
[2020-08-06 08:01] LABS: ABSOLUTE BASOPHILS # (AUTO) 0.1 10^3/uL (0.0-0.2); ABSOLUTE MONOCYTES (AUTO) 0.6 10^3/uL (0.1-1.4); ABSOLUTE NEUT (AUTO) 8.5 10^3/uL (1.7-8.2); BASOPHILS % (AUTO) 0.8 % (0-2); EOSINOPHILS % (AUTO) 0.4 % (0-6); HEMATOCRIT 25.1 % (37.9-51.0); HEMOGLOBIN 8.4 g/dL (13.5-17.0); LYMPHOCYTES % (AUTO) 9.5 % (13-45); MEAN CORPUSCULAR HEMOGLOBIN 29.5 pg (27.0-33.4); MEAN CORPUSCULAR HGB CONC 33.6 g/dL (32.0-36.0); MEAN CORPUSCULAR VOLUME 88 fl (80-97); MONOCYTES % (AUTO) 5.6 % (3-13); PLATELET COUNT 243 10^3/uL (150-450); RED BLOOD COUNT 2.86 10^6/uL (4.35-5.55); RED CELL DISTRIBUTION WIDTH 17.9 % (11.5-14.0); SEGMENTED NEUTROPHILS % (AUTO) 83.7 % (42-78); TOTAL CELLS COUNTED % (AUTO) 100 %; WHITE BLOOD COUNT 10.1 10^3/uL (4.0-10.5)
[2020-08-06 08:20] LABS: ALBUMIN 2.5 g/dL (3.5-5.0); ALKALINE PHOSPHATASE 72 U/L (38-126); ANION GAP 7 (5-19); ASPARTATE AMINO TRANSFERASE 20 U/L (17-59); BILIRUBIN,DIRECT 0.3 mg/dL (0.0-0.4); BILIRUBIN,TOTAL 0.5 mg/dL (0.2-1.3); BLOOD UREA NITROGEN 34 mg/dL (7-20); CALCIUM 8.2 mg/dL (8.4-10.2); CARBON DIOXIDE 23 mmol/L (22-30); CHLORIDE 107 mmol/L (98-107); GLUCOSE 84 mg/dL (75-110); POTASSIUM 4.1 mmol/L (3.6-5.0); TOTAL PROTEIN 5.2 g/dL (6.3-8.2)
[2020-08-06] MEDS: METOPROLOL TARTRATE 25 MG TABLET PO SCH (09:27)
[2020-08-06] MEDS: TICAGRELOR 90 MG TABLET PO SCH ×2 (09:27→17:57)
[2020-08-06] MEDS: ASPIRIN 81 MG TABLET, ENT COATED PO SCH (09:28)
[2020-08-06] MEDS ORDERED: PREDNISONE 10 MG TABLET PO SCH (10:00)
[2020-08-06] MEDS ORDERED: PREDNISONE 20 MG TABLET PO SCH (10:00)
[2020-08-06] MEDS ORDERED: NORMAL SALINE 250 ML IV PRN ×2 (11:13)
--- NOTE | 2020-08-06 11:37 | PDOC PROGRESS REPORT ---
Subjective Progress Note for:: 08/06/20 Subjective:: Patient was seen and examined. He has been moved to isolation precautions for suspicion of COVID-19 given abnormal chest x-ray He does not report any respiratory symptoms. He does not report any fever. He does report more melena. Reason For Visit: LOWER GI BLEED Physical Exam Vital Signs: Temp Pulse Resp BP Pulse Ox 97.9 F 83 15 119/71 94 08/06/20 07:45 08/06/20 07:45 08/06/20 07:45 08/06/20 07:45 08/06/20 07:45 Intake & Output 08/05/20 08/06/20 08/07/20 06:59 06:59 06:59 Intake Total 260 320 Output Total 600 1325 Balance -340 -1005 Weight 78.2 kg 79.9 kg General appearance: PRESENT: no acute distress, cooperative, well-developed, well-nourished Head exam: PRESENT: atraumatic, normocephalic Eye exam: PRESENT: conjunctiva pale Ear exam: PRESENT: normal external ear exam Mouth exam: PRESENT: moist Respiratory exam: PRESENT: crackles, decreased breath sounds, symmetrical, unlabored Cardiovascular exam: PRESENT: RRR, +S1, +S2 Pulses: PRESENT: normal radial pulses GI/Abdominal exam: PRESENT: soft Rectal exam: PRESENT: deferred Neurological exam: PRESENT: alert, awake, oriented to person, oriented to place, oriented to time, oriented to situation Psychiatric exam: PRESENT: appropriate affect Skin exam: PRESENT: dry, intact Results Laboratory Results: 08/06/20 07:38 08/06/20 07:38 08/05/20 08/05/20 08/06/20 06:20 14:52 07:38 WBC 10.3 10.1 RBC 3.06 L 2.86 L Hgb 9.1 L 8.4 L Hct 26.7 L 25.1 L MCV 87 88 MCH 29.7 29.5 MCHC 34.1 33.6 RDW 17.4 H 17.9 H Plt Count 254 243 Seg Neutrophils % Not Reportable 83.7 H Sodium 135.1 L Potassium 4.0 Chloride 106 Carbon Dioxide 25 Anion Gap 4 L BUN 23 H Creatinine 2.85 H Est GFR ( Amer) 26 L Glucose 74 L Calcium 7.8 L Total Bilirubin AST Alkaline Phosphatase Total Protein Albumin 08/06/20 07:38 WBC RBC Hgb Hct MCV MCH MCHC RDW Plt Count Seg Neutrophils % Sodium 136.7 L Potassium 4.1 Chloride 107 Carbon Dioxide 23 Anion Gap 7 BUN 34 H Creatinine 3.60 H Est GFR ( Amer) 20 L Glucose 84 Calcium 8.2 L Total Bilirubin 0.5 AST 20 Alkaline Phosphatase 72 Total Protein 5.2 L Albumin 2.5 L EKG Comments: Twelve-lead EKG 08/04/2020. Independently viewed by me. Sinus tachycardia 100 bpm, frequent PVCs, QTC 469 ms COVID-19 is pending Hemoglobin 8.4 (08/06/2020 Hemoglobin 9.1 (08/05/2020 Chest x-ray 08/05/2020 Bilateral pneumonia Impressions: Abdomen/Pelvis CT 08/04/20 12:18 IMPRESSION: 1. Multifocal areas irregular consolidation and ground-glass attenuation within the visualized lung bases, new compared to 07/05/20. Findings favored to be related to infectious/inflammatory process with viral pneumonia (Covid-19) included in the differential. 2. Improved inflammatory change about the rectosigmoid colon. Small chronic contained extraluminal collections about the rectosigmoid junction, stable. 3. Additional incidental findings as above. Findings reported to Dr. Vergara at 1321 hours on 08/04/2020. Chest X-Ray 08/05/20 00:00 IMPRESSION: Bilateral pneumonia. Assessment & Plan - Diagnosis (1) Anemia, blood loss Is this a current diagnosis for this admission?: Yes Plan: Anemia due to blood loss Patient continues to have melena He did not have an appropriate increment in his hemoglobin with blood transfusion and he is continuing to have melena. I suspect that he may require additional unit of blood transfusion (2) Coronary artery disease Qualifiers: Coronary Disease-Associated Artery/Lesion type: [place] artery [place] vs. transplanted heart: [place] heart Associated angina: with stable angina Qualified Code(s): I25.118 - Atherosclerotic heart disease of [place] coronary artery with other forms of angina pectoris Is this a current diagnosis for this admission?: Yes Plan: Coronary artery disease with recent drug-eluting stent placement. This is a difficult situation especially given ongoing anemia and blood loss Given increased chances of stent thrombosis we have to persevere with antiplatelet therapy while continuing the transfuse blood as needed to correct anemia (3) Diverticulitis of intestine with abscess and bleeding Qualifiers: Diverticulitis site: large intestine Qualified Code(s): K57.21 - Diverticulitis of large intestine with perforation and abscess with bleeding Is this a current diagnosis for this admission?: Yes Plan: Antibiotics Surgery is also following (4) ESRD (end stage renal disease) Is this a current diagnosis for this admission?: Yes Plan: Plans for dialysis. This is per renal. He looks euvolemic - Notes Notes: He has an abnormal chest x-ray with suggestion of bilateral pneumonia. Given frequent hospital stays lately he has been investigated for cough with pneumonia and is under isolation precautions. He does not appear to be toxic at the moment.
--- NOTE | 2020-08-06 13:13 | PDOC PROGRESS REPORT ---
Subjective Progress Note for:: 08/06/20 Reason For Visit: Patient seen today in the hospital. He generally feels better than when he came in. He denies any history of abdominal pains, orthostasis, chest pains or shortness of breath. Last dialysis was Tuesday. He has been admitted for lower GI bleed status post transfusions with persistently low hemoglobin /diverticulitis/bilateral pneumonia suggestive of likely call with pneumonia. He is still in the third floor isolation pendingCOVID results. Labs and medications were reviewed. He has made about 1+ litre urine output over the last 24 hours. Physical Exam Vital Signs: Temp Pulse Resp BP Pulse Ox 97.9 F 84 18 104/63 95 08/06/20 12:46 08/06/20 12:46 08/06/20 12:46 08/06/20 12:46 08/06/20 12:46 Intake & Output 08/05/20 08/06/20 08/07/20 06:59 06:59 06:59 Intake Total 260 320 0 Output Total 600 1325 Balance -340 -1005 0 Weight 78.2 kg 79.9 kg General appearance: PRESENT: no acute distress Respiratory exam: PRESENT: decreased breath sounds. ABSENT: crackles Cardiovascular exam: PRESENT: +S1, +S2 GI/Abdominal exam: PRESENT: normal bowel sounds, soft. ABSENT: organomegaly, tenderness Extremities exam: ABSENT: pedal edema Neurological exam: PRESENT: alert, awake, oriented to person, oriented to place Psychiatric exam: PRESENT: appropriate affect Results Laboratory Results: 08/06/20 07:38 08/06/20 07:38 08/04/20 08/05/20 08/06/20 11:41 14:52 07:38 WBC 10.3 10.1 RBC 3.06 L 2.86 L Hgb 9.1 L 8.4 L Hct 26.7 L 25.1 L MCV 87 88 MCH 29.7 29.5 MCHC 34.1 33.6 RDW 17.4 H 17.9 H Plt Count 254 243 Seg Neutrophils % Not Reportable 83.7 H Sodium Potassium Chloride Carbon Dioxide Anion Gap BUN Creatinine Est GFR ( Amer) Glucose Calcium Total Bilirubin AST Alkaline Phosphatase Total Protein Albumin Blood Type O POSITIVE Antibody Screen NEGATIVE 08/06/20 07:38 WBC RBC Hgb Hct MCV MCH MCHC RDW Plt Count Seg Neutrophils % Sodium 136.7 L Potassium 4.1 Chloride 107 Carbon Dioxide 23 Anion Gap 7 BUN 34 H Creatinine 3.60 H Est GFR ( Amer) 20 L Glucose 84 Calcium 8.2 L Total Bilirubin 0.5 AST 20 Alkaline Phosphatase 72 Total Protein 5.2 L Albumin 2.5 L Blood Type Antibody Screen Impressions: Abdomen/Pelvis CT 08/04/20 12:18 IMPRESSION: 1. Multifocal areas irregular consolidation and ground-glass attenuation within the visualized lung bases, new compared to 07/05/20. Findings favored to be related to infectious/inflammatory process with viral pneumonia (Covid-19) included in the differential. 2. Improved inflammatory change about the rectosigmoid colon. Small chronic contained extraluminal collections about the rectosigmoid junction, stable. 3. Additional incidental findings as above. Findings reported to Dr. Vergara at 1321 hours on 08/04/2020. Chest X-Ray 08/05/20 00:00 IMPRESSION: Bilateral pneumonia. Assessment & Plan - Diagnosis (1) Suspected COVID-19 virus infection Is this a current diagnosis for this admission?: Yes Plan: Currently in isolation based on his CT of the chest findings of bilateral pneumonia with interstitial findings. COVID serologies are still pending. (2) DAYNA (acute kidney injury) Plan: Patient has a background of pauci immune RPGN and initially was deemed DAYNA then converted to ESRD based on lack of any signs of renal recovery. However over the last few days patient seems to be making good urine output but his renal numbers are slowly creeping. I am going to withhold dialysis for today and then monitor him over the next 24 to 48 hours and plan for dialysis accordingly. Discussed this with the patient who understands. (3) Acute lower GI hemorrhage Is this a current diagnosis for this admission?: Yes Plan: Status post transfusions. Patient on anticoagulation post PTCA for recent CAD. Being managed by hospitalist/cardiology. (4) Anemia, blood loss Is this a current diagnosis for this admission?: Yes Plan: Status post transfusions. Hemodynamically stable. Monitor. (5) ESRD (end stage renal disease) on dialysis Is this a current diagnosis for this admission?: Yes Plan: As mentioned earlier. Withhold dialysis for today and monitor over the next 24- 48 hours. (6) NSTEMI (non-ST elevated myocardial infarction) Plan: Status post drug-eluting stent. Being managed by cardiology. Presently asymptomatic. (7) Pauci-immune RPGN (rapidly progressive glomerulonephritis) Is this a current diagnosis for this admission?: Yes Plan: Leading to DAYNA followed by ESRD. However patient seems to be making very renal recovery. Therefore withhold dialysis for now and monitor. Continue on medications including steroids.
[2020-08-06] MEDS: TAMSULOSIN HCL 0.4 MG CAP.SR.24H PO SCH (17:57)
[2020-08-06 18:33] LABS: ABSOLUTE LYMPHOCYTES (AUTO) 0.6 10^3/uL (0.5-4.7); ABSOLUTE MONOCYTES (AUTO) 0.3 10^3/uL (0.1-1.4); ABSOLUTE NEUT (AUTO) 10.4 10^3/uL (1.7-8.2); BASOPHILS % (AUTO) 0.2 % (0-2); EOSINOPHILS % (AUTO) 0.1 % (0-6); HEMATOCRIT 29.4 % (37.9-51.0); HEMOGLOBIN 9.7 g/dL (13.5-17.0); LYMPHOCYTES % (AUTO) 5.4 % (13-45); MEAN CORPUSCULAR HEMOGLOBIN 29.2 pg (27.0-33.4); MEAN CORPUSCULAR HGB CONC 32.9 g/dL (32.0-36.0); MEAN CORPUSCULAR VOLUME 89 fl (80-97); MONOCYTES % (AUTO) 2.9 % (3-13); PLATELET COUNT 265 10^3/uL (150-450); RED BLOOD COUNT 3.31 10^6/uL (4.35-5.55); RED CELL DISTRIBUTION WIDTH 17.1 % (11.5-14.0); SEGMENTED NEUTROPHILS % (AUTO) 91.4 % (42-78); TOTAL CELLS COUNTED % (AUTO) 100 %; WHITE BLOOD COUNT 11.4 10^3/uL (4.0-10.5)
[2020-08-06 19:36] VITALS: BP 114/78
--- NOTE | 2020-08-06 19:47 | PDOC DISCHARGE SUMMARY ---
Impression - Admit/DC Date/PCP Admission Date/Primary Care Provider: 08/04/20 15:41 [facility] Discharge Date: 08/06/20 - Discharge Diagnosis (1) GI bleed Is this a current diagnosis for this admission?: Yes (2) Hypotension Is this a current diagnosis for this admission?: Yes (3) Anemia, blood loss Is this a current diagnosis for this admission?: Yes (4) Coronary artery disease Is this a current diagnosis for this admission?: Yes (5) Diverticulitis of intestine with abscess and bleeding Is this a current diagnosis for this admission?: Yes (6) ESRD (end stage renal disease) Is this a current diagnosis for this admission?: Yes (7) Leukocytosis Is this a current diagnosis for this admission?: Yes (8) Pauci-immune RPGN (rapidly progressive glomerulonephritis) Is this a current diagnosis for this admission?: Yes - Additional Information Resuscitation Status: Full Code Discharge Diet: As Tolerated Discharge Activity: Activity As Tolerated Referrals: [facility] [[facility]] - Follow up as needed Prescriptions: Atorvastatin Calcium [Lipitor 40 mg Tablet] 40 mg PO QHS 60 Days #60 tablet Pantoprazole Sodium [Protonix [address] Tablet] 40 mg PO Q6AM 60 Days #60 tablet.dr Home Medications: Tamsulosin HCl [Flomax 0.4 mg Cap.sr] 0.4 mg PO QHS 05/30/20 Aspirin [Adult Low Dose Aspirin EC] 81 mg PO QHS 06/17/20 Ticagrelor [Brilinta 90 mg Tablet] 90 mg PO BID 06/17/20 Atorvastatin Calcium [Lipitor 40 mg Tablet] 40 mg PO QHS 60 Days #60 tablet 08/06/20 Metoprolol Tartrate [Lopressor 25 mg Tablet] 12.5 mg PO Q12 tablet 08/06/20 Pantoprazole Sodium [Protonix [address] Tablet] 40 mg PO Q6AM 60 Days #60 tablet.dr 08/06/20 Prednisone [Deltasone 10 mg Tablet] 10 mg PO DAILY tablet 08/06/20 History of Present Illiness History of Present Illness: MARJAN SANTIZO is a 75 year old male, with hx of recent coronary stenting in May 2020 on DAPT, 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 Patient did complete 3 hours of dialysis this morning before being transferred over. Discussed with Dr. Dhillon who states that patient was noted to be hypotensive with systolic blood pressure in the 80s even at the beginning of dialysis. Patient also states that he has been having some bouts of melena during all bowel movements for the past 3 days. When stood up in the ER, his heart rate got elevated into the 130s. He denies any fevers or chills. Denies any cough or chest pain. Does admit to getting winded when he ambulates. Patient was reluctant to be admitted because he has his first appointment with Dr. Pittman tomorrow and has m issed prior appointments due to being hospitalized. However he later agreed to be hospitalized Hospital Course Hospital Course: D2 hospital stay 08/05/20. He was seen and examined at bedside. He denies any abdominal pain, no chest pain, no shortness of breath, no fever, no cough. He had one episode of hematochezia in the afternoon minimal. He was also noted to still be orthostatic. CT abdomen findings of groundglass opacities was reviewed. Chest x-ray ordered which showed bilateral pneumonia. Although patient is not complaining of any cough or fever COVID test ordered. Since he was still orthostatic with one episode of hematochezia will keep him for 1 more day to monitor vital signs and hemoglobin tomorrow. If he is stable. Plan is to discharge him and we will call him with his COVID result. Hemoglobin stable at 9.1 D3 hospital stay 08/06/20. He was seen and examined at bedside. Denies any abdominal pain. Had 1 episode of bloody bowel movement minimal. No dizziness, no chest pain, no SOB. He is still orthostatic but asymptomatic. i suspect this is a chronic issue for him. He received at total of 3 u PRBC, latest hgb 9.7. No EGD or colonoscopy performed on this admission. Physical Exam Vital Signs: Temp Pulse Resp BP Pulse Ox 98.7 F 81 18 114/78 97 08/06/20 19:30 08/06/20 19:30 08/06/20 19:30 08/06/20 19:30 08/06/20 19:30 Intake & Output 08/05/20 08/06/20 08/07/20 06:59 06:59 06:59 Intake Total 260 320 300 Output Total 600 1325 Balance -340 -1005 300 Weight 78.2 kg 79.9 kg General appearance: PRESENT: no acute distress, cooperative Head exam: PRESENT: atraumatic, normocephalic Eye exam: PRESENT: EOMI, PERRLA Mouth exam: PRESENT: moist Neck exam: PRESENT: full ROM. ABSENT: JVD Respiratory exam: PRESENT: clear to auscultation taiwo, symmetrical, unlabored. ABSENT: tachypnea Cardiovascular exam: PRESENT: RRR, +S1, +S2 GI/Abdominal exam: PRESENT: normal bowel sounds, soft. ABSENT: rebound, tenderness Extremities exam: PRESENT: full ROM Musculoskeletal exam: PRESENT: full ROM Neurological exam: PRESENT: alert, awake, oriented to person, oriented to place, oriented to time, oriented to situation Psychiatric exam: PRESENT: normal mood Results Laboratory Results: WBC 11.4 10^3/uL (4.0-10.5) H 08/06/20 18:04 RBC 3.31 10^6/uL (4.35-5.55) L 08/06/20 18:04 Hgb 9.7 g/dL (13.5-17.0) L 08/06/20 18:04 Hct 29.4 % (37.9-51.0) L 08/06/20 18:04 MCV 89 fl (80-97) 08/06/20 18:04 MCH 29.2 pg (27.0-33.4) 08/06/20 18:04 MCHC 32.9 g/dL (32.0-36.0) 08/06/20 18:04 RDW 17.1 % (11.5-14.0) H 08/06/20 18:04 Plt Count 265 10^3/uL (150-450) 08/06/20 18:04 Lymph % (Auto) 5.4 % (13-45) L 08/06/20 18:04 [place] % (Auto) 2.9 % (3-13) L 08/06/20 18:04 Eos % (Auto) 0.1 % (0-6) 08/06/20 18:04 Baso % (Auto) 0.2 % (0-2) 08/06/20 18:04 Absolute Neuts (auto) 10.4 10^3/uL (1.7-8.2) H 08/06/20 18:04 Absolute Lymphs (auto) 0.6 10^3/uL (0.5-4.7) 08/06/20 18:04 Absolute Monos (auto) 0.3 10^3/uL (0.1-1.4) 08/06/20 18:04 Absolute Eos (auto) 0.0 10^3/uL (0.0-0.6) 08/06/20 18:04 Absolute Basos (auto) 0.0 10^3/uL (0.0-0.2) 08/06/20 18:04 Total Counted 100 08/05/20 14:52 Seg Neutrophils % 91.4 % (42-78) H 08/06/20 18:04 Seg Neuts % (Manual) 88 % (42-78) H 08/05/20 14:52 Band Neutrophils % 2 % (3-5) L 08/05/20 14:52 Lymphocytes % (Manual) 4 % (13-45) L 08/05/20 14:52 Atypical Lymphs % 1 % (0) 08/05/20 14:52 Monocytes % (Manual) 5 % (3-13) 08/05/20 14:52 Eosinophils % (Manual) 0 % (0-6) 08/05/20 14:52 Basophils % (Manual) 0 % (0-2) 08/05/20 14:52 Abs Neuts (Manual) 9.3 10^3/uL (1.7-8.2) H 08/05/20 14:52 Abs Lymphs (Manual) 0.5 10^3/uL (0.5-4.7) 08/05/20 14:52 Abs Monocytes (Manual) 0.5 10^3/uL (0.1-1.4) 08/05/20 14:52 Absolute Eos (Manual) 0.0 10^3/uL (0.0-0.6) 08/05/20 14:52 Abs Basophils (Manual) 0.0 10^3/uL (0.0-0.2) 08/05/20 14:52 Nucleated RBCs 1 /100 WBC (0) 08/04/20 11:40 Platelet Estimate Cancelled 08/04/20 20:56 Clumped Platelets PRESENT 08/04/20 11:40 Platelet Comment ADEQUATE 08/05/20 14:52 Polychromasia 1+ 08/04/20 11:40 Poikilocytosis SLIGHT 08/05/20 14:52 Anisocytosis 1+ 08/05/20 14:52 Tear Drop Cells SLIGHT 08/05/20 14:52 Ovalocytes SLIGHT 08/05/20 14:52 Schistocytes SLIGHT 08/05/20 14:52 PT 13.3 SEC (11.4-15.4) 08/04/20 11:41 INR 0.99 08/04/20 11:41 Sodium 136.7 mmol/L (137-145) L 08/06/20 07:38 Potassium 4.1 mmol/L (3.6-5.0) 08/06/20 07:38 Chloride 107 mmol/L (98-107) 08/06/20 07:38 Carbon Dioxide 23 mmol/L (22-30) 08/06/20 07:38 Anion Gap 7 (5-19) 08/06/20 07:38 BUN 34 mg/dL (7-20) H 08/06/20 07:38 Creatinine 3.60 mg/dL (0.52-1.25) H 08/06/20 07:38 Est GFR ( Amer) 20 (>60) L 08/06/20 07:38 Est GFR (MDRD) Non-Af 17 (>60) L 08/06/20 07:38 Glucose 84 mg/dL (75-110) 08/06/20 07:38 Calcium 8.2 mg/dL (8.4-10.2) L 08/06/20 07:38 Total Bilirubin 0.5 mg/dL (0.2-1.3) 08/06/20 07:38 Direct Bilirubin 0.3 mg/dL (0.0-0.4) 08/06/20 07:38 Neonat Total Bilirubin Not Reportable 08/06/20 07:38 Neonat Direct Bilirubin Not Reportable 08/06/20 07:38 Neonat Indirect Bili Not Reportable 08/06/20 07:38 AST 20 U/L (17-59) 08/06/20 07:38 ALT 14 U/L (<50) 08/06/20 07:38 Alkaline Phosphatase 72 U/L (38-126) 08/06/20 07:38 Total Protein 5.2 g/dL (6.3-8.2) L 08/06/20 07:38 Albumin 2.5 g/dL (3.5-5.0) L 08/06/20 07:38 Slides for Path Review Cancelled 08/04/20 20:56 Blood Type O POSITIVE 08/04/20 11:41 Blood Type Confirm O POSITIVE 08/04/20 11:41 Antibody Screen NEGATIVE 08/04/20 11:41 Crossmatch See Detail 08/04/20 11:41 Impressions: Abdomen/Pelvis CT 08/04/20 12:18 IMPRESSION: 1. Multifocal areas irregular consolidation and ground-glass attenuation within the visualized lung bases, new compared to 07/05/20. Findings favored to be related to infectious/inflammatory process with viral pneumonia (Covid-19) included in the differential. 2. Improved inflammatory change about the rectosigmoid colon. Small chronic contained extraluminal collections about the rectosigmoid junction, stable. 3. Additional incidental findings as above. Findings reported to Dr. Vergara at 1321 hours on 08/04/2020. Chest X-Ray 08/05/20 00:00 IMPRESSION: Bilateral pneumonia. Plan Plan of Treatment: - awaiting COVID test result. Advised to isolate himself and wear mask constantly. Will call him with the result when it comes tomorrow - follow up with PCP as soon as you can - plan for dialysis on tuesday Time Spent: Greater than 30 Minutes Stroke Is this a Stroke Patient?: No Acute Heart Failure Is this a Heart Failure Patient?: No
== END 2020-08-06 19:40 | disposition home or self-care (01) ==
LOC: ER 10:51 → INTOOBSV 15:41 → EH 15:41 → 4S 17:36 → 3N 08-05 20:55
PROVIDERS: ADMIT Internal Medicine; ATTEND Internal Medicine
DX: K57.21 Diverticulitis of large intestine with perforation and abscess with bleeding (principal); I95.9 Hypotension, unspecified; D50.0 Iron deficiency anemia secondary to blood loss (chronic); U07.1 COVID-19; J18.9 Pneumonia, unspecified organism; D72.829 Elevated white blood cell count, unspecified; I12.0 Hypertensive chronic kidney disease with stage 5 chronic kidney disease or end stage renal disease; N18.6 End stage renal disease; N17.9 Acute kidney failure, unspecified; G47.30 Sleep apnea, unspecified; N40.0 Benign prostatic hyperplasia without lower urinary tract symptoms; K21.9 Gastro-esophageal reflux disease without esophagitis; D63.1 Anemia in chronic kidney disease; K63.3 Ulcer of intestine; I25.118 Atherosclerotic heart disease of native coronary artery with other forms of angina pectoris; R91.8 Other nonspecific abnormal finding of lung field; R00.0 Tachycardia, unspecified; R41.0 Disorientation, unspecified; M17.0 Bilateral primary osteoarthritis of knee; I25.2 Old myocardial infarction; Z99.2 Dependence on renal dialysis; Z79.82 Long term (current) use of aspirin; Z79.52 Long term (current) use of systemic steroids; Z79.899 Other long term (current) drug therapy; Z95.5 Presence of coronary angioplasty implant and graft; Z87.891 Personal history of nicotine dependence; Z82.49 Family history of ischemic heart disease and other diseases of the circulatory system; Z90.49 Acquired absence of other specified parts of digestive tract; Z79.01 Long term (current) use of anticoagulants
CPT/HCPCS: 93005; 99285; 86900; 86901; 36415 ×3; 36430; 86850; 85025 ×2; 85027; 85610; 87635; 80048; 80053 ×2; 86920; 71046; 74176; 93010; G0378 ×4; P9016 ×2; J7512 ×2; J3490 ×7; J7030; C9803